=== PATIENT | female | born 1970 | race Caucasian/White ===

== ENCOUNTER → 2020-05-27 02:53 | Outpatient (CLI) | payer MEDICARE, MEDICAID, SELFPAY ==
[2020-05-27 20:35] LABS: SARS-CoV-2 RNA PCR Negative
== END ==
PROVIDERS: Visit Provider Otolaryngology
DX: Z01.812 Encounter for preprocedural laboratory examination (principal); Z20.822 Contact with and (suspected) exposure to COVID-19
CPT/HCPCS: C9803; U0003; U0005

== ENCOUNTER 2020-05-27 08:57 | Outpatient (CLI) | payer MEDICARE, MEDICAID, SELFPAY ==
[2020-05-27 09:25] LABS: Anion Gap 3 mmol/L (8-16); Blood Urea Nitrogen 7 mg/dL (7-17); Calcium 9.1 mg/dL (8.4-10.2); Carbon Dioxide 32 mmol/L (22-30); Chloride 106 mmol/L (98-107); Estimated Glomerular Filt Rate > 60; Glucose 84 mg/dL (65-105); Potassium 3.3 mmol/L (3.4-5.0); Sodium 141 mmol/L (137-145)
== END 2020-05-27 08:58 | disposition home or self-care (01) ==
PROVIDERS: PCP Family Medicine; Visit Provider Anesthesiology
DX: R35.8 Other polyuria (principal); Z01.818 Encounter for other preprocedural examination
CPT/HCPCS: 36415; 80048

== ENCOUNTER 2020-05-30 01:13 | Day surgery (SDC) | payer MEDICARE, MEDICAID, SELFPAY ==
--- NOTE | 2020-05-28 10:01 | PM.IMHP ---
H&P: HPI History of Present Illness Date/Time: 05/28/20 10:01 Chief Complaint: Vocal cord polyps Narrative: Cammie Matthews is a 49 year old female Who presents for planned surgical procedure. Reports no new symptoms, persistent hoarse voice, no changes in her medical history. Review of Systems Constitutional: Constitutional: Denies fatigue, Denies fever(s) and Denies lethargy Eyes: Eyes: Denies blurry vision and Denies change in vision ENT: Reports as per HPI Cardiovascular: Cardiovascular: Denies chest pain Respiratory: Respiratory: Denies cough Endocrine: Endocrine: Denies fatigue Hematologic/Lymphatic: Hematologic/Lymphatic: Denies easy bleeding, Denies easy bruising and Denies lymphadenopathy Allergic/Immunologic: Allergic/Immunologic: Denies seasonal rhinorrhea [facility] Social History Social History (Updated 02/27/20 @ 13:16 by Jayne Guerrero [facility]) Years smoked: 35 Smoking status: Former smoker Tobacco type: cigarettes Second hand tobacco smoke exposure: No Smoking end date: 04/04/20 Alcohol intake: current Substance use: current Substance use type: marijuana Last use: 05/26/20 Gender identity (if verbalized by the patient): Female Spiritual care concerns: No Meds Home Medications and Allergies Home Medications Medication Instructions Recorded Confirmed Type albuterol (refill) 90 90 mcg INHALATION 11/27/19 History mcg/actuation aerosol inhaler bupropion HCl 150 mg 24 hr tablet, 150 mg PO QAM 11/27/19 05/26/20 History extended release buspirone 15 mg tablet 20 mg PO BID tablet 11/27/19 05/26/20 History hydrochlorothiazide 25 mg tablet 25 mg PO DAILY 11/27/19 05/26/20 History montelukast 10 mg tablet 10 mg PO DAILY 11/27/19 05/26/20 History sertraline 100 mg tablet 100 mg PO DAILY 11/27/19 05/26/20 History cholecalciferol (vitamin D3) 10 10 mcg PO DAILY 02/27/20 05/26/20 History mcg (400 unit) capsule dicyclomine 10 mg capsule 10 mg PO QID 02/27/20 05/26/20 History cyclobenzaprine 10 mg tablet 10 mg PO TID 04/28/20 05/26/20 History gabapentin 300 mg capsule 300 mg PO TID 04/28/20 05/26/20 History mirtazapine 7.5 mg tablet 7.5 mg PO DAILY 04/28/20 05/26/20 History ropinirole 0.25 mg tablet 0.25 mg PO BID 04/28/20 05/26/20 History omeprazole 40 mg PO BID 05/26/20 05/26/20 History Allergies Allergy/AdvReac Type Severity Reaction Status Date / Time No Known Allergies Allergy Unknown Verified 04/28/20 13:11 Exam Const: General: cooperative, healthy appearing, comfortable, well developed and alert HENMT: Head: normal to inspection, normocephalic and atraumatic Ears: hearing grossly normal bilaterally, external ears normal, TM's normal bilaterally and EAC's normal General nose exam: Normal external nose present, Normal nares present, No nasal polyps present, Normal nasal mucous membranes and turbinates present and Normal septum present Face and sinus: normal facial exam Mouth: Yes Normal oral and palatal mucosa present, Yes lip normal, Yes tongue normal, Yes oropharynx normal and Yes moist mucous membranes Teeth and gingiva: dentition normal and gingiva normal Throat: posterior oropharynx normal, tonsils normal and uvula midline Other: Hoarse voice Eyes: General: appearance normal, both eyes and all related structures Periorbital: periorbital findings normal Eyelids: eyelids normal Conjunctivae: conjunctivae normal Sclera: sclerae normal Neck: Neck: normal visual inspection, full ROM and no lymphadenopathy Thyroid: thyroid normal Lymphatic: no lymphadenopathy noted Resp: Effort & Inspection: normal respiratory effort and able to speak in complete sentences Cardio: Jugular venous distension: no JVD Neuro: Cranial nerves: Yes CN's II-XII intact bilaterally Assessment and Plan Assessment and plan (1) Vocal cord polyps: Code(s): J38.1 - Polyp of vocal cord and larynx Status: Acute Assessment and Plan: Plan is for the operati
[2020-05-30] VITALS (9 sets, daily range): BP systolic 111–138; BP diastolic 55–89; PULSE 61–79; RESP 11–20; TEMP 36.2–36.5; O2SAT 92–97
--- NOTE | 2020-05-30 07:09 | WPDHPUPDATE1 ---
History and Physical Update Update Date/Time: 05/30/20 07:09 History and Physical has been reviewed, including an updated exam of the patient. There are NO changes in the patient's condition. Risks, benefits, and alternatives have been discussed and questions answered. Patient agrees to proceed with procedure.
[2020-05-30] MEDS: LACTATED RINGERS 1,000 ML 30 ML IV CONT ×2 (09:10→11:33)
--- NOTE | 2020-05-30 10:06 | WPDANESEPPF ---
Anes - Initial Pre Proc Eval Procedure: Operation Date: 05/30/20 10:30 Proposed Procedures p Direct Laryngoscopy, Laryngeal Biopsy - Van Godoy MD Date/Time: 05/30/20 10:06 Surgeon: Van Godoy MD Pre Op Diagnosis: vocal cord polyp Patient Data Age: 49 Gender: F Height: Weight: 100.1 kg Last Vital Signs Temp 97.7 F 05/30/20 08:34 Pulse 79 05/30/20 08:34 Resp 20 05/30/20 08:34 BP 127/89 05/30/20 08:34 Pulse Ox 96 05/30/20 08:34 Allergies Allergy/AdvReac Type Severity Reaction Status Date / Time No Known Allergies Allergy Unknown Verified 05/30/20 08:36 Home Medications Medication Instructions Recorded Confirmed Type albuterol (refill) 90 90 mcg INHALATION Q4-5H PRN 11/27/19 05/30/20 History mcg/actuation aerosol inhaler bupropion HCl 150 mg 24 hr tablet, 150 mg PO QAM 11/27/19 05/30/20 History extended release buspirone 15 mg tablet 20 mg PO BID tablet 11/27/19 05/30/20 History hydrochlorothiazide 25 mg tablet 25 mg PO DAILY 11/27/19 05/30/20 History montelukast 10 mg tablet 10 mg PO DAILY 11/27/19 05/30/20 History sertraline 100 mg tablet 100 mg PO DAILY 11/27/19 05/30/20 History cholecalciferol (vitamin D3) 10 10 mcg PO DAILY 02/27/20 05/30/20 History mcg (400 unit) capsule dicyclomine 10 mg capsule 10 mg PO QID 02/27/20 05/30/20 History cyclobenzaprine 10 mg tablet 10 mg PO TID 04/28/20 05/30/20 History gabapentin 300 mg capsule 300 mg PO TID 04/28/20 05/30/20 History mirtazapine 7.5 mg tablet 7.5 mg PO DAILY 04/28/20 05/30/20 History ropinirole 0.25 mg tablet 0.25 mg PO BID 04/28/20 05/30/20 History omeprazole 40 mg PO BID 05/26/20 05/30/20 History Patient hx anesthesia problems: none Family hx anesthesia problems: none PMFSH Past Medical History Medical History (Updated 05/30/20 @ 10:09 by Tc Nye MD) Anxiety Asthma CAD (coronary artery disease) had negative catherization Hyperlipidemia Hypertension Social History Social History (Updated 02/27/20 @ 13:16 by Jayne Guerrero CMA) Years smoked: 35 Smoking status: Former smoker Tobacco type: cigarettes Second hand tobacco smoke exposure: No Smoking end date: 04/04/20 Alcohol intake: current Substance use: current Substance use type: marijuana Last use: 05/26/20 Living arrangements: with family Gender identity (if verbalized by the patient): Female Sexual Orientation (if Verbalized by the Patient): Straight or Heterosexual Spiritual care concerns: No Anes - Eval Final PreProcedure Day of Procedure 05/30/20 10:06 Patient weight: obese Heart: regular rate and rhythm Lungs: clear to auscultation Airway: Mallampati scale class III Neurological: alert and oriented Last oral intake: >/= 8 hours ASA classification: III Emergent: no Anesthetic plan: proceed Anesthesia type and monitoring: general ETT and standard monitoring Informed Consent: The patient's anesthetic plan and its attendant risks and benefits were discussed with the patient/family/POA. Questions were solicited and answers provided to the satisfaction of the patient/family/POA.
[2020-05-30] MEDS: OXYMETAZOLINE HCL 0.05% NAS 15 ML BTL (*BKC) 1 SPRAY NASAL (10:45)
--- NOTE | 2020-05-30 11:43 | PM.PROC ---
Procedure Note - Detailed Date of procedure: 05/30/20 Pre-op diagnosis: vocal cord polyp Post-op diagnosis: same Procedure performed: 1. Microdirect laryngoscopy 2. Excision of vocal cord polyps Description of procedure: The patient was correctly identified and consent was verified in the preoperative holding area. The patient was then brought to the operating room and a time-out was performed. General anesthesia was induced and endotracheal tube once I smaller than normal was secured the patient's airway and set to the left. The bed was then rotated. The face was then appropriately wrapped with a turban blue towel wrap. Maxillary tooth mouth guard was placed over the maxillary dentition and thick taped into place. A laryngoscope was then utilized to bring the glottis into view. Bilateral vocal cord edema/polyps were noted. The laryngoscope was then suspended. The microscope was brought into the operative field. The vocal cords were again anesthetized with 4% lidocaine. The polyps were grasped and a micro flap incision was created over the superior portion of the vocal cord. The polypoid edema was then suctioned using a laryngeal suction. The micro flap was laid over the vocal cord with resolution of the edema. A similar procedure was performed on the left side. Hemostasis was noted to be excellent and aided with the use of Afrin-soaked pledgets. This marked end of the procedure. I performed all dictated portions. Care the patient was turned over to Anesthesia following removal of the laryngoscope as well as maxillary tooth mouth guard. Anesthesia: GLMA Surgeon: Van Godoy MD Complications: No immediate complications Condition: stable Disposition: PACU
[2020-05-30] MEDS: fentaNYL CITRATE INJ (*CRX) 100 MCG/2 ML VIAL 25 MCG IV PUSH ×4 (12:02→12:47)
== END 2020-05-30 13:45 | disposition home or self-care (01) ==
PROVIDERS: PCP Family Medicine; Visit Provider Otolaryngology
PROC: 0CJS8ZZ Inspection of Larynx, Via Natural or Artificial Opening Endoscopic (ICD-10-PCS; CPT 31541; principal; 2020-05-30 10:30)
DX: J38.1 Polyp of vocal cord and larynx (principal); Z87.891 Personal history of nicotine dependence; F12.90 Cannabis use, unspecified, uncomplicated; Z79.51 Long term (current) use of inhaled steroids; I25.10 Atherosclerotic heart disease of native coronary artery without angina pectoris; J45.909 Unspecified asthma, uncomplicated; F41.9 Anxiety disorder, unspecified; I10 Essential (primary) hypertension; E78.5 Hyperlipidemia, unspecified; E66.9 Obesity, unspecified
CPT/HCPCS: 31541; 36415; 80048; 88305; A9270; C9803; J0330; J2250; J2405; J2704; J3010; J7120; U0003; U0005

== ENCOUNTER 2024-06-26 18:20 | Emergency (ER) | payer OTHER, MEDICARE, MEDICAID, SELFPAY ==
[2024-06-26 18:41] VITALS: BP 147/88; PULSE 78; RESP 20; TEMP 36.7; O2SAT 95
--- OUTSIDE RECORDS SUMMARY | 2024-06-26 19:06 | XMS_ITS | Encounter Summary ---
Author Organization [facility] Address [address] [place] [address] Care Team Providers Care Python Architect Name Role Phone Tammi Santos Primary Care Provider James Mckenzie MD Primary Care Provider [phone] Tammi Santos Primary Care Provider James Mckenzie MD Primary Care Provider [phone] Encounter Details Date Type Department Care Team (Late st Contact Info) Description 09/09/2019 Lab Requisition [facility] [address] [place] [address] Jimmie Aguiar MD Cough Social History Tobacco Use Types Packs/Day Years Used Date Smoking Tobacco: Every Day Cigarettes Alcohol Use Standard Drinks/Week Comments Yes 0 (1 standard drink = 0.6 oz pur e alcohol) AUDIT-C Answer Date Recorded Frequency of Alcohol Consumption Monthly or less 03/16/2019 Average Number of Drinks Not on file 019 Frequency of Binge Drinking Not on file 03/04 Sex and Gender Information Value Date Recorded Sex Assigned at Female 07/19/2023 9:01 PM CDT Gender Identity Female 07/19/2023 9:01 PM CDT Sexual Orientation Straight 07/19/2023 9: 01 PM CDT documented as of this encounter Plan of Treatment Not on file documented as of this encounter Goals Goal Patient Goal Type Associated Problems Recent Progress Patient-Stated? Author Mobility General No Amira Malhotra RN Note: Expected end date: 06/15/2019 The goal is to maintain or improve your mobility at the optimum level for you. Interventions: documented as of this encounter Procedures Procedure Name Priority Date/Time Associated Diagnosis Comments SARS-COV-2 (COVID-19) IN HOUSE Routine 09/09/2019 12:50 PM CDT Cough documented in this encounter Results * SARS-COV-2 (COVID-19) IN HOUSE (09/09/2019 12:50 PM CDT) COVID-19 PCR Not detected Not detected, Invalid 09/10/2019 5:40 PM CDT [facility] Microbiology SPECIMEN FROM NASOPHARYNGEAL STRUCTURE / Unknown Collection / Unknown 09/09/2019 12:50 PM CDT 09/09/2019 9:29 PM CDT Narrative [facility] - 09/10/2019 5:40 PM CDT This Real Time RT-PCR assay was developed and its performance characteristics determined by [facility]. This test has been authorized by the Food and Drug administration (FDA)under an Emergency Use Authorization (EUA). This test has been validated in accordance with the FDA's guidance document Policy for Diagnostic Testing in Laboratories Certified to perform High Complexity Testing under CLIA prior to Emergency Use Authorization for Coronavirus Disease-2019 during the Public Health Emergency issued on June 02, 2019. FDA independent review of this validation is pending. This test is only authorized for the duration of time the declaration that circumstances exist justifying the authorization of emergency use of in vitro diagnostic tests for detection of SARS-CoV-2 virus and/or diagnosis of COVID-19 infection under section 564(b)(1) of the Act, 21 U.S.C 360bbb-3 (b)(1), unless the authorization is terminated or revoked sooner. Jimmie Aguiar MD LAB - MICROBIOLOGY ORDERABLES [facility] [address] [place] [address], [facility] [phone] documented in this encounter Visit Diagnoses Diagnosis Cough documented in this encounter Additional Health Concerns Infection Onset Date Last Indicated Resolved Time COVID-19 Under Investigation 09/09/2019 09/09/2019 09/10/2019 5:40 PM CDT documented as of this encounter Care Teams Python Architect Relationship Specialty Start Date End Date Tammi Santos APRN-CAROL [address] [facility] [address] [place], [place] [id number] PCP - General 09/08/18 09/15/21 James Mckenzie MD [address] [facility] [address] [place], [place] [id number] PCP - General Family Medicine 09/16/21 09/27/21 Tammi Santos APRN-CNP [address] [place] [address] [address] [place], [place] [id number] PCP - General 09/28/21 03/04/22 James Mckenzie MD [address] [place] [id number] PCP - General Family Medicine 03/05/22 documented as of this encounter
--- OUTSIDE RECORDS SUMMARY | 2024-06-26 19:06 | XMS_ITS | Encounter Summary ---
Author Organization [facility] Address [address] [place] [address] Phone Care Team Providers Care Procedure Rn Name Role Phone James Mckenzie MD Primary Care Provider [phone] Hector Brice MD Unavailable Flako Woodson MD Unavailable Yohannes Isaacs MD Unavailable [phone] Aura Read MD Unavailable [phone] Provider, None Primary Care Provider UnavailJavid Maxwell APRN, MARRIAGE AND FAMILY SOCIAL WORKER Primary Care Pr ovider Lexus Carrillo DO Primary Care Provider [phone] Zach Rehman MD Unavailable [phone] Reason for Visit * Reason Comments Medication Refill Encounter Details Date Type Department Care Team (Late st Contact Info) Description 05/22/2022 Refill [facility] - Family Medicine [facility] [address] [place] [id number] James Mckenzie MD [address] [place] [address] Medication Refill Social History Tobacco Use Types Packs/Day Years Used Date Smoking Tobacco: Former Cigarettes 0 10/02/1985 - 04/04/2020 Smokeless Tobacco: Never Comments:Pt used to smoke 1 PPW Alcohol Use Standard Drinks/Week Comments Not Currently 0 (1 standard drink = 0.6 oz pur e alcohol) PHQ-2 Answer Date Recorded Total Score - Questions 1-9 0 02/03 Education Answer Date Recorded What is the highest level of school you have completed or the highest degree you have received? Associate degree: academic program 04/23/2022 Sexually Active Control Partners Comments Yes None Male Comments No Sex and Gender Information Value Date Recorded Sex Assigned at Not on file Legal Sex Female 2:36 PM HEAD SCREEN WORKER Gender Identity Female 12/30/2022 6:13 PM CDT Sexual Orientation Straight 12/30/2022 6: 13 PM CDT Occupation Industry Job Start Date Job End Date Disabled Not on file Not on file Not on file COVID-19 Exposure Response Date Recorded In the last 10 days, have yo u been in contact with someone who was confirmed or suspected to have Coronavirus/COVID-19? No / Unsure 04/23/2022 7:09 AM HEAD SCREEN WORKER documented as of this encounter Miscellaneous Notes * Telephone Encounter - Elaine Mcclendon RN - 05/24/2022 8:07 AM HEAD SCREEN WORKER Medication failed the protocol, provider to review and approve the medication order if appropriate. Requested Prescriptions Pending Prescriptions Disp Refills levothyroxine (SYNTHROID) 100 MCG Tablet [Pharmacy Med Name: LEVOTHYROXINE 100 MCG TABLET] 90 Tablet 3 Sig: TAKE 1 TABLET BY MOUTH EVERY DAY Thyroid Hormones Protocol Failed - 05/22/2022 7:41 AM Failed - Normal TSH in past 12 months TSH Date Value Ref Range Status 09/12/2021 0.130 (L) 0.270 - 4.200 mIU/L Final Passed - No test in the past 12 months or most recent test was negative Passed - Visit with relevant provider in past 12 months or upcoming 90 days Recent Visits Date Type Provider Dept 02/23/22 Office Visit James Mckenzie MD [facility] 02/08/22 Office Visit Princess Sherman, SOCIAL MEDIA JOB [employer]ITLES, [facility] 12/21/21 Office Visit James Mckenzie MD [facility] 11/26/21 Office Visit James Mckenzie MD [facility] 10/19/21 Office Visit James Mckenzie MD [facility] 08/18/21 Office Visit James Mckenzie MD [facility] 06/19/21 Office Visit James Mckenzie MD [facility] Showing recent visits within past 365 days and meeting all other requirements Future Appointments Date Type Provider Dept 05/31/22 Appointment James Mckenzie MD [facility] Showing future appointments within next 90 days and meeting all other requirements Passed - No active on record SCREEN WORKER documented in this encounter Plan of Treatment Upcoming Encounters Date Type Department Care Team (Late st Contact Info) Description 09/17/2024 9:00 AM CDT Office Visit [facility] - Neurology - [place] [address] [place] [address] Yohannes Isaacs MD [address] [place] [address] 09/19/2024 7:00 AM CDT Lab [facility] [address] [facility] [address] [place] [address] [facility] 10/25/2024 8:00 AM CDT Office Visit [facility] Medical [facility] - Family Medicine - [place] [address] [place] [address] Lexus Carrillo, DO 2 [facility] [address] [place] [address] documented as of this encounter Visit Diagnoses Not on filedocumented in this encounter Additional Health Concerns Infection Onset Date Last Indicated Resolved Time COVID - 19 01/16/2024 02/06/2024 01/16/2024 9:58 AM CDT Respiratory Rule-Out 01/16/2024 01/16/2024 024 9:57 AM CDT Assessment Noted Time PHQ-9 Depression Total Score: 0 02/24/20 4:00 PM HEAD SCREEN WORKER documented as of this encounter Care Teams Procedure Rn Relationship Specialty Start Date End Date James Mckenzie MD PCP - General Family Medicine 04/30/19 09/15/23 Provider, None [place] PCP - General 09/16/23 10/04/23 Javid Long, SOCIAL MEDIA JOB TITLES, MARRIAGE AND FAMILY SOCIAL WORKER [address] [address] PCP - General Advanced Practice Nurse 10/05/2301/11 Lexus Carrillo DO [address] [address] PCP - General Family Medicine 01/16/24 Hector Brice MD [address] [place] [phone] Consulting Physician Pulmonary Disease 02/23/22 Flako Woodson MD [address] [address] Consulting Physician Colon and Rectal Surgery 01/07/23 Yohannes Isaacs MD [address] [place] [address] Consulting Physician Neurology 03/08/23 Aura Read MD [address] [place] [address] Consulting Physician Gastroenterology 01/06/23 Zach Rehman MD [address] [place] [address] Consulting Physician Obstetrics & Gynecology 01/27/24 documented as of this encounter
--- OUTSIDE RECORDS SUMMARY | 2024-06-26 19:06 | XMS_ITS | Encounter Summary ---
Author Organization [facility] Address [address] [place] [address] Phone Care Team Providers Care Shipyard Painter Name Role Phone James Mckenzie MD Primary Care Provider Hector Brice MD Unavailable Flako Woodson MD Unavailable Yohannes Isaacs MD Unavailable [phone] Aura Read MD Unavailable [phone] Provider, None Primary Care Provider UnavailJavid Maxwell APRN, STRIPPER PRINTED CIRCUIT BOARDS Primary Care Pr ovider Lexus Carrillo DO Primary Care Provider [phone] Zach Rehman MD Unavailable [phone] Reason for Visit * Reason Comments Medication Refill Encounter Details Date Type Department Care Team (Late st Contact Info) Description 05/27/2022 Refill [facility] - Family Medicine [facility] #2 [place] [phone] James Mckenzie MD #1 [place] [address] Medication Refill Social History Tobacco Use Types [...] on file Legal Sex Female 2:36 PM COMPUTER PROGRAMMING PROFESSOR Gender Identity Female 12/30/2022 6:13 PM CDT Sexual Orientation Straight 12/30/2022 6: 13 PM CDT Occupation Industry Job Start Date Job End Date Disabled Not on file Not on file Not on file documented as of this encounter Miscellaneous Notes * Telephone Encounter - Elaine Mcclendon RN - 05/27/2022 8:38 AM COMPUTER PROGRAMMING PROFESSOR Medication failed the protocol, provider to review and approve the medication order if appropriate. Requested Prescriptions Pending Prescriptions Disp Refills buPROPion (WELLBUTRIN) 150 MG XL tablet [Pharmacy Med Name: BUPROPION HCL XL 150 MG TABLET] 90 Tablet 1 Sig: TAKE 1 TABLET BY MOUTH EVERY DAY IN THE MORNING Bupropion (6 Month Refill Only) Protocol Failed - 05/27/2022 12:05 AM Failed - Patient has established therapy with Bupropion for at least 6 months Passed - No test in the past 12 months or most recent test was negative Passed - No active on record Passed - Visit with relevant provider in past 6 months or upcoming 90 days Recent Visits Date Type Provider Dept 02/23/22 Office Visit James Mckenzie MD [facility] 02/08/22 Office Visit Princess Sherman APRN, [facility] 12/21/21 Office Visit James Mckenzie MD [facility] 11/26/21 Office Visit James Mckenzie MD [facility] Showing recent visits within past 182 days and meeting all other requirements Future Appointments Date Type Provider Dept 05/31/22 Appointment James Mckenzie MD [facility] Showing future appointments within next 90 days and meeting all other requirements Passed - Has an encounter in the past 6 months with a depression or anxiety visit diagnosis sertraline (ZOLOFT) 100 MG Tablet [Pharmacy Med Name: SERTRALINE HCL 100 MG TABLET] 90 Tablet 1 Sig: TAKE 1 TABLET BY MOUTH EVERY DAY SSRI (6 Month Refill Only) Protocol Passed - 05/27/2022 12:05 AM Passed - No test in the past 12 months or most recent test was negative Passed - No active on record Passed - Visit with relevant provider in past 6 months or upcoming 90 days Recent Visits Date Type Provider Dept 02/23/22 Office Visit James Mckenzie MD [facility] 02/08/22 Office Visit Princess Sherman APRN, CAR[facility] 12/21/21 Office Visit James Mckenzie MD [facility] 11/26/21 Office Visit [facility] Showing recent visits within past 182 days and meeting all other requirements Future Appointments Date Type Provider Dept 05/31/22 Appointment James Mckenzie MD [facility] Showing future appointments within next 90 days and meeting all other requirements Passed - Patient has established therapy with SSRI for at least 6 months Passed - Has an encounter in the past 6 months with a depression, anxiety, adjustment disorder, OCD, or PTSD visit diagnosis UTER PROGRAMMING PROFESSOR documented in this encounter Plan of Treatment Upcoming Encounters Date Type Department Care Team (Late st Contact Info) Description 09/17/2024 9:00 AM CDT Office Visit [facility] - Neurology - [place] #2 [place] [address] Yohannes Isaacs MD #2 [facility] [place] [address] 09/19/2024 7:00 AM CDT Lab [facility] #[address] [place] [address] [facility] 10/25/2024 8:00 AM CDT Office Visit [facility] - Family [facility] #2 [place] [address] Lexus Carrillo DO [address] [address] documented as of this encounter Visit Diagnoses Diagnosis Moderate episode of recurrent major depressive disorder (HCC) documented in this encounter Additional Health Concerns Infection Onset Date Last Indicated Resolved Time COVID - 19 01/16/2024 02/06/2024 01/16/2024 9:58 AM CDT Respiratory Rule-Out 01/16/2024 01/16/2024 024 9:57 AM CDT Assessment Noted Time PHQ-9 Depression Total Score: 0 02/24/20 4:00 PM COMPUTER PROGRAMMING PROFESSOR documented as of this encounter Care Teams Shipyard Painter Relationship Specialty Start Date End Date James Mckenzie MD PCP - General Family Medicine 04/30/19 09/15/23 Provider, None [place] PCP - General 09/16/23 10/04/23 Javid Long APRN, STRIPPER PRINTED CIRCUIT BOARDS #[address] [address] PCP - General Advanced Practice Nurse 10/05/2301/11 Lexus Carrillo DO [address] [address] PCP - General Family Medicine 01/16/24 Hector Brice MD #2 [place] [address] Consulting Physician Pulmonary Disease 02/23/22 Flako Woodson MD #[address] [address] Consulting Physician Colon and Rectal Surgery 01/07/23 Yohannes Isaacs MD #2 [place] [address] Consulting Physician Neurology 03/08/23 Aura Read MD #2 [place] [address] Consulting Physician Gastroenterology 01/06/23 Zach Rehman MD #2 [place] [address] Consulting Physician Obstetrics & Gynecology 01/27/24 documented as of this encounter
--- OUTSIDE RECORDS SUMMARY | 2024-06-26 19:06 | XMS_ITS | Encounter Summary ---
Author Organization [facility] Address [address] [place] [address] Phone Care Team Providers Care Theatrical Performer Name Role Phone James Mckenzie MD Primary Care Provider [phone] Hector Brice MD Unavailable Flako Woodson MD Unavailable Yohannes Isaacs MD Unavailable [phone] Aura Read MD Unavailable [phone] Provider, None Primary Care Provider UnavailJavid Maxwell APRN, GRINDER SET UP OPERATOR EXTERNAL Primary Care Pr ovider Lexus Carrillo DO Primary Care Provider [phone] Zach Rehman MD Unavailable [phone] Reason for Visit * Reason Comments Medication Refill Encounter Details Date Type Department Care Team (Late st Contact Info) Description 09/10/2020 Refill [facility] #2 [place] [phone] James Mckenzie MD [address] [place] [address] Medication Refill Social History Tobacco Use Types Packs/Day Years Used Date Smoking Tobacco: Former Cigarettes 1 30 1 05/21/1989 - 03/20/2020 Smokeless Tobacco: Never Alcohol Use Standard Drinks/Week Comments Not Currently 0 (1 standard drink = 0.6 oz pur e alcohol) PHQ-2 Answer Date Recorded Total Score - Questions 1-9 11 03/04 Education Answer Date Recorded What is the highest level of school you have completed or the highest degree you have received? GED or equivalent 01/2021 Sexually Active Control Partners Comments Yes Post-menopausal Comments No Sex and Gender Information Value Date Recorded Sex Assigned at Not on file Legal Sex Female 2:36 PM FLASH WELDING MACHINE OPERATOR Gender Identity Female 12/30/2022 6:13 PM CDT Sexual Orientation Straight 12/30/2022 6: 13 PM CDT Occupation Industry Job Start Date Job End Date Disabled Not on file Not on file Not on file COVID-19 Exposure Response Date Recorded In the last month, have you been in contact with someone who was confirmed or suspected to have Coronavirus / COVID-19? No / Unsure 09/08/2020 10:56 AM CDT documented as of this encounter Miscellaneous Notes * Telephone Encounter - Maria Luisa Mcgraw RN - 09/11/2020 10:08 AM CDT Medication failed the protocol, provider to review and approve the medication order if appropriate. Requested Prescriptions Pending Prescriptions Disp Refills cyanocobalamin (VITAMIN B-12) 1000 MCG/ML Solution [Pharmacy Med Name: CYANOCOBALAMIN 1,000 MCG/ML]6 mL 1 Sig: INJECT 1ML IM EVERY 14 DAYS [facility] Off-Protocol Failed - 09/10/2020 9:39 AM Failed - Medication not assigned to a protocol, review manually. Passed - Valid encounter within last 12 months Past Office Visits Recent Outpatient Visits 2 weeks ago Pneumonia due to infectious organism, unspecified laterality, unspecified part of lung [facility] [place] [facility] 1 month ago Vitamin B 12 deficiency [facility] - James Sandoval MD 3 months ago Acute non-recurrent frontal sinusitis [facility] James Wakefield MD 4 months ago Periorbital edema of both eyes [facility] James Wakefield MD 4 months ago Pap smear of cervix with ASCUS, cannot exclude [facility] - [place] James Mckenzie MD Upcoming Appointments Future Appointments In 1 month Hector Brice MD [facility] - Pulmonology & Sleep Medicine [facility] In 2 months Yohannes Isaacs MD [facility] Neurology [facility] In 2 months James Mckenzie MD [facility] WOODWORKING MACHINIST - Recent and Past Visits Recent Visits Date Type Provider Dept 08/28/20 Office Visit James Mckenzie MD [facility] 07/24/20 Office Visit James Mckenzie MD [facility] 06/02/20 Office Visit James Mckenzie MD [facility] 05/14/20 Telemedicine James Mckenzie MD [facility] 05/09/20 Procedure Visit James Mckenzie MD [facility] 04/23/20 Office Visit James Mckenzie MD [facility] 04/03/20 Office Visit James Mckenzie MD [facility] 03/19/20 Office Visit James Mckenzie MD [facility] 10/23/19 Telemedicine James Mckenzie MD [facility] 07/03/19 Telemedicine James Mckenzie MD [facility] Showing recent visits within past 460 days with a meds authorizing provider and meeting all other requirements Future Appointments Date Type Provider Dept 11/25/20 Appointment James [facility] MD [facility] Showing future appointments within next 90 days with a meds authorizing provider and meeting all other requirements documented in this encounter Plan of Treatment Upcoming Encounters Date Type Department Care Team (Late st Contact Info) Description 09/17/2024 9:00 AM CDT Office Visit [facility] Neurology [facility] #2 [place] [address] Yohannes Isaacs MD #2 [place] [address] 09/19/2024 7:00 AM CDT Lab [facility] [address] [address] [facility] Lab/Anc[facility] 10/25/2024 8:00 AM CDT [facility] [place] #2 [place] [address] Lexus Carrillo DO 2 [facility] [address] [address] [address] documented as of this encounter Visit Diagnoses Diagnosis Vitamin B 12 deficiency Other B-complex deficiencies documented in this encounter Additional Health Concerns Infection Onset Date Last Indicated Resolved Time C. difficile Rule-Out 12/17/2020 12/23/20202020 12:44 PM CDT COVID - 19 01/16/2024 02/06/2024 01/16/2024 9:58 AM CDT Respiratory Rule-Out 01/16/2024 01/16/2024 024 9:57 AM CDT Assessment Noted Time PHQ-9 Depression Total Score: 11 020 10:03 AM FLASH WELDING MACHINE OPERATOR documented as of this encounter Care Teams Theatrical Performer Relationship Specialty Start Date End Date James Mckenzie MD PCP - General Family Medicine 04/30/19 09/15/23 Provider, None [place] PCP - General 09/16/23 10/04/23 Javid Long APRN, GRINDER SET UP OPERATOR EXTERNAL [address] [address] PCP - General Advanced Practice Nurse 10/05/2301/11 Lexus Carrillo DO [address] [facility] [facility] [address] [address] PCP - General Family Medicine 01/16/24 Hector Brice MD #2 [place] [address] Consulting Physician Pulmonary Disease 02/23/22 Flako Woodson MD #[address] [address] Consulting Physician Colon and Rectal Surgery 01/07/23 Yohannes Isaacs MD #2 [place] [address] Consulting Physician Neurology 03/08/23 Aura Read MD #2 [place] [address] Consulting Physician Gastroenterology 01/06/23 Zach Rehman MD #2 [place] [address] Consulting Physician Obstetrics & Gynecology 01/27/24 documented as of this encounter
--- OUTSIDE RECORDS SUMMARY | 2024-06-26 19:06 | XMS_ITS | Encounter Summary ---
Author Organization [facility] Address [address] [place] [address] Phone Care Team Providers Care Solar Designer Name Role Phone James Mckenzie MD Primary Care Provider [phone] Hector Brice MD Unavailable Flako Woodson MD Unavailable Yohannes Isaacs MD Unavailable [phone] Aura Read MD Unavailable [phone] Provider, None Primary Care Provider Unavailabl Javid Zafar APRN, BUSINESS SUPPORT ASSISTANT Primary Care Pr ovider Lexus Carrillo DO Primary Care Provider [phone] Zach Rehman MD Unavailable [phone] Encounter Details Date Type Department Care Team (Late st Contact Info) Description 09/24/2019 Telephone [facility] [address] [place] [address] James Mckenzie MD [address] [place] [address] Social History Tobacco Use Types Packs/Day Years Used Date Smoking Tobacco: Every Day Cigarettes 2 33 Smokeless Tobacco: Never Alcohol Use Standard Drinks/Week Comments Yes 0 (1 standard drink = 0.6 oz pur e alcohol) rarely PHQ-2 Answer Date Recorded PHQ-2 Score 24 04/30/2019 Comments No Sex and Gender Information Value Date Recorded Sex Assigned at Not on file Legal Sex Female 2:36 PM FAMILY DEVELOPMENT EXTENSION SPECIALIST Gender Identity Female 12/30/2022 6:13 PM CDT Sexual Orientation Straight 12/30/2022 6: 13 PM CDT Occupation Industry Job Start Date Job End Date Disabled Not on file Not on file Not on file COVID-19 Exposure Response Date Recorded In the last month, have you been in contact with someone who was confirmed or suspected to have Coronavirus / COVID-19? No / Unsure 09/12/2019 7:09 AM CDT documented as of this encounter Miscellaneous Notes * Telephone Encounter - Wendy Olivera - 09/24/2019 3:56 PM CDT [id number] - EXTERNAL ENT REFERRAL We have been unable to contact patient by phone or mail in regards to referral. Thank you. [facility] documented in this encounter Plan of Treatment Upcoming Encounters Date Type Department Care Team (Late st Contact Info) Description 09/17/2024 9:00 AM CDT [facility] [place] #[address] [place] [address] Yohannes Isaacs MD #[address] [place] [address] 09/19/2024 7:00 AM CDT Lab [facility] #[address] [address] [facility] 10/25/2024 8:00 AM CDT Office Visit [facility] - Family Medicine - [place] #2 [place] [address] Lexus Carrillo, DO 2 [facility] [address] [place] [address] documented as of this encounter Visit Diagnoses Not on filedocumented in this encounter Additional Health Concerns Infection Onset Date Last Indicated Resolved Time COVID - 19 11/15/2019 11/16/2019 11/17/2019 5:21 AM CDT COVID - 19 Confirmed 11/16/2019 11/16/2019 020 12:18 AM CDT C. difficile Rule-Out 12/17/2020 12/23/20202020 12:44 PM CDT COVID - 19 01/16/2024 02/06/2024 01/16/2024 9:58 AM CDT Respiratory Rule-Out 01/16/2024 01/16/2024 024 9:57 AM CDT Assessment Noted Time PHQ-9 Depression Total Score: 020 8:46 AM FAMILY DEVELOPMENT EXTENSION SPECIALIST documented as of this encounter Care Teams Solar Designer Relationship Specialty Start Date End Date James Mckenzie MD PCP - General Family Medicine 04/30/19 09/15/23 Provider, [facility] PCP - General 09/16/23 10/04/23 Javid Long, MARKETING CONTENT MANAGER, BUSINESS SUPPORT ASSISTANT #2 [facility] [address] [place] [address] PCP - General Advanced Practice Nurse 10/05/2301/11 Lexus Carrillo DO 2 [facility] [address] [place] [address] PCP - General Family Medicine 01/16/24 Hector Brice MD #2 [place] [address] Consulting Physician Pulmonary Disease 02/23/22 Flako Woodson MD #[address] [address] Consulting Physician Colon and Rectal Surgery 01/07/23 Yohannes Isaacs MD #2 [place] [address] Consulting Physician Neurology 03/08/23 Aura Read MD #2 [place], [place] [address] Consulting Physician Gastroenterology 01/06/23 Zach Rehman MD #2 [place] [address] Consulting Physician Obstetrics & Gynecology 01/27/24 documented as of this encounter
--- OUTSIDE RECORDS SUMMARY | 2024-06-26 19:06 | XMS_ITS | Encounter Summary ---
Author Organization [facility] Address [address] [place] [address] Phone Care Team Providers Care Brand Executive Name Role Phone James Mckenzie MD Primary Care Provider [phone] Hector Brice MD Unavailable Flako Woodson MD Unavailable Yohannes Isaacs MD Unavailable [phone] Aura Read MD Unavailable [phone] Provider, None Primary Care Provider UnavailJavid Maxwell APRN, OUTSIDE B2B SALES Primary Care Pr ovider Lexus Carrillo DO Primary Care Provider [phone] Zach Rehman MD Unavailable [phone] Reason for Visit * Reason Comments Medication Refill Encounter Details Date Type Department Care Team (Late st Contact Info) Description 06/08/2022 Refill [facility] Family [facility] #2 [place] [address] James Mckenzie MD #1 [place] [address] Medication Refill Social History Tobacco Use Types [...] on file Legal Sex Female 2:36 PM PATTERN HANGER Gender Identity Female 12/30/2022 6:13 PM CDT Sexual Orientation Straight 12/30/2022 6: 13 PM CDT Occupation Industry Job Start Date Job End Date Disabled Not on file Not on file Not on file COVID-19 Exposure Response Date Recorded In the last 10 days, have yo u been in contact with someone who was confirmed or suspected to have Coronavirus/COVID-19? No / Unsure 05/31/2022 1:45 PM PATTERN HANGER documented as of this encounter Miscellaneous Notes * Telephone Encounter - Maria Luisa Mcgraw RN - 06/08/2022 2:59 PM CST Images from the original note were not included. Ergocalciferol Dispensed Days Supply Quantity Provider Pharmacy VITAMIN D2 1.25MG(50,000 UNIT) 04/28/2022 84 12 Each James Mckenzie MD [id number] Potassium Chloride [facility] Dispensed Days Supply Quantity Provider Pharmacy KLOR-CON M20 TABLET 04/16/2022 90 360 Each James Mckenzie MD [id number] ERN HANGER documented in this encounter Plan of Treatment Upcoming Encounters Date Type Department Care Team (Late st Contact Info) Description 09/17/2024 9:00 AM CDT [facility] [place] [address] Yohannes Isaacs MD #[address] [place] [address] 09/19/2024 7:00 AM CDT Lab [facility] #[address] [place] [facility] [address] [facility] Lab/Ancillary 10/25/2024 8:00 AM CDT Office Visit [facility] - Family [facility] #2 [place] [address] Lexus Carrillo DO 2 [facility] [place] [address] documented as of this encounter Visit Diagnoses Diagnosis Vitamin D deficiency Unspecified vitamin D deficiency documented in this encounter Additional Health Concerns Infection Onset Date Last Indicated Resolved Time COVID - 19 01/16/2024 02/06/2024 01/16/2024 9:58 AM CDT Respiratory Rule-Out 01/16/2024 01/16/2024 024 9:57 AM CDT Assessment Noted Time PHQ-9 Depression Total Score: 0 02/24/20 22 4:00 PM PATTERN HANGER documented as of this encounter Care Teams Brand Executive Relationship Specialty Start Date End Date James Mckenzie MD PCP - General Family Medicine 04/30/19 09/15/23 Provider, None [place] PCP - General 09/16/23 10/04/23 Javid Long, GAS SYSTEMS WORKER, OUTSIDE B2B SALES #[facility] [place] [address] PCP - General Advanced Practice Nurse 10/05/2301/11 Lexus Carrillo DO 2 [facility] [address] [address] [address] PCP - General Family Medicine 01/16/24 Hector Brice MD #2 [place] [address] Consulting Physician Pulmonary Disease 02/23/22 Flako Woodson MD #[address] [address] Consulting Physician Colon and Rectal Surgery 01/07/23 Yohannes Isaacs MD #2 [place] [address] Consulting Physician Neurology 03/08/23 Aura Read MD #2 [place] [address] Consulting Physician Gastroenterology 01/06/23 Zach Rehman MD #2 [place] [address] Consulting Physician Obstetrics & Gynecology 01/27/24 documented as of this encounter
--- OUTSIDE RECORDS SUMMARY | 2024-06-26 19:06 | XMS_ITS | Encounter Summary ---
Author Organization [facility] Address [address] [place] [address] Phone Care Team Providers Care Protective Signal Operations Supervisor Name Role Phone James Mckenzie MD Primary Care Provider [phone] Hector Brice MD Unavailable Flako Woodson MD Unavailable Yohannes Isaacs MD Unavailable [phone] Aura Read MD Unavailable [phone] Provider, None Primary Care Provider UnavailJavid Maxwell APRN, MEDICAL SCIENTIFIC LIAISON Primary Care Pr ovider Lexus Carrillo DO Primary Care Provider [phone] Zach Rehman MD Unavailable [phone] Reason for Visit * Reason Comments Medication Refill Encounter Details Date Type Department Care Team (Late st Contact Info) Description 01/08/2020 Refill [facility] Family Medicine [facility] #2 [place] [phone] James Mckenzie MD [address]1 [place] [address] Medication Refill Social History Tobacco Use Types Packs/Day Years Used Date Smoking Tobacco: Every Day Cigarettes 0.5 33 Smokeless Tobacco: Never Comments:1 pack a week-2-3 c igs a day Alcohol Use Standard Drinks/Week Comments Yes 0 (1 standard drink = 0.6 oz pur e alcohol) couple times a month PHQ-2 Answer Date Recorded PHQ-2 Score 24 04/30/2019 Education Answer Date Recorded What is the highest level of school you have completed or the highest degree you have received? Some college, no degree 12/13/2019 Sexually Active Control Partners Comments Yes Comments No Sex and Gender Information Value Date Recorded Sex Assigned at Not on file Legal Sex Female 2:36 PM FIELD ARTILLERY OPERATIONS SPECIALIST Gender Identity Female 12/30/2022 6:13 PM CDT Sexual Orientation Straight 12/30/2022 6: 13 PM CDT Occupation Industry Job Start Date Job End Date Disabled Not on file Not on file Not on file COVID-19 Exposure Response Date Recorded In the last month, have you been in contact with someone who was confirmed or suspected to have Coronavirus / COVID-19? No / Unsure 01/08/2020 12:56 PM CDT documented as of this encounter Miscellaneous Notes * Telephone Encounter - Luz Maria Monique RN - 01/09/2020 1:11 PM CDT Medication failed the protocol, provider to review and approve the medication order. Requested Prescriptions Pending Prescriptions Disp Refills dicyclomine (BENTYL) 20 MG Tablet [Pharmacy Med Name: DICYCLOMINE 20 MG TABLET] 120 Tab 5 Sig: TAKE 1 TAB BY MOUTH EVERY 6 HOURS NEEDED FOR DIARRHEA OR BOWEL CRAMPING. Gastroenterology: Antispasmodic Agents Passed - 01/08/2020 11:31 AM Passed - Valid encounter within last 12 months Past Office Visits Recent Outpatient Visits 2 months ago Other acute sinusitis, recurrence not specified [facility] - Family Medicine - James Sandoval MD 6 months ago Chronic obstructive pulmonary disease with acute exacerbation (HCC) [facility] Medical [facility] Family Medicine - James Sandoval MD 7 months ago Chronic obstructive pulmonary disease with acute exacerbation (HCC) [facility] Family Medicine James Wakefield MD 8 months ago Visit for annual health examination (Adult) [facility] James Wakefield MD Upcoming Appointments WARDROBE ATTENDANT - Recent and Past Visits Recent Visits Date Type Provider Dept 10/23/19 Telemedicine James Mckenzie MD [facility] 07/03/19 Telemedicine James Mckenzie MD [facility] 06/12/19 Office Visit James Mckenzie MD [facility] 04/30/19 Office Visit James Mckenzie MD [facility] [address] [place] Showing recent visits within past 460 days with a meds authorizing provider and meeting all other requirements Future Appointments No visits were found meeting these conditions. Showing future appointments within next 90 days with a meds authorizing provider and meeting all other requirements documented in this encounter Plan of Treatment Upcoming Encounters Date Type Department Care Team (Late st Contact Info) Description 09/17/2024 9:00 AM CDT Office Visit [facility] - Neurology - [place] [address] [place] [address] Yohannes Isaacs MD #2 [facility] [address] 09/19/2024 7:00 AM CDT Lab [facility] #2 [facility] [address] [place] [address] [facility] 10/25/2024 8:00 AM CDT Office Visit [facility] Medical [facility] - Family Medicine - [place] #2 [facility] [place] [address] Lexus Carrillo, DO 2 [facility] [address] [place] [address] documented as of this encounter Visit Diagnoses Diagnosis Diarrhea, unspecified type documented in this encounter Additional Health Concerns Infection Onset Date Last Indicated Resolved Time C. difficile Rule-Out 12/17/2020 12/23/20202020 12:44 PM CDT COVID - 19 01/16/2024 02/06/2024 01/16/2024 9:58 AM CDT Respiratory Rule-Out 01/16/2024 01/16/2024 024 9:57 AM CDT Assessment Noted Time PHQ-9 Depression Total Score: 24 020 8:46 AM FIELD ARTILLERY OPERATIONS SPECIALIST documented as of this encounter Care Teams Protective Signal Operations Supervisor Relationship Specialty Start Date End Date James Mckenzie MD PCP - General Family Medicine 04/30/19 09/15/23 Provider, None [place] PCP - General 09/16/23 10/04/23 Javid Long, CRATING AND MOVING ESTIMATOR, MEDICAL SCIENTIFIC LIAISON #[address] [address] PCP - General Advanced Practice Nurse 10/05/2301/11 Lexus Carrillo DO [address] [address] PCP - General Family Medicine 01/16/24 Hector Brice MD #2 [place] [address] Consulting Physician Pulmonary Disease 02/23/22 Flako Woodson MD #[address] [address] Consulting Physician Colon and Rectal Surgery 01/07/23 Yohannes Isaacs MD #2 [place] [address] Consulting Physician Neurology 03/08/23 Aura Read MD #2 [place] [address] Consulting Physician Gastroenterology 01/06/23 Zach Rehman MD #2 [place] [address] Consulting Physician Obstetrics & Gynecology 01/27/24 documented as of this encounter
--- OUTSIDE RECORDS SUMMARY | 2024-06-26 19:06 | XMS_ITS | Encounter Summary ---
Author Organization [facility] Address [address] [place] [address] Phone Care Team Providers Care Senior Animal Trainer Name Role Phone James Mckenzie MD Primary Care Provider [phone] Hector Brice MD Unavailable Flako Woodson MD Unavailable Yohannes Isaacs MD Unavailable [phone] Aura Read MD Unavailable [phone] Provider, None Primary Care Provider UnavailJavid Maxwell APRN, BULB ASSEMBLER Primary Care Pr ovider Lexus Carrillo DO Primary Care Provider [phone] Zach Rehman MD Unavailable [phone] Reason for Visit * Reason Comments Medication Refill Encounter Details Date Type Department Care Team (Late st Contact Info) Description 10/11/2020 Refill [facility] #2 [place] [address] James Mckenzie MD #[address] [place] [address] Medication Refill Social History Tobacco Use Types Packs/Day Years Used Date Smoking Tobacco: Some Days Cigarettes Started: 03/20/1990; Last attempted to quit: 03/20/2020 Smokeless Tobacco: Never Comments:Pt used to smoke 1 PPW Alcohol Use Standard Drinks/Week Comments Yes 0 (1 standard drink = 0.6 oz pur e alcohol) Rarely PHQ-2 Answer Date Recorded Total Score - Questions 1-9 11 03/04 Education Answer Date Recorded What is the highest level of school you have completed or the highest degree you have received? GED or equivalent 01/2021 Sexually Active Control Partners Comments Yes Post-menopausal Male Comments No Sex and Gender Information Value Date Recorded Sex Assigned at Not on file Legal Sex Female 2:36 PM PACKER SAUSAGE AND WIENER Gender Identity Female 12/30/2022 6:13 PM CDT Sexual Orientation Straight 12/30/2022 6: 13 PM CDT Occupation Industry Job Start Date Job End Date Disabled Not on file Not on file Not on file COVID-19 Exposure Response Date Recorded In the last month, have you been in contact with someone who was confirmed or suspected to have Coronavirus / COVID-19? No / Unsure 10/14/2020 10:15 AM CDT documented as of this encounter Miscellaneous Notes * Telephone Encounter - Maria Luisa Mcgraw RN - 10/13/2020 9:43 AM CDT Medication failed the protocol, provider to review and approve the medication order if appropriate. Requested Prescriptions Pending Prescriptions Disp Refills hydroCHLOROthiazide 25 MG Tablet [Pharmacy Med Name: HYDROCHLOROTHIAZIDE 25 MG TAB] 90 Tablet 1 Sig: TAKE 1 TABLET BY MOUTH EVERY DAY IN THE MORNING Diuretics Protocol Failed - 10/11/2020 9:24 AM Failed - Serum potassium on record in past 12 months POTASSIUM Date Value Ref Range Status 10/04/2020 2.9 (L) 3.5 - 5.1 mmol/L Final Passed - Serum sodium on record in past 12 months SODIUM Date Value Ref Range Status 10/04/2020 139 136 - 144 mmol/L Final Passed - Blood pressure on record in past 12 months Clinician-entered: BP Readings from Last 3 Encounters: 10/07/20 118/62 10/04/20 130/80 09/30/20 106/76 Patient-entered: No data recorded Passed - Visit with relevant provider in past 12 months or upcoming 90 days Recent Visits Date Type Provider Dept 09/30/20 Office Visit Sena Kelly, [facility] [place] 08/28/20 Office Visit James Mckenzie, [facility] 07/24/20 Office Visit James Mckenzie, [facility] 06/02/20 Office Visit James Mckenzie, [facility] 05/14/20 Telemedicine James Mckenzie MD [facility] 05/09/20 Procedure Visit James Mckenzie, [facility] 04/23/20 Office Visit James Mckenzie, [facility] 04/03/20 Office Visit James Mckenzie, [facility] 03/19/20 Office Visit James Mckenzie, [facility] 10/23/19 Telemedicine James Mckenzie, MD [facility] Showing recent visits within past 365 days and meeting all other requirements Future Appointments Date Type Provider Dept 10/17/20 Appointment James Mckenzie MD [facility] 11/25/20 Appointment James Mckenzie, MD [facility] Showing future appointments within next 90 days and meeting all other requirements Passed - GFR on record in past 12 months GFR, EST. NONAFRICAN Date Value Ref Range Status 10/04/2020 >60 >=60 Final SYRINGE-NEEDLE, DISP, 3 ML (B-D 3CC LUER-GREGORIO SYR 25GX5/8 ) 25G X 5/8 3 ML Misc [Pharmacy Med Name:BD LUER-GREGORIO SYR 3 ML 25GX5/8 ] 6 Each 1 Sig: TO USE TO GIVE B12 SHOTS AT HOME. There is no refill protocol information for this order documented in this encounter Plan of Treatment Upcoming Encounters Date Type Department Care Team (Late st Contact Info) Description 09/17/2024 9:00 AM CDT Office Visit [facility] - Neurology - [place] #[address] [place] [address] Yohannes Isaacs MD #2 [place] [address] 09/19/2024 7:00 AM CDT Lab [facility] #[address] [facility] [place] [address] [place] Lab/Ancillary 10/25/2024 8:00 AM CDT Office Visit [facility] - Family [facility] [place] #2 [place] [address] Lexus Carrillo DO 2 Fabrice DURAN [facility] [place] [address] documented as of this encounter Visit Diagnoses Diagnosis Essential hypertension Unspecified essential hypertension Vitamin B 12 deficiency Other B-complex deficiencies documented in this encounter Additional Health Concerns Infection Onset Date Last Indicated Resolved Time C. difficile Rule-Out 12/17/2020 12/23/20202020 12:44 PM CDT COVID - 19 01/16/2024 02/06/2024 01/16/2024 9:58 AM CDT Respiratory Rule-Out 01/16/2024 01/16/2024 024 9:57 AM CDT Assessment Noted Time PHQ-9 Depression Total Score: 11 020 10:03 AM PACKER SAUSAGE AND WIENER documented as of this encounter Care Teams Senior Animal Trainer Relationship Specialty Start Date End Date James Mckenzie MD PCP - General Family Medicine 04/30/19 09/15/23 Provider, None [place] PCP - General 09/16/23 10/04/23 Javid Long, MEDICAL MALPRACTICE PARALEGAL, BULB ASSEMBLER [address] [address] PCP - General Advanced Practice Nurse 10/05/2301/11 Lexus Carrillo DO [address] [address] PCP - General Family Medicine 01/16/24 Hector Brice MD #2 [place] [address] Consulting Physician Pulmonary Disease 02/23/22 Flako Woodson MD #[address] [address] Consulting Physician Colon and Rectal Surgery 01/07/23 Yohannes Isaacs MD #2 [place] [address] Consulting Physician Neurology 03/08/23 Aura Read MD #2 [place] [address] Consulting Physician Gastroenterology 01/06/23 Zach Rehman MD #2 [place] [address] Consulting Physician Obstetrics & Gynecology 01/27/24 documented as of this encounter
--- OUTSIDE RECORDS SUMMARY | 2024-06-26 19:06 | XMS_ITS | Encounter Summary ---
Author Organization [facility] Address [address] [place] [address] Phone Care Team Providers Care Tech Ed/Woodshop Teacher Name Role Phone James Mckenzie MD Primary Care Provider [phone] Hector Brice MD Unavailable Flako Woodson MD Unavailable Yohannes Isaacs MD Unavailable [phone] Aura Read MD Unavailable [phone] Provider, None Primary Care Provider Unavailabl Javid Zafar APRN, ATTORNEY AT LAW Primary Care Pr ovider Lexus Carrillo DO Primary Care Provider [phone] Zach Rehman MD Unavailable [phone] Reason for Visit * Reason Comments Medication Refill Encounter Details Date Type Department Care Team (Late st Contact Info) Description 10/29/2020 [facility] [place] [address] [place] [address] Amira Lozano APRN, ATTORNEY AT LAW #2 [place] [address] Medication Refill Social History Tobacco Use Types Packs/Day Years Used Date Smoking Tobacco: Former Cigarettes 1 05/21/1989 - 03/20/2020 Smokeless Tobacco: Never Comments:Pt used to [...] on file Legal Sex Female 2:36 PM SPRAY GUN OPERATOR Gender Identity Female 12/30/2022 6:13 PM [...] AM CDT documented as of this encounter Plan of Treatment Upcoming Encounters Date Type Department Care Team (Late st Contact Info) Description 09/17/2024 9:00 AM CDT [facility] - [place] #2 [place] [address] Yohannes Isaacs MD #2 [place] [address] 09/19/2024 7:00 AM CDT Lab [facility] #[address] [address] [facility] 10/25/2024 8:00 AM CDT Office Visit [facility] - Family Medicine [facility] #2 [place] [address] Lexus Carrillo, DO 2 [facility] [address] [place] [address] documented as of this encounter Visit Diagnoses Diagnosis Chronic GERD documented in this encounter Additional Health Concerns Infection Onset Date Last Indicated Resolved Time C. difficile Rule-Out 12/17/2020 12/23/20202020 12:44 PM CDT COVID - 19 01/16/2024 02/06/2024 01/16/2024 9:58 AM CDT Respiratory Rule-Out 01/16/2024 01/16/2024 024 9:57 AM CDT Assessment Noted Time PHQ-9 Depression Total Score: 11 020 10:03 AM SPRAY GUN OPERATOR documented as of this encounter Care Teams Tech Ed/Woodshop Teacher Relationship Specialty Start Date End Date James Mckenzie MD PCP - General Family Medicine 04/30/19 09/15/23 Provider, [facility] PCP - General 09/16/23 10/04/23 Javid Long, PLACER MINER, ATTORNEY AT LAW #[address] [address] PCP - General Advanced Practice Nurse 10/05/2301/11 Lexus Carrillo DO [address] [address] PCP - General Family Medicine 01/16/24 Hector Brice MD #2 [place] [address] Consulting Physician Pulmonary Disease 02/23/22 Flako Woodson MD #[address] [address] Consulting Physician Colon and Rectal Surgery 01/07/23 Yohannes Isaacs MD #2 [place] [address] Consulting Physician Neurology 03/08/23 Aura Read MD #2 [place] [address] Consulting Physician Gastroenterology 01/06/23 Zach Rehman MD #2 [place] [address] Consulting Physician Obstetrics & Gynecology 01/27/24 documented as of this encounter
--- OUTSIDE RECORDS SUMMARY | 2024-06-26 19:07 | XMS_ITS | Encounter Summary ---
Author Organization [facility] Address [address] [place] [address] Phone Care Team Providers Care Janitor Head Name Role Phone James Mckenzie MD Primary Care Provider [phone] Hector Brice MD Unavailable Flako Woodson MD Unavailable Yohannes Isaacs MD Unavailable [phone] Aura Read MD Unavailable [phone] Provider, None Primary Care Provider Unavailabl Javid Zafar APRN, PUTTY PATCHER Primary Care Pr ovider Lexus Carrillo DO Primary Care Provider [phone] Zach Rehman MD Unavailable [phone] Reason for Visit * Reason Comments Medication Refill Encounter Details Date Type Department Care Team (Late st Contact Info) Description 07/09/2019 Refill [facility] PULMONOLOGY #1 [place] [address] Hector Brice MD #[address] [place] [address] Medication Refill Social History Tobacco Use Types Packs/Day Years Used Date Smoking Tobacco: Every Day Cigarettes 0.5 33 Smokeless Tobacco: Never Alcohol Use Standard Drinks/Week Comments Yes 0 (1 standard drink = 0.6 oz pur e alcohol) rarely PHQ-2 Answer Date Recorded PHQ-2 Score 24 04/30/2019 Comments No Sex and Gender Information Value Date Recorded Sex Assigned at Not on file Legal Sex Female 2:36 PM STADIUM ATTENDANT Gender Identity Female 12/30/2022 6:13 PM CDT Sexual Orientation Straight 12/30/2022 6: 13 PM CDT Occupation Industry Job Start Date Job End Date Disabled Not on file Not on file Not on file documented as of this encounter Plan of Treatment Upcoming Encounters Date Type Department Care Team (Late st Contact Info) Description 09/17/2024 9:00 AM CDT [facility] - [place] #2 [place] [address] Yohannes Isaacs MD #2 [place] [address] 09/19/2024 7:00 AM CDT Lab [facility] #2 [facility] [address] [place] [address] [facility] 10/25/2024 8:00 AM CDT Office [facility] - Family Medicine - [place] #[address] [place] [address] Lexus Carrillo, DO 2 [facility] [address] [place] [address] documented as of this encounter Visit Diagnoses Not on filedocumented in this encounter Additional Health Concerns Infection Onset Date Last Indicated Resolved Time COVID - 19 11/15/2019 11/16/2019 11/17/2019 5:21 AM CDT COVID - 19 Confirmed 11/16/2019 11/16/2019 020 12:18 AM CDT C. difficile Rule-Out 12/17/2020 12/23/20202020 12:44 PM CDT COVID - 19 01/16/2024 02/06/202401/16/2024 9:58 AM CDT Respiratory Rule-Out 01/16/2024 01/16/2024 024 9:57 AM CDT Assessment Noted Time PHQ-9 Depression Total Score: 24 020 8:46 AM STADIUM ATTENDANT documented as of this encounter Care Teams Janitor Head Relationship Specialty Start Date End Date James Mckenzie MD PCP - General Family Medicine 04/30/19 09/15/23 Provider, None [place] PCP - General 09/16/23 10/04/23 Javid Long, BELT TURNER, PUTTY PATCHER #[address] [address] PCP - General Advanced Practice Nurse 10/05/2301/11 Lexus Carrillo DO [address] [address] PCP - General Family Medicine 01/16/24 Hector Brice MD #2 [place] [address] Consulting Physician Pulmonary Disease 02/23/22 Flako Woodson MD #[address] [address] Consulting Physician Colon and Rectal Surgery 01/07/23 Yohannes Isaacs MD #2 [place] [address] Consulting Physician Neurology 03/08/23 Aura Read MD #2 [place] [address] Consulting Physician Gastroenterology 01/06/23 Zach Rehman MD #2 [place] [address] Consulting Physician Obstetrics & Gynecology 01/27/24 documented as of this encounter
--- OUTSIDE RECORDS SUMMARY | 2024-06-26 19:07 | XMS_ITS | Encounter Summary ---
Author Organization [facility] Address [address] [place] [address] Phone Care Team Providers Care Forensic Engineer Name Role Phone James Mckenzie MD Primary Care Provider Hector Brice MD Unavailable Flako Woodson MD Unavailable Yohannes Isaacs MD Unavailable [phone] Aura Read MD Unavailable [phone] Provider, None Primary Care Provider UnavailJavid Maxwell APRN, RECEIPT AND REPORT CLERK Primary Care Pr ovider Lexus Carrillo DO Primary Care Provider [phone] Zach Rehman MD Unavailable [phone] Reason for Visit * Reason Comments Medication Refill Encounter Details Date Type Department Care Team (Late st Contact Info) Description 11/14/2021 [facility]ill [facility] #2 [place] [id number] James Mckenzie MD #[address] [place] [address] Medication Refill Social History Tobacco Use Types Packs/Day Years Used Date Smoking Tobacco: Former Cigarettes 1 05/21/1989 - 03/20/2020 Smokeless Tobacco: Never Comments:Pt used to smoke 1 PPW Alcohol Use Standard Drinks/Week Comments Not Currently 0 (1 standard drink = 0.6 oz pur e alcohol) PHQ-2 Answer Date Recorded Total Score - Questions 1-9 0 03/05 Education Answer Date Recorded What is the highest level of school you have completed or the highest degree you have received? Some college, no degree 06/19/2021 Sexually Active Control Partners Comments Yes Post-menopausal Male Comments No Sex and Gender Information Value Date Recorded Sex Assigned at Not on file Legal Sex Female 2:36 PM SHAKE CUTTER Gender Identity Female 12/30/2022 6:13 PM CDT Sexual Orientation Straight 12/30/2022 6: 13 PM CDT Occupation Industry Job Start Date Job End Date Disabled Not on file Not on file Not on file COVID-19 Exposure Response Date Recorded In the last 10 days, have yo u been in contact with someone who was confirmed or suspected to have Coronavirus/COVID-19? No / Unsure 10/19/2021 10:32 AM CDT documented as of this encounter Miscellaneous Notes * Telephone Encounter - Maria Luisa Mcgraw RN - 11/16/2021 10:19 AM CDT Medication failed the protocol, provider to review and approve the medication order if appropriate. Requested Prescriptions Pending Prescriptions Disp Refills cyclobenzaprine (FLEXERIL) 10 MG Tablet [Pharmacy Med Name: CYCLOBENZAPRINE 10 MG TABLET] 60 Tablet2 Sig: TAKE 1 TABLET BY MOUTH THREE TIMES A DAY NEEDED FOR MUSCLE SPASMS Not Delegated - Muscle Relaxants Protocol Failed - 11/14/2021 11:32 AM Failed - This refill cannot be delegated Passed - Visit with relevant provider in past 12 months or upcoming 90 days Recent Visits Date Type Provider Dept 10/19/21 Office Visit James Mckenzie MD [facility] 08/18/21 Office Visit James Mckenzie MD [facility] 06/19/21 Office Visit James Mckenzie MD [facility] 03/30/21 Office Visit James Mckenzie MD [facility] 03/03/21 Office Visit Jory Jefferson APRN, RECEIPT AND REPORT CLERK [facility] [place] 11/25/20 Office Visit James Mckenzie MD [facility] [place] Showing recent visits within past 365 days and meeting all other requirements Future Appointments Date Type Provider Dept 12/21/21 Appointment James Mckenzie MD [facility] [place] Showing future appointments within next 90 days and meeting all other requirements documented in this encounter Plan of Treatment Upcoming Encounters Date Type Department Care Team (Late st Contact Info) Description 09/17/2024 9:00 AM CDT Office Visit [facility] - Neurology - [place] #2 [place] [address] Yohannes Isaacs MD #2 [place] [address] 09/19/2024 7:00 AM CDT Lab [facility] #2 [facility] [address] [place] [address] [facility] Lab/Ancillary 10/25/2024 8:00 AM CDT Office Visit [facility] Medical [facility] - Family Medicine - [place] #2 [place] [address] Lexus Carrillo, DO 2 [facility]. [address] [place] [address] documented as of this encounter Visit Diagnoses Diagnosis Fibromyalgia Mylagia and myositis, unspecified documented in this encounter Additional Health Concerns Infection Onset Date Last Indicated Resolved Time COVID - 19 01/16/2024 02/06/2024 01/16/2024 9:58 AM CDT Respiratory Rule-Out 01/16/2024 01/16/2024 024 9:57 AM CDT Assessment Noted Time PHQ-9 Depression Total Score: 0 03/30/20 9:00 AM SHAKE CUTTER documented as of this encounter Care Teams Forensic Engineer Relationship Specialty Start Date End Date James Mckenzie MD PCP - General Family Medicine 04/30/19 09/15/23 Provider, None [place] PCP - General 09/16/23 10/04/23 Javid Long APRN, RECEIPT AND REPORT CLERK #[address] [address] PCP - General Advanced Practice Nurse 10/05/2301/11 Lexus Carrillo DO [address] [address] PCP - General Family Medicine 01/16/24 Hector Brice MD [address] [place] [address] Consulting Physician Pulmonary Disease 02/23/22 Flako Woodson MD #[address] [address] Consulting Physician Colon and Rectal Surgery 01/07/23 Yohannes Isaacs MD #[address] [place] [address] Consulting Physician Neurology 03/08/23 Aura Read MD #[address] [place] [address] Consulting Physician Gastroenterology 01/06/23 Zach Rehman MD #[address] [place] [address] Consulting Physician Obstetrics & Gynecology 01/27/24 documented as of this encounter
--- OUTSIDE RECORDS SUMMARY | 2024-06-26 19:07 | XMS_ITS | Encounter Summary ---
Author Organization [facility] Address [address] [place] [address] Phone Care Team Providers Care Laboratory Cureman Name Role Phone James Mckenzie MD Primary Care Provider [phone] Hector Brice MD Unavailable Flako Woodson MD Unavailable Yohannes Isaacs MD Unavailable [phone] Aura Read MD Unavailable [phone] Provider, None Primary Care Provider Unavailabl Javid Zafar APRN, MERCHANDISE DISTRIBUTOR Primary Care Pr ovider Lexus Carrillo DO Primary Care Provider [phone] Zach Rehman MD Unavailable [phone] Reason for Visit * Reason Comments Medication Refill Encounter Details Date Type Department Care Team (Late st Contact Info) Description 02/16/2020 Refill [facility] #1 [place] [address] Hector Brice MD #2 [place] [address] Medication Refill Social History Tobacco [...] on file Legal Sex Female 2:36 PM HAND ASSEMBLER Gender Identity Female 12/30/2022 6:13 PM CDT Sexual Orientation Straight 12/30/2022 6: 13 PM CDT Occupation Industry Job Start Date Job End Date Disabled Not on file Not on file Not on file COVID-19 Exposure Response Date Recorded In the last month, have you been in contact with someone who was confirmed or suspected to have Coronavirus / COVID-19? No / Unsure 02/07/2020 11:33 AM HAND ASSEMBLER documented as of this encounter Plan of Treatment Upcoming Encounters Date Type Department Care Team (Late st Contact Info) Description 09/17/2024 9:00 AM CDT [facility] [place] #2 [place] [address] Yohannes Isaacs MD #2 [place] [address] 09/19/2024 7:00 AM CDT Lab [facility] #[address] [address] [facility] Lab/Ancillary 10/25/2024 8:00 AM CDT Office Visit [facility] Group - Family Medicine - [place] #2 [place] [address] Lexus Carrillo, DO [address] [address] documented as of this encounter Visit Diagnoses Not on filedocumented in this encounter Additional Health Concerns Infection Onset Date Last Indicated Resolved Time C. difficile Rule-Out 12/17/2020 12/23/20202020 12:44 PM CDT COVID - 19 01/16/2024 02/06/2024 01/16/2024 9:58 AM CDT Respiratory Rule-Out 01/16/2024 01/16/2024 024 9:57 AM CDT Assessment Noted Time PHQ-9 Depression Total Score: 24 020 8:46 AM HAND ASSEMBLER documented as of this encounter Care Teams Laboratory Cureman Relationship Specialty Start Date End Date James Mckenzie MD PCP - General Family Medicine 04/30/19 09/15/23 Provider, [facility] PCP - General 09/16/23 10/04/23 Javid Long, SENIOR IT ARCHITECT, MERCHANDISE DISTRIBUTOR #[address] [address] PCP - General Advanced Practice Nurse 10/05/2301/11 Lexus Carrillo DO [address] [address] PCP - General Family Medicine 01/16/24 Hector Brice MD #2 [place] [address] Consulting Physician Pulmonary Disease 02/23/22 Flako Woodson MD #[address] [address] Consulting Physician Colon and Rectal Surgery 01/07/23 Yohannes Isaacs MD #2 [place] [address] Consulting Physician Neurology 03/08/23 Aura Read MD #2 [place] [address] Consulting Physician Gastroenterology 01/06/23 Zach Rehman MD #2 [place] [address] Consulting Physician Obstetrics & Gynecology 01/27/24 documented as of this encounter
--- OUTSIDE RECORDS SUMMARY | 2024-06-26 19:07 | XMS_ITS | Encounter Summary ---
Author Organization [facility] Address [address] [place] [address] Phone Care Team Providers Care Procurement Consultant Name Role Phone James Mckenzie MD Primary Care Provider [phone] Hector Brice MD Unavailable Flako Woodson MD Unavailable Yohannes Isaacs MD Unavailable [phone] Aura Read MD Unavailable [phone] Provider, None Primary Care Provider UnavailJavid Maxwell APRN, KEYSEATER OPERATOR Primary Care Pr ovider Lexus Carrillo DO Primary Care Provider [phone] Zach Rehman MD Unavailable [phone] Reason for Visit * Reason Comments Medication Refill Encounter Details Date Type Department Care Team (Late st Contact Info) Description 12/07/2022 Refill [facility] #2 [place] [phone] James Mckenzie MD #1 [place] [address] Medication Refill Social History Tobacco Use Types [...] on file Legal Sex Female 2:36 PM APPLICATION PROJECT LEADER Gender Identity Female 12/30/2022 6:13 PM CDT Sexual Orientation Straight 12/30/2022 6: 13 PM CDT Occupation Industry Job Start Date Job End Date Disabled Not on file Not on file Not on file COVID-19 Exposure Response Date Recorded In the last 10 days, have yo u been in contact with someone who was confirmed or suspected to have Coronavirus/COVID-19? No / Unsure 11/29/2022 7:30 AM CDT documented as of this encounter Miscellaneous Notes * Telephone Encounter - Maria Luisa Mcgraw RN - 12/07/2022 3:44 PM CDT Images from the original note were not included. hydroCHLOROthiazide Dispensed Days Supply Quantity Provider Pharmacy HYDROCHLOROTHIAZIDE 12.5 MG CP 11/27/2022 90 90 Each James Mckenzie MD [id number] [place] HYDROCHLOROTHIAZIDE 25 MG TAB 10/30/2022 90 90 Each James Mckenzie MD [id number] [place]... HYDROCHLOROTHIAZIDE 12.5 MG CP 08/27/2022 90 90 Each James Mckenzie MD [id number]... Potassium Chloride [facility] Dispensed Days Supply Quantity Provider Pharmacy KLOR-CON M20 TABLET 11/07/2022 90 360 Each James Mckenzie MD [id number]... documented in this encounter Plan of Treatment Upcoming Encounters Date Type Department Care Team (Late st Contact Info) Description 09/17/2024 9:00 AM CDT [facility] - [place] #2 [place] [address] Yohannes Isaacs MD #2 [place] [address] 09/19/2024 7:00 AM CDT Lab [facility] #[address] [address] [facility] 10/25/2024 8:00 AM CDT Office Visit [facility] - Family Medicine - [place] #2 [place] [address] Lexus Carrillo, DO [address] [address] documented as of this encounter Visit Diagnoses Diagnosis Hypotension due to drugs Other iatrogenic hypotension documented in this encounter Additional Health Concerns Infection Onset Date Last Indicated Resolved Time COVID - 19 01/16/2024 02/06/2024 01/16/2024 9:58 AM CDT Respiratory Rule-Out 01/16/2024 01/16/2024 024 9:57 AM CDT Assessment Noted Time PHQ-9 Depression Total Score: 0 02/24/20 22 4:00 PM APPLICATION PROJECT LEADER documented as of this encounter Care Teams Procurement Consultant Relationship Specialty Start Date End Date James Mckenzie MD PCP - General Family Medicine 04/30/19 09/15/23 Provider, None [place] PCP - General 09/16/23 10/04/23 Javid Long APRN, KEYSEATER OPERATOR #[address] [address] PCP - General Advanced Practice Nurse 10/05/2301/11 Lexus Carrillo DO 2 [facility] [address] [address] PCP - General Family Medicine 01/16/24 Hector Brice MD #2 [place] [address] Consulting Physician Pulmonary Disease 02/23/22 Flako Woodson MD #[address] [address] Consulting Physician Colon and Rectal Surgery 01/07/23 Yohannes Isaacs MD #2 [place] [address] Consulting Physician Neurology 03/08/23 Aura Read MD #2 [place] [address] Consulting Physician Gastroenterology 01/06/23 Zach Rehman MD #2 [place] [address] Consulting Physician Obstetrics & Gynecology 01/27/24 documented as of this encounter
--- OUTSIDE RECORDS SUMMARY | 2024-06-26 19:07 | XMS_ITS | Encounter Summary ---
Author Organization [facility] Address [address] [place] [address] Phone Care Team Providers Care Fireman Helper Name Role Phone James Mckenzie MD Primary Care Provider [phone] Hector Brice MD Unavailable Flako Woodson MD Unavailable Yohannes Isaacs MD Unavailable [phone] Aura Read MD Unavailable [phone] Provider, None Primary Care Provider UnavailJavid Maxwell APRN, JUDGE Primary Care Pr ovider Lexus Carrillo DO Primary Care Provider [phone] Zach Rehman MD Unavailable [phone] Reason for Visit * Reason Comments Medication Refill Encounter Details Date Type Department Care Team (Late st Contact Info) Description 03/01/2022 Refill [facility] #2 [place] [phone] James Mckenzie MD #1 [place] [address] Medication Refill Social History Tobacco Use Types [...] 06/19/2021 Sexually Active Control Partners Comments Yes None Male Comments No Sex and Gender Information Value Date Recorded Sex Assigned at Not on file Legal Sex Female 2:36 PM TEST GRADER Gender Identity Female 12/30/2022 6:13 PM CDT Sexual Orientation Straight 12/30/2022 6: 13 PM CDT Occupation Industry Job Start Date Job End Date Disabled Not on file Not on file Not on file COVID-19 Exposure Response Date Recorded In the last 10 days, have yo u been in contact with someone who was confirmed or suspected to have Coronavirus/COVID-19? No / Unsure 02/23/2022 3:44 PM TEST GRADER documented as of this encounter Miscellaneous Notes * Telephone Encounter - Maria Luisa Mcgraw RN - 03/01/2022 4:46 PM CST Medication failed the protocol, provider to review and approve the medication order if appropriate. Requested Prescriptions Pending Prescriptions Disp Refills ferrous sulfate 325 (65 Fe) MG Tablet [Pharmacy Med Name: FERROUS SULFATE 325 MG TABLET] 90 Tablet 1 Sig: TAKE 1 TABLET BY MOUTH EVERY DAY Minerals Iron Supplementation Protocol Failed - 03/01/2022 2:26 PM Failed - Serum Fe on record in past 12 months IRON Date Value Ref Range Status 09/12/2021 55.18 37 - 145 mcg/dL Final Failed - Iron Saturation on record in past 12 months No results found for: IRONSATURATI Passed - Visit with relevant provider in past 12 months or upcoming 90 days Recent Visits Date Type Provider Dept 02/23/22 Office Visit James Mckenzie MD [facility] [place] 02/08/22 Office Visit Princess Sherman, REVERSING MILL ROLLER, JUDGE [facility] [place] 12/21/21 Office Visit James Mckenzie MD [facility] 11/26/21 Office Visit James Mckenzie MD [facility] [place] 10/19/21 Office Visit James Mckenzie MD [facility] 08/18/21 Office Visit James Mckenzie MD [facility] 06/19/21 Office Visit James Mckenzie MD [facility] 03/30/21 Office Visit James Mckenzie MD [facility] 03/03/21 Office Visit [facility] visits within past 365 days and meeting all other requirements Future Appointments Date Type Provider Dept 04/12/22 Appointment James Mckenzie MD [facility] [place] Showing future appointments within next 90 days and meeting all other requirements Passed - Ferritin on record in past 12 months FERRITIN Date Value Ref Range Status 06/19/2021 17 13 - 150 ng/mL Final Passed - Hemoglobin on record in past 12 months HEMOGLOBIN (HGB) Date Value Ref Range Status 09/12/2021 14.8 12.0 - 15.8 g/dL Final GRADER documented in this encounter Plan of Treatment Upcoming Encounters Date Type Department Care Team (Late st Contact Info) Description 09/17/2024 9:00 AM CDT Office Visit [facility] - [place] [facility] [place] [address] Yohannes Isaacs MD #2 [place] [address] 09/19/2024 7:00 AM CDT Lab [facility] #[address] [place] [address] [facility] Lab/Ancillary 10/25/2024 8:00 AM CDT Office Visit [facility] Group - Family Medicine - [place] #2 [place] [address] Lexus Carrillo, DO 2 [facility] [address] [place] [address] documented as of this encounter Visit Diagnoses Not on filedocumented in this encounter Additional Health Concerns Infection Onset Date Last Indicated Resolved Time COVID - 19 01/16/2024 02/06/2024 01/16/2024 9:58 AM CDT Respiratory Rule-Out 01/16/2024 01/16/2024 024 9:57 AM CDT Assessment Noted Time PHQ-9 Depression Total Score: 0 02/24/20 4:00 PM TEST GRADER documented as of this encounter Care Teams Fireman Helper Relationship Specialty Start Date End Date James Mckenzie MD PCP - General Family Medicine 04/30/19 09/15/23 Provider, [facility] PCP - General 09/16/23 10/04/23 Javid Long, REVERSING MILL ROLLER, JUDGE #[address] [address] PCP - General Advanced Practice Nurse 10/05/2301/11 Lexus Carrillo DO [address] [address] PCP - General Family Medicine 01/16/24 Hector Brice MD #2 [place] [address] Consulting Physician Pulmonary Disease 02/23/22 Flako Woodson MD #[address] [address] Consulting Physician Colon and Rectal Surgery 01/07/23 Yohannes Isaacs MD #2 [place] [address] Consulting Physician Neurology 03/08/23 Aura Read MD #2 [place], [place] [address] Consulting Physician Gastroenterology 01/06/23 Zach Rehman MD #2 [place] [address] Consulting Physician Obstetrics & Gynecology 01/27/24 documented as of this encounter
--- OUTSIDE RECORDS SUMMARY | 2024-06-26 19:07 | XMS_ITS | Encounter Summary ---
Author Organization [facility] Address [address] [place] [address] Phone Care Team Providers Care Benefits Sales Consultant Name Role Phone James Mckenzie MD Primary Care Provider Hector Brice MD Unavailable Flako Woodson MD Unavailable Yohannes Isaacs MD Unavailable [phone] Aura Read MD Unavailable [phone] Provider, None Primary Care Provider UnavailJavid Maxwell APRN, CUSTOMS GUARD Primary Care Pr ovider Lexus Carrillo DO Primary Care Provider [phone] Zach Rehman MD Unavailable [phone] Reason for Visit * Reason Comments Medication Refill Encounter Details Date Type Department Care Team (Late st Contact Info) Description 07/26/2021 [facility]ill [facility] #2 [place] [id number] James Mckenzie MD #1 [place] [address] Medication Refill Social History Tobacco Use Types [...] on file Legal Sex Female 2:36 PM BIODIESEL PRODUCTION ASSOCIATE Gender Identity Female 12/30/2022 6:13 PM CDT Sexual Orientation Straight 12/30/2022 6: 13 PM CDT Occupation Industry Job Start Date Job End Date Disabled Not on file Not on file Not on file COVID-19 Exposure Response Date Recorded In the last 10 days, have yo u been in contact with someone who was confirmed or suspected to have Coronavirus/COVID-19? No / Unsure 07/13/2021 11:09 AM CDT documented as of this encounter Miscellaneous Notes * Telephone Encounter - Maria Luisa Mcgraw RN - 07/27/2021 1:37 PM CDT Medication failed the protocol, provider to review and approve the medication order if appropriate. Requested Prescriptions Pending Prescriptions Disp Refills cyclobenzaprine (FLEXERIL) 10 MG Tablet [Pharmacy Med Name: CYCLOBENZAPRINE 10 MG TABLET] 60 Tablet2 Sig: TAKE 1 TABLET BY MOUTH THREE TIMES A DAY NEEDED FOR MUSCLE SPASMS Not Delegated - Muscle Relaxants Protocol Failed - 07/26/2021 2:31 PM Failed - This refill cannot be delegated Passed - Visit with relevant provider in past 12 months or upcoming 90 days Recent Visits Date Type Provider Dept 06/19/21 Office Visit James Mckenzie MD [facility] 03/30/21 Office Visit James Mckenzie MD [facility] 03/03/21 Office Visit J[facility] APRN, [facility] 11/25/20 Office Visit James Mckenzie MD [facility] 10/14/20 Office [facility] 09/30/20 [facility] Office Visit James Mckenzie MD [facility] Showing recent visits within past 365 days and meeting all other requirements Future Appointments Date Type Provider Dept 07/30/21 Appointment James Mckenzie MD [facility] Showing future appointments within next 90 days and meeting all other requirements documented in this encounter Plan of Treatment Upcoming Encounters Date Type Department Care Team (Late st Contact Info) Description 09/17/2024 9:00 AM CDT Office Visit [facility] - Neurology - [place] #2 [facility] [place] [address] Yohannes Isaacs MD #2 [facility] [place] [address] 09/19/2024 7:00 AM CDT Lab [facility] LAB #2 [facility] [address] [place] [address] [facility] Lab/Ancillary 10/25/2024 8:00 AM CDT [facility] - [place] #2 [facility] [place] [address] Lexus Carrillo, DO 2 [facility] [address] [place] [address] documented as of this encounter Visit Diagnoses Diagnosis Fibromyalgia Mylagia and myositis, unspecified documented in this encounter Additional Health Concerns Infection Onset Date Last Indicated Resolved Time COVID - 19 01/16/2024 02/06/2024 01/16/2024 9:58 AM CDT Respiratory Rule-Out 01/16/2024 01/16/2024 9:57 AM CDT Assessment Noted Time PHQ-9 Depression Total Score: 0 03/30/20 9:00 AM BIODIESEL PRODUCTION ASSOCIATE documented as of this encounter Care Teams Benefits Sales Consultant Relationship Specialty Start Date End Date James Mckenzie MD PCP - General Family Medicine 04/30/19 09/15/23 Provider, None [place] PCP - General 09/16/23 10/04/23 Javid Long, COMMUNICATIONS CONSULTANT, CUSTOMS GUARD #[address] [address] PCP - General Advanced Practice Nurse 10/05/2301/11 Lexus Carrillo DO [address] [address] PCP - General Family Medicine 01/16/24 Hector Brice MD #2 [place] [address] Consulting Physician Pulmonary Disease 02/23/22 Flako Woodson MD #[address] [address] Consulting Physician Colon and Rectal Surgery 01/07/23 Yohannes Isaacs MD #2 [place] [address] Consulting Physician Neurology 03/08/23 Aura Read MD #2 [place] [address] Consulting Physician Gastroenterology 01/06/23 Zach Rehman MD #2 [place] [address] Consulting Physician Obstetrics & Gynecology 01/27/24 documented as of this encounter
--- OUTSIDE RECORDS SUMMARY | 2024-06-26 19:07 | XMS_ITS | Encounter Summary ---
Author Organization [facility] Address [address] [place] [address] Phone Care Team Providers Care Lift Team Technician Name Role Phone James Mckenzie MD Primary Care Provider [phone] Hector Brice MD Unavailable Flako Woodson MD Unavailable Yohannes Isaacs MD Unavailable [phone] Aura Read MD Unavailable [phone] Provider, None Primary Care Provider UnavailJavid Maxwell APRN, FINANCING ANALYST Primary Care Pr ovider Lexus Carrillo DO Primary Care Provider [phone] Zach Rehman MD Unavailable [phone] Reason for Visit * Reason Comments Medication Refill Encounter Details Date Type Department Care Team (Late st Contact Info) Description 11/18/2020 Refill [facility] - Family Medicine [facility] #2 [place] [phone] James Mckenzie MD [address]1 [place] [address] Medication Refill Social History Tobacco Use Types [...] on file Legal Sex Female 2:36 PM DISTILLATION OPERATOR HELPER Gender Identity Female 12/30/2022 6:13 PM CDT Sexual Orientation Straight 12/30/2022 6: 13 PM CDT Occupation Industry Job Start Date Job End Date Disabled Not on file Not on file Not on file documented as of this encounter Miscellaneous Notes * Telephone Encounter - Ladonna Mcginnis RN - 11/18/2020 1:24 PM CDT Medication failed the protocol, provider to review and approve the medication order if appropriate. Requested Prescriptions Pending Prescriptions Disp Refills Klor-Con M20 20 MEQ Tablet Controlled Release [Pharmacy Med Name: KLOR-CON M20 TABLET] 90 Tablet 1 Sig: TAKE 1 TABLET BY MOUTH EVERY DAY Potassium Supplement Protocol Failed - 11/18/2020 1:24 PM Failed - Normal serum potassium in past 12 months POTASSIUM Date Value Ref Range Status 10/04/2020 2.9 (L) 3.5 - 5.1 mmol/L Final Passed - Visit with relevant provider in past 12 months or upcoming 90 days Recent Visits Date Type Provider Dept 10/14/20 Office Visit Kerry Brandon MD [facility] 09/30/20 Office [facility] Sen[facility] Kelly, [facility] 08/28/20 Office Visit James Mckenzie MD [facility] 07/24/20 Office Visit James Mckenzie MD [facility] 06/02/20 Office Visit James Mckenzie MD [facility] 05/14/20 Telemedicine James Mckenzie MD [facility] 05/09/20 Procedure Visit James Mckenzie MD [facility] 04/23/20 Office Visit James Mckenzie MD [facility] 04/03/20 Office Visit James Mckenzie MD [facility] 03/19/20 Office Visit James Mckenzie MD [facility] Showing recent visits within past 365 days and meeting all other requirements Future Appointments Date Type Provider Dept 11/25/20 Appointment James Mckenzie MD [facility] Showing future appointments within next 90 days and meeting all other requirements documented in this encounter Plan of Treatment Upcoming Encounters Date Type Department Care Team (Late st Contact Info) Description 09/17/2024 9:00 AM CDT Office Visit [facility] - Neurology - [place] #2 [place] [address] Yohannes Isaacs MD [address] [place] [address] 09/19/2024 7:00 AM CDT Lab [facility] #2 [facility] [address] [place] [address] [facility] 10/25/2024 8:00 AM CDT Office [facility] - Family Medicine - [place] #2 [place] [address] Lexus Carrillo, DO 2 [facility] [address] [place] [address] documented as of this encounter Visit Diagnoses Diagnosis Hypokalemia Hypopotassemia documented in this encounter Additional Health Concerns Infection Onset Date Last Indicated Resolved Time C. difficile Rule-Out 12/17/2020 12/23/20202020 12:44 PM CDT COVID - 19 01/16/2024 02/06/2024 01/16/2024 9:58 AM CDT Respiratory Rule-Out 01/16/2024 01/16/2024 024 9:57 AM CDT Assessment Noted Time PHQ-9 Depression Total Score: 11 020 10:03 AM DISTILLATION OPERATOR HELPER documented as of this encounter Care Teams Lift Team Technician Relationship Specialty Start Date End Date James Mckenzie MD PCP - General Family Medicine 04/30/19 09/15/23 Provider, None [place] PCP - General 09/16/23 10/04/23 Javid Long, SIEVE REPAIRER, FINANCING ANALYST #2 [facility] [address] [place] [address] PCP - General Advanced Practice Nurse 10/05/2301/11 Lexus Carrillo DO [address] [address] PCP - General Family Medicine 01/16/24 Hector Brice MD #2 [place] [address] Consulting Physician Pulmonary Disease 02/23/22 Flako Woodson MD #[address] [address] Consulting Physician Colon and Rectal Surgery 01/07/23 Yohannes Isaacs MD #2 [place] [address] Consulting Physician Neurology 03/08/23 Aura Read MD #2 [place] [address] Consulting Physician Gastroenterology 01/06/23 Zach Rehman MD #2 [place] [address] Consulting Physician Obstetrics & Gynecology 01/27/24 documented as of this encounter
--- OUTSIDE RECORDS SUMMARY | 2024-06-26 19:07 | XMS_ITS | Encounter Summary ---
Author Organization [facility] Address [address] [facility] [place] [address] Phone Care Team Providers Care Charge Hand Name Role Phone James Mckenzie MD Primary Care Provider [phone] Hector Brice MD Unavailable Flako Woodson MD Unavailable Yohannes Isaacs MD Unavailable [phone] Aura Read MD Unavailable [phone] Provider, None Primary Care Provider UnavailJavid Maxwell APRN, REACTOR OPERATOR Primary Care Pr ovider Lexus Carrillo DO Primary Care Provider [phone] Zach Rehman MD Unavailable [phone] Reason for Visit * Reason Comments Medication Refill Encounter Details Date Type Department Care Team (Late st Contact Info) Description 06/09/2021 [facility]ill [facility] - [place] #2 [place] [phone] Amie Canas Kendra, PAC [address] [place] [address] Medication Refill Social History Tobacco Use Types [...] on file Legal Sex Female 2:36 PM SERVICE ORDER DISPATCHER CHIEF Gender Identity Female 12/30/2022 6:13 PM CDT Sexual Orientation Straight 12/30/2022 6: 13 PM CDT Occupation Industry Job Start Date Job End Date Disabled Not on file Not on file Not on file COVID-19 Exposure Response Date Recorded In the last month, have you been in contact with someone who was confirmed or suspected to have Coronavirus / COVID-19? No / Unsure 05/29/2021 9:14 AM SERVICE ORDER DISPATCHER CHIEF documented as of this encounter Miscellaneous Notes * Telephone Encounter - Dori Cruz RN - 06/10/2021 10:35 AM SERVICE ORDER DISPATCHER CHIEF Medication [facility] [place] order for pediatric and adult patients. ICE ORDER DISPATCHER CHIEF documented in this encounter Plan of Treatment Upcoming Encounters Date Type Department Care Team (Late st Contact Info) Description 09/17/2024 9:00 AM CDT Office Visit [facility] - Neurology - [place] #2 [place] [address] Yohannes Isaacs MD #2 [place] [address] 09/19/2024 7:00 AM CDT Lab [facility] LAB [address] [address] [facility] Lab/Ancillary 10/25/2024 8:00 AM CDT Office Visit [facility] - Family Medicine [facility] #2 [place] [address] Lexus Carrillo DO [address] [address] documented as of this encounter Visit Diagnoses Diagnosis Chronic GERD documented in this encounter Additional Health Concerns Infection Onset Date Last Indicated Resolved Time COVID - 19 01/16/2024 02/06/2024 01/16/2024 9:58 AM CDT Respiratory Rule-Out 01/16/2024 01/16/2024 024 9:57 AM CDT Assessment Noted Time PHQ-9 Depression Total Score: 0 03/30/20 21 9:00 AM SERVICE ORDER DISPATCHER CHIEF documented as of this encounter Care Teams Charge Hand Relationship Specialty Start Date End Date James Mckenzie MD PCP - General Family Medicine 04/30/19 09/15/23 Provider, [facility] PCP - General 09/16/23 10/04/23 Javid Long, MORTAR WORKER, REACTOR OPERATOR #[address] [address] PCP - General Advanced Practice Nurse 10/05/2301/11 Lexus Carrillo DO [address] [address] PCP - General Family Medicine 01/16/24 Hector Brice MD #2 [place] [address] Consulting Physician Pulmonary Disease 02/23/22 Flako Woodson MD #[address] [address] Consulting Physician Colon and Rectal Surgery 01/07/23 Yohannes Isaacs MD #2 [place] [address] Consulting Physician Neurology 03/08/23 Aura Read MD #2 [place] [address] Consulting Physician Gastroenterology 01/06/23 Zach Rehman MD #2 [place] [address] Consulting Physician Obstetrics & Gynecology 01/27/24 documented as of this encounter
--- OUTSIDE RECORDS SUMMARY | 2024-06-26 19:07 | XMS_ITS | Encounter Summary ---
Author Organization [facility] Address [address] [place] [address] Phone Care Team Providers Care Drier Unloader Name Role Phone James Mckenzie MD Primary Care Provider [phone] Hector Brice MD Unavailable Flako Woodson MD Unavailable Yohannes Isaacs MD Unavailable [phone] Aura Read MD Unavailable [phone] Provider, None Primary Care Provider Unavailabl Javid Zafar APRN, INSOLE BEVELER Primary Care Pr ovider Lexus Carrillo DO Primary Care Provider [phone] Zach Rehman MD Unavailable [phone] Reason for Visit * Reason Comments Medication Refill Encounter Details Date Type Department Care Team (Late st Contact Info) Description 09/23/2021 Refill [facility] - Neurology [facility] #2 [place] [address] Yohannes Isaacs MD #2 [place] [address] Medication Refill Social History Tobacco [...] on file 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 No / Unsure 09/12/2021 6:16 AM CDT documented as of this encounter Miscellaneous Notes * Telephone Encounter - Ofelia Khanna RN - 09/25/2021 7:58 AM CDT Medication failed the protocol, provider to review and approve the medication order if appropriate. Requested Prescriptions Pending Prescriptions Disp Refills pregabalin (LYRICA) 100 MG Capsule [Pharmacy Med Name: PREGABALIN 100 MG CAPSULE] 270 Capsule Sig: TAKE 1 CAPSULE BY MOUTH THREE TIMES A DAY Not Delegated - Anticonvulsants Excluding Benzodiazepines Protocol Failed - 09/23/2021 7:58 PM Failed - This refill cannot be delegated Passed - Visit with relevant provider in past 12 months or upcoming 90 days Recent Visits Date Type Provider Dept 08/18/21 Office Visit James Mckenzie MD [facility] 06/19/21 Office Visit James Mckenzie MD [facility] 05/29/21 Office Visit Yohannes Isaacs MD [facility] Neurology [facility] 03/30/21 Office Visit James Mckenzie MD [facility] 03/03/21 Office Visit Jory Jefferson APRN, INSOLE BEVELER [facility] 11/25/20 Office Visit James Mckenzie MD [facility] [place] 10/14/20 Office Visit Kerry Brandon MD [facility] 09/30/20 Office Visit Sena Kelly PAC [facility] Showing recent visits within past 365 days and meeting all other requirements Future Appointments Date Type Provider Dept 12/21/21 Appointment James Mckenzie MD [facility] Showing future appointments within next 90 days and meeting all other requirements documented in this encounter Plan of Treatment Upcoming Encounters Date Type Department Care Team (Late st Contact Info) Description 09/17/2024 9:00 AM CDT Office Visit [facility] - Neurology - [place] #2 [place] [address] Yohannes Isaacs MD #2 [place] [address] 09/19/2024 7:00 AM CDT Lab [facility] PHYSICIAN GROUP LAB #[address] [address] [facility] Lab/Ancillary 10/25/2024 8:00 AM CDT Office Visit [facility] - Family Medicine - [place] #2 [place] [address] Lexus Carrillo, DO 2 [facility] [address] [place] [address] documented as of this encounter Visit Diagnoses Diagnosis Numbness and tingling of both lower extremities Numbness and tingling of both upper extremities documented in this encounter Additional Health Concerns Infection Onset Date Last Indicated Resolved Time COVID - 19 01/16/2024 02/06/2024 01/16/2024 9:58 AM CDT Respiratory Rule-Out 01/16/2024 01/16/2024 024 9:57 AM CDT Assessment Noted Time PHQ-9 Depression Total Score: 0 03/30/20 21 9:00 AM SIDE STITCHING MACHINE OPERATOR documented as of this encounter Care Teams Drier Unloader Relationship Specialty Start Date End Date James Mckenzie MD PCP - General Family Medicine 04/30/19 09/15/23 Provider, None CT PCP - General 09/16/23 10/04/23 Javid Long, OUTDOOR POWER EQUIPMENT MECHANIC, INSOLE BEVELER #2 [facility] [address] [place] [address] PCP - General Advanced Practice Nurse 10/05/2301/11 Lexus Carrillo DO [address] [address] PCP - General Family Medicine 01/16/24 Hector Brice MD #2 [place] [address] Consulting Physician Pulmonary Disease 02/23/22 Flako Woodson MD #[address] [address] Consulting Physician Colon and Rectal Surgery 01/07/23 Yohannes Isaacs MD #2 [place] [address] Consulting Physician Neurology 03/08/23 Aura Read MD #2 [place] [address] Consulting Physician Gastroenterology 01/06/23 aZch Rehman MD #2 [place] [address] Consulting Physician Obstetrics & Gynecology 01/27/24 documented as of this encounter
--- OUTSIDE RECORDS SUMMARY | 2024-06-26 19:07 | XMS_ITS | Encounter Summary ---
Author Organization [facility] Address [address] [place] [address] Phone Care Team Providers Care Fingernail Sculptor Name Role Phone James Mckenzie MD Primary Care Provider [phone] Hector Brice MD Unavailable Flako Woodson MD Unavailable Yohannes Isaacs MD Unavailable [phone] Aura Read MD Unavailable [phone] Provider, None Primary Care Provider UnavailJavid Maxwell APRN, DRY WALL PLASTERER Primary Care Pr ovider Lexus Carrillo DO Primary Care Provider [phone] Zach Rehman MD Unavailable [phone] Reason for Visit * Reason Comments Medication Refill Encounter Details Date Type Department Care Team (Late st Contact Info) Description 01/05/2021 Refill [facility] [address]2 [place] [address] Kerry Brandon MD [address] [place] [address] Medication Refill Social History Tobacco Use Types [...] on file 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 No / Unsure 01/07/2021 9:08 AM CDT documented as of this encounter Miscellaneous Notes * Telephone Encounter - Lora Mercedes RN - 01/05/2021 10:14 AM CDT Medication failed the protocol, provider to review and approve the medication order if appropriate. Requested Prescriptions Pending Prescriptions Disp Refills ipratropium-albuterol (DUO-NEB) 0.5-2.5 (3) MG/3ML Solution [Pharmacy Med Name: IPRAT-ALBUT 0.5-3(2.5) MG/3 ML] 360 mL Sig: INHALE ONE VIAL IN NEBULZIER FOUR TIMES A DAY FOR 30 DAYS Inhaled Combinations Protocol Failed - 01/05/2021 12:01 AM Failed - Active on medication list Passed - Visit with relevant provider in past 12 months or upcoming 90 days Recent Visits Date Type Provider Dept 11/25/20 Office Visit [place] [facility] [place] [facility] [place] [place] 10/14/20 Office Visit Kerry Brandon [place] [facility] [place] [facility] [place] 09/30/20 Office Visit Sena Kelly PAC [facility] [place] [facility] [place] 08/28/20 Office Visit James [facility]ck[facility] [place] [facility] [place] 07/24/20 Office Visit James Mckenzie MD [facility] 06/02/20 Office Visit James Mckenzie MD [facility] 05/14/20 Telemedicine James Mckenzie MD [facility] 05/09/20 Procedure Visit James Mckenzie MD [facility] 04/23/20 Office Visit James Mckenzie MD [facility] 04/03/20 Office Visit James Mckenzie MD [facility] Showing recent visits within past 365 days and meeting all other requirements Future Appointments Date Type Provider Dept 03/30/21 Appointment James Mckenzie MD [facility] Showing future appointments within next 90 days and meeting all other requirements Passed - Active short-acting beta agonist prescription documented in this encounter Plan of Treatment Upcoming Encounters Date Type Department Care Team (Late st Contact Info) Description 09/17/2024 9:00 AM CDT Office Visit [facility] - Neurology - [place] [address]2 [place] [address] Yohannes Isaacs MD [address] [place] [address] 09/19/2024 7:00 AM CDT Lab [facility] #[address] [address] [facility] Lab/Ancillary 10/25/2024 8:00 AM CDT Office Visit [facility] - Family Medicine - [place] [address] [place] [address] Lexus Carrillo, DO 2 [facility] [address] [address] documented as of this encounter Visit Diagnoses Not on filedocumented in this encounter Additional Health Concerns Infection Onset Date Last Indicated Resolved Time COVID - 19 01/16/2024 02/06/2024 01/16/2024 9:58 AM CDT Respiratory Rule-Out 01/16/2024 01/16/2024 024 9:57 AM CDT Assessment Noted Time PHQ-9 Depression Total Score: 11 020 10:03 AM 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 documented as of this encounter Care Teams Fingernail Sculptor Relationship Specialty Start Date End Date James Mckenzie MD PCP - General Family Medicine 04/30/19 09/15/23 Provider, None MD PCP - General 09/16/23 10/04/23 Javid Long, MARKETING SUPPORT ASSISTANT, DRY WALL PLASTERER [address] [address] PCP - General Advanced Practice Nurse 10/05/2301/11 Lexus Carrillo DO [address] [address] PCP - General Family Medicine 01/16/24 Hector Brice MD [address] [place] [address] Consulting Physician Pulmonary Disease 02/23/22 Flako Woodson MD #[address] [address] Consulting Physician Colon and Rectal Surgery 01/07/23 Yohannes Isaacs MD [address] [place] [address] Consulting Physician Neurology 03/08/23 Aura Read MD [address] [place] [address] Consulting Physician Gastroenterology 01/06/23 Zach Rehman MD [address] [place] [address] Consulting Physician Obstetrics & Gynecology 01/27/24 documented as of this encounter
--- OUTSIDE RECORDS SUMMARY | 2024-06-26 19:07 | XMS_ITS | Encounter Summary ---
Author Organization [facility] Address [address] [place] [address] Phone Care Team Providers Care Veneer Glue Jointer Feedback Name Role Phone James Mckenzie MD Primary Care Provider [phone] Hector Brice MD Unavailable Flako Woodson MD Unavailable Yohannes Isaacs MD Unavailable [phone] Aura Read MD Unavailable [phone] Provider, None Primary Care Provider UnavailJavid Maxwell APRN, PROGRAMMER BUSINESS Primary Care Pr ovider Lexus Carrillo DO Primary Care Provider [phone] Zach Rehman MD Unavailable [phone] Reason for Visit * Reason Comments Medication Refill Encounter Details Date Type Department Care Team (Late st Contact Info) Description 05/15/2020 Refill [facility] [address]2 [place] [id number] James Mckenzie MD [address] [place] [address] Medication Refill Social History Tobacco Use Types [...] on file Legal Sex Female 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 No / Unsure 05/14/2020 12:59 PM PRODUCTION WELDER documented as of this encounter Miscellaneous Notes * Telephone Encounter - Maria Luisa Mcgraw RN - 05/15/2020 10:45 AM CST Medication failed the protocol, provider to review and approve the medication order if appropriate. Requested Prescriptions Pending Prescriptions Disp Refills mirtazapine (REMERON) 30 MG Tablet [Pharmacy Med Name: MIRTAZAPINE 30 MG TABLET] 90 Tablet Sig: TAKE 1 TABLET BY MOUTH EVERY DAY AT NIGHT Not Delegated - Psychiatry: Antidepressants Failed - 05/15/2020 10:36 AM Failed - This refill cannot be delegated Passed - Valid encounter within last 12 months Past Office Visits Recent Outpatient Visits Yesterday Periorbital edema of both eyes [facility] Family [facility] - James Sandoval MD 6 days ago Pap smear of cervix with ASCUS, cannot exclude HGSIL [facility] Family [facility] - James Sandoval MD 3 weeks ago Essential hypertension [facility] James Wakefield MD 1 month ago Primary fibromyalgia syndrome [facility] James Wakefield MD 1 month ago Encounter for gynecological examination without abnormal finding [facility] James Wakefield MD Upcoming Appointments Future Appointments In 1 week Yohannes Isaacs MD [facility] Neurology [facility], [facility] In 1 month James Mckenzie MD [facility] Family [facility] In 2 months James Mckenzie MD [facility] [place] In 5 months Hector Brice MD [facility] PULMONOLOGY, [facility] WIRE PULLER - Recent and Past Visits Recent Visits Date Type Provider Dept 05/14/20 Telemedicine James Mckenzie MD [facility] [place] 04/30/19 Office Visit James Mckenzie MD [facility] Showing recent visits within past 460 days with a meds authorizing provider and meeting all other requirements Future Appointments Date Type Provider Dept 07/02/20 Appointment James Mckenzie MD [facility] 07/23/20 Appointment James Mckenzie MD [facility] Showing future appointments within next 90 days with a meds authorizing provider and meeting all other requirements UCTION WELDER documented in this encounter Plan of Treatment Upcoming Encounters Date Type Department Care Team (Late st Contact Info) Description 09/17/2024 9:00 AM CDT Office Visit [facility] - Neurology - [place] [address] [place] [address] Yohannes Isaacs MD [address] [place] [address] 09/19/2024 7:00 AM CDT Lab [facility] [address] [facility] [place] [address] [facility] Lab/Ancillary 10/25/2024 8:00 AM CDT Office Visit [facility] - Family [facility] - [place] [address] [place] [address] Lexus Carrillo DO [address] [facility] [place] [place] [address] documented as of this encounter Visit Diagnoses Not on filedocumented in this encounter Additional Health Concerns Infection Onset Date Last Indicated Resolved Time C. difficile Rule-Out 12/17/2020 12/23/20202020 12:44 PM CDT COVID - 19 01/16/2024 02/06/2024 01/16/2024 9:58 AM CDT Respiratory Rule-Out 01/16/2024 01/16/2024 024 9:57 AM CDT Assessment Noted Time PHQ-9 Depression Total Score: 11 020 10:03 AM PRODUCTION WELDER documented as of this encounter Care Teams Veneer Glue Jointer Feedback Relationship Specialty Start Date End Date James Mckenzie MD PCP - General Family Medicine 04/30/19 09/15/23 Provider, None [place] PCP - General 09/16/23 10/04/23 Javid Long APRN, PROGRAMMER BUSINESS #[address] [facility] [place] [address] PCP - General Advanced Practice Nurse 10/05/2301/11 Lexus Carrillo DO [address] [facility] [address] [place] [address] PCP - General Family Medicine 01/16/24 Hector Brice MD [address] [place] [address] Consulting Physician Pulmonary Disease 02/23/22 Flako Woodson MD #[address] [address] Consulting Physician Colon and Rectal Surgery 01/07/23 Yohannes Isaacs MD #[address] [place] [address] Consulting Physician Neurology 03/08/23 Aura Read MD [address] [place] [address] Consulting Physician Gastroenterology 01/06/23 Zach Rehman MD [address] [place] [address] Consulting Physician Obstetrics & Gynecology 01/27/24 documented as of this encounter
--- OUTSIDE RECORDS SUMMARY | 2024-06-26 19:07 | XMS_ITS | Encounter Summary ---
Author Organization [facility] Address [address] [place] [address] Phone Care Team Providers Care Transformer Stock Clerk Name Role Phone James Mckenzie MD Primary Care Provider [phone] Hector Brice MD Unavailable Flako Woodson MD Unavailable Yohannes Isaacs MD Unavailable [phone] Aura Read MD Unavailable [phone] Provider, None Primary Care Provider UnavailJavid Maxwell APRN, SKIVER BOX TOE Primary Care Pr ovider Lexus Carrillo DO Primary Care Provider [phone] Zach Rehman MD Unavailable [phone] Reason for Visit * Reason Comments Medication Refill Encounter Details Date Type Department Care Team (Late st Contact Info) Description 08/11/2023 Refill [facility] [address]2 [place] [id number] James Mckenzie MD [address] [place] [address] Medication Refill Social History Tobacco Use Types Packs/Day Years Used Date Smoking Tobacco: Former Cigarettes 1 34.5 0 10/02/1985 - 04/04/2020 Smokeless Tobacco: Never [...] program 04/23/2022 Sexually Active Control Partners Comments Not Currently Post-menopausal Male Comments No Sex and Gender Information Value Date Recorded Sex Assigned at Not on file 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 Requested Prescriptions Pending Prescriptions Disp Refills ferrous sulfate 325 (65 Fe) MG Tablet [Pharmacy Med Name: FERROUS SULFATE 325 MG TABLET] 90 Tablet 1 Sig: TAKE 1 TABLET BY MOUTH EVERY DAY Minerals Iron Supplementation Protocol Failed - 08/11/2023 12:13 AM Failed - Serum Fe on record in past 12 months IRON Date Value Ref Range Status 09/12/2021 55.18 37 - 145 mcg/dL Final Failed - Ferritin on record in past 12 months No results found for: FERRITIN Failed - Iron Saturation on record in past 12 months No results found for: IRONSATURATI Passed - Visit with relevant provider in past 12 months or upcoming 90 days Recent Visits Date Type Provider Dept 08/27/22 Office Visit James Mckenzie MD [facility] 08/24/22 Office Visit Javid Long APRN, [facility] Showing recent visits within past 365 days and meeting all other requirements Future Appointments Date Type Provider Dept 08/15/23 Appointment Javid Long APRN, [facility] Showing future appointments within next 90 days and meeting all other requirements Passed - Hemoglobin on record in past 12 months HEMOGLOBIN (HGB) Date Value Ref Range Status 12/23/2022 11.8 (L) 12.0 - 15.8 g/dL Final documented in this encounter Plan of Treatment Upcoming Encounters Date Type Department Care Team (Late st Contact Info) Description 09/17/2024 9:00 AM CDT Office Visit [facility] - Neurology - [place] [address] [place] [address] Yohannes Isaacs MD [address] [place] [address] 09/19/2024 7:00 AM CDT Lab [facility] #2 [facility] [address] [place] [address] [facility] Lab/Ancillary 10/25/2024 8:00 AM CDT Office Visit [facility] Family Medicine - [place] [address] [place] [address] Lexus Carrillo, DO 2 [facility] [address] [place] [address] documented as of this encounter Visit Diagnoses Not on filedocumented in this encounter Additional Health Concerns Infection Onset Date Last Indicated Resolved Time COVID - 19 01/16/2024 02/06/2024 01/16/2024 9:58 AM CDT Respiratory Rule-Out 01/16/2024 01/16/2024 024 9:57 AM CDT Assessment Noted Time PHQ-9 Depression Total Score: 0 02/24/20 22 4:00 PM INDUSTRIAL REAL ESTATE AGENT documented as of this encounter Care Teams Transformer Stock Clerk Relationship Specialty Start Date End Date James Mckenzie MD PCP - General Family Medicine 04/30/19 09/15/23 Provider, None [place] PCP - General 09/16/23 10/04/23 Javid Long APRN, SKIVER BOX TOE #[address] [address] PCP - General Advanced Practice Nurse 10/05/2301/11 Lexus Carrillo DO [address] [address] PCP - General Family Medicine 01/16/24 Hector Brice MD #2 [place] [address] Consulting Physician Pulmonary Disease 02/23/22 Flako Woodson MD #[address] [address] Consulting Physician Colon and Rectal Surgery 01/07/23 Yohannes Isaacs MD #2 [place] [address] Consulting Physician Neurology 03/08/23 Aura Read MD #2 [place] [address] Consulting Physician Gastroenterology 01/06/23 Zach Rehman MD #[address] [place] [address] Consulting Physician Obstetrics & Gynecology 01/27/24 documented as of this encounter
--- OUTSIDE RECORDS SUMMARY | 2024-06-26 19:07 | XMS_ITS | Clinical Summary ---
Author Organization [facility] Address [address] [place] [address] Care Team Providers Care Procurement Internship Name Role Phone James Mckenzie MD Primary Care Provider [phone] Allergies No known active allergies Medications SYMBICORT 160-4.5 mcg/actuation inhaler INHALE 2 PUFF BY MOUTH TWICE A DAY DIRECTED FOR 30 DAYS.RINSE MOUTH AFTER USE 2 04/04/2018 Active diazePAM (VALIUM) 5 mg tablet Take 5 mg by mouth 4 (four) times a day. 0 04/06/2018 Active hydroCHLOROthia zide (HYDRODIURIL) 25 mg tablet Take 25 mg by mouth daily. 0 03/20/2018 Active omeprazole (PriLOSEC) 40 mg capsule Take by mouth daily. 0 03/16/2018 Active POTASSIUM CHLORIDE ER 20 mEq CR tablet Take 20 mEq by mouth daily. 0 03/20/2018 Active traZODone (DESYREL) 50 mg tablet TAKE ONE-HALF TABLET BY MOUTH AT BEDTIME 0 04/06/2018 Active guanFACINE (TENEX) 1 mg tablet Take 1 mg by mouth 2 (two) times a day. 0 04/08/2018 Active SPIRIVA RESPIMAT 2.5 mcg/actuation inhaler 06/20/2018 Active naproxen (NAPROSYN) 500 mg tablet Take 1 tablet (500 mg total) by mouth 2 (two) times a day with meals 30 tablet 07/14/2018 Active VENTOLIN HFA 90 mcg/actuation inhaler Inhale 2 puffs every 4 (four) hours as needed for wheezing 1 Inhaler 12/06/2018 Active dextromethorpha n (DELSYM) syrup 30 mg/5 mLIndications:C ough Take 10 mL (60 mg total) by mouth 2 (two) times a day 89 mL 12/06/2018 Active azithromycin (ZITHROMAX) 250 mg tablet Take 2 tablets the first day, then 1 tablet daily for 4 days 6 tablet 12/06/2018 Active buPROPion XL (WELLBUTRIN XL) 150 mg 24 hr tablet Take 1 tablet (150 mg total) by mouth daily 30 tablet 03/07/2019 Active methylPREDNISol one (Medrol, Hardeep,) 4 mg Dosepack Take as directed on package 1 packet 12/17/2019 Active predniSONE (DELTASONE) 5 mg tablet Take 4 tablets by mouth every day for 30 days, then 2 tablets by mouth every day for 15 days, then 1 tablet by mouth every day for 15 days. 165 tablet 03/06/2020 Active gabapentin (NEURONTIN) 300 mg capsule Take one tablet by mouth once a day 30 capsule 03/17/2020 Active Active Problems No known active problems Social History Tobacco Use Types Packs/Day Years Used Date Smoking Tobacco: Former Cigarettes Q uit: 03/31/2020 Smokeless Tobacco: Never Comments:Has quit smoking cu rrently Alcohol Use Standard Drinks/Week Comments No 0 (1 standard drink = 0.6 oz pur e alcohol) Personal Safety Answer Date Recorded Getting School Help Needed Not on file 06/18 Comments No Sex and Gender Information Value Date Recorded Sex Assigned at Not on file Legal Sex Female 3:57 AM ISOTOPE HYDROLOGIST Gender Identity Not on file Sexual Orientation Not on file Obstetrics History Last Filed Vital Signs Vital Sign Reading Time Taken Comments Blood Pressure 134/89 03/07/2019 6:23 PM ISOTOPE HYDROLOGIST Pulse 78 03/07/2019 6:23 PM ISOTOPE HYDROLOGIST Temperature 36 C (96.8 F) 05/08/2020 11:09 AM ISOTOPE HYDROLOGIST Respiratory Rate 16 03/07/2019 6:23 PM ISOTOPE HYDROLOGIST Oxygen Saturation 100% 03/07/2019 6:23 PM ISOTOPE HYDROLOGIST Inhaled Oxygen Concentration - - Weight 102.1 kg (225 lb) 05/08/2020 11:09 AM ISOTOPE HYDROLOGIST Height 165.1 cm (5' 5 ) 05/08/2020 11:09 AM ISOTOPE HYDROLOGIST Body Mass Index 37.44 05/08/2020 11:09 AM ISOTOPE HYDROLOGIST Plan of Treatment Not on file Insurance [facility] MEDICARE HMO IDAR Care Teams Procurement Internship Relationship Specialty Start Date End Date James Mckenzie MD [address] [address] PCP - General Family Medicine 12/17/19
--- OUTSIDE RECORDS SUMMARY | 2024-06-26 19:07 | XMS_ITS | Encounter Summary ---
Author Organization [facility] Address [address] [place] [address] Phone Care Team Providers Care Fur Nailer Name Role Phone Hector Brice MD Unavailable Flako Woodson MD Unavailable Yohannes Isaacs MD Unavailable [phone] Aura Read MD Unavailable [phone] Provider, None Primary Care Provider UnavailJavid Maxwell BIOLOGICAL SCIENCES PROFESSOR, PHONE ENGINEER Primary Care Pr ovider Lexus Carrillo DO Primary Care Provider [phone] Zach Rehman MD Unavailable [phone] Reason for Visit * Reason Comments Medication Refill Encounter Details Date Type Department Care Team (Late st Contact Info) Description 09/17/2023 Refill [facility] - Pulmonology & Sleep Medicine [facility] [address] [place] [address] Hector Brice MD [address] [place] [address] Medication Refill Social History Tobacco Use Types Packs/Day Years Used Date Smoking Tobacco: Former Cigarettes 1 34.5 0 10/02/1985 - 04/04/2020 Smokeless Tobacco: Never Comments:Pt used to smoke 1 PPW Alcohol Use Standard Drinks/Week Comments Not Currently 0 (1 standard drink = 0.6 oz pur e alcohol) [facility] Utilities Answer Date Recorded In the past 12 months has th e electric, gas, oil, or water company threatened to shut off services in your home? No 09/16/2023 Social Connection and Isolation Panel [NHANES] A nswer Date Recorded In a typical week, how many times do you talk on the phone with family, friends, or neighbors? Once a week 09/16/2023 How often do you get togethe r with friends or relatives? Once a week 09/16/2023 How often do you attend oriental orthodox or methodist serv ices? Never 09/16/2023 Do you belong to any clubs o r organizations such as oriental orthodox groups, unions, fraternal or athletic groups, or school groups? No 09/16/2023 How often do you attend meet ings of the clubs or organizations you belong to? Never 09/16/2023 Are you , , di vorced, , never , or living with a partner? Patient declined 09/16/2023 AUDIT-C Answer Date Recorded Q1: How often do you have a drink containing alcohol? Never 09/16/2023 Q2: How many drinks containi ng alcohol do you have on a typical day when you are drinking? Patient does not drink Q3: How often do you have si x or more drinks on one occasion? Never 09/16/2023 Overall Financial Resource Strain (CARDIA) Answe r Date Recorded How hard is it for you to pa y for the very basics like food, housing, medical care, and heating? Somewhat hard 09/16/2023 PHQ-2 Answer Date Recorded Total Score - Questions 1-9 0 02/03 [facility] [place] of Occupat ional Health - Occupational Stress Questionnaire Answer Date Recorded Do you feel stress - tense, restless, nervous, or anxious, or unable to sleep at night because your mind is troubled all the time - these days? Rather much 09/16/2023 Hunger Vital Sign Answer Date Recorded Within the past 12 months, y ou worried that your food would run out before you got the money to buy more. Sometimes true Within the past 12 months, t he food you bought just didn't last and you didn't have money to get more. Sometimes true PRAPARE - Transportation Answer Date Re corded In the past 12 months, has l ack of transportation kept you from medical appointments or from getting medications? No 09/02 In the past 12 months, has l ack of transportation kept you from meetings, work, or from getting things needed for daily living? No 09/16/2023 Housing Stability Vital Sign Answer Rio e Recorded In the last 12 months, was t here a time when you were not able to pay the mortgage or rent on time? No 09/16/2023 Number of Times Moved in the Last Year Not on fi le 09/16/2023 At any time in the past 12 m [facility], were you homeless or living in a nursing home (including now)? No 09/16/2023 Education Answer Date Recorded What is the highest level of school you have completed or the highest degree you have received? Associate degree: academic program 04/23/2022 Sexually Active Control Partners Comments Not Currently Abstinence Male Comments No Sex and Gender Information Value Date Recorded Sex Assigned at Not on file Legal Sex Female 2:36 PM DELICATESSEN STORE MANAGER Gender Identity Female 12/30/2022 6:13 PM CDT Sexual Orientation Straight 12/30/2022 6: 13 PM CDT Occupation Industry Job Start Date Job End Date Disabled Not on file Not on file Not on file documented as of this encounter Miscellaneous Notes * Telephone Encounter - Shirin House RN - 09/19/2023 8:16 AM CDT Medication(s) refilled and signed per [facility] Chronic Medication Refill Standing Order for Pediatricand Adult Patients. Requested Prescriptions Pending Prescriptions Disp Refills albuterol 108 (90 Base) MCG/ACT Aerosol Solution [Pharmacy Med Name: ALBUTEROL HFA (PROAIR) INHALER] 1 Sig: TAKE 1-2 PUFFS BY INHALATION EVERY 4 HOURS NEEDED FOR WHEEZING OR COUGH. Short Acting Inhaled Beta-Agonists Protocol Passed - 09/17/2023 11:18 PM Passed - Visit with relevant provider in past 12 months or upcoming 90 days Recent Visits Date Type Provider Dept 05/17/23 Office Visit Hector Brice MD [facility] 12/21/22 Office Visit Hector Brice MD [facility] 09/20/22 Office Visit Hector Brice MD [facility] Showing recent visits within past 365 days [...] [facility] - [facility]rology - [place] [address] [facility] [place] [address] Yohannes Isaacs MD [address] [place] [address] 09/19/2024 7:00 AM CDT Lab [facility] [address] [facility] [address] [place] [address] [facility] 10/25/2024 8:00 AM CDT Office Visit [facility] Medical Group - Family Medicine - [place] [address] [place] [address] Lexus Carrillo, DO 2 [facility]. [address] [place] [address] documented as of this encounter Visit Diagnoses Diagnosis Centrilobular emphysema (HCC) Other emphysema documented in this encounter Additional Health Concerns Infection Onset Date Last Indicated Resolved Time COVID - 19 01/16/2024 02/06/2024 01/16/2024 9:58 AM CDT Respiratory Rule-Out 01/16/2024 01/16/2024 9:57 AM CDT Assessment Noted Time PHQ-9 Depression Total Score: 0 02/24/20 4:00 PM DELICATESSEN STORE MANAGER documented as of this encounter Care Teams Fur Nailer Relationship Specialty Start Date End Date Provider, None [place] PCP - General 09/16/23 10/04/23 Javid Long APRN, PHONE ENGINEER #2 [facility] [address] [place] [address] PCP - General Advanced Practice Nurse 10/05/2301/11 Lexus Carrillo DO [address] [facility] [address] [place] [address] PCP - General Family Medicine 01/16/24 Hector Brice MD [address] [place] [address] Consulting Physician Pulmonary Disease 02/23/22 Flako Woodson MD #2 [facility] [address] [place] [address] Consulting Physician Colon and Rectal Surgery 01/07/23 Yohannes Isaacs MD [address] [place] [address] Consulting Physician Neurology 03/08/23 Aura Read MD [address] [place] [address] Consulting Physician Gastroenterology 01/06/23 Zach Rehman MD [address] [place] [address] Consulting Physician Obstetrics & Gynecology 01/27/24 documented as of this encounter
--- OUTSIDE RECORDS SUMMARY | 2024-06-26 19:07 | XMS_ITS | Encounter Summary ---
Author Organization [facility] Address [address] [place] [address] Phone Care Team Providers Care Link And Link Knitting Machine Operator Name Role Phone James Mckenzie MD Primary Care Provider Hector Brice MD Unavailable Flako Woodson MD Unavailable Yohannes Isaacs MD Unavailable [phone] Aura Read MD Unavailable [phone] Provider, None Primary Care Provider UnavailJavid Maxwell APRN, CALL CENTER TEAM LEADER Primary Care Pr ovider Lexus Carrillo DO Primary Care Provider [phone] Zach Rehman MD Unavailable [phone] Reason for Visit * Reason Comments Medication Refill Encounter Details Date Type Department Care Team (Late st Contact Info) Description 06/08/2023 Refill [facility] - Pulmonology & Sleep Medicine [facility] [address] [place] [address] Hector Brice MD [address] [place] [address] Medication Refill Social History Tobacco [...] on file Legal Sex Female 2:36 PM MOTEL CLERK Gender Identity Female 12/30/2022 6:13 PM CDT Sexual Orientation Straight 12/30/2022 6: 13 PM CDT Occupation Industry Job Start Date Job End Date Disabled Not on file Not on file Not on file documented as of this encounter Miscellaneous Notes * Telephone Encounter - Mindy Healy RN - 06/08/2023 9:59 AM MOTEL CLERK Medication failed the protocol, provider to review and approve the medication order if appropriate. Requested Prescriptions Pending Prescriptions Disp Refills levothyroxine (SYNTHROID) 100 MCG Tablet [Pharmacy Med Name: LEVOTHYROXINE 100 MCG TABLET] 90 Tablet 3 Sig: TAKE 1 TABLET BY MOUTH EVERY DAY Thyroid Hormones Protocol Failed - 06/08/2023 12:04 AM Failed - Normal TSH in past 12 months TSH Date Value Ref Range Status 08/27/2022 <=0.010 (L) 0.270 - 4.200 mIU/L Final Passed - No test in the past 12 months or most recent test was negative Passed - Visit with relevant provider in past 12 months or upcoming 90 days Recent Visits Date Type Provider Dept 05/17/23 Office Visit Hector Brice MD [facility] [address] 12/21/22 Office Visit Hector Brice MD [facility] [address] 09/20/22 Office Visit Hector Brice MD [facility] [address] 08/27/22 Office Visit James Mckenzie MD [facility] 08/24/22 Office Visit Javid Long APRN, CALL CENTER TEAM LEADER [facility] 07/19/22 Office Visit Princess Sherman APRN, CAROL [facility] [place] 06/17/22 Office Visit Hector Brice MD [facility] [place] [facility] Showing recent visits within past 365 days and meeting all other requirements Future Appointments Date Type Provider Dept 08/04/23 Appointment [facility]23 Appointment Hector Brice MD [facility] [place] [facility] Showing future appointments within next 90 days and meeting all other requirements Passed - No active on record L CLERK documented in this encounter Plan of Treatment Upcoming Encounters Date Type Department Care Team (Late st Contact Info) Description 09/17/2024 9:00 AM CDT [facility] - [place] [address] [place] [address] Yohannes Isaacs MD [address] [place] [address] 09/19/2024 7:00 AM CDT Lab [facility] #[address] [address] [facility] 10/25/2024 8:00 AM CDT Office Visit [facility] Medical Group - Family Medicine - [place] [address]2 [place] [address] Lexus Carrillo, DO 2 [facility] [address] [place] [address] documented as of this encounter Visit Diagnoses Not on filedocumented in this encounter Additional Health Concerns Infection Onset Date Last Indicated Resolved Time COVID - 19 01/16/2024 02/06/2024 01/16/2024 9:58 AM CDT Respiratory Rule-Out 01/16/2024 01/16/2024 024 9:57 AM CDT Assessment Noted Time PHQ-9 Depression Total Score: 0 02/24/20 4:00 PM MOTEL CLERK documented as of this encounter Care Teams Link And Link Knitting Machine Operator Relationship Specialty Start Date End Date James Mckenzie MD PCP - General Family Medicine 04/30/19 09/15/23 Provider, [facility] PCP - General 09/16/23 10/04/23 Javid Long, EXECUTIVE OFFICER, CALL CENTER TEAM LEADER #[address] [address] PCP - General Advanced Practice Nurse 10/05/2301/11 Lexus Carrillo DO [address] [address] PCP - General Family Medicine 01/16/24 Hector Brice MD [address] [place] [address] Consulting Physician Pulmonary Disease 02/23/22 Flako Woodson MD #[address] [address] Consulting Physician Colon and Rectal Surgery 01/07/23 Yohannes Isaacs MD [address] [place] [address] Consulting Physician Neurology 03/08/23 Aura Read MD #[address] [place] [address] Consulting Physician Gastroenterology 01/06/23 Zach Rehman MD [address] [place] [address] Consulting Physician Obstetrics & Gynecology 01/27/24 documented as of this encounter
--- OUTSIDE RECORDS SUMMARY | 2024-06-26 19:07 | XMS_ITS | Clinical Summary ---
Author Organization [facility] Address [address] [place] [address] Care Team Providers Care Senior Drupal Developer Name Role Phone Sophy Romano UMESH Primary Care Provider + Medications VENTOLIN HFA 108 (90 Base) MCG/ACT inhaler INHALE 2 PUFFS PO Q 4 H 0 8 Active ALPRAZolam 0.25 MG tablet TK 1 T PO Q 8 H PRN 0 8 Active amoxicillin-cl avulanate 875-125 MG tablet TAKE 1 TABLET BY MOUTH TWICE A DAY FOR 10 DAYS 0 8 Active azithromycin 250 MG tablet TAKE 2 TABLETS BY MOUTH TODAY, THEN TAKE 1 TABLET DAILY FOR 4 DAYS 0 8 Active benzonatate 100 MG capsule TAKE 2 CAPSULES BY MOUTH EVERY 8 HOURS NEEDED FOR COUGH AND CONGESTION 0 8 Active SYMBICORT 160-4.5 MCG/ACT inhaler INHALE 2 PUFFS TWICE DAILY. RINSE MOUTH AFTER USE. 5 8 Active buPROPion 24 hr 300 MG 24 hr tablet Take 300 mg by mouth daily. 0 8 Active buPROPion 24 hr 150 MG 24 hr tablet TK 1 T PO D 0 8 Active cefdinir 300 MG Cap capsule TAKE ONE CAPSULE BY MOUTH EVERY 12 HOURS FOR 7 DAYS 0 8 Active Cholecalcifero l (VITAMIN D) 2000 units Cap Activ e clonazePAM (KLONOPIN) 0.5 MG tablet Active diazepam 5 MG tablet TAKE 1 TABLET BY MOUTH 3 TIMES A DAY 0 8 Active diazepam (VALIUM) 5 MG tablet Active fluconazole 100 MG tablet TAKE 2 TABLETS BY MOUTH TODAY, THEN TAKE 1 TABLET DAILY FOR 21 DAYS 0 8 Active hydrochlorothi azide 25 MG tablet Take 25 mg by mouth daily. 3 8 Active levofloxacin 750 MG tablet TAKE 1 TABLET BY MOUTH DAILY FOR 10 DAYS 0 8 Active methylPREDNISo sigridroger NANCY, 4 MG tablet TAKE 6 TABLETS ON DAY 1 DIRECTED ON PACKAGE AND DECREASE BY 1 TAB EACH DAY FOR A TOTAL OF 6 DAYS 0 8 Active montelukast 10 MG tablet Take 10 mg by mouth nightly at bedtime. at bedtime. 3 8 Active NICOTINE STEP 1 21 MG/24HR see administration instructions. 0 8 Active nystatin 365358 UNIT/ML suspension SWISH AND SWALLOW 5ML BY MOUTH 3 TIMES DAILY 0 8 Active omeprazole 40 MG capsule Take 40 mg by mouth every morning. 4 8 Active potassium chloride 20 MEQ Tab CR Take 1 tablet by mouth daily. 8 8 Active predniSONE 10 mg tablet TAKE 1 TABLET BY MOUTH 3 TIMES A DAY X 3 DAYS, 1 TAB TWICE A DAY X 2 DAYS, 1 TAB ONCE A DAY X 1 DAY 1 8 Active predniSONE 20 MG tablet TAKE 3 TABLETS BY MOUTH EVERY DAY FOR 5 DAYS 0 8 Active sulfamethoxazo le-trimethopri m 800-160 MG tablet TK 1 T PO BID 0 8 Active tiotropium (SPIRIVA RESPIMAT) 1.25 MCG/ACT inhaler (SPIRIVA RESPIMAT) Inhale 2 puffs into the lungs daily. 8 Active traMADol 50 MG tablet TAKE 2 TABLETS BY MOUTH EVERY 8 HOURS NEEDED 0 8 Active omeprazole 40 MG capsuleIndicat ions:Bronchiti s Take 1 capsule (40 mg total) by mouth daily. 90 capsule 8 Active Active Problems Problem Noted Date Diagnosed Date Chronic bronchitis ([facility]) 09/02/2017 Acute bronchitis 01/28/2017 Productive cough 01/28/2017 Oral thrush 09/01/2016 Abnormal PFT 08/31/2016 Anxiety disorder 08/31/2016 Environmental and seasonal allergies 08/31/2016 Abnormal weight loss 06/25/2016 COPD (chronic obstructive pu lmonary disease) ([facility]) 06/25/2016 GERD (gastroesophageal reflux disease) 7 History of asthma 06/25/2016 Wheezing 06/25/2016 Resolved Problems Problem Noted Date Diagnosed Date Resolved Date Encounter for preventive health examination 06/10/2016 12/14/2019 Social History Tobacco Use Types Packs/Day Years Used Date Smoking Tobacco: Never Assessed Comments Unknown Sex and Gender Information Value Date Recorded Sex Assigned at Not on file Legal Sex Female 5:34 PM CDT Gender Identity Not on file Sexual Orientation Not on file Last Filed Vital Signs Vital Sign Reading Time Taken Comments Blood Pressure 119/76 09/02/2017 7:57 AM CDT Pulse 86 09/02/2017 7:57 AM CDT Temperature - - Respiratory Rate - - Oxygen Saturation - - Inhaled Oxygen Concentration - - Weight 90.7 kg (200 lb) 09/02/2017 7:57 AM CDT Height 165.1 cm (5' 5 ) 09/02/2017 7:57 AM CDT Body Mass Index 33.28 09/02/2017 7:57 AM CDT Plan of Treatment Health Maintenance Due Date Last Done Comments Cervical Cancer Screening Pa p Smear (Age 30 to 64) Every 3 Years 1972 Colorectal Cancer Screening Colonoscopy (10 Years) 1972 Annual Physical 06/12/1975 Pneumococcal Vaccine: Pediat rics (0 to 5 Years) and At-Risk Patients (6 to 64 Years) (1 of 2 - PCV) 1978 Hepatitis C 1990 DTaP, Tdap and Td Vaccines ( 1 - Tdap) 06/12/1991 Hepatitis B Vaccines (1 of 3 - 19+ 3-dose series) 06/12/1991 Cervical Cancer Screening Pa p with HPV Testing (Age 30 to 64) Every 5 Years 2002 Cervical Cancer Screening with HPV 2002 Mammogram Screening 2012 Zoster Vaccines (1 of 2) 2022 COVID-19 Vaccine ( - 2023-2 5 season) 2023 Influenza Adult (#1) 2024 Meningococcal B Vaccine Aged Out No l onger eligible based on patient's age to complete this topic Meningococcal Vaccine Aged Out No sigrid suresh eligible based on patient's age to complete this topic RSV Immunizations Under 20 Months Aged Out No longer eligible based on patient's age to complete this topic Insurance MEDICARE MEDICAID [facility] Care Teams Senior Drupal Developer Relationship Specialty Start Date End Date Sophy Romano FNP PCP - General NURSE PRACTITIONER 09/08/17
--- OUTSIDE RECORDS SUMMARY | 2024-06-26 19:07 | XMS_ITS | Encounter Summary ---
Author Organization [facility] Address [address] [place] [address] Phone Care Team Providers Care Railroad Police Officer Name Role Phone James Mckenzie MD Primary Care Provider [phone] Hector Brice MD Unavailable Flako Woodson MD Unavailable Yohannes Isaacs MD Unavailable [phone] Aura Read MD Unavailable [phone] Provider, None Primary Care Provider UnavailJavid Maxwell APRN, WATERPROOF BAG CUTTING MACHINE OPERATOR Primary Care Pr ovider Lexus Carrillo DO Primary Care Provider [phone] Zach Rehman MD Unavailable [phone] Reason for Visit * Reason Comments Medication Refill Encounter Details Date Type Department Care Team (Late st Contact Info) Description 04/21/2022 Refill [facility] #2 [place] [id number] James Mckenzie MD #1 [place] [address] Medication Refill Social History Tobacco Use Types [...] on file Legal Sex Female 2:36 PM DIRECTOR OF SAFETY AND SECURITY Gender Identity Female 12/30/2022 6:13 PM CDT [...] Coronavirus/COVID-19? No / Unsure 04/23/2022 7:09 AM DIRECTOR OF SAFETY AND SECURITY documented as of this encounter Miscellaneous Notes * Telephone Encounter - Maria Luisa Mcgraw RN - 04/22/2022 9:25 AM CST Medication failed the protocol, provider to review and approve the medication order if appropriate. Requested Prescriptions Pending Prescriptions Disp Refills cyclobenzaprine (FLEXERIL) 10 MG Tablet [Pharmacy Med Name: CYCLOBENZAPRINE 10 MG TABLET] 60 Tablet2 Sig: TAKE 1 TABLET BY MOUTH THREE TIMES A DAY NEEDED FOR MUSCLE SPASMS Not Delegated - Muscle Relaxants Protocol Failed - 04/21/2022 1:35 PM Failed - This refill cannot be delegated Passed - Visit with relevant provider in past 12 months or upcoming 90 days Recent Visits Date Type Provider Dept 02/23/22 Office Visit James Mckenzie MD [facility] [place] 02/08/22 Office Visit Princess Sherman, RAG SHREDDER, CAROL [facility] [place] 12/21/21 Office Visit James Mckenzie MD [facility] 11/26/21 Office Visit James Mckenzie MD [facility] 10/19/21 Office Visit James Mckenzie MD [facility] [place] 08/18/21 Office Visit James Mckenzie MD [facility] 06/19/21 Office Visit James Mckenzie MD [facility] Showing recent visits within past 365 days and meeting all other requirements Future Appointments Date Type Provider Dept 04/23/22 Appointment James Mckenzie MD [facility] Showing future appointments within next 90 days and meeting all other requirements CTOR OF SAFETY AND SECURITY * Telephone Encounter - Elaine Mcclendon RN - 04/22/2022 9:25 AM DIRECTOR OF SAFETY AND SECURITY PDMP 04/10/2022 #60 Medication failed the protocol, provider to review and approve the medication order if appropriate. Requested Prescriptions Pending Prescriptions Disp Refills cyclobenzaprine (FLEXERIL) 10 MG Tablet [Pharmacy Med Name: CYCLOBENZAPRINE 10 MG TABLET] 60 Tablet2 Sig: TAKE 1 TABLET BY MOUTH THREE TIMES A DAY NEEDED FOR MUSCLE SPASMS Not Delegated - Muscle Relaxants Protocol Failed - 04/21/2022 1:35 PM Failed - This refill cannot be delegated Passed - Visit with relevant provider in past 12 months or upcoming 90 days Recent Visits Date Type Provider Dept 02/23/22 Office Visit James Mckenzie MD [facility] 02/08/22 Office Visit Princess Sherman APRN, CNP [facility] 12/21/21 Office Visit James Mckenzie MD [facility] 11/26/21 Office Visit James Mckenzie MD [facility] 10/19/21 Office Visit James Mckenzie MD [facility] 08/18/21 Office Visit James Mckenzie MD [facility] 06/19/21 Office Visit James Mckenzie MD [facility] Showing recent visits within past 365 days and meeting all other requirements Future Appointments Date Type Provider Dept 04/23/22 Appointment James Mckenzie MD [facility] Showing future appointments within next 90 days and meeting all other requirements CTOR OF SAFETY AND SECURITY documented in this encounter Plan of Treatment Upcoming Encounters Date Type Department Care Team (Late st Contact Info) Description 09/17/2024 9:00 AM CDT Office Visit [facility] - Neurology - [place] #2 [facility] [place] [address] Yohannes Isaacs MD [address]2 [place] [address] 09/19/2024 7:00 AM CDT Lab [facility] #2 [facility] [address] [place] [address] [facility] 10/25/2024 8:00 AM CDT Office Visit [facility] - Family Medicine - [place] #2 [place] [address] Lexus Carrillo, DO [address] [address] documented as of this encounter Visit Diagnoses Diagnosis Fibromyalgia Mylagia and myositis, unspecified documented in this encounter Additional Health Concerns Infection Onset Date Last Indicated Resolved Time COVID - 19 01/16/2024 02/06/2024 01/16/2024 9:58 AM CDT Respiratory Rule-Out 01/16/2024 01/16/2024 024 9:57 AM CDT Assessment Noted Time PHQ-9 Depression Total Score: 0 02/24/20 22 4:00 PM DIRECTOR OF SAFETY AND SECURITY documented as of this encounter Care Teams Railroad Police Officer Relationship Specialty Start Date End Date James Mckenzie MD PCP - General Family Medicine 04/30/19 09/15/23 Provider, None [place] PCP - General 09/16/23 10/04/23 Javid Long, RAG SHREDDER, WATERPROOF BAG CUTTING MACHINE OPERATOR #[address] [address] PCP - General Advanced Practice Nurse 10/05/2301/11 Lexus Carrillo DO 2 [facility] [address] [place] [address] PCP - General Family Medicine 01/16/24 Hector Brice MD #2 [place] [address] Consulting Physician Pulmonary Disease 02/23/22 Flako Woodson MD #[address] [address] Consulting Physician Colon and Rectal Surgery 01/07/23 Yohannes Isaacs MD #2 [place] [address] Consulting Physician Neurology 03/08/23 Aura Read MD #2 [place] [address] Consulting Physician Gastroenterology 01/06/23 Zach Rehman MD #2 [place] [address] Consulting Physician Obstetrics & Gynecology 01/27/24 documented as of this encounter
--- OUTSIDE RECORDS SUMMARY | 2024-06-26 19:07 | XMS_ITS | Encounter Summary ---
Author Organization [facility] Address [address] [place] [address] Phone Care Team Providers Care Project Management Manager Name Role Phone Hector Brice MD Unavailable Flako Woodson MD Unavailable Yohannes Isaacs MD Unavailable [phone] Aura Read MD Unavailable [phone] Provider, None Primary Care Provider UnavailJavid Maxwell APRN, TYPECASTING MACHINE OPERATOR Primary Care Pr ovider Lexus Carrillo DO Primary Care Provider [phone] Zach Rehman MD Unavailable [phone] Reason for Visit * Reason Comments Medication Refill Encounter Details Date Type Department Care Team (Late st Contact Info) Description 09/17/2023 Refill [facility] - Family Medicine [facility] #2 [place] [address] Javid Long APRN, TYPECASTING MACHINE OPERATOR #[address] [address] Medication Refill Social History Tobacco Use Types Packs/Day Years Used Date Smoking Tobacco: Former Cigarettes 1 34.5 0 10/02/1985 - 04/04/2020 Smokeless Tobacco: Never Comments:Pt used to smoke 1 PPW Alcohol Use Standard Drinks/Week Comments Not Currently 0 (1 standard drink = 0.6 oz pur e alcohol) [facility] Utilities Answer Date Recorded In the [...] week 09/16/2023 How often do you attend orthodox or oriental orthodox serv ices? Never 09/16/2023 Do you belong to any clubs o r organizations such as orthodox groups, unions, fraternal or athletic groups, [...] Total Score - Questions 1-9 0 02/03 [facility] [place] of Occupat ional Health - Occupational Stress [...] any time in the past [address] [facility], were you homeless or living in a residential (including now)? No 09/16/2023 Education Answer Date Recorded What is the highest level of school you have completed or the highest degree you have received? Associate degree: academic program 04/23/2022 Sexually Active Control Partners Comments Not Currently Abstinence Male Comments No Sex and Gender Information Value Date Recorded Sex Assigned at Not on file Legal Sex Female 2:36 PM FORESTRY ADVISER Gender Identity Female 12/30/2022 6:13 PM CDT Sexual Orientation Straight 12/30/2022 6: 13 PM CDT Occupation Industry Job Start Date Job End Date Disabled Not on file Not on file Not on file documented as of this encounter Miscellaneous Notes * Telephone Encounter - Mindy Healy RN - 09/18/2023 11:00 AM CDT Not sure why PCP already removed from chart. Bertha with Dr. Carrillo 11-30-23 Medication failed the protocol, provider to review and approve the medication order if appropriate. Requested Prescriptions Pending Prescriptions Disp Refills cyclobenzaprine (FLEXERIL) 10 MG Tablet [Pharmacy Med Name: CYCLOBENZAPRINE 10 MG TABLET] 60 Tablet2 Sig: TAKE 1 TABLET BY MOUTH THREE TIMES A DAY NEEDED FOR MUSCLE SPASM Not Delegated - Muscle Relaxants Protocol Failed - 09/17/2023 11:18 PM Failed - This refill cannot be delegated Passed - Visit with relevant provider in past 12 months or upcoming 90 days Recent Visits Date Type Provider Dept 09/16/23 Office Visit Javid Long APRN, CAROL [facility] Showing recent visits within past 365 days and meeting all other requirements Future Appointments Date Type Provider Dept 11/30/23 Appointment Lexus Carrillo DO [facility] [place] Showing future appointments within next 90 days and meeting all other requirements documented in this encounter Plan of Treatment Upcoming Encounters Date Type Department Care Team (Late st Contact Info) Description 09/17/2024 9:00 AM CDT Office Visit [facility] - Neurology - [place] #2 [place] [address] Yohannes Isaacs MD #2 [place] [address] 09/19/2024 7:00 AM CDT Lab [facility] #2 [facility] [address] [place] [address] [facility] 10/25/2024 8:00 AM CDT Office Visit [facility] - Family Medicine - [place] #2 [place] [address] Lexus Carrillo, 2 [facility] [address] [place] [address] documented as of this encounter Visit Diagnoses Diagnosis Fibromyalgia Mylagia and myositis, unspecified documented in this encounter Additional Health Concerns Infection Onset Date Last Indicated Resolved Time COVID - 19 01/16/2024 02/06/2024 01/16/2024 9:58 AM CDT Respiratory Rule-Out 01/16/2024 01/16/2024 9:57 AM CDT Assessment Noted Time PHQ-9 Depression Total Score: 0 02/24/20 22 4:00 PM FORESTRY ADVISER documented as of this encounter Care Teams Project Management Manager Relationship Specialty Start Date End Date Provider, None [place] PCP - General 09/16/23 10/04/23 Javid Long APRN, TYPECASTING MACHINE OPERATOR #[address] [address] PCP - General Advanced Practice Nurse 10/05/2301/11 Lexus Carrillo DO [address] [address] PCP - General Family Medicine 01/16/24 Hector Brice MD #2 [place] [address] Consulting Physician Pulmonary Disease 02/23/22 Flako Woodson MD #2 [place] [address] Consulting Physician Colon and Rectal Surgery 01/07/23 Yohannes Isaacs MD #2 [place] [address] Consulting Physician Neurology 03/08/23 Aura Read MD #2 [place] [address] Consulting Physician Gastroenterology 01/06/23 Zach Rehman MD #2 [place] [address] Consulting Physician Obstetrics & Gynecology 01/27/24 documented as of this encounter
--- OUTSIDE RECORDS SUMMARY | 2024-06-26 19:07 | XMS_ITS | Encounter Summary ---
Author Organization [facility] Address [address] [place] [address] Phone Care Team Providers Care Toddler Caregiver Name Role Phone James Mckenzie MD Primary Care Provider [phone] Hector Brice MD Unavailable Flako Woodson MD Unavailable Yohannes Isaacs MD Unavailable [phone] Aura Read MD Unavailable [phone] Provider, None Primary Care Provider UnavailJavid Maxwell APRN, POLICE AND FIRE DISPATCHER Primary Care Pr ovider Lexus Carrillo DO Primary Care Provider [phone] Zach Rehman MD Unavailable [phone] Reason for Visit * Reason Comments Medication Refill Encounter Details Date Type Department Care Team (Late st Contact Info) Description 02/12/2023 Refill [facility] #2 [place] [address] James Mckenzie MD #1 [place] [address] Medication Refill Social History Tobacco Use Types [...] on file Legal Sex Female 2:36 PM HOTEL MAINTENANCE WORKER Gender Identity Female 12/30/2022 6:13 PM CDT Sexual Orientation Straight 12/30/2022 6: 13 PM CDT Occupation Industry Job Start Date Job End Date Disabled Not on file Not on file Not on file COVID-19 Exposure Response Date Recorded In the last 10 days, have yo u been in contact with someone who was confirmed or suspected to have Coronavirus/COVID-19? No / Unsure 01/13/2023 12:54 PM CDT documented as of this encounter Miscellaneous Notes * Telephone Encounter - Mindy Healy RN - 02/12/2023 2:39 PM HOTEL MAINTENANCE WORKER Medication failed the protocol, provider to review and approve the medication order if appropriate. Requested Prescriptions Pending Prescriptions Disp Refills Klor-Con M20 20 MEQ Tablet Controlled Release [Pharmacy Med Name: KLOR-CON M20 TABLET] 360 Tablet 1 Sig: TAKE 2 TABLETS BY MOUTH TWICE A DAY Potassium Supplement Protocol Failed - 02/12/2023 7:01 AM Failed - Normal serum potassium in past 12 months POTASSIUM Date Value Ref Range Status 12/23/2022 3.4 (L) 3.5 - 5.1 mmol/L Final Passed - Visit with relevant provider in past 12 months or upcoming 90 days Recent Visits Date Type Provider Dept 08/27/22 Office Visit James Mckenzie MD [facility] [place] 08/24/22 Office Visit Javid Long APRN, POLICE AND FIRE DISPATCHER [facility] [place] 07/19/22 Office Visit Princess Sherman APRN, POLICE AND FIRE DISPATCHER [facility] [place] 05/31/22 Office Visit James Mckenzie MD [facility] [place] 02/23/22 Office Visit James Mckenzie MD [facility] Showing recent visits within past 365 days and meeting all other requirements Future Appointments No visits were found meeting these conditions. Showing future appointments within next 90 days and meeting all other requirements L MAINTENANCE WORKER documented in this encounter Plan of Treatment Upcoming Encounters Date Type Department Care Team (Late st Contact Info) Description 09/17/2024 9:00 AM CDT Office Visit [facility] - Neurology - [place] #2 [place] [address] Yohannes Isaacs MD #2 [place] [address] 09/19/2024 7:00 AM CDT Lab [facility] #2 [facility] [address] [place] [address] [facility] Lab/Ancillary 10/25/2024 8:00 AM CDT Office Visit [facility] - Family Medicine - [place] #2 [place] [address] Lexus Carrillo, DO 2 [facility] [address] [place] [address] documented as of this encounter Visit Diagnoses Not on filedocumented in this encounter Additional Health Concerns Infection Onset Date Last Indicated Resolved Time COVID - 19 01/16/2024 02/06/2024 01/16/2024 9:58 AM CDT Respiratory Rule-Out 01/16/2024 01/16/2024 024 9:57 AM CDT Assessment Noted Time PHQ-9 Depression Total Score: 0 02/24/20 4:00 PM HOTEL MAINTENANCE WORKER documented as of this encounter Care Teams Toddler Caregiver Relationship Specialty Start Date End Date James Mckenzie MD PCP - General Family Medicine 04/30/19 09/15/23 Provider, None [place] PCP - General 09/16/23 10/04/23 Javid Long APRN, POLICE AND FIRE DISPATCHER #2 [facility] [address] [place] [address] PCP - General Advanced Practice Nurse 10/05/2301/11 Lexus Carrillo DO 2 [facility] [address] [place] [address] PCP - General Family Medicine 01/16/24 Hector Brice MD #2 [place] [address] Consulting Physician Pulmonary Disease 02/23/22 Flako Woodson MD #[address] [address] Consulting Physician Colon and Rectal Surgery 01/07/23 Yohannes Isaacs MD #2 [place] [address] Consulting Physician Neurology 03/08/23 Aura Read MD #2 [place] [address] Consulting Physician Gastroenterology 01/06/23 Zach Rehman MD #2 [place] [address] Consulting Physician Obstetrics & Gynecology 01/27/24 documented as of this encounter
--- OUTSIDE RECORDS SUMMARY | 2024-06-26 19:07 | XMS_ITS | Encounter Summary ---
Author Organization [facility] Address [address] [place] [address] Phone Care Team Providers Care Spray Rig Operator Name Role Phone James Mckenzie MD Primary Care Provider [phone] Hector Brice MD Unavailable Flako Woodson MD Unavailable Yohannes Isaacs MD Unavailable [phone] Aura Read MD Unavailable [phone] Provider, None Primary Care Provider UnavailJavid Maxwell APRN, RIDE ATTENDANT Primary Care Pr ovider Lexus Carrillo DO Primary Care Provider [phone] Zach Rehman MD Unavailable [phone] Reason for Visit * Reason Comments Medication Refill Encounter Details Date Type Department Care Team (Late st Contact Info) Description 03/17/2021 Refill [facility] Group - Family Medicine [facility] #2 [place] [address] James Mckenzie MD #1 [place] [address] Medication Refill Social History Tobacco Use Types [...] on file Legal Sex Female 2:36 PM COLLECTION ADVISOR Gender Identity Female 12/30/2022 6:13 PM CDT Sexual Orientation Straight 12/30/2022 6: 13 PM CDT Occupation Industry Job Start Date Job End Date Disabled Not on file Not on file Not on file COVID-19 Exposure Response Date Recorded In the last month, have you been in contact with someone who was confirmed or suspected to have Coronavirus / COVID-19? No / Unsure 03/18/2021 10:37 AM COLLECTION ADVISOR documented as of this encounter Miscellaneous Notes * Telephone Encounter - Maria Luisa Mcgraw RN - 03/18/2021 10:06 AM CST Per nursing clinical judgement, provider to review and approve the medication(s) order(s) if appropriate. Requested Prescriptions Pending Prescriptions Disp Refills ergocalciferol (VITAMIN D) [address] UNIT Capsule [Pharmacy Med Name: VITAMIN D2 1.25MG(50,000 UNIT)] 12 Capsule 3 Sig: TAKE 1 CAPSULE BY MOUTH ONE TIME PER WEEK Vitamin Supplements (Adult) Protocol Passed - 03/18/2021 10:05 AM Passed - Visit with relevant provider in past 12 months or upcoming 90 days Recent Visits Date Type Provider Dept 03/03/21 Office Visit Jory Jefferson APRN, CAROL [facility] [place] 11/25/20 Office Visit James Mckenzie MD [facility] [place] 10/14/20 Office Visit Kerry Brandon MD [facility] [place] 09/30/20 Office Visit Sena Kelly, ROGELIO [facility] [place] 08/28/20 Office Visit James Mckenzie MD [facility] 07/24/20 Office Visit MckenzieJames jaime MD [facility] 06/02/20 Office Visit James Mckenzie MD [facility] 05/14/20 Telemedicine James Mckenzie MD [facility] 05/09/20 Procedure Visit James Mckenzie MD [facility] 04/23/20 Office Visit James Mckenzie MD [facility] Showing recent visits within past 365 days and meeting all other requirements Future Appointments Date Type Provider Dept 03/30/21 Appointment James Mckenzie MD [facility] Showing future appointments within next 90 days and meeting all other requirements Passed - Vitamin D less than 1.25mg rOPINIRole (REQUIP) 0.25 MG Tablet [Pharmacy Med Name: ROPINIROLE HCL 0.25 MG TABLET] 90 Tablet 3 Sig: TAKE 1 TABLET BY MOUTH EVERY DAY AT NIGHT Antiparkinson Dopaminergics and COMT Protocol Passed - 03/18/2021 10:05 AM Passed - Visit with relevant provider in the past 9 months or upcoming 90 days Recent Visits Date Type Provider Dept 03/03/21 Office Visit Jory Jefferson APRN, CAROL [facility] [place] 11/25/20 Office Visit James Mckenzie MD [facility] 10/14/20 Office Visit Kerry Brandon MD [facility] 09/30/20 Office Visit Sena Kelly, ROGELIO [facility] 08/28/20 Office Visit James Mckenzie MD [facility] 07/24/20 Office Visit James Mckenzie MD [facility] Showing recent visits within past 270 days and meeting all other requirements Future Appointments Date Type Provider Dept 03/30/21 Appointment James Mckenzie MD [facility] Showing future appointments within next 90 days and meeting all other requirements Passed - Blood pressure on record in past 12 months Clinician-entered: BP Readings from Last 3 Encounters: 03/03/21 116/72 01/21/21 114/85 12/17/20 126/80 Patient-entered: No data recorded ECTION ADVISOR documented in this encounter Plan of Treatment Upcoming Encounters Date Type Department Care Team (Late st Contact Info) Description 09/17/2024 9:00 AM CDT [facility] [place] #2 [place] [address] Yohannes Isaacs MD #2 [place] [address] 09/19/2024 7:00 AM CDT Lab [facility] #[address] [address] [facility]An[facility] 10/25/2024 8:00 AM CDT Office Visit [facility] Group - Family Medicine - [place] #2 [place] [address] Lexus Carrillo, DO [address] [address] documented as of this encounter Visit Diagnoses Diagnosis Vitamin D deficiency Unspecified vitamin D deficiency RLS (restless legs syndrome) Restless legs syndrome (RLS) documented in this encounter Additional Health Concerns Infection Onset Date Last Indicated Resolved Time COVID - 19 01/16/2024 02/06/2024 01/16/2024 9:58 AM CDT Respiratory Rule-Out 01/16/2024 01/16/2024 024 9:57 AM CDT Assessment Noted Time PHQ-9 Depression Total Score: 11 020 10:03 AM COLLECTION ADVISOR documented as of this encounter Care Teams Spray Rig Operator Relationship Specialty Start Date End Date James Mckenzie MD PCP - General Family Medicine 04/30/19 09/15/23 Provider, None [place] PCP - General 09/16/23 10/04/23 Javid Long, UNDERCOATER, RIDE ATTENDANT #[address] [address] PCP - General Advanced Practice Nurse 10/05/2301/11 Lexus Carrillo DO [address] [address] PCP - General Family Medicine 01/16/24 Hector Brice MD #2 [place] [address] Consulting Physician Pulmonary Disease 02/23/22 Flako Woodson MD #[address] [address] Consulting Physician Colon and Rectal Surgery 01/07/23 Yohannes Isaacs MD #2 [place] [address] Consulting Physician Neurology 03/08/23 Aura Read MD #2 [place] [address] Consulting Physician Gastroenterology 01/06/23 Zach Rehman MD #2 [place] [address] Consulting Physician Obstetrics & Gynecology 01/27/24 documented as of this encounter
--- OUTSIDE RECORDS SUMMARY | 2024-06-26 19:07 | XMS_ITS | Encounter Summary ---
Author Organization [facility] Address [address] [place] [address] Phone Care Team Providers Care Riveter Automobile Brakes Name Role Phone James Mckenzie MD Primary Care Provider [phone] Hector Brice MD Unavailable Flako Woodson MD Unavailable Yohannes Isaacs MD Unavailable [phone] Aura Read MD Unavailable [phone] Provider, None Primary Care Provider UnavailJavid Maxwell APRN, KEY HOLDER Primary Care Pr ovider Lexus Carrillo DO Primary Care Provider [phone] Zach Rehman MD Unavailable [phone] Reason for Visit * Reason Comments Medication Refill Encounter Details Date Type Department Care Team (Late st Contact Info) Description 06/29/2021 [facility]ill [facility] #2 [place] [phone] James Mckenzie MD #1 [place] [address] Medication Refill Social History Tobacco Use Types [...] on file Legal Sex Female 2:36 PM CLINICAL RESEARCH SPEC Gender Identity Female 12/30/2022 6:13 PM CDT Sexual Orientation Straight 12/30/2022 6: 13 PM CDT Occupation Industry Job Start Date Job End Date Disabled Not on file Not on file Not on file COVID-19 Exposure Response Date Recorded In the last 10 days, have yo u been in contact with someone who was confirmed or suspected to have Coronavirus/COVID-19? No / Unsure 06/19/2021 9:06 AM CDT documented as of this encounter Miscellaneous Notes * Telephone Encounter - Maria Luisa Mcgraw RN - 06/30/2021 11:16 AM CDT Medication failed the protocol, provider to review and approve the medication order if appropriate. Requested Prescriptions Pending Prescriptions Disp Refills B-D 3CC LUER-GREGORIO SYR 25GX5/8 25G X 5/8 3 ML Misc [Pharmacy Med Name: BD LUER- GREGORIO SYR 3 ML 25GX5/8 ] 6 Each 1 Sig: TO USE TO GIVE B12 SHOTS AT HOME. Not Delegated - Off Protocol Failed - 06/29/2021 2:46 PM Failed - This refill cannot be delegated Passed - Visit with relevant provider in past 12 months or upcoming 90 days Recent Visits Date Type Provider Dept 06/19/21 Office Visit James Mckenzie MD [facility] 03/30/21 Office Visit James Mckenzie MD [facility] 03/03/21 Office Visit Jory Jefferson APRN, [facility] [place] 11/25/20 Office Visit James Mckenzie MD [facility] 10/14/20 Office Visit eKrry Brandon MD [facility] 09/30/20 Office Visit Sena Kelly PAC [facility] 08/28/20 Office Visit James Mckenzie MD [facility] [place] 07/24/20 Office Visit James Mckenzie MD [facility] Showing recent visits within past 365 days and meeting all other requirements Future Appointments Date Type Provider Dept 07/29/21 Appointment [facility] Showing future appointments within next 90 days and meeting all other requirements documented in this encounter Plan of Treatment Upcoming Encounters Date Type Department Care Team (Late st Contact Info) Description 09/17/2024 9:00 AM CDT Office Visit [facility] - Neurology - [place] #2 [place] [address] Yohannes Isaacs MD #2 [place] [address] 09/19/2024 7:00 AM CDT Lab [facility] #2 [facility] [address] [place] [address] [facility] 10/25/2024 8:00 AM CDT Office Visit [facility] Medical [facility] - Family Medicine - [place] #2 [place] [address] Lexus Carrillo, DO 2 [facility] [address] [place] [address] documented as of this encounter Visit Diagnoses Diagnosis Vitamin B 12 deficiency Other B-complex deficiencies documented in this encounter Additional Health Concerns Infection Onset Date Last Indicated Resolved Time COVID - 19 01/16/2024 02/06/2024 01/16/2024 9:58 AM CDT Respiratory Rule-Out 01/16/2024 01/16/2024 024 9:57 AM CDT Assessment Noted Time PHQ-9 Depression Total Score: 0 03/30/20 21 9:00 AM CLINICAL RESEARCH SPEC documented as of this encounter Care Teams Riveter Automobile Brakes Relationship Specialty Start Date End Date James Mckenzie MD PCP - General Family Medicine 04/30/19 09/15/23 Provider, None [place] PCP - General 09/16/23 10/04/23 Javid Long, CLIENT ONBOARDING ANALYST, KEY HOLDER #2 [facility] [address] [place] [address] PCP - General Advanced Practice Nurse 10/05/2301/11 Lexus Carrillo DO [address] [address] PCP - General Family Medicine 01/16/24 Hector Brice MD #2 [place] [address] Consulting Physician Pulmonary Disease 02/23/22 Flako Woodson MD #[address] [address] Consulting Physician Colon and Rectal Surgery 01/07/23 Yohannes Isaacs MD #2 [place] [address] Consulting Physician Neurology 03/08/23 Aura Read MD #2 [place] [address] Consulting Physician Gastroenterology 01/06/23 Zach Rehman MD #2 [place] [address] Consulting Physician Obstetrics & Gynecology 01/27/24 documented as of this encounter
--- OUTSIDE RECORDS SUMMARY | 2024-06-26 19:07 | XMS_ITS | Encounter Summary ---
Author Organization [facility] Address [address] [place] [address] Phone Care Team Providers Care Computer Application Developer Name Role Phone James Mckenzie MD Primary Care Provider [phone] Hector Brice MD Unavailable Flako Woodson MD Unavailable oYhannes Isaacs MD Unavailable [phone] Aura Read MD Unavailable [phone] Provider, None Primary Care Provider UnavailJavid Maxwell APRN, COMMERCIAL CLEANER Primary Care Pr ovider Lexus Carrillo DO Primary Care Provider [phone] Zach Rehman MD Unavailable [phone] Reason for Visit * Reason Comments Medication Refill Encounter Details Date Type Department Care Team (Late st Contact Info) Description 01/25/2023 Refill [facility] #2 [place] [phone] James Mckenzie MD #1 [place] [address] Medication Refill Social History Tobacco Use Types [...] on file Legal Sex Female 2:36 PM MACHINE ASSEMBLER SUPERVISOR Gender Identity Female 12/30/2022 6:13 PM CDT [...] Encounter - Maria Luisa Mcgraw RN - 01/25/2023 3:37 PM CDT Medication failed the protocol, provider to review and approve the medication order if appropriate. Requested Prescriptions Pending Prescriptions Disp Refills cyclobenzaprine (FLEXERIL) 10 MG Tablet [Pharmacy Med Name: CYCLOBENZAPRINE 10 MG TABLET] 60 Tablet2 Sig: TAKE 1 TABLET BY MOUTH THREE TIMES A DAY NEEDED FOR MUSCLE SPASM Not Delegated - Muscle Relaxants Protocol Failed - 01/25/2023 2:02 PM Failed - This refill cannot be delegated Passed - Visit with relevant provider in past 12 months or upcoming 90 days Recent Visits Date Type Provider Dept 08/27/22 Office Visit James Mckenzie MD [facility] 08/24/22 Office Visit Javid Long APRN, [facility] [place] 07/19/22 Office Visit Princess Sherman APRN, CAR[facility] [place] 05/31/22 Office Visit James Mckenzie MD [facility] 02/23/22 Office Visit James Mckenzie MD [facility] 02/08/22 Office Visit Princess Sherman, MONUMENT SETTER HELPER, COMMERCIAL CLEANER [facility] Showing recent visits within past 365 days and meeting all other requirements Future Appointments No visits were found meeting these conditions. Showing future appointments within next 90 days and meeting all other requirements documented in this encounter Plan of Treatment Upcoming Encounters Date Type Department Care Team (Late st Contact Info) Description 09/17/2024 9:00 AM CDT Office Visit [facility] Medical [facility] - Neurology - [place] #2 [facility] [place] [address] Yohannes Isaacs MD #2 [place] [address] 09/19/2024 7:00 AM CDT Lab [facility] #2 [facility] [address] [place] [address] [facility] Lab/Ancillary 10/25/2024 8:00 AM CDT Office Visit [facility] - Family Medicine - [place] #2 [facility] [place] [address] Lexus Carrillo, DO 2 [facility]. [address] [place] [address] documented as of this encounter Visit Diagnoses Diagnosis Fibromyalgia Mylagia and myositis, unspecified documented in this encounter Additional Health Concerns Infection Onset Date Last Indicated Resolved Time COVID - 19 01/16/2024 02/06/2024 01/16/2024 9:58 AM CDT Respiratory Rule-Out 01/16/2024 01/16/2024 024 9:57 AM CDT Assessment Noted Time PHQ-9 Depression Total Score: 0 02/24/20 4:00 PM MACHINE ASSEMBLER SUPERVISOR documented as of this encounter Care Teams Computer Application Developer Relationship Specialty Start Date End Date James Mckenzie MD PCP - General Family Medicine 04/30/19 09/15/23 Provider, None [place] PCP - General 09/16/23 10/04/23 Javid Long APRN, COMMERCIAL CLEANER #2 [facility] [address] [place] [address] PCP - General Advanced Practice Nurse 10/05/2301/11 Lexus Carrillo DO 2 [facility] [address] [place] [address] PCP - General Family Medicine 01/16/24 Hector Brice MD #2 [place] [address] Consulting Physician Pulmonary Disease 02/23/22 Flako Woodson MD #2 [facility] [address] [place] [address] Consulting Physician Colon and Rectal Surgery 01/07/23 Yohannes Isaacs MD #2 [place] [address] Consulting Physician Neurology 03/08/23 Aura Read MD #2 [place] [address] Consulting Physician Gastroenterology 01/06/23 Zach Rehman MD #2 [place] [address] Consulting Physician Obstetrics & Gynecology 01/27/24 documented as of this encounter
--- OUTSIDE RECORDS SUMMARY | 2024-06-26 19:07 | XMS_ITS | Encounter Summary ---
Author Organization [facility] Address [address] [place] [address] Phone Care Team Providers Care [facility] Name Role Phone James Mckenzie MD Primary Care Provider [phone] Hector Brice MD Unavailable Flako Woodson MD Unavailable Yohannes Isaacs MD Unavailable [phone] Aura Read MD Unavailable [phone] Provider, None Primary Care Provider UnavailJavid Maxwell APRN, LOADING AND UNLOADING SUPERVISOR Primary Care Pr ovider Lexus Carrillo DO Primary Care Provider [phone] Zach Rehman MD Unavailable [phone] Reason for Visit * Reason Comments Medication Refill Encounter Details Date Type Department Care Team (Late st Contact Info) Description 05/19/2023 Refill [facility] #2 [place] [phone] James Mckenzie MD #1 [place] [address] Medication Refill Social History Tobacco Use Types [...] on file Legal Sex Female 2:36 PM CRUSHER FEEDER Gender Identity Female 12/30/2022 6:13 PM CDT Sexual Orientation Straight 12/30/2022 6: 13 PM CDT Occupation Industry Job Start Date Job End Date Disabled Not on file Not on file Not on file documented as of this encounter Miscellaneous Notes * Telephone Encounter - Maria Luisa Mcgraw RN - 05/20/2023 11:38 AM CST Images from the original note were not included. Ergocalciferol Dispensed Days Supply Quantity Provider Pharmacy VITAMIN D2 1.25MG(50,000 UNIT) 04/15/2023 83 12 Each James Mckenzie MD [id number]... VITAMIN D2 1.25MG(50,000 UNIT) 01/22/2023 83 12 Each James Mckenzie MD [id number]... HER FEEDER documented in this encounter Plan of Treatment Upcoming Encounters Date Type Department Care Team (Late st Contact Info) Description 09/17/2024 9:00 AM CDT Office Visit [facility] - Neurology - [place] #2 [place] [address] Yohannes Isaacs MD #2 [place] [address] 09/19/2024 7:00 AM CDT Lab [facility] #[address] [address] [facility] Lab/Ancillary 10/25/2024 8:00 AM CDT Office Visit [facility] - [facility] [place] #2 [place] [address] Lexus Carrillo DO 2 [facility] [place] [address] documented as of this encounter Visit Diagnoses Diagnosis Vitamin D deficiency Unspecified vitamin D deficiency documented in this encounter Additional Health Concerns Infection Onset Date Last Indicated Resolved Time COVID - 19 01/16/2024 02/06/2024 01/16/2024 9:58 AM CDT Respiratory Rule-Out 01/16/2024 01/16/2024 024 9:57 AM CDT Assessment Noted Time PHQ-9 Depression Total Score: 0 02/24/20 4:00 PM CRUSHER FEEDER documented as of this encounter Care Teams [facility] Relationship Specialty Start Date End Date James Mckenzie MD PCP - General Family Medicine 04/30/19 09/15/23 Provider, None [place] PCP - General 09/16/23 10/04/23 Javid Long, STEEL WHEEL ENGRAVER, LOADING AND UNLOADING SUPERVISOR #[address] [address] PCP - General Advanced Practice Nurse 10/05/2301/11 Lexus Carrillo DO 2 [facility] [place] [address] PCP - General Family Medicine 01/16/24 Hector Brice MD #2 [place] [address] Consulting Physician Pulmonary Disease 02/23/22 Flako Woodson MD #[address] [address] Consulting Physician Colon and Rectal Surgery 01/07/23 Yohannes Isaacs MD #2 [place] [address] Consulting Physician Neurology 03/08/23 Aura Read MD #2 [place] [address] Consulting Physician Gastroenterology 01/06/23 Zach Rehman MD #2 [place] [address] Consulting Physician Obstetrics & Gynecology 01/27/24 documented as of this encounter
--- OUTSIDE RECORDS SUMMARY | 2024-06-26 19:07 | XMS_ITS | Encounter Summary ---
Author Organization [facility] Address [address] [place] [address] Phone Care Team Providers Care Manager Gift Name Role Phone James Mckenzie MD Primary Care Provider [phone] Hector Brice MD Unavailable Flako Woodson MD Unavailable Yohannes Isaacs MD Unavailable [phone] Aura Read MD Unavailable [phone] Provider, None Primary Care Provider UnavailJavid Maxwell APRN, CAKE CUTTER MACHINE Primary Care Pr ovider Lexus Carrillo DO Primary Care Provider [phone] Zach Rehman MD Unavailable [phone] Reason for Visit * Reason Comments Medication Refill Encounter Details Date Type Department Care Team (Late st Contact Info) Description 06/16/2023 Refill [facility] #2 [place] [phone] James Mckenzie MD #1 [place] [address] Medication Refill Social History Tobacco Use Types [...] on file Legal Sex Female 2:36 PM TAFFY PULLER Gender Identity Female 12/30/2022 6:13 PM CDT Sexual Orientation Straight 12/30/2022 6: 13 PM CDT Occupation Industry Job Start Date Job End Date Disabled Not on file Not on file Not on file documented as of this encounter Miscellaneous Notes * Telephone Encounter - Mindy Healy RN - 06/16/2023 11:12 AM CDT Medication failed the protocol, provider to review and approve the medication order if appropriate. Requested Prescriptions Pending Prescriptions Disp Refills cyclobenzaprine (FLEXERIL) 10 MG Tablet [Pharmacy Med Name: CYCLOBENZAPRINE 10 MG TABLET] 60 Tablet2 Sig: TAKE 1 TABLET BY MOUTH THREE TIMES A DAY NEEDED FOR MUSCLE SPASM Not Delegated - Muscle Relaxants Protocol Failed - 06/16/2023 10:39 AM Failed - This refill cannot be delegated Passed - Visit with relevant provider in past 12 months or upcoming 90 days Recent Visits Date Type Provider Dept 08/27/22 Office Visit James Mckenzie MD [facility] 08/24/22 Office Visit Javid Long APRN, [facility] 07/19/22 Office Visit Princess Sherman APRN, CAKE CUTTER MACHINE [facility] [place] Showing recent visits within past 365 days and meeting all other requirements Future Appointments Date Type Provider Dept 08/04/23 Appointment James Mckenzie MD [facility] Showing future appointments within next 90 days and meeting all other requirements documented in this encounter Plan of Treatment Upcoming Encounters Date Type Department Care Team (Late st Contact Info) Description 09/17/2024 9:00 AM CDT [facility] - [place] #2 [place] [address] Yohannes Isaacs MD #2 [place] [address] 09/19/2024 7:00 AM CDT Lab [facility] #[address] [address] [facility] 10/25/2024 8:00 AM CDT Office Visit [facility] - Family Medicine - [place] #2 [place] [address] Lexus Carrillo, DO 2 [facility]. [address] [place] [address] documented as of this encounter Visit Diagnoses Diagnosis Fibromyalgia Mylagia and myositis, unspecified documented in this encounter Additional Health Concerns Infection Onset Date Last Indicated Resolved Time COVID - 19 01/16/2024 02/06/2024 01/16/2024 9:58 AM CDT Respiratory Rule-Out 01/16/2024 01/16/2024 024 9:57 AM CDT Assessment Noted Time PHQ-9 Depression Total Score: 0 02/24/20 22 4:00 PM TAFFY PULLER documented as of this encounter Care Teams Manager Gift Relationship Specialty Start Date End Date James Mckenzie MD PCP - General Family Medicine 04/30/19 09/15/23 Provider, None [place] PCP - General 09/16/23 10/04/23 Javid Long, CENTRAL SUPPLY TECHNICIAN SUPERVISOR, CAKE CUTTER MACHINE #[address] [address] PCP - General Advanced Practice Nurse 10/05/2301/11 Lexus Carrillo DO [address] [address] PCP - General Family Medicine 01/16/24 Hector Brice MD #2 [place] [address] Consulting Physician Pulmonary Disease 02/23/22 Flako Woodson MD #[address] [address] Consulting Physician Colon and Rectal Surgery 01/07/23 Yohannes Isaacs MD #2 [place] [address] Consulting Physician Neurology 03/08/23 Aura Read MD #2 [place] [address] Consulting Physician Gastroenterology 01/06/23 Zach Rehman MD #2 [place] [address] Consulting Physician Obstetrics & Gynecology 01/27/24 documented as of this encounter
--- OUTSIDE RECORDS SUMMARY | 2024-06-26 19:07 | XMS_ITS | Encounter Summary ---
Author Organization [employer] Care Team Providers Care Auto Service Instructor Name Role Phone Hector Brice MD Unavailable Flako Woodson MD Unavailable Yohannes Isaacs MD Unavailable [phone] Aura Read MD Unavailable [phone] Lexus Carrillo DO Primary Care Provider [phone] Zach Rehman MD Unavailable Encounter Details Date Type Department Care Team (Latest Contact Info) Description 06/25/2024 Travel Social History Tobacco Use Types Packs/Day Years Used Date Smoking Tobacco: Former Cigarettes 1 34.5 0 10/02/1985 - 04/04/2020 Smokeless Tobacco: Never Comments:Pt used to smoke 1 PPW Alcohol Use Standard Drinks/Week Comments Not Currently 0 (1 standard drink = 0.6 oz pur e alcohol) [facility] Utilities Answer Date Recorded In the past 12 months has Feedback, gas, oil, or water [employer] threatened to shut off services in your home? Yes 04/23/2024 Social Connection and Isolat ion Panel [NHANES] Answer Date Recorded In a typical week, how many times do you talk on the phone with family, friends, or neighbors? More than three times a week 04/23/2024 How often do you get togethe r with friends or relatives? More than three times a week 04/23/2024 How often do you attend formerly [facility] or catholic services? 1 to 4 times per year 04/23/2024 Do you belong to any clubs o r organizations such as oriental orthodox groups, unions, fraternal or athletic groups, or school groups? No 04/23/2024 How often do you attend meet ings of the clubs or organizations you belong to? Never 04/23/2024 Are you , , di vorced, , never , or living with a partner? Never 04/23/2024 AUDIT-C Answer Date Recorded Q1: How often do you have a drink containing alcohol? Never 04/23/2024 Q2: How many drinks containi ng alcohol do you have on a typical day when you are drinking? Patient does not drink Q3: How often do you have si x or more drinks on one occasion? Never 04/23/2024 Overall Financial Resource Strain (CARDIA) Answe r Date Recorded How hard is it for you to pa y for the very basics like food, housing, medical care, and heating? Somewhat hard 04/23/2024 PHQ-2 Answer Date Recorded Total Score - Questions 1-9 0 04/05 [facility] - Occupational Stress Questionnaire Answer Date Recorded Do you feel stress - tense, restless, nervous, or anxious, or unable to sleep at night because your mind is troubled all the time - these days? To some extent 04/23/2024 Exercise Vital Sign Answer Date Recorde d On average, how many days pe r week do you engage in moderate to strenuous exercise (like a brisk walk)? 2 days 04/23/2024 On average, how many minutes do you engage in exercise at this level? 40 min 04/23/2024 Hunger Vital Sign Answer Date Recorded Within [...] medical appointments or from getting medications? No 04/05 In the past 12 months, has l ack of transportation kept you from meetings, work, or from getting things needed for daily living? No 04/23/2024 Housing Stability Vital Sign Answer Rio e Recorded In the last 12 months, was t here a time when you were not able to pay the mortgage or rent on time? Yes 04/23/2024 In the past 12 months, how m any times have you moved where you were living? 0 04/23/2024 At any time in the past 12 m ont, were you homeless or living in a fci (including now)? No 04/23/2024 Education Answer Date Recorded What is the highest level of school you have completed or the highest degree you have received? Associate degree: academic program 04/23/2022 Sexually Active Control Partners Comments Not Currently Abstinence Male Comments No Sex and Gender Information Value Date Recorded Sex Assigned at Not on file Legal Sex Female 2:36 PM NURSING AGENCY MANAGER Gender Identity Female 12/30/2022 6:13 PM CDT Sexual Orientation Straight 12/30/2022 6: 13 PM CDT Occupation Industry Job Start Date Job End Date Disabled Not on file Not on file Not on file documented as of this encounter Plan of Treatment Upcoming Encounters Date Type Department Care Team (Late st Contact Info) Description 09/17/2024 9:00 AM CDT [facility] - [facility] - [place] #2 [place] [address] Yohannes Isaacs MD #2 [place] [address] 09/19/2024 7:00 AM CDT Lab [facility] #[address] [address] [facility] Lab/Ancillary 10/25/2024 8:00 AM CDT Office Visit [facility] - Family Medicine [facility] #2 [place] [address] Lexus Carrillo, DO 2 [facility] [address] [place] [address] documented as of this encounter Goals Goal Patient Goal Type Associated Problems Recent Progress Patient-Stated? Author Behavioral Health Behavioral Health Yes Kieran Cortes, PIGMENT MAKING SUPERVISOR Note: I want to talk about my past in terms of grieving and other traumas and some of the things that keep me up at night. documented as of this encounter Visit Diagnoses Not on filedocumented in this encounter Additional Health Concerns Assessment Noted Time PHQ-9 Depression Total Score: 0 04/23/19 25 2:48 PM NURSING AGENCY MANAGER documented as of this encounter Care Teams Auto Service Instructor Relationship Specialty Start Date End Date Lexus Carrillo DO [address] [id number] PCP - General Family Medicine 01/16/24 Hector Brice MD #2 [place] [address] Consulting Physician Pulmonary Disease 02/23/22 Flako Woodson MD #[address] [address] Consulting Physician Colon and Rectal Surgery 01/07/23 Yohannes Isaacs MD #2 [place] [address] Consulting Physician Neurology 03/08/23 Aura Read MD #2 [place] [address] Consulting Physician Gastroenterology 01/06/23 Zach Rehman MD #2 [place] [address] Consulting Physician Obstetrics & Gynecology 01/27/24 documented as of this encounter
--- OUTSIDE RECORDS SUMMARY | 2024-06-26 19:07 | XMS_ITS | Encounter Summary ---
Author Organization [facility] Address [address] [place] [address] Phone Care Team Providers Care Front Desk Manager Name Role Phone Hector Brice MD Unavailable Flako Woodson MD Unavailable Yohannes Isaacs MD Unavailable [phone] Aura Read MD Unavailable [phone] Lexus Carrillo DO Primary Care Provider [phone] Zach Rehman MD Unavailable [phone] Reason for Referral * Other (Routine) - Open Specialty Diagnoses / Procedures Referred By Contac t Referred To Contact Pulmonology Diagnoses Centrilobular emphysema (HCC) Procedures COMPLETE PFT W + W/O BRONCHODILATOR Hector Brice MD [address] [place] [address] Phone: tel: fax: Referral ID Status Reason Start Date Expiration Date Visits Re quested Visits Authorized [id number] Open 05/24/2023 1 1 Reason for Visit * Other (Routine) - Open Specialty Diagnoses / Procedures Referred By Contac Referred To Contact Pulmonology Diagnoses Centrilobular emphysema (HCC) Procedures COMPLETE PFT W + W/O BRONCHODILATOR Hector Brice MD [address] [place] [address] Phone: tel: fax: Referral ID Status Reason Start Date Expiration Date Visits Re quested Visits Authorized [id number] Open 05/24/2023 1 1 Encounter Details Date Type Department Care Team (Latest Contact Info) Description 06/25/2024 9:21 AM CDT - 06/25/2024 11:59 PM CDT Hospital Encounter [facility] [address] [place] [address] Hector Brice MD [address] [place] [address] Arrived Discharge Disposition: Discharged to home or Selfcare Social History Tobacco Use Types Packs/Day Years Used Date Smoking Tobacco: Former Cigarettes 1 34.5 0 10/02/1985 - 04/04/2020 Smokeless Tobacco: Never Comments:Pt used to smoke 1 PPW Alcohol Use Standard Drinks/Week Comments Not Currently 0 (1 standard drink = 0.6 oz pur e alcohol) [facility] Utilities Answer Date Recorded In the past 12 months has [employer] electric, gas, oil, or water company threatened [...] week 04/23/2024 How often do you attend chur ch or nondenominational services? 1 to 4 times per year 04/23/2024 Do you belong to any clubs o r organizations such as latter-day groups, unions, fraternal or athletic groups, or [...] Total Score - Questions 1-9 0 04/05 [facility] - Occupational Stress Questionnaire Answer Date Recorded [...] in the past 12 m [facility], were you homeless or living in a custodial (including now)? No 04/23/2024 Education Answer Date Recorded What is the highest level of school you have completed or the highest degree you have received? Associate degree: academic program 04/23/2022 Sexually Active Control Partners Comments Not Currently Abstinence Male Comments No Sex and Gender Information Value Date Recorded Sex Assigned at Not on file Legal Sex Female 2:36 PM PREPARER SAMPLES AND REPAIRS Gender Identity Female 12/30/2022 6:13 PM CDT Sexual Orientation Straight 12/30/2022 6: 13 PM CDT Occupation Industry Job Start Date Job End Date Disabled Not on file Not on file Not on file documented as of this encounter Medications at Time of Discharge albuterol 108 (90 Base) MCG/ACT Aerosol SolutionIndications :Centrilobular emphysema (HCC) take 1-2 Puffs by inhalation every 4 hours as needed for Wheezing or Cough. 8 g 5 B-D 3CC LUER-GREGORIO SYR 25GX5/8 25G X 5/8 3 ML MiscIndications:Vit rodriguez B 12 deficiency USE 1 SYRINGE EVERY 14 DAYS TO ADMINISTER B12 INJECTIONS 6 Each 5 3 Budeson-Glycopyrrol -Formoterol 160-9-4.8 MCG/ACT Aerosol take 2 Puffs by inhalation 2 times daily. 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 30 Tablet 3 5 cyclobenzaprine (FLEXERIL) 10 MG TabletIndications:F ibromyalgia TAKE 1 TABLET BY MOUTH THREE TIMES A DAY NEEDED FOR MUSCLE SPASM 60 Tablet 2 5 docusate sodium (COLACE) 100 MG Capsule TAKE 1 CAPSULE BY MOUTH TWICE A DAY NEEDED FOR CONSTIPATION 3 famotidine (PEPCID) 40 MG TabletIndications:C hronic GERD TAKE 1 TABLET BY MOUTH EVERY DAY IN THE EVENING 90 Tablet 1 2 ferrous sulfate 325 (65 Fe) MG Tablet TAKE 1 TABLET BY MOUTH EVERY DAY 90 Tablet 1 4 hydroCHLOROthiazide (MICROZIDE) 12.5 MG CapsuleIndications: Hypotension due to drugs TAKE 1 CAPSULE BY MOUTH EVERY DAY 90 Capsule 1 4 hydrocortisone (Anusol-HC) 25 MG Suppository 25 mg by Rectal route every 12 hours. 12 Suppository 1 ipratropium-albuter ol (DUO-NEB) 0.5-2.5 (3) MG/3ML Solution INHALE ONE VIAL IN NEBULZIER FOUR TIMES A DAY FOR 30 DAYS 360 mL 2 1 Klor-Con M20 20 MEQ Tablet Controlled Release TAKE 2 TABLETS BY MOUTH TWICE A DAY 360 Tablet 1 4 levothyroxine (SYNTHROID) 50 MCG TabletIndications:A cquired hypothyroidism Take 1 Tablet by mouth daily. 90 Tablet 3 4 predniSONE (DELTASONE) 50 MG Tablet Take 1 Tablet by mouth daily. 5 Tablet 4 pregabalin (LYRICA) 150 MG CapsuleIndications: Numbness and tingling of both lower extremities TAKE 1 CAPSULE BY MOUTH THREE TIMES A DAY 90 Capsule 1 5 Respiratory Therapy Supplies (Nebulizer) DeviceIndications:C hronic obstructive pulmonary disease with acute exacerbation (HCC) Use as directed 1 Each 1 rOPINIRole (REQUIP) 2 MG TabletIndications:R LS (restless legs syndrome) TAKE 1 TABLET BY MOUTH EVERY DAY AT NIGHT 90 Tablet 1 4 sertraline (ZOLOFT) 100 MG TabletIndications:M oderate episode of recurrent major depressive disorder (HCC) TAKE 1 TABLET BY MOUTH EVERY DAY 90 Tablet 1 5 documented as of this encounter Procedure Notes * Hector Brice MD - 06/25/2024 11:59 PM CDT PULMONARY FUNCTION TEST Admit: 06/25/2024 CSN: [id number] Dictating Provider: [id number] Hector Brice MD DATE OF STUDY: 06/25/2024 FVC is 106% predicted, FEV1 is 95% predicted, FEV1/FVC ratio is 73. There is no post bronchodilator spirometry done. Total lung capacity is 114% predicted. There is evidence of hyperinflation. Upper airways resistance is increased. Diffusion capacity is minimally reduced. Good patient effort was seen. Flow volume loop is consistent with spirometry. Compared to the pulmonary function test in the past, there is no significant change. INTERPRETATION: No evidence of airways obstruction or airways restriction. Diffusion capacity is minimally reduced. NA/MODL /[id number] documented in this encounter Plan of Treatment Upcoming Encounters Date Type Department Care Team (Late st Contact Info) Description 09/17/2024 9:00 AM CDT Office Visit [facility] Medical [facility] - Neurology - [place] #2 [facility] [place] [place] [address] Yohannes Isaacs MD [address] [place] [address] 09/19/2024 7:00 AM CDT Lab [facility] #2 [facility] [address] [place] [address] [facility] 10/25/2024 8:00 AM CDT Office Visit [facility] Medical [facility] - Family Medicine - [place] #2 [place] [address] Lexus Carrillo, DO 2 [facility]. [address] [place] [address] Pending Results Name Type Priority Associated Diagnoses Date /Time Complete PFT W + W/O Bronchodilator PFT Routine Centrilobular emphysema (HCC) 06/25/2024 documented as of this encounter Goals Goal Patient Goal Type Associated Problems Recent Progress Patient-Stated? Author Behavioral Health Behavioral Health Yes Kieran Cortes, SLITTER SERVICE AND SETTER Note: I want to talk about my past in terms of grieving and other traumas and some of the things that keep me up at night. documented as of this encounter Procedures Procedure Name Priority Date/Time Associated Diagnosis Comments COMPLETE PFT W + W/O BRONCHODILATOR Routine 06/25/2024 Centrilobular emphysema (HCC) documented in this encounter Visit Diagnoses Diagnosis Centrilobular emphysema (HCC) Other emphysema documented in this encounter Additional Health Concerns Assessment Noted Time PHQ-9 Depression Total Score: 0 04/23/19 2:48 PM PREPARER SAMPLES AND REPAIRS documented as of this encounter Care Teams Front Desk Manager Relationship Specialty Start Date End Date Lexus Carrillo DO [address] [address] PCP - General Family Medicine 01/16/24 Hector Brice MD [address]2 [place] [address] Consulting Physician Pulmonary Disease 02/23/22 Flako Woodson MD #[address] [address] Consulting Physician Colon and Rectal Surgery 01/07/23 Yohannes Isaacs MD #2 [place] [address] Consulting Physician Neurology 03/08/23 Aura Read MD #2 [place] [address] Consulting Physician Gastroenterology 01/06/23 Zach Rehman MD [address] [place] [address] Consulting Physician Obstetrics & Gynecology 01/27/24 documented as of this encounter
--- OUTSIDE RECORDS SUMMARY | 2024-06-26 19:07 | XMS_ITS | Encounter Summary ---
Author Organization [facility] Address [address] [place] [address] Phone Care Team Providers Care Supervisor Winding Department Name Role Phone James Mckenzie MD Primary Care Provider [phone] Hector Brice MD Unavailable Flako Woodson MD Unavailable Yohannes Isaacs MD Unavailable [phone] Aura Read MD Unavailable [phone] Provider, None Primary Care Provider UnavailJavid Maxwell APRN, FORENSIC TOXICOLOGIST Primary Care Pr ovider Lexus Carrillo DO Primary Care Provider [phone] Zach Rehman MD Unavailable [phone] Reason for Visit * Reason Comments Medication Refill Encounter Details Date Type Department Care Team (Late st Contact Info) Description 02/01/2022 [facility]ill [facility] #2 [place] [id number] James Mckenzie MD [address] [place] [address] Medication Refill Social History Tobacco Use Types [...] on file Legal Sex Female 2:36 PM CORE FEEDER Gender Identity Female 12/30/2022 6:13 PM CDT Sexual Orientation Straight 12/30/2022 6: 13 PM CDT Occupation Industry Job Start Date Job End Date Disabled Not on file Not on file Not on file documented as of this encounter Miscellaneous Notes * Telephone Encounter - Maria Luisa Mcgraw RN - 02/01/2022 1:39 PM CDT Quantity is for 20 days Medication failed the protocol, provider to review and approve the medication order if appropriate. Requested Prescriptions Pending Prescriptions Disp Refills cyclobenzaprine (FLEXERIL) 10 MG Tablet [Pharmacy Med Name: CYCLOBENZAPRINE 10 MG TABLET] 60 Tablet2 Sig: TAKE 1 TABLET BY MOUTH THREE TIMES A DAY NEEDED FOR MUSCLE SPASMS Not Delegated - Muscle Relaxants Protocol Failed - 02/01/2022 12:26 PM Failed - This refill cannot be delegated Passed - Visit with relevant provider in past 12 months or upcoming 90 days Recent Visits Date Type Provider Dept 12/21/21 Office Visit James Mckenzie MD [facility] 11/26/21 Office Visit James Mckenzie MD [facility] 10/19/21 Office Visit James Mckenzie MD [facility] 08/18/21 Office Visit James Mckenzie MD [facility] 06/19/21 Office Visit James Mckenzie MD [facility] 03/30/21 Office Visit James Mckenzie MD [facility] 03/03/21 Office Visit Jory Jefferson APRN, FORENSIC TOXICOLOGIST [facility] [place] Showing recent visits within past 365 days and meeting all other requirements Future Appointments Date Type Provider Dept 04/12/22 Appointment James Mckenzie MD [facility] Showing future appointments within next 90 days and meeting all other requirements documented in this encounter Plan of Treatment Upcoming Encounters Date Type Department Care Team (Late st Contact Info) Description 09/17/2024 9:00 AM CDT Office Visit [facility] Medical [facility] - Neurology - [place] #2 [place] [address] Yohannes Isaacs MD #[address] [place] [address] 09/19/2024 7:00 AM CDT Lab [facility] #2 [facility] [address] [place] [address] [facility] Lab/Ancillary 10/25/2024 8:00 AM CDT Office Visit [facility] - Family Medicine - [place] #2 [place] [address] Lexus Carrillo, DO 2 [facility]. [address] [place] [address] documented as of this encounter Visit Diagnoses Diagnosis Fibromyalgia Mylagia and myositis, unspecified documented in this encounter Additional Health Concerns Infection Onset Date Last Indicated Resolved Time COVID - 19 01/16/2024 02/06/2024 01/16/2024 9:58 AM CDT Respiratory Rule-Out 01/16/2024 01/16/2024 9:57 AM CDT Assessment Noted Time PHQ-9 Depression Total Score: 0 03/30/20 9:00 AM CORE FEEDER documented as of this encounter Care Teams Supervisor Winding Department Relationship Specialty Start Date End Date James Mckenzie MD PCP - General Family Medicine 04/30/19 09/15/23 Provider, None [place] PCP - General 09/16/23 10/04/23 Javid Long APRN, FORENSIC TOXICOLOGIST #2 [facility] [address] [place] [address] PCP - General Advanced Practice Nurse 10/05/2301/11 Lexus Carrillo DO 2 [facility] [address] [place] [address] PCP - General Family Medicine 01/16/24 Hector Brice MD #2 [place] [address] Consulting Physician Pulmonary Disease 02/23/22 Flako Woodson MD #[address] [address] Consulting Physician Colon and Rectal Surgery 01/07/23 Yohannes Isaacs MD #2 [place] [address] Consulting Physician Neurology 03/08/23 Aura Read MD #2 [place] [address] Consulting Physician Gastroenterology 01/06/23 Zach Rehman MD #2 [place] [address] Consulting Physician Obstetrics & Gynecology 01/27/24 documented as of this encounter
--- OUTSIDE RECORDS SUMMARY | 2024-06-26 19:07 | XMS_ITS | Encounter Summary ---
Author Organization [facility] Address [address] [place] [address] Phone Care Team Providers Care Market News Reporter Name Role Phone James Mckenzie MD Primary Care Provider [phone] Hector Brice MD Unavailable Flako Woodson MD Unavailable Yohannes Isaacs MD Unavailable [phone] Aura Read MD Unavailable [phone] Provider, None Primary Care Provider UnavailJavid Maxwell APRN, EMPLOYEE COMMUNICATIONS SPECIALIST Primary Care Pr ovider Lexus Carrillo DO Primary Care Provider [phone] Zach Rehman MD Unavailable [phone] Reason for Visit * Reason Comments Medication Refill Encounter Details Date Type Department Care Team (Late st Contact Info) Description 12/25/2022 Refill [facility] - Family Medicine [facility] #2 [place] [phone] James Mckenzie MD #1 [place] [address] Medication Refill Social History Tobacco Use Types [...] on file Legal Sex Female 2:36 PM FIBER OPTICS TECHNICIAN Gender Identity Female 12/30/2022 6:13 PM CDT Sexual Orientation Straight 12/30/2022 6: 13 PM CDT Occupation Industry Job Start Date Job End Date Disabled Not on file Not on file Not on file COVID-19 Exposure Response Date Recorded In the last 10 days, have yo u been in contact with someone who was confirmed or suspected to have Coronavirus/COVID-19? No / Unsure 12/23/2022 7:43 AM CDT documented as of this encounter Miscellaneous Notes * Telephone Encounter - Mindy Healy RN - 12/26/2022 10:13 AM CDT Medication failed the protocol, provider to review and approve the medication order if appropriate. Requested Prescriptions Pending Prescriptions Disp Refills B-D 3CC LUER-GREGORIO SYR 25GX5/8 25G X 5/8 3 ML Misc [Pharmacy Med Name: BD LUER- GREGORIO SYR 3 ML 25GX5/8 ] 5 Sig: Use 1 syringe every 14 days to administer B12 injections Not Delegated - Off Protocol Failed - 12/25/2022 10:40 AM Failed - This refill cannot be delegated Passed - Visit with relevant provider in past 12 months or upcoming 90 days Recent Visits Date Type Provider Dept 08/27/22 Office Visit James Mckenzie MD [facility] 08/24/22 Office Visit Javid Long APRN, EMPLOYEE COMMUNICATIONS SPECIALIST [facility] [place] 07/19/22 Office Visit Princess Sherman APRN, CAROL [facility] 05/31/22 Office Visit James Mckenzie MD [facility] 02/23/22 Office Visit James Mckenzie MD [facility] [place] 02/08/22 Office Visit Princess Sherman, ELECTRICAL SIGN SERVICER, EMPLOYEE COMMUNICATIONS SPECIALIST [facility] Showing recent visits within past 365 days and meeting all other requirements Future Appointments No visits were found meeting these conditions. Showing future appointments within next 90 days and meeting all other requirements documented in this encounter Plan of Treatment Upcoming Encounters Date Type Department Care Team (Late st Contact Info) Description 09/17/2024 9:00 AM CDT Office Visit [facility] Medical [facility] - Neurology - [place] #2 [place] [address] Yohannes Isaacs MD #2 [place] [address] 09/19/2024 7:00 AM CDT Lab [facility] #[address] [facility] [address] [place] [address] [facility] 10/25/2024 8:00 AM CDT Office Visit [facility] Medical [facility] - Family Medicine - [place] #2 [facility] [address] Lexus Carrillo, DO 2 [facility]. [address] [place] [address] documented as of this encounter Visit Diagnoses Diagnosis Vitamin B 12 deficiency Other B-complex deficiencies documented in this encounter Additional Health Concerns Infection Onset Date Last Indicated Resolved Time COVID - 19 01/16/2024 02/06/2024 01/16/2024 9:58 AM CDT Respiratory Rule-Out 01/16/2024 01/16/2024 024 9:57 AM CDT Assessment Noted Time PHQ-9 Depression Total Score: 0 02/24/20 22 4:00 PM FIBER OPTICS TECHNICIAN documented as of this encounter Care Teams Market News Reporter Relationship Specialty Start Date End Date James Mckenzie MD PCP - General Family Medicine 04/30/19 09/15/23 Provider, None [place] PCP - General 09/16/23 10/04/23 Javid Long APRN, EMPLOYEE COMMUNICATIONS SPECIALIST #2 [facility] [address] [place] [address] PCP - General Advanced Practice Nurse 10/05/2301/11 Lexus Carrillo DO 2 [facility] [address] [place] [address] PCP - General Family Medicine 01/16/24 Hector Brice MD #2 [place] [address] Consulting Physician Pulmonary Disease 02/23/22 Flako Woodson MD #2 [facility] [address] [place] [address] Consulting Physician Colon and Rectal Surgery 01/07/23 Yohannes Isaacs MD #2 [place] [address] Consulting Physician Neurology 03/08/23 Aura Read MD #2 [place] [address] Consulting Physician Gastroenterology 01/06/23 Zach Rehman MD #2 [place] [address] Consulting Physician Obstetrics & Gynecology 01/27/24 documented as of this encounter
--- OUTSIDE RECORDS SUMMARY | 2024-06-26 19:07 | XMS_ITS | Encounter Summary ---
Author Organization [facility] Address [address] [facility] [place] [address] Phone Care Team Providers Care Director Of Materials Management Name Role Phone James Mckenzie MD Primary Care Provider [phone] Hector Brice MD Unavailable Flako Woodson MD Unavailable Yohannes Isaacs MD Unavailable [phone] Aura Read MD Unavailable [phone] Provider, None Primary Care Provider Unavailabl Javid Zafar APRN, HAND STEMMER Primary Care Pr ovider Lexus Carrillo DO Primary Care Provider [phone] Zach Rehman MD Unavailable [phone] Reason for Visit * Reason Comments Medication Refill Encounter Details Date Type Department Care Team (Late st Contact Info) Description 03/12/2021 Refill [facility] - Gastroenterology - [place] #2 [place] [phone] Amie Canas Kendra, PAC [address] [place] [address] Medication Refill Social History Tobacco Use Types [...] on file Legal Sex Female 2:36 PM IMPLEMENTATION LEAD Gender Identity Female 12/30/2022 6:13 PM CDT Sexual Orientation Straight 12/30/2022 6: 13 PM CDT Occupation Industry Job Start Date Job End Date Disabled Not on file Not on file Not on file COVID-19 Exposure Response Date Recorded In the last month, have you been in contact with someone who was confirmed or suspected to have Coronavirus / COVID-19? No / Unsure 03/03/2021 10:45 AM IMPLEMENTATION LEAD documented as of this encounter Miscellaneous Notes * Telephone Encounter - Dori Cruz RN - 03/12/2021 10:03 AM IMPLEMENTATION LEAD [facility] for pediatric and adult [facility]. EMENTATION LEAD documented in this encounter Plan of Treatment Upcoming Encounters Date Type Department Care Team (Late st Contact Info) Description 09/17/2024 9:00 AM CDT Office Visit [facility] - Neurology - [place] #2 [place] [address] Yohannes Isaacs MD #2 [place] [address] 09/19/2024 7:00 AM CDT Lab [facility] [address] [address] [place] Lab/Ancillary 10/25/2024 8:00 AM CDT Office Visit [facility] Medical Group - Family Medicine [facility] #2 [place] [address] Lexus Carrillo DO [address] [address] documented as of this encounter Visit Diagnoses Diagnosis Chronic GERD documented in this encounter Additional Health Concerns Infection Onset Date Last Indicated Resolved Time COVID - 19 01/16/2024 02/06/2024 01/16/2024 9:58 AM CDT Respiratory Rule-Out 01/16/2024 01/16/2024 024 9:57 AM CDT Assessment Noted Time PHQ-9 Depression Total Score: 11 020 10:03 AM IMPLEMENTATION LEAD documented as of this encounter Care Teams Director Of Materials Management Relationship Specialty Start Date End Date James Mckenzie MD PCP - General Family Medicine 04/30/19 09/15/23 Provider, [facility] PCP - General 09/16/23 10/04/23 Javid Long, KETTLE WORKER, HAND STEMMER #[address] [address] PCP - General Advanced Practice Nurse 10/05/2301/11 [facility]illo DO 2 [facility] [address] [address] PCP - General Family Medicine 01/16/24 Hector Brice MD #2 [place] [address] Consulting Physician Pulmonary Disease 02/23/22 Flako Woodson MD #[address] [address] Consulting Physician Colon and Rectal Surgery 01/07/23 Yohannes Isaacs MD #2 [place] [address] Consulting Physician Neurology 03/08/23 Aura Read MD #2 [place] [address] Consulting Physician Gastroenterology 01/06/23 Zach Rehman MD #2 [place] [address] Consulting Physician Obstetrics & Gynecology 01/27/24 documented as of this encounter
--- OUTSIDE RECORDS SUMMARY | 2024-06-26 19:07 | XMS_ITS | Encounter Summary ---
Author Organization [facility] Address [address] [place] [address] Phone Care Team Providers Care Manager Project Name Role Phone James Mckenzie MD Primary Care Provider [phone] Hector Brice MD Unavailable Flako Woodson MD Unavailable Yohannes Isaacs MD Unavailable [phone] Aura Read MD Unavailable [phone] Provider, None Primary Care Provider UnavailJavid Maxwell APRN, FRAME PULLEY MORTISING MACHINE OPERATOR Primary Care Pr ovider Lexus Carrillo DO Primary Care Provider [phone] Zach Rehman MD Unavailable [phone] Reason for Visit * Reason Comments Medication Refill Encounter Details Date Type Department Care Team (Late st Contact Info) Description 09/27/2021 Refill [facility] - Family Medicine [facility] [address] [place] [id number] James Mckenzie MD [address] [place] [address] Medication Refill Social History Tobacco Use Types [...] file Legal 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 Requested Prescriptions Pending Prescriptions Disp Refills SYRINGE-NEEDLE, DISP, 3 ML (B-D 3CC LUER-GREGORIO SYR 25GX5/8 ) 25G X 5/8 3 ML Misc [Pharmacy Med Name:BD LUER-GREGORIO SYR 3 ML 25GX5/8 ] 6 Each 1 Sig: Use 1 syringe every 14 days to administer B12 injections Not Delegated - Off Protocol Failed - 09/27/2021 1:11 PM Failed - This refill cannot be delegated Passed - Visit with relevant provider in past 12 months or upcoming 90 days Recent Visits Date Type Provider Dept 08/18/21 Office Visit James Mckenzie MD [facility] 06/19/21 Office Visit James Mckenzie MD [facility] 03/30/21 Office Visit James Mckenzie MD [facility] 03/03/21 Office Visit Jory Jefferson APRN, FRAME PULLEY MORTISING MACHINE OPERATOR [facility] 11/25/20 Office Visit [facility] 10/14/20 Office Visit Kerry Brandon MD [facility] 09/30/20 Office Visit Sena Kelly PAC [facility] Showing recent visits within past 365 days and meeting all other requirements Future Appointments Date Type Provider Dept 12/21/21 Appointment James Mckenzie MD [facility] Showing future appointments within next 90 days and meeting all other requirements documented in this encounter Plan of Treatment Upcoming Encounters Date Type Department Care Team (Late st Contact Info) Description 09/17/2024 9:00 AM CDT Office Visit [facility] - Neurology - [place] [address] [place] [address] Yohannes Isaacs MD [address] [place] [address] 09/19/2024 7:00 AM CDT Lab [facility] [address] [address] [facility] Lab/Ancillary 10/25/2024 8:00 AM CDT Office Visit [facility] Medical [facility] - Family Medicine - [place] [address] [place] [address] Lexus Carrillo, DO [address] [address] documented as of this encounter Visit Diagnoses Diagnosis Vitamin B 12 deficiency Other B-complex deficiencies documented in this encounter Additional Health Concerns Infection Onset Date Last Indicated Resolved Time COVID - 19 01/16/2024 02/06/2024 01/16/2024 9:58 AM CDT Respiratory Rule-Out 01/16/2024 01/16/2024 024 9:57 AM CDT Assessment Noted Time PHQ-9 Depression Total Score: 0 03/30/20 21 9:00 AM HAND ZIPPER TRIMMER documented as of this encounter Care Teams Manager Project Relationship Specialty Start Date End Date James Mckenzie MD PCP - General Family Medicine 04/30/19 09/15/23 Provider, None [place] PCP - General 09/16/23 10/04/23 Javid Long, FACILITIES MAINTENANCE ASSISTANT, FRAME PULLEY MORTISING MACHINE OPERATOR [address] [facility] [address] [place] [address] PCP - General Advanced Practice Nurse 10/05/2301/11 Lexus Carrillo DO [address] [address] PCP - General Family Medicine 01/16/24 Hector Brice MD [address] [place] [phone] Consulting Physician Pulmonary Disease 02/23/22 Flako Woodson MD [address] [address] Consulting Physician Colon and Rectal Surgery 01/07/23 Yohannes Isaacs MD [address] [place] [phone] Consulting Physician Neurology 03/08/23 Aura Read MD [address] [place] [address] Consulting Physician Gastroenterology 01/06/23 Zach Rehman MD [address] [place] [address] Consulting Physician Obstetrics & Gynecology 01/27/24 documented as of this encounter
--- OUTSIDE RECORDS SUMMARY | 2024-06-26 19:07 | XMS_ITS | Clinical Summary ---
Author Organization [facility] Address [address] [facility], [place] [address] Phone Care Team Providers Care Speech Language Specialist Name Role Phone Hector Brice MD Unavailable Flako Woodson MD Unavailable Yohannes Isaacs MD Unavailable [phone] Aura Read MD Unavailable [phone] Lxeus Carrillo DO Primary Care Provider [phone] Zach Rehman MD Unavailable [phone] Allergies Active Allergy Reactions Criticality Noted Date Comments Nsaids Runny Nose,Unknown 07/14/2022 Per pt causes chest congestion/exacerbates asthma, mainly ibuprofen/alleve. Can take tylenol Medications hydrocortisone (Anusol-HC) 25 MG Suppository 25 mg by Rectal route every 12 hours. 12 Suppository 021 Active Respiratory Therapy Supplies (Nebulizer) DeviceIndication s:Chronic obstructive pulmonary disease with acute exacerbation (HCC) Use as directed 1 Each 021 Active ipratropium-albu terol (DUO-NEB) 0.5-2.5 (3) MG/3ML Solution INHALE ONE VIAL IN NEBULZIER FOUR TIMES A DAY FOR 30 DAYS 360 mL 2 021 Active famotidine (PEPCID) 40 MG TabletIndication s:Chronic GERD TAKE 1 TABLET BY MOUTH EVERY DAY IN THE EVENING 90 Tablet 1 022 Active Budeson-Glycopyr rol-Formoterol 160-9-4.8 MCG/ACT Aerosol take 2 Puffs by inhalation 2 times daily. 2 g 022 Active B-D 3CC LUER-GREGORIO SYR 25GX5/8 25G X 5/8 3 ML MiscIndications: Vitamin B 12 deficiency USE 1 SYRINGE EVERY 14 DAYS TO ADMINISTER B12 INJECTIONS 6 Each 5 023 Active docusate sodium (COLACE) 100 MG Capsule TAKE 1 CAPSULE BY MOUTH TWICE A DAY NEEDED FOR CONSTIPATION 023 Active ferrous sulfate 325 (65 Fe) MG Tablet TAKE 1 TABLET BY MOUTH EVERY DAY 90 Tablet 1 024 Active levothyroxine (SYNTHROID) 50 MCG TabletIndication s:Acquired hypothyroidism Take 1 Tablet by mouth daily. 90 Tablet 3 024 Active rOPINIRole (REQUIP) 2 MG TabletIndication s:RLS (restless legs syndrome) TAKE 1 TABLET BY MOUTH EVERY DAY AT NIGHT 90 Tablet 1 024 Active hydroCHLOROthiaz aravind (MICROZIDE) 12.5 MG CapsuleIndicatio ns:Hypotension due to drugs TAKE 1 CAPSULE BY MOUTH EVERY DAY 90 Capsule 1 024 Active Klor-Con M20 20 MEQ Tablet Controlled Release TAKE 2 TABLETS BY MOUTH TWICE A DAY 360 Tablet 1 024 Active predniSONE (DELTASONE) 50 MG Tablet Take 1 Tablet by mouth daily. 5 Tablet 024 Active Additional Information Patient not taking.Reported on 04/23/2024 cyclobenzaprine (FLEXERIL) 10 MG TabletIndication s:Fibromyalgia TAKE 1 TABLET BY MOUTH THREE TIMES A DAY NEEDED FOR MUSCLE SPASM 60 Tablet 2 025 Active albuterol 108 (90 Base) MCG/ACT Aerosol SolutionIndicati ons:Centrilobula r emphysema (HCC) take 1-2 Puffs by inhalation every 4 hours as needed for Wheezing or Cough. 8 g 025 Active cloNIDine (CATAPRES) 0.1 MG Tablet Take 1 Tablet by mouth daily. 30 Tablet 3 025 Active buPROPion (WELLBUTRIN) 150 MG XL tabletIndication s:Moderate episode of recurrent major depressive disorder (HCC) TAKE 1 TABLET BY MOUTH EVERY DAY IN THE MORNING 90 Tablet 1 025 Active sertraline (ZOLOFT) 100 MG TabletIndication s:Moderate episode of recurrent major depressive disorder (HCC) TAKE 1 TABLET BY MOUTH EVERY DAY 90 Tablet 1 025 Active pregabalin (LYRICA) 150 MG CapsuleIndicatio ns:Numbness and tingling of both lower extremities TAKE 1 CAPSULE BY MOUTH THREE TIMES A DAY 90 Capsule 1 025 Active pregabalin (LYRICA) 150 MG CapsuleIndicatio ns:Numbness and tingling of both lower extremities TAKE 1 CAPSULE BY MOUTH THREE TIMES A DAY 90 Capsule 1 024 2024 Discontinued Active Problems Problem Noted Date Diagnosed Date MARTHA (obstructive sleep apnea) 09/30/2023 Marijuana dependence 09/20/2022 Asthma, mild persistent 05/31/2022 Acquired hypothyroidism 12/21/2021 GERD with esophagitis 01/21/2021 Hiatal hernia 01/21/2021 RLS (restless legs syndrome) 11/25/2020 Essential hypertension 11/25/2020 Vitamin B 12 deficiency 07/24/2020 Major depressive disorder, r ecurrent episode, moderate with anxious distress 04/23/2020 Acquired trigger finger 04/30/2019 Chronic GERD 04/11/2019 Centrilobular emphysema 05/03/2018 Tobacco use disorder 05/03/2018 Anxiety 05/03/2018 Amenorrhea 09/14/2017 Environmental and seasonal allergies 08/31/2016 COPD (chronic obstructive pulmonary disease) Asthma 12/11/2003 Fibromyalgia HLD (hyperlipidemia) Vitamin D deficiency Resolved Problems Problem Noted Date Diagnosed Date Resolved Date Bronchitis 04/30/2019 04/30/2019 Brachial neuritis 04/30/2019 07/24/2020 Carpal tunnel syndrome 04/30/201907/24 Pneumonia 07/24/2020 Overview (07/24/2020): history Encounters Date Type Department Care Team Description 06/25/2024 9:21 AM CDT - 06/25/2024 11:59 PM CDT Hospital Encounter [facility] Respiratory Therapy [address] [place] [id number] Hetcor Brice MD Arrived Discharge Disposition: Discharged to home or Selfcare 06/25/2024 Travel 06/04/2024 10:26 AM DRAWING OPERATOR - 06/04/2024 12:23 PM DRAWING OPERATOR Emergency [facility] Emergency [address] [place] [address] Bhargav Patel, PAC Bilateral arm pain Discharge Disposition: Discharged to home or Selfcare 06/04/2024 [facility] [address] [place] [address] Yohannes Isaacs MD Medication Refill 06/04/2024 Travel 06/03/2024 Travel 05/20/20[facility] [place] [address] James Mckenzie MD Medication Refill 05/15/2024 MyChart RX Renewal [facility] [address] [place] [address] Lexus Carrillo DO Medication Renewal Reviewed 05/14/2024 Refill [facility] Pulmonology & Sleep Medicine [facility] [address] [place] [address] Hector Brice MD Medication Refill 04/28/2024 Refill [facility] [address] [place] [address] Javid Long APRN, CAROL Medication Refill 04/23/2024 3:00 PM DRAWING OPERATOR Office Visit [facility] [address] [place] [address] Lexus Carrillo DO Accessory skin tags (Primary Dx); Carpal tunnel syndrome on left; Essential hypertension; Other emphysema (HCC) Discharge Disposition: Discharged to home or Selfcare 04/23/2024 Travel 04/03/2024 Results Follow-Up [facility] - [place] [address] [place] [address] Zach Rehman MD from Last 3 Months Immunizations Immunization Administration Dates Next Due Covid-19, Mrna, Lnp-s, PF, 1 00 mcg/0.5 mL Dose (Moderna) 08/22/2020,07/25/2020 Influenza Vaccine 01/16/2024 Influenza Vaccine, Quadrivalent, PF 10/0 05/2022,12/21/2021,03/30/2021,12/12,03/08/2018 Influenza, Injectable, Quadrivalent 02/23/2016,1 Influenza,Split Virus,Trivalent,Injectable,PF 01/16/2024 Pneumococcal Vaccine Adult - 23 Valent 8 Pneumococcal conjugate PCV20 , polysaccharide LMD060 conjugate, adjuvant, PF 12/21/2021 Zoster Vaccine Recombinant 12/26/2023 Family History Medical History Relation Name Comments Asthma Daughter 1 No Known Problems Daughter 2 Chronic Obstructive Pulmonary Disease Father Parker Hypertension Father Parker Other-comment Father Parker MTHFR Gene mut ation No Known Problems Half-Brother No Known Problems Half-Sister 1 Other-comment Half-Sister 2 murdered No Known Problems Maternal Grandfather Alcohol Abuse Maternal Grandmother Gene Davis Bipolar Disorder Maternal Grandmother Gene [place] Cancer Maternal Grandmother Gene Davis cervica l Dementia Maternal Grandmother Gene [place] Other-comment Maternal Grandmother Gene [place] substa nce abuse Heart Attack Maternal Uncle Gómez Alcohol Abuse Mother Sheryl Anxiety disorder Mother Sheryl Asthma Mother Sheryl Bipolar Disorder Mother Sheryl Cancer Mother Sheryl cervical Diabetes Mother Sheryl Hypertension Mother Sheryl Migraines Mother Sheryl Thyroid Disease Mother Sheryl Hypertension Paternal Grandfather Luiz Other-comment Paternal Grandfather Luiz MTHFR Gene mutation Prostate Cancer Paternal Grandfather Luiz Breast Cancer Paternal Grandmother Portia Matthews Cancer Paternal Grandmother Portia Matthews [address], blood Other-comment Paternal Grandmother Portia Matthews MTH FR Gene mutation Bipolar Disorder Sister Schizophrenia Sister Heart Disease Son 1 Asthma Son 2 Relation Name Status Comments Daughter 1 Alive Daughter 2 Alive Father Parker Half-Brother Alive Half-Sister 1 Alive Half-Sister 2 Maternal Grandfather Other Maternal Grandmother Juventino Davis Alive Maternal Uncle Gómez Mother Sheryl Alive Paternal Grandfather Luiz Paternal Grandmother Portia Matthews Sister Alive Son 1 Son 2 Alive Social History Tobacco Use Types Packs/Day Years Used Date Smoking Tobacco: Former Cigarettes 1 34.5 0 10/02/1985 - 04/04/2020 Smokeless Tobacco: Never Tobacco Cessation:Counseling Given: Not Answered Comments:Pt used to smoke 1 PPW Alcohol Use Standard Drinks/Week Comments Not Currently 0 (1 standard drink = 0.6 oz pur e alcohol) [facility] Utilities Answer Date Recorded In the past 12 months has e electric, gas, oil, or water company [...] often do you attend chur ch or zoroastrian services? 1 to 4 times per year 04/23/2024 Do you belong to any clubs o r organizations such as gnosticism groups, unions, fraternal or athletic groups, or [...] Total Score - Questions 1-9 0 04/05 [place] of Occupat ional Health - Occupational Stress [...] any time in the past 12 m [facility], were you homeless or living in a snf (including now)? No 04/23/2024 Education Answer Date Recorded What is the highest level of school you have completed or the highest degree you have received? Associate degree: academic program 04/23/2022 Sexually Active Control Partners Comments Not Currently Abstinence Male Comments No Sex and Gender Information Value Date Recorded Sex Assigned at Not on file Legal Sex Female 2:36 PM DRAWING OPERATOR Gender Identity Female 12/30/2022 6:13 PM CDT Sexual Orientation Straight 12/30/2022 6: 13 PM CDT Occupation Industry Job Start Date Job End Date Disabled Not on file Not on file Not on file Last Filed Vital Signs Vital Sign Reading Time Taken Comments Blood Pressure 134/78 06/04/2024 12:00 PM DRAWING OPERATOR Pulse 90 06/04/2024 12:00 PM DRAWING OPERATOR Temperature 36.7 C (98 F) 06/04/2024 12:00 PM DRAWING OPERATOR Respiratory Rate 18 06/04/2024 12:00 PM DRAWING OPERATOR Oxygen Saturation 98% 06/04/2024 12:00 PM DRAWING OPERATOR Inhaled Oxygen Concentration - - Weight 99.8 kg (220 lb) 06/04/2024 10:33 AM DRAWING OPERATOR Height 165.1 cm (5' 5 ) 06/04/2024 10:33 AM DRAWING OPERATOR Body Mass Index 36.61 06/04/2024 10:33 AM DRAWING OPERATOR Plan of Treatment Upcoming Encounters Date Type Department Care Team (Late st Contact Info) Description 09/17/2024 9:00 AM CDT [facility] [place] [address] [place] [address] Yohannes Isaacs MD [address] [place] [address] 09/19/2024 7:00 AM CDT Lab [facility] #2 [facility] [address] [place] [address] [facility] 10/25/2024 8:00 AM CDT Office Visit [facility] - Family Medicine - [place] [address] [place] [address] Lexus Crarillo, DO 2 [facility]. [address] [place] [address] Health Maintenance Due Date Last Done Comments Hepatitis C Virus (HCV) Screening 1972 TdaP Immunization 1972 Hepatitis B Immunization (1 of 3 - 19+ 3-dose series) 06/12/1991 Cologuard 2022 Immunochemical Fecal Occult Blood 2022 Lung Cancer Screening 2022 05/08/2019 , 09/08/2017, 09/08/2017, Additional history exists SARS-COV-2 Immunization ( season) 2023 08/22/2020, 07/25/2020 Zoster Immunization (2 of 2) 02/20/2024 12/26/2023 Mammogram 02/05/2025 02/06/2024, 09/12/2021 Pap Smear 03/20/2027 03/20/2024, 03/19/2020 Cervical Cancer Screening (CCS) 03/20/2029 HPV/Cotest 03/20/2029 03/20/2024, 03/19/2020 Colonoscopy 04/15/2030 04/15/2020 Colorectal Cancer Screening 04/15/2030 Respiratory Syncytial Virus (RSV) Immunization (Adult) (1 - 1-dose 75+ series) 06/12/2047 04/15/2020 Pneumococcal Immunization (50+ years) Completed 12/21/2021, 03/08/2018 Pneumococcal Immunization Combined Discontinued 12/21/2021, 03/08/2018 Influenza Immunization Completed , 01/16/2024, 01/03/2023, Additional history exists Discussion re Starting/Frequency of Mammograms Discontinued 02/06/2024, 09/12/2021 Meningococcal Immunization (ACWY) Aged Out No longer eligible based on patient's age to complete this topic Rotavirus Immunization Aged Out No lo nger eligible based on patient's age to complete this topic Goals Goal Patient Goal Type Associated Problems Recent Progress Patient-Stated? Author Behavioral Health Behavioral Health Yes Kieran Cortes, RETAIL MANAGER IN TRAINING Note: I want to talk about my past in terms of grieving and other traumas and some of the things that keep me up at night. 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 PATHOLOGY CYTOLOGY MOLD CHANGER Routine 03/20/2024 2:57 PM DRAWING OPERATOR 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 BOGDAN SCREENING BILATERAL DIGITAL W CAD W TRENTON Routine 02/06/2024 7:40 AM DRAWING OPERATOR Encounter for screening mammogram for malignant neoplasm of breast CT CHEST W CONTRAST Routine 05/08/2019 4 :04 PM DRAWING OPERATOR Centrilobular emphysema (HCC) from Last 3 Months or Most Recently Relevant to Health Maintenance Results * XR FOOT 3 OR MORE VIEWS LEFT (06/04/2024 11:42 AM DRAWING OPERATOR) Anatomical Region Laterality Modality LOWER EXTREMITY, foot Left Digital Ra diography 06/04/2024 12:0 1 PM DRAWING OPERATOR Impressions 06/04/2024 12:03 PM DRAWING OPERATOR IMPRESSION: No acute osseous abnormality. Narrative 06/04/2024 12:03 PM DRAWING OPERATOR EXAM DESCRIPTION: XR FOOT 3 OR MORE VIEWS LEFT REASON FOR STUDY: pt c/o LT dorsum foot pain after dropping a phone on it 2 weeks ago. pt has swelling to foot. no hx of surgery TECHNIQUE: 3 radiographic view(s) of the left foot. COMPARISON: None. FINDINGS: BONES/JOINTS: No acute displaced fracture or dislocation. No aggressive-appearing lesion. Calcaneal enthesopathic changes. SOFT TISSUES: Mild soft tissue edema overlying the dorsal midfoot. THIS IS AN ELECTRONICALLY VERIFIED FINAL REPORT 06/04/2024 12:01 PM - Electronically signed by Augie Rosas M.D. NS: NS Report ID: [id number] Reading Location: [id number] Procedure Note Augie Rosas MD - 06/04/2024 EXAM DESCRIPTION: XR FOOT 3 OR MORE VIEWS LEFT REASON FOR STUDY: pt c/o LT dorsum foot pain after dropping a phone on it 2 weeks ago. pt has swelling to foot. no hx of surgery TECHNIQUE: 3 radiographic view(s) of the left foot. COMPARISON: None. FINDINGS: BONES/JOINTS: No acute displaced fracture or dislocation. No aggressive-appearing lesion. Calcaneal enthesopathic changes. SOFT TISSUES: Mild soft tissue edema overlying the dorsal midfoot. THIS IS AN ELECTRONICALLY VERIFIED FINAL REPORT 06/04/2024 12:01 PM - Electronically signed by Augie Rosas M.D. NS: NS Report ID: [id number] Reading Location: [id number] IMPRESSION: No acute osseous abnormality. Bhargav Patel [facility] IM DIAGNOSTIC ORDER YURIDIA Final Result * (ABNORMAL) CBC with Auto Differential (06/04/2024 11:35 AM DRAWING OPERATOR) WBC 6.73 4.00 - 12.00 10(3)/mcL 06/04/2024 11:52 AM DRAWING OPERATOR [facility] RBC 4.43 3.80 - 5.30 10(6)/mcL 06/04/2024 11:52 AM DRAWING OPERATOR [facility] HEMOGLOBIN (HGB) 13.8 12.0 - 15.8 g/dL 06/04/2024 11:52 AM [facility] HEMATOCRIT (HCT) 40.7 36.0 - 47.0 % 06/04/2024 11:52 AM DRAWING OPERATOR [facility] MCV 91.9 82.0 - 96.0 fL 06/04/2024 11:52 AM [facility] MCH 31.2 26.0 - 34.0 pg 06/04/2024 11:52 AM [facility] MCHC 33.9 31.0 - 36.0 g/dL 06/04/2024 11:52 AM [facility] PLATELET COUNT 202 140 - 440 10(3)/[facility] 06/04/2024 11:52 AM [facility] RDW 12.6 11.8 - 15.5 % 06/04/2024 11:52 AM [facility] MPV 9.2(L) 9.7 - 12.4 fL 06/04/2024 11:52 AM [facility] NEUTROPHILS 51.3 47.0 - 73.0 % 06/04/2024 11:52 AM [facility] LYMPHOCYTES 37.7 18.0 - 42.0 % 06/04/2024 11:52 AM [facility] MONOCYTES 6.8 4.0 - 12.0 % 06/04/2024 11:52 AM [facility] EOSINOPHILS 3.3 0.0 - 5.0 % 06/04/2024 11:52 AM [facility] BASOPHILS 0.9 0.0 - 1.0 % 06/04/2024 11:52 AM [facility] ABSOLUTE NEUTROPHILS 3.45 1.60 - 7.70 10(3)/mcL 06/04/2024 11:52 AM [facility] ABSOLUTE LYMPHOCYTES 2.54 1.30 - 3.20 10(3)/[facility] 06/04/2024 11:52 AM [facility] ABSOLUTE MONOCYTES 0.46 0.20 - 1.00 10(3)/mcL 06/04/2024 11:52 AM [facility] ABSOLUTE EOSINOPHIL 0.22 0.00 - 0.40 10(3)/[facility] 06/04/2024 11:52 AM [facility] ABSOLUTE BASOPHILS 0.06 0.00 - 0.10 10(3)/[facility] 06/04/2024 11:52 AM [facility] NRBC PER 100 WBC 0 06/05/19 11:52 AM DRAWING OPERATOR [facility] Blood Venipuncture / Unknown 06/04/2024 11:35 AM DRAWING OPERATOR 06/04/2024 11:50 AM DRAWING OPERATOR Bhargav Meekn PAC HEMATOLOGY ORDERABLE S Final Result Performing Organization Address [facility] Co de Phone Number [facility] [address] [place] [address] * D-Dimer (06/04/2024 11:35 AM DRAWING OPERATOR) D DIMER <=0.27 <0.50 mcg/mL FEU 06/04/2024 12:07 PM DRAWING OPERATOR [facility] Blood Venipuncture / Unknown 06/04/2024 11:35 AM DRAWING OPERATOR 06/04/2024 11:50 AM DRAWING OPERATOR Narrative [facility] - 06/04/2024 12:07 PM DRAWING OPERATOR The FDA has approved this method to exclude the diagnosis of DVT and/or PE at the cutoff value of <0.50 mcg/mL FEU. Bhargav Patel PAC HEMATOLOGY ORDERABLE S Final Result Performing Organization Address [facility] Co de Phone Number [facility] [address] [place] [address] * (ABNORMAL) BMP w/ Ca (06/04/2024 11:35 AM DRAWING OPERATOR) SODIUM 141 136 - 145 mmol/L 06/04/2024 12:10 PM DRAWING OPERATOR [facility] POTASSIUM 4.3 3.5 - 5.1 mmol/L 06/04/2024 12:10 PM DRAWING OPERATOR [facility] CHLORIDE 105 98 - 107 mmol/L 06/04/2024 12:10 PM DRAWING OPERATOR [facility] CO2, VENOUS 30 22 - 30 mmol/L 06/04/2024 12:10 PM DRAWING OPERATOR [facility] ANION GAP 10.3 <18.0 mmol/L 06/04/2024 12:10 PM DRAWING OPERATOR [facility] GLUCOSE 94 70 - 99 mg/dL 06/04/2024 12:10 PM DRAWING OPERATOR [facility] BUN 9(L) 10 - 20 mg/dL 06/04/2024 12:10 PM DRAWING OPERATOR [facility] CREATININE, BLOOD 0.79 0.60 - 1.00 mg/dL 06/04/2024 12:10 PM DRAWING OPERATOR [facility] BUN/CREATININE RATIO 11(L) 12 - 20 ratio 06/04/2024 12:10 PM DRAWING OPERATOR [facility] CALCIUM 8.9 8.7 - 10.5 mg/dL 06/04/2024 12:10 PM DRAWING OPERATOR [facility] GFR, ESTIMATED >60 >=60 06/04/2024 12:10 PM DRAWING OPERATOR [facility] Comment: Creatinine Clearance is the preferred criteria for selecting drug dose adjustments in renally impaired patients. The GFR is provided as additional pertinent clinical information. GFR is reported in mL/min/1.73 sq m. Calculation based on the Chronic Kidney Disease Epidemiology Collaboration (CKD- EPI) equation refit without adjustment for race. GFR, EST. >60 >=60 025 12:10 PM DRAWING OPERATOR [facility] GFR, EST. NONAFRICAN >60 >=60 06/04/2024 12:10 PM DRAWING OPERATOR [facility] Blood Venipuncture / Unknown 06/04/2024 11:35 AM DRAWING OPERATOR 06/04/2024 11:50 AM DRAWING OPERATOR us Bhargav Patel PAC CHEMISTRY ORDERABLES Final Result [facility] [address] [place] [address] * PATHOLOGY CYTOLOGY MOLD CHANGER (03/20/2024 2:57 PM DRAWING OPERATOR) SPECIMEN ADEQUACY Satisfactory for evaluation. Endocervical/transf ormation zone component is absent. 03/29/2024 2:39 PM DRAWING OPERATOR [facility] DESCRIPTIVE DIAGNOSIS NEGATIVE FOR INTRAEPITHELIAL LESIONS OR MALIGNANCY. 03/29/2024 2:[address] [facility] at 1439 DRAWING OPERATOR OTHER FINDINGS Atrophic hormonal pattern. 03/29/2024 2:[address] [facility] Automated Examination Analysis of this sample has been assisted by an automated imaging and review system ([employer] System[employer] Imaging System, [employer], [place], [place]). This case is further evaluated and finalized by a wax machine operator and/or pathologist. 03/29/2024 2:[address] [facility] Disclaimer The PAP smear is a screening test designed to detect cancerous or precancerous cells of the uterine cervix. It is one of the best means available for detection of cervical cancer but still carries an inherent false-negative rate. The consequences of a false-negative PAP result can be minimized by adhering to current screening guidelines. The following are general guidelines recommended by the ACS, ASCP, ASCCP, and ACOG: PAP testing is recommended every three years for women 21-29, Co-Testing , a PAP test in conjunction with an HPV (Human Papillomavirus) test for women ages 30-65, and no PAP or HPV testing for women under the age of 21 or older than 65 unless clinically indicated. 03/29/2024 2:[address] [facility] Case Report Gynecologic Cytology Report Case: [id number] Authorizing Provider: Zach Rehman MD Collected: 03/20/2024 02:57 PM Ordering Location: [facility] Medical [facility] - Received: 03/20/2024 02:57 PM Obstetrics & Gynecology [facility] First Screen: oNry [place] Specimen: TP Screen, Cervix/Endocervix 03/29/2024 2:[address] [facility] Other CERVIX UTERI STRUCTURE / Unknown Non-Phlebotomy Collection / Unknown 03/20/2024 2:57 PM DRAWING OPERATOR 03/20/2024 2:57 PM DRAWING OPERATOR us Zach Rehman MD PATHOLOGY/CYTOLOGY ORDERABLES Final Result [facility] [address] [place] [address], [place] * HUMAN PAPILLOMA VIRUS (HPV) (03/20/2024 2:57 PM DRAWING OPERATOR) HPV TYPE 16 NEGATIVE NEGATIVE 03/21/2024 12:09 PM [facility] Comment: A negative high-risk HPV result does not exclude the possibility of future cytologic HSIL or underlying CIN2-3 or cancer. The presence of PCR inhibitors may cause false negative or invalid results. If concentrations of whole blood in the sample exceed 10% (dark red or brown coloration) in PreservCyt solution, there is a likelihood of obtaining a false-negative result. HPV TYPE 18 NEGATIVE NEGATIVE 03/21/2024 12:[address] [facility] Comment: A negative high-risk HPV result does not exclude the possibility of future cytologic HSIL or underlying CIN2-3 or cancer. The presence of PCR inhibitors may cause false negative or invalid results. If concentrations of whole blood in the sample exceed 10% (dark red or brown coloration) in PreservCyt solution, there is a likelihood of obtaining a false-negative result. HPV OTHER HIGH RISK TYPES, PCR NEGATIVE NEGATIVE 03/21/2024 12:09 PM [facility] Comment: The following Other High Risk types were not detected: 31, 33, 35, 39, 45, 51, 52, 56, 58, 59, 66, and 68. A negative high-risk HPV result does not exclude the possibility of future cytologic HSIL or underlying CIN2-3 or cancer. The presence of PCR inhibitors may cause false negative or invalid results. If concentrations of whole blood in the sample exceed 10% (dark red or brown coloration) in PreservCyt solution, there is a likelihood of obtaining a false-negative result. HPV ORDER BE USED FOR SCREENING OR DIAGNOSTIC SCREENING 03/21/2024 12:09 PM [facility] Other Non-Phlebotomy Collection / Unknown 03/20/2024 2:57 PM DRAWING OPERATOR 03/20/2024 2:57 PM DRAWING OPERATOR Narrative [facility] - 03/21/2024 12:09 PM DRAWING OPERATOR This test was performed using PASHA 5800 Real Time PCR. us Zach Rehman MD LAB SEND OUTS Final Result [facility] [address] [place] [address], [facility] [place] [address] * BOGDAN SCREENING BILATERAL DIGITAL W CAD W TRENTON (02/06/2024 7:40 AM DRAWING OPERATOR) Anatomical Region Laterality Modality breast Bilateral Mammography 02/06/2024 7:15 AM DRAWING OPERATOR Narrative 02/07/2024 12:50 PM DRAWING OPERATOR - BOGDAN SCREENING BILATERAL DIGITAL W CAD W TRENTON BILATERAL DIGITAL SCREENING MAMMOGRAM 3D/2D WITH CAD WITH MEDIOLATERAL OBLIQUE CRANIOCAUDAL: 02/06/2024 The study was acquired using digital technology and interpreted from soft copy. Current study was also evaluated with ICAD version 7.2. 2D digital mammographic views, as well as 3D digital tomosynthesis were performed in the CC and MLO projections. CLINICAL: Routine screening. Patient has no complaints. Personal history of cervical cancer. Paternal half-sister had premenopausal breast cancer. Paternal grandmother had breast cancer. COMPARISONS: Comparison is made to exams dated: 09/12/2021 [facility], 08/02/2017 [facility], and 12/05/2014 [facility]. BREAST TISSUE:There are scattered areas of fibroglandular density. FINDINGS: There are benign calcifications in both breasts. No significant masses, calcifications, or other findings are seen in either breast. There has been no significant interval change. IMPRESSION: BENIGN There is no mammographic evidence of malignancy. A 1 year screening mammogram is recommended. A letter will be sent to the patient with these results. The patient will be entered into a reminder system with a target due date of 1 year for her next screening exam. Electronically signed by: Emir jimenez/tamara:02/06/2024 22:47:38 Sight Mounter(s): RT Camille(R)(M), [facility] letter sent: Normal Exam Reading location: [place] Mammogram BI-RADS: Category 2: Benign Procedure Note Emir Godoy MD - 02/07/2024 - BOGDAN SCREENING BILATERAL DIGITAL W CAD W TR[place]ON BILATERAL DIGITAL SCREENING MAMMOGRAM 3D/2D WITH CAD WITH MEDIOLATERAL OBLIQUE CRANIOCAUDAL: 02/06/2024 The study was acquired using digital technology and interpreted from soft copy. Current study was also evaluated with ICAD version 7.2. 2D digital mammographic views, as well as 3D digital tomosynthesis were performed in the CC and MLO projections. CLINICAL: Routine screening. Patient has no complaints. Personal history of cervical cancer. Paternal half-sister had premenopausal breast cancer. Paternal grandmother had breast cancer. COMPARISONS: Comparison is made to exams dated: 09/12/2021 [facility], 08/02/2017 [facility], and 12/05/2014 [facility]. BREAST TISSUE:There are scattered areas of fibroglandular density. FINDINGS: There are benign calcifications in both breasts. No significant masses, calcifications, or other findings are seen in either breast. There has been no significant interval change. IMPRESSION: BENIGN There is no mammographic evidence of malignancy. A 1 year screening mammogram is recommended. A letter will be sent to the patient with these results. The patient will be entered into a reminder system with a target due date of 1 year for her next screening exam. Electronically signed by: Emir jimenez/tamara:02/06/2024 22:47:38 Sight Mounter(s): RT Camille(R)(M), [facility] letter sent: Normal Exam Reading location: [place] Mammogram BI-RADS: Category 2: Benign us Lexus Carrillo DO IMG MAMMO ORDERABLES Final Re sult * CT CHEST W CONTRAST (05/08/2019 4:04 PM DRAWING OPERATOR) Anatomical Region Laterality Modality Chest N/A Computed Tomogra phy 05/09/2019 1:44 PM DRAWING OPERATOR Impressions 05/09/2019 1:46 PM DRAWING OPERATOR IMPRESSION: 1. Minimal focal ground-glass within the medial left lower lobe, likely atelectasis. Narrative 05/09/2019 1:46 PM DRAWING OPERATOR EXAM DESCRIPTION: CT CHEST W CONTRAST REASON FOR STUDY: Chest congestion x2 weeks. History of smoking TECHNIQUE: CT scan of the chest with intravenous contrast. Reconstructed coronal and sagittal MPR images reviewed. All images stored on PACS. Automated exposure control was used as a dose optimization technique for this examination. CONTRAST TYPE/DOSE: 100 mL Isovue 370 intravenous contrast injected via left antecubital vein COMPARISON: None FINDINGS: LUNGS: No consolidation. Minimal focal ground-glass within the medial left lower lobe (84). No significant emphysema. PLEURA: No effusion. No pneumothorax. MEDIASTINUM/MILAGROS: Prominent 11 mm right paratracheal lymph nodes, likely reactive. No gross hilar lymphadenopathy is seen. HEART: The heart is normal in size. Small pericardial effusion. Prominent fat surrounds the right inferior pulmonary vein. VASCULATURE: No thoracic aortic aneurysm. AXILLA: No adenopathy. CHEST WALL: No masses. No subcutaneous air. HARDWARE/LINES/TUBES: None. UPPER ABDOMEN: No significant abnormality. MUSCULOSKELETAL: No significant abnormality. OTHER: No other significant abnormality. THIS IS AN ELECTRONICALLY VERIFIED FINAL REPORT 05/09/2019 1:44 PM - Electronically signed by Alejandro Hodgson M.D. AG: BRISA Report ID: [id number] Reading Location: [place] [address] Procedure Note Alejandro Hodgson MD - 05/09/2019 EXAM DESCRIPTION: CT CHEST W CONTRAST REASON FOR STUDY: Chest congestion x2 weeks. History of smoking TECHNIQUE: CT scan of the chest with intravenous contrast. Reconstructed coronal and sagittal MPR images reviewed. All images stored on PACS. Automated exposure control was used as a dose optimization technique for this examination. CONTRAST TYPE/DOSE: 100 mL Isovue 370 intravenous contrast injected via left antecubital vein COMPARISON: None FINDINGS: LUNGS: No consolidation. Minimal focal ground-glass within the medial left lower lobe (84). No significant emphysema. PLEURA: No effusion. No pneumothorax. MEDIASTINUM/MILAGROS: Prominent 11 mm right paratracheal lymph nodes, likely reactive. No gross hilar lymphadenopathy is seen. HEART: The heart is normal in size. Small pericardial effusion. Prominent fat surrounds the right inferior pulmonary vein. VASCULATURE: No thoracic aortic aneurysm. AXILLA: No adenopathy. CHEST WALL: No masses. No subcutaneous air. HARDWARE/LINES/TUBES: None. UPPER ABDOMEN: No significant abnormality. MUSCULOSKELETAL: No significant abnormality. OTHER: No other significant abnormality. THIS IS AN ELECTRONICALLY VERIFIED FINAL REPORT 05/09/2019 1:44 PM - Electronically signed by Alejandro Hodgson M.D. AG: BRISA Report ID: [id number] Reading Location: [id number] IMPRESSION: 1. Minimal focal ground-glass within the medial left lower lobe, likely atelectasis. Amie Canas PAC IMG CT ORDERABLES Final R esult from Last 3 Months or Most Recently Relevant to Health Maintenance Insurance MEDICAID [place] MEDICARE C [employer] MEDICARE C [facility] MEDICAID [place] Care Teams Speech Language Specialist Relationship Specialty Start Date End Date Lexus Carrillo DO [address] [address] PCP - General Family Medicine 01/16/24 Hector Brice MD [address] [place] [address] Consulting Physician Pulmonary Disease 02/23/22 Flako Woodosn MD #[address] [address] Consulting Physician Colon and Rectal Surgery 01/07/23 Yohannes Isaacs MD [address] [place] [address] Consulting Physician Neurology 03/08/23 Aura Read MD [address] [place] [address] Consulting Physician Gastroenterology 01/06/23 Zach Rehman MD [address] [place] [address] Consulting Physician Obstetrics & Gynecology 01/27/24
--- OUTSIDE RECORDS SUMMARY | 2024-06-26 19:07 | XMS_ITS | Encounter Summary ---
Author Organization [facility] Address [address] [place] [address] Phone Care Team Providers Care Plush Dresser Name Role Phone James Mckenzie MD Primary Care Provider [phone] Hector Brice MD Unavailable Flako Woodson MD Unavailable Yohannes Isaacs MD Unavailable [phone] Aura Read MD Unavailable [phone] Provider, None Primary Care Provider UnavailJavid Maxwell APRN, FIELD COUNSEL Primary Care Pr ovider Lexus Carrillo DO Primary Care Provider [phone] Zach Rehman MD Unavailable [phone] Reason for Visit * Reason Comments Medication Refill Encounter Details Date Type Department Care Team (Late st Contact Info) Description 12/17/2021 Refill [facility] - Family Medicine [facility] [address]2 [place] [address] Clive Ellison MD #[address] [address] Medication Refill Social History Tobacco Use Types [...] Legal Sex Female 2:36 PM DIRECTOR OF INDUSTRIAL RELATIONS Gender Identity Female 12/30/2022 6:13 PM CDT Sexual Orientation Straight 12/30/2022 6: 13 PM CDT Occupation Industry Job Start Date Job End Date Disabled Not on file Not on file Not on file COVID-19 Exposure Response Date Recorded In the last 10 days, have yo u been in contact with someone who was confirmed or suspected to have Coronavirus/COVID-19? No / Unsure 12/10/2021 2:44 PM CDT documented as of this encounter Miscellaneous Notes * Telephone Encounter - Fanta Berumen RN - 12/17/2021 8:32 AM CDT Medication failed the protocol, provider to review and approve the medication order if appropriate. Requested Prescriptions Pending Prescriptions Disp Refills cyanocobalamin (VITAMIN B-12) 1000 MCG/ML Solution [Pharmacy Med Name: CYANOCOBALAMIN 1,000 MCG/ML VL] 6 mL 1 Sig: INJECT 1ML INTRAMUSCULARLY EVERY 14 DAYS Not Delegated - Off Protocol Failed - 12/17/2021 12:00 AM Failed - This refill cannot be delegated Passed - Visit with relevant provider in past 12 months or upcoming 90 days Recent Visits Date Type Provider Dept 11/26/21 Office Visit James Mckenzie MD [facility] 10/19/21 Office Visit James Mckenzie MD [facility] 08/18/21 Office Visit James Mckenzie MD [facility] 06/19/21 Office Visit James Mckenzie MD [facility] 03/30/21 Office Visit James Mckenzie MD [facility] 03/03/21 Office Visit Jory Jefferson APRN, FIELD COUNSEL [facility] Showing recent visits within past 365 days and meeting all other requirements Future Appointments Date Type Provider Dept 12/21/21 Appointment James Mckenzie MD [facility] [place] Showing future appointments within next 90 days and meeting all other requirements documented in this encounter Plan of Treatment Upcoming Encounters Date Type Department Care Team (Late st Contact Info) Description 09/17/2024 9:00 AM CDT Office Visit [facility] - Neurology - [place] [address] [place] [address] Yohannes Isaacs MD [address]2 [place] [address] 09/19/2024 7:00 AM CDT Lab [facility] [address]2 [facility] [address] [place] [address] [facility] Lab/Ancillary 10/25/2024 8:00 AM CDT Office Visit [facility] - Family Medicine - [place] [address]2 [place] [address] Lexus Carrillo, DO 2 [facility] [address] [place] [address] documented as of this encounter Visit Diagnoses Diagnosis Vitamin B 12 deficiency Other B-complex deficiencies documented in this encounter Additional Health Concerns Infection Onset Date Last Indicated Resolved Time COVID - 19 01/16/2024 02/06/2024 01/16/2024 9:58 AM CDT Respiratory Rule-Out 01/16/2024 01/16/2024 9:57 AM CDT Assessment Noted Time PHQ-9 Depression Total Score: 0 03/30/20 9:00 AM DIRECTOR OF INDUSTRIAL RELATIONS documented as of this encounter Care Teams Plush Dresser Relationship Specialty Start Date End Date James Mckenzie MD PCP - General Family Medicine 04/30/19 09/15/23 Provider, None [place] PCP - General 09/16/23 10/04/23 Javid Long APRN, FIELD COUNSEL #2 [facility] [address] [place] [address] PCP - General Advanced Practice Nurse 10/05/2301/11 Lexus Carrillo DO [address] [address] PCP - General Family Medicine 01/16/24 Hector Brice MD [address]2 [place] [address] Consulting Physician Pulmonary Disease 02/23/22 Flako Woodson MD #2 [facility] [address] [place] [address] Consulting Physician Colon and Rectal Surgery 01/07/23 Yohannes Isaacs MD [address]2 [place] [address] Consulting Physician Neurology 03/08/23 Aura Read MD #2 [place] [address] Consulting Physician Gastroenterology 01/06/23 Zach Rehman MD [address] [place] [address] Consulting Physician Obstetrics & Gynecology 01/27/24 documented as of this encounter
--- OUTSIDE RECORDS SUMMARY | 2024-06-26 19:07 | XMS_ITS | Encounter Summary ---
Author Organization [facility] Address [address] [address] Phone Care Team Providers Care Linter Saw Sharpener Name Role Phone James Mckenzie MD Primary Care Provider [phone] Hector Brice MD Unavailable Flako Woodson MD Unavailable Yohannes Isaacs MD Unavailable [phone] Aura Read MD Unavailable [phone] Provider, None Primary Care Provider UnavailJavid Maxwell APRN, CASTING WHEEL OPERATOR HELPER Primary Care Pr ovider Lexus Carrillo DO Primary Care Provider [phone] Zach Rehman MD Unavailable [phone] Reason for Visit * Reason Comments Medication Refill Encounter Details Date Type Department Care Team (Late st Contact Info) Description 03/06/2021 Refill [facility] - Family Medicine [facility] [address] [place] [id number] James Mckenzie MD [address] [place] [address] Medication Refill Social History Tobacco Use Types [...] on file Legal Sex Female 2:36 PM TREATING PLANT SUPERVISOR Gender Identity Female 12/30/2022 6:13 PM [...] COVID-19? No / Unsure 03/03/2021 10:45 AM TREATING PLANT SUPERVISOR documented as of this encounter Miscellaneous Notes * Telephone Encounter - Maria Luisa Mcgraw RN - 03/06/2021 9:10 AM CST Medication failed the protocol, provider to review and approve the medication order if appropriate. Requested Prescriptions Pending Prescriptions Disp Refills montelukast (SINGULAIR) 10 MG Tablet [Pharmacy Med Name: MONTELUKAST SOD 10 MG TABLET] 90 Tablet 1 Sig: TAKE 1 TABLET BY MOUTH EVERY DAY IN THE EVENING Leukotriene Inhibitors Protocol Passed - 03/06/2021 12:03 AM Passed - Visit with relevant provider in past 12 months or upcoming 90 days Recent Visits Date Type Provider Dept 03/03/21 Office Visit Jory Jefferson APRN, CAROL [facility] [place] 11/25/20 Office Visit James Mckenzie MD [facility] [place] 10/14/20 Office Visit Kerry Brandon MD [facility] [place] 09/30/20 Office Visit Sena Kelly PAC [facility] [place] 08/28/20 Office Visit James Mckenzie MD [facility] [place] 07/24/20 Office Visit James Mckenzie MD [facility] [place] 06/02/20 Office Visit [facility] [...] 90 days and meeting all other requirements Klor-Con M20 20 MEQ Tablet Controlled Release [Pharmacy Med Name: KLOR-CON M20 TABLET] 360 Tablet 1 Sig: TAKE 2 TABLETS BY MOUTH TWICE A DAY Potassium Supplement Protocol Failed - 03/06/2021 12:03 AM Failed - Active on medication list Passed - Normal serum potassium in past 12 months POTASSIUM Date Value Ref Range Status 12/17/2020 3.8 3.5 - 5.1 mmol/L Final Passed - Visit with relevant provider in past 12 months or upcoming 90 days Recent Visits Date Type Provider Dept 03/03/21 Office Visit Jory Jefferson APRN, CASTING WHEEL OPERATOR HELPER [facility] 11/25/20 Office Visit James Mckenzie MD [facility] 10/14/20 Office Visit Kerry Brandon MD [facility] 09/30/20 Office Visit Sena Kelly, [facility] 08/28/20 Office Visit James Mckenzie MD [...] Appointments Date Type Provider Dept 03/30/21 Appointment Mckenzie, James M, MD [facility] Showing future appointments within next 90 days and meeting all other requirements TING PLANT SUPERVISOR documented in this encounter Plan of Treatment Upcoming Encounters Date Type Department Care Team (Late st Contact Info) Description 09/17/2024 9:00 AM CDT Office Visit [facility] - Neurology - [place] [address] [place] [address] Yohannes Isaacs MD #2 [facility] [place] [address] 09/19/2024 7:00 AM CDT Lab [facility] #2 [facility] [address] [place] [address] [facility] 10/25/2024 8:00 AM CDT Office Visit [facility] Family Medicine - [place] #2 [place] [address] Lexus Carrillo, DO 2 [facility] [address] [place] [address] documented as of this encounter Visit Diagnoses Diagnosis Environmental and seasonal allergies documented in this encounter Additional Health Concerns Infection Onset Date Last Indicated Resolved Time COVID - 19 01/16/2024 02/06/2024 01/16/2024 9:58 AM CDT Respiratory Rule-Out 01/16/2024 01/16/2024 024 9:57 AM CDT Assessment Noted Time PHQ-9 Depression Total Score: 11 020 10:03 AM TREATING PLANT SUPERVISOR documented as of this encounter Care Teams Linter Saw Sharpener Relationship Specialty Start Date End Date James Mckenzie MD PCP - General Family Medicine 04/30/19 09/15/23 Provider, None [place] PCP - General 09/16/23 10/04/23 Javid Long APRN, CASTING WHEEL OPERATOR HELPER #2 [facility] [address] [place] [address] PCP - General Advanced Practice Nurse 10/05/2301/11 Lexus Carrillo DO 2 [facility] [address] [place] [address] PCP - General Family Medicine 01/16/24 Hector Brice MD #2 [place] [address] Consulting Physician Pulmonary Disease 02/23/22 Flako Woodson MD [facility] [address] Consulting Physician Colon and Rectal Surgery 01/07/23 Yohannes Isaacs MD #2 [place] [address] Consulting Physician Neurology 03/08/23 Aura Read MD #2 [place] [address] Consulting Physician Gastroenterology 01/06/23 Zach Rehman MD #[address] [place] [address] Consulting Physician Obstetrics & Gynecology 01/27/24 documented as of this encounter
--- OUTSIDE RECORDS SUMMARY | 2024-06-26 19:07 | XMS_ITS | Clinical Summary ---
Author Organization [facility] [employer] Address [address] [place] [address] Care Team Providers Care Timber Spotter Name Role Phone James Mckenzie MD Primary Care Provider [phone] Source Comments [facility] [employer],non-owned Affiliates and Associated Physician Practices is amultiple site organization consisting of ambulatory clinics and hospital sitesin [place], [place], [place] and [place]. This disclosure is being madepursuant to the Care Everywhere program and may not contain all information available regarding this patient. Last updated 17.[facility] [employer] Allergies Active Allergy Reactions Criticality Noted Date Comments Nsaids Rhinitis 08/02/2022 Per pt causes chest congestion/exacerbates asthma Medications * Be aware that medications may not be up to date on this document. Alwaysverify current medications with the patient. Medication Sig Dispensed Refills Start Date End Date Status VENTOLIN HFA 108 (90 BASE) MCG/ACT inhaler 09/09/2017 Active buPROPion XL 24hr (WELLBUTRIN-XL) 150 MG tablet Take 1 (one) tablet by mouth every morning 10/03/2017 Active Budeson-Glycopyrr ol-Formoterol 160-9-4.8 MCG/ACT AERO Inhale 2 puffs by mouth 2 times daily 03/17/2022 Active cyanocobalamin (Vitamin B-12) injection Inject 1,000 (one thousand) mcg into muscle Q 14 days 02/01/2022 Active cyclobenzaprine (Flexeril) 10 MG tablet TAKE 1 TABLET BY MOUTH THREE TIMES A DAY NEEDED FOR MUSCLE SPASMS 01/08/2021 Active vitamin D, ergocalciferol, (Drisdol) 1.25 MG (64235 UT) capsule TAKE 1 CAPSULE BY MOUTH ONE TIME PER WEEK 02/05/2022 Active famotidine (Pepcid) 40 MG tablet TAKE 1 TABLET BY MOUTH EVERY DAY IN THE EVENING 06/10/2021 Active ferrous sulfate 325 (65 FE) MG tablet Take 1 (one) tablet by mouth once daily 06/25/2021 Active albuterol-ipratro pium (Duo-Neb) 0.5-2.5 (3) MG/3ML nebulizer solution as needed 01/05/2021 Active levothyroxine (Synthroid) 100 MCG tablet Take 1 (one) tablet by mouth once daily 02/24/2022 Active nystatin (Mycostatin) 052173 UNIT/GM cream APPLY 3 TIMES DAILY. APPLY TO RASH 11/09/2021 Active potassium chloride ER (Klor-Con M) 20 MEQ tablet Take 2 (two) tablets by mouth 2 times daily 03/06/2021 Active pregabalin (Lyrica) 100 MG capsule TAKE 1 CAPSULE BY MOUTH THREE TIMES A DAY 01/20/2022 Active rOPINIRole (Requip) 2 MG tablet Take 1 (one) tablet by mouth at bedtime 02/13/2022 Active sertraline (Zoloft) 100 MG tablet Take 1 (one) tablet by mouth once daily 11/26/2022 Active triamcinolone acetonide (Kenalog) 0.1 % cream APPLY TWICE DAILY TO AREA OF CONCERN FOR 10 DAYS 07/19/2022 Active hydroCHLOROthiazi de (Microzide) 12.5 MG capsule Take 1 (one) capsule by mouth once daily Active oxyCODONE, immediate release, (Roxicodone) 10 MG tabletIndications :Hiatal hernia Take 0.5 (one-half) tablet to 1 (one) tablet by mouth every 6 hours as needed for Pain 30 tablet 12/03/2022 Active acetaminophen (Tylenol) 500 MG tablet Take 2 (two) tablets by mouth every 6 hours as needed for Fever or Pain Maximum allowable Acetaminophen amount = 4 Grams (4000 mg) / 24 hours. 12/03/2022 Active ondansetron, disintegrating, (Zofran ODT) 4 MG tablet Take 1 (one) tablet by mouth every 6 hours as needed for Nausea/Vomiting Allow tablet to dissolve on the tongue 15 tablet 12/03/2022 Active docusate sodium (Colace) 100 MG capsule Take 1 (one) capsule by mouth 2 times daily as needed for Constipation 30 capsule 12/03/2022 Active Active Problems Problem Noted Date Diagnosed Date HLD (hyperlipidemia) 03/05/2022 Acquired hypothyroidism 12/21/2021 Hiatal hernia 01/21/2021 Essential hypertension 11/25/2020 COPD (chronic obstructive pulmonary disease) Gastroesophageal reflux disease 06/25/2016 Anxiety disorder 05/29/2015 Bipolar disorder 05/29/2015 Migraine 05/29/2015 Asthma 12/11/2003 Social History Tobacco Use Types Packs/Day Years Used Date Smoking Tobacco: Former Cigarettes Q uit: 10/19/2022 Smokeless Tobacco: Never Tobacco Cessation:Counseling Given: Not Answered Alcohol Use Standard Drinks/Week Comments Never 0 (1 standard drink = 0.6 oz pur e alcohol) occ AUDIT-C Answer Date Recorded Frequency of Alcohol Consumption Monthly or less 03/16/2019 Average Number of Drinks Not on file 019 Frequency of Binge Drinking Not on file 03/04 Sex and Gender Information Value Date Recorded Sex Assigned at Female 07/19/2023 9:01 PM CDT Gender Identity Female 07/19/2023 9:01 PM CDT Sexual Orientation Straight 07/19/2023 9: 01 PM CDT Last Filed Vital Signs Vital Sign Reading Time Taken Comments Blood Pressure 130/80 12/17/2022 8:48 AM CDT Pulse 79 12/17/2022 8:48 AM CDT Temperature 37 C (98.6 F) 12/03/2022 3:27 PM CDT Respiratory Rate 19 12/17/2022 8:48 AM CDT Oxygen Saturation 98% 12/17/2022 8:48 AM CDT Inhaled Oxygen Concentration - - Weight 92.5 kg (204 lb) 12/17/2022 8:48 AM CDT Height 165.1 cm (5' 5 ) 12/17/2022 8:48 AM CDT Body Mass Index 33.95 12/17/2022 8:48 AM CDT Plan of Treatment Health Maintenance Due Date Last Done Comments COLOGUARD (AGES 45-75) - COLON CA SCREENING 1972 COLON MONITORING 1972 COLONOSCOPY - COLON CA SCREENING 1972 CT COLONOGRAPHY - COLON CA SCREENING 1972 Colorectal Cancer Screening 1972 FIT - COLON CA SCREENING 1972 FLEX SIG - COLON CA SCREENING 1972 MAMMOGRAM 1972 PAP SMEAR 1972 HIV SCREENING 06/12/1987 HEPATITIS C SCREENING 06/07/1990 DTAP/TDAP/TD VACCINES (1 - Tdap) 06/12/1991 HEPATITIS B VACCINE (1 of 3 - 19+ 3-dose series) 06/12/1991 PNEUMOCOCCAL VACCINE 50+ (1 of 2 - PCV) 06/12/1991 ZOSTER VACCINE (1 of 2) 2022 COVID-19 VACCINE (3 - season) 2023 08/22/2020, 07/25/2020 INFLUENZA VACCINE (#1) 2023 , 12/21/2021, 03/30/2021, Additional history exists MEDICARE AWV CALENDAR YEAR 2024 SCREENING FOR DIABETES 11/29/2025 11/29/2022, 2022 LIPID TESTING 09/12/2026 09/12/2021 HIB VACCINE Aged Out No longer eligi ble based on patient's age to complete this topic HPV VACCINE Aged Out No longer eligi ble based on patient's age to complete this topic MENINGOCOCCAL (Group B) VACCINE SHARED DECISION-MAKING Aged Out No longer eligible based on patient's age to complete this topic MENINGOCOCCAL GROUPS A/C/Y/W VACCINE Aged Out No longer eligible based on patient's age to complete this topic Goals Goal Patient Goal Type Associated Problems Recent Progress Patient-Stated? Author Mobility General No Amira Malhotra, STEPAN Note: Expected end date: 06/15/2019 The goal is to maintain or improve your mobility at the optimum level for you. Interventions: Procedures Procedure Name Priority Date/Time Associated Diagnosis Comments COMPREHENSIVE METABOLIC PANEL Pre-Op 11/29/2022 10:02 AM CDT Preop testing from Last 3 Months or Most Recently Relevant to Health Maintenance Results * (ABNORMAL) COMPREHENSIVE METABOLIC PANEL (11/29/2022 10:02 AM CDT) Glucose 105 70 - 105 mg/dL 11/29/2022 10:25 AM CDT [facility] Sodium 142 136 - 145 mmol/L 11/29/2022 10:25 AM CDT [facility] Potassium 3.6 3.5 - 5.1 mmol/L 11/29/2022 10:25 AM CDT [facility] Chloride 108(H) 98 - 107 mmol/L 11/29/2022 10:25 AM CDT [facility] CO2 24 22 - 29 mmol/L 11/29/2022 10:25 AM CDT [facility] Calcium 8.9 8.4 - 10.4 mg/dL 11/29/2022 10:25 AM CDT [facility] Anion Gap 10 6 - 16 mmol/L 11/29/2022 10:25 AM CDT [facility] BUN 9 7 - 26 mg/dL 11/29/2022 10:25 AM CDT [facility] Creatinine 0.74 0.57 - 1.11 mg/dL 11/29/2022 10:25 AM [facility] Alkaline Phosphatase 87 40 - 150 U/L 11/29/2022 10:25 AM CDT [facility] ALT 19 0 - 55 U/L 11/29/2022 10:25 AM [facility] AST 17 5 - 34 U/L 11/29/2022 10:25 AM [facility] Protein Total 6.5 6.4 - 8.3 gm/dL 11/29/2022 10:25 AM [facility] Albumin 3.6 3.4 - 5.0 gm/dL 11/29/2022 10:25 AM [facility] Bilirubin Total 0.3 0.2 - 1.2 mg/dL 11/29/2022 10:25 AM [facility] eGFR by CKD-EPI >90 >=90 mL/min/1.7 3 m2 11/29/2022 10:25 AM [facility] Blood BLOOD SPECIMEN / Unknown Venipuncture / Unknown 11/29/2022 10:02 AM CDT 11/29/2022 10:02 AM CDT Sai Hall MD LAB - CHEMISTRY TRACI MARTINEZ [facility] Organization Address City/State/ZIP Co de Phone Number [facility] [address] [place] [address] [phone] from Last 3 Months or Most Recently Relevant to Health Maintenance Advance Directives * Full Code (Latest Code Status on File) Date Activated Date Inactivated Comments 12/02/2022 10:14 AM 12/03/2022 6:22 PM Care Teams Timber Spotter Relationship Specialty Start Date End Date James Mckenzie MD [address] [place] [address] PCP - General Family Medicine 03/05/22
--- OUTSIDE RECORDS SUMMARY | 2024-06-26 19:07 | XMS_ITS | Encounter Summary ---
Author Organization [facility] Address [address] [place] [address] Phone Care Team Providers Care Loans Officer Name Role Phone James Mckenzie MD Primary Care Provider [phone] Hector Brice MD Unavailable Flako Woodson MD Unavailable Yohannes Isaacs MD Unavailable [phone] Aura Read MD Unavailable [phone] Provider, None Primary Care Provider UnavailJavid Maxwell APRN, LOW RAW SUGAR CUTTER Primary Care Pr ovider Lexus Carrillo DO Primary Care Provider [phone] Zach Rehman MD Unavailable [phone] Reason for Visit * Reason Comments Medication Refill Encounter Details Date Type Department Care Team (Late st Contact Info) Description 07/06/2023 Refill [facility] - Pulmonology & Sleep Medicine [facility] [address] [place] [address] Hector Brice MD [address] [place] [address] Medication Refill Social History Tobacco [...] on file Legal Sex Female 2:36 PM MOTORCYCLE 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 documented in this encounter Plan of Treatment Upcoming Encounters Date Type Department Care Team (Late st Contact Info) Description 09/17/2024 9:00 AM CDT Office Visit [facility] - Neurology - [place] [address] [place] [address] Yohannes Isaacs MD [address] [place] [address] 09/19/2024 7:00 AM CDT Lab [facility] [address] [address] [facility] Lab/Ancillary 10/25/2024 8:00 AM CDT Office Visit [facility] - Family Medicine [facility] [address] [place] [address] Lexus Carrillo DO 2 [facility] [address] [place] [address] documented as of this encounter Visit Diagnoses Diagnosis Centrilobular emphysema (HCC) Other emphysema documented in this encounter Additional Health Concerns Infection Onset Date Last Indicated Resolved Time COVID - 19 01/16/2024 02/06/2024 01/16/2024 9:58 AM CDT Respiratory Rule-Out 01/16/2024 01/16/2024 024 9:57 AM CDT Assessment Noted Time PHQ-9 Depression Total Score: 0 02/24/20 4:00 PM MOTORCYCLE SUBASSEMBLER documented as of this encounter Care Teams Loans Officer Relationship Specialty Start Date End Date James Mckenzie MD PCP - General Family Medicine 04/30/19 09/15/23 Provider, None [place] PCP - General 09/16/23 10/04/23 Javid Long, ELECTRONICS TEACHER, LOW RAW SUGAR CUTTER [address] [facility] [address] [place] [address] PCP - General Advanced Practice Nurse 10/05/2301/11 Lexus Carrillo DO 2 [facility] [address] [place] [address] PCP - General Family Medicine 01/16/24 Hector Brice MD [address] [place] [address] Consulting Physician Pulmonary Disease 02/23/22 Flako Woodson MD [address]2 [facility] [address] [place] [address] Consulting Physician Colon and Rectal Surgery 01/07/23 Yohannes Isaacs MD [address] [place] [address] Consulting Physician Neurology 03/08/23 Aura Read MD [address] [place] [address] Consulting Physician Gastroenterology 01/06/23 Zach Rehman MD [address] [place] [address] Consulting Physician Obstetrics & Gynecology 01/27/24 documented as of this encounter
--- OUTSIDE RECORDS SUMMARY | 2024-06-26 19:07 | XMS_ITS | Encounter Summary ---
Author Organization [facility] Address [address] [place] [address] Phone Care Team Providers Care Licensing Officer Name Role Phone James Mckenzie MD Primary Care Provider [phone] Hector Brice MD Unavailable Flako Woodson MD Unavailable Yohannes Isaacs MD Unavailable [phone] Aura Read MD Unavailable [phone] Provider, None Primary Care Provider Unavailabl Javid Zafar APRN, PUTTYING AND CALKING SUPERVISOR Primary Care Pr ovider Lexus Carrillo DO Primary Care Provider [phone] Zach Rehman MD Unavailable [phone] Reason for Visit * Reason Comments Medication Refill Encounter Details Date Type Department Care Team (Late st Contact Info) Description 03/18/2021 Refill [facility] - Neurology [facility] [place] [address] [place] [address] Yohannes Isaacs MD [address] [place] [address] Medication Refill Social History Tobacco [...] on file Legal 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 No / Unsure 03/18/2021 10:37 AM CABINET AND TRIM INSTALLER documented as of this encounter Miscellaneous Notes * Telephone Encounter - Danica Avendaño RN - 03/18/2021 2:04 PM CST . NET AND TRIM INSTALLER documented in this encounter Plan of Treatment Upcoming Encounters Date Type Department Care Team (Late st Contact Info) Description 09/17/2024 9:00 AM CDT Office Visit [facility] - Neurology - [place] [address] [place] [address] Yohannes Isaacs MD [address] [place] [address] 09/19/2024 7:00 AM CDT Lab [facility] [address] [phone] [facility] Lab/Ancillary 10/25/2024 8:00 AM CDT Office Visit [facility] - Family Medicine [facility] [address] [place] [address] Lexus Carrillo DO [address] [address] documented as of this encounter Visit Diagnoses [...] Depression Total Score: 11 020 10:03 AM CABINET AND TRIM INSTALLER documented as of this encounter Care Teams Licensing Officer Relationship Specialty Start Date End Date James Mckenzie MD PCP - General Family Medicine 04/30/19 09/15/23 Provider, None [place] PCP - General 09/16/23 10/04/23 Javid Long, FEEDER OPERATOR AUTOMATIC, PUTTYING AND CALKING SUPERVISOR [address] [facility] [address] PCP - General Advanced Practice Nurse 10/05/2301/11 Lexus Carrillo DO [address] [address] PCP - General Family Medicine 01/16/24 Hector Brice MD [address] [facility] [place] [address] Consulting Physician Pulmonary Disease 02/23/22 Flako Woodson MD #[address] [address] Consulting Physician Colon and Rectal Surgery 01/07/23 Yohannes Isaacs MD [address] [place] [address] Consulting Physician Neurology 03/08/23 Aura Read MD [address] [place], [place] [address] Consulting Physician Gastroenterology 01/06/23 Zach Rehman MD [address] [place] [address] Consulting Physician Obstetrics & Gynecology 01/27/24 documented as of this encounter
--- OUTSIDE RECORDS SUMMARY | 2024-06-26 19:07 | XMS_ITS | Encounter Summary ---
Author Organization [facility] Address [address] [place] [address] Phone Care Team Providers Care Assistant Facility Manager Name Role Phone James Mckenzie MD Primary Care Provider [phone] Hector Brice MD Unavailable Flako Woodson MD Unavailable Yohannes Isaacs MD Unavailable [phone] Aura Read MD Unavailable [phone] Provider, None Primary Care Provider UnavailJavid Maxwell APRN, ADVERTISING SPACE CLERK Primary Care Pr ovider Lexus Carrillo DO Primary Care Provider [phone] Zach Rehman MD Unavailable [phone] Reason for Visit * Reason Comments Medication Refill Encounter Details Date Type Department Care Team (Late st Contact Info) Description 08/14/2023 Refill [facility] - Neurology [facility] [address] [place] [address] Yohannes Isaacs MD [address] [place] [address] Medication Refill Social History Tobacco [...] on file Legal Sex Female 2:36 PM RESIDENCY COORDINATOR Gender Identity Female 12/30/2022 6:13 PM CDT Sexual Orientation Straight 12/30/2022 6: 13 PM CDT Occupation Industry Job Start Date Job End Date Disabled Not on file Not on file Not on file documented as of this encounter Miscellaneous Notes * Telephone Encounter - Monica Bernardo RN - 08/15/2023 8:13 AM CDT Medication failed the protocol, provider to review and approve the medication order if appropriate. Requested Prescriptions Pending Prescriptions Disp Refills pregabalin (LYRICA) 150 MG Capsule [Pharmacy Med Name: PREGABALIN 150 MG CAPSULE] 90 Capsule 1 Sig: TAKE 1 CAPSULE BY MOUTH THREE TIMES A DAY Not Delegated - Anticonvulsants Excluding Benzodiazepines Protocol Failed - 08/14/2023 2:32 PM Failed - This refill cannot be delegated Passed - Visit with relevant provider in past 12 months or upcoming 90 days Recent Visits Date Type Provider Dept 03/08/23 Office Visit Yohannes Isaacs MD [facility] 08/27/22 Office Visit James Mckenzie MD [facility] 08/24/22 Office Visit Javid Long APRN, [facility] Showing recent visits within past 365 days and meeting all other requirements Today's Visits Date Type Provider Dept 08/15/23 Appointment Javid Long APRN, [facility] Showing today's visits and meeting all other requirements Future Appointments Date Type Provider Dept 09/19/23 Appointment Yohannes Isaacs MD [facility] [place] Showing future appointments within next 90 days and meeting all other requirements documented in this encounter Plan of Treatment Upcoming Encounters Date Type Department Care Team (Late st Contact Info) Description 09/17/2024 9:00 AM CDT Office Visit [facility] - Neurology - [place] [address] [place] [address] Yohannes Isaacs MD [address]2 [place] [address] 09/19/2024 7:00 AM CDT [facility]2 [facility] [address] [place] [address] [facility] 10/25/2024 8:00 AM CDT Office Visit [facility] Family Medicine - [place] [address]2 [place] [address] Lexus Carrillo, DO 2 [facility]. [address] [place] [address] documented as of this encounter Visit Diagnoses Diagnosis Numbness and tingling of both lower extremities documented in this encounter Additional Health Concerns Infection Onset Date Last Indicated Resolved Time COVID - 19 01/16/2024 02/06/2024 01/16/2024 9:58 AM CDT Respiratory Rule-Out 01/16/2024 01/16/2024 024 9:57 AM CDT Assessment Noted Time PHQ-9 Depression Total Score: 0 02/24/20 22 4:00 PM RESIDENCY COORDINATOR documented as of this encounter Care Teams Assistant Facility Manager Relationship Specialty Start Date End Date James Mckenzie MD PCP - General Family Medicine 04/30/19 09/15/23 Provider, None [place] PCP - General 09/16/23 10/04/23 Javid Long APRN, ADVERTISING SPACE CLERK [facility] [address] [place] [address] PCP - General Advanced Practice Nurse 10/05/2301/11 Lexus Carrillo DO [address] [facility] [address] [place] [address] PCP - General Family Medicine 01/16/24 Hector Brice MD [address] [place] [address] Consulting Physician Pulmonary Disease 02/23/22 Flako Woodson MD #[address] [address] Consulting Physician Colon and Rectal Surgery 01/07/23 Yohannes Isaacs MD #[address] [place] [address] Consulting Physician Neurology 03/08/23 Aura Read MD #[address] [place] [address] Consulting Physician Gastroenterology 01/06/23 Zach Rheman MD #[address] [place] [address] Consulting Physician Obstetrics & Gynecology 01/27/24 documented as of this encounter
--- OUTSIDE RECORDS SUMMARY | 2024-06-26 19:07 | XMS_ITS | Encounter Summary ---
Author Organization [facility] Address [address] [place] [address] Phone Care Team Providers Care Grain Combine Driver Name Role Phone James Mckenzie MD Primary Care Provider [phone] Hector Brice MD Unavailable Flako Woodson MD Unavailable Yohannes Isaacs MD Unavailable [phone] Aura Read MD Unavailable [phone] Provider, None Primary Care Provider UnavailJavid Maxwell APRN, BLUEPRINT ASSEMBLER Primary Care Pr ovider Lexus Carrillo DO Primary Care Provider [phone] Zach Rehman MD Unavailable [phone] Reason for Visit * Reason Comments Medication Refill Encounter Details Date Type Department Care Team (Late st Contact Info) Description 08/20/2023 Refill [facility] #2 [place] [id number] James Mckenzie MD #1 [place] [address] Medication Refill Social History Tobacco Use Types [...] on file Legal Sex Female 2:36 PM COMMISSIONED POLICE OFFICER Gender Identity Female 12/30/2022 6:13 PM CDT Sexual Orientation Straight 12/30/2022 6: 13 PM CDT Occupation Industry Job Start Date Job End Date Disabled Not on file Not on file Not on file documented as of this encounter Miscellaneous Notes * Telephone Encounter - Mindy Healy RN - 08/21/2023 2:10 PM CDT Medication failed the protocol, provider to review and approve the medication order if appropriate. Requested Prescriptions Pending Prescriptions Disp Refills potassium chloride SA (KLORCON M) 20 MEQ Tablet Controlled Release [Pharmacy Med Name: POTASSIUM CLER 20 MEQ TABLET] 360 Tablet 1 Sig: TAKE 2 TABLETS BY MOUTH TWICE A DAY Potassium Supplement Protocol Failed - 08/20/2023 7:19 AM Failed - Normal serum potassium in past 12 months POTASSIUM Date Value Ref Range Status 12/23/2022 3.4 (L) 3.5 - 5.1 mmol/L Final Passed - Visit with relevant provider in past 12 months or upcoming 90 days Recent Visits Date Type Provider Dept 08/27/22 Office Visit aJmes Mckenzie MD [facility] 08/24/22 Office Visit Javid Long APRN, BLUEPRINT ASSEMBLER [facility] Showing recent visits within past 365 days and meeting all other requirements Future Appointments No visits were found meeting these conditions. Showing future appointments within next 90 days and meeting all other requirements hydroCHLOROthiazide (MICROZIDE) 12.5 MG Capsule [Pharmacy Med Name: HYDROCHLOROTHIAZIDE 12.5 MG CP]90 Capsule 1 Sig: TAKE 1 CAPSULE BY MOUTH EVERY DAY Diuretics Protocol Passed - 08/20/2023 7:19 AM Passed - Serum potassium on record in past 12 months POTASSIUM Date Value Ref Range Status 12/23/2022 3.4 (L) 3.5 - 5.1 mmol/L Final Passed - Serum sodium on record in past 12 months SODIUM Date Value Ref Range Status 12/23/2022 142 136 - 145 mmol/L Final Passed - Blood pressure on record in past 12 months Clinician-entered: BP Readings from Last 3 Encounters: 05/17/23 120/70 05/11/23 118/74 04/13/23 130/80 Patient-entered: No data recorded Passed - Visit with relevant provider in past 12 months or upcoming 90 days Recent Visits Date Type Provider Dept 08/27/22 Office Visit James [facility]ck[facility] MD [facility] 08/24/22 Office Visit Javid Long APRN, [facility] Showing recent visits within past 365 days and meeting all other requirements Future Appointments No visits were found meeting these conditions. Showing future appointments within next 90 days and meeting all other requirements Passed - GFR on record in past 12 months GFR, EST. NONAFRICAN Date Value Ref Range Status 12/23/2022 >60 >=60 Final rOPINIRole (REQUIP) 2 MG Tablet [Pharmacy Med Name: ROPINIROLE HCL 2 MG TABLET] 90 Tablet 1 Sig: TAKE 1 TABLET BY MOUTH EVERY DAY AT NIGHT Antiparkinson Dopaminergics and COMT Protocol Failed - 08/20/2023 7:19 AM Failed - Visit with relevant provider in the past 9 months or upcoming 90 days Recent Visits No visits were found meeting these conditions. Showing recent visits within past 270 days and meeting all other requirements Future Appointments No visits were found meeting these conditions. Showing future appointments within next 90 days and meeting all other requirements Passed - Blood pressure on record in past 12 months Clinician-entered: BP Readings from Last 3 Encounters: 05/17/23 120/70 05/11/23 118/74 04/13/23 130/80 Patient-entered: No data recorded documented in this encounter Plan of Treatment Upcoming Encounters Date Type Department Care Team (Late st Contact Info) Description 09/17/2024 9:00 AM CDT Office Visit [facility] - Neurology - [place] [address] [place] [address] Yohannes Isaacs MD #2 [place] [address] 09/19/2024 7:00 AM CDT Lab [facility] #[address] [id number] [facility] 10/25/2024 8:00 AM CDT Office Visit [facility] Family [facility] - [place] [address]2 [place] [address] Lexus Carrillo DO 2 [facility] [address] [address] documented as of this encounter Visit Diagnoses Diagnosis Hypotension due to drugs Other iatrogenic hypotension RLS (restless legs syndrome) Restless legs syndrome (RLS) documented in this encounter Additional Health Concerns Infection Onset Date Last Indicated Resolved Time COVID - 19 01/16/2024 02/06/2024 01/16/2024 9:58 AM CDT Respiratory Rule-Out 01/16/2024 01/16/2024 024 9:57 AM CDT Assessment Noted Time PHQ-9 Depression Total Score: 0 02/24/20 22 4:00 PM COMMISSIONED POLICE OFFICER documented as of this encounter Care Teams Grain Combine Driver Relationship Specialty Start Date End Date James Mckenzie MD PCP - General Family Medicine 04/30/19 09/15/23 Provider, None [place] PCP - General 09/16/23 10/04/23 Javid Long APRN, BLUEPRINT ASSEMBLER [address] [address] PCP - General Advanced Practice Nurse 10/05/2301/11 Lexus Carrillo DO [address] [address] PCP - General Family Medicine 01/16/24 Hector Brice MD #2 [place] [address] Consulting Physician Pulmonary Disease 02/23/22 Flako Woodson MD #[address] [address] Consulting Physician Colon and Rectal Surgery 01/07/23 Yohannes Isaacs MD #2 [place] [address] Consulting Physician Neurology 03/08/23 Aura Read MD #2 [place] [address] Consulting Physician Gastroenterology 01/06/23 Zach Rehman MD #2 [place] [address] Consulting Physician Obstetrics & Gynecology 01/27/24 documented as of this encounter
--- OUTSIDE RECORDS SUMMARY | 2024-06-26 19:07 | XMS_ITS | Encounter Summary ---
Author Organization [facility] Address [address] [place] [address] Phone Care Team Providers Care Associate Professor Of Art History Name Role Phone James Mckenzie MD Primary Care Provider [phone] Hector Brice MD Unavailable Flako Woodson MD Unavailable Yohannes Isaacs MD Unavailable [phone] Aura Read MD Unavailable [phone] Provider, None Primary Care Provider UnavailJavid Maxwell APRN, ACID BLEACHER Primary Care Pr ovider Lexus Carrillo DO Primary Care Provider [phone] Zach Rehman MD Unavailable [phone] Reason for Visit * Reason Comments Medication Refill Encounter Details Date Type Department Care Team (Late st Contact Info) Description 09/21/2021 Refill [facility] #2 [place] [id number] James Mckenzie MD #1 [place] [address] Medication Refill Social History Tobacco Use Types [...] on file Legal Sex Female 2:36 PM CATH LAB TECHNOLOGIST Gender Identity Female 12/30/2022 6:13 PM CDT [...] Encounter - Maria Luisa Mcgraw RN - 09/21/2021 3:42 PM CDT Medication failed the protocol, provider to review and approve the medication order if appropriate. Requested Prescriptions Pending Prescriptions Disp Refills ferrous sulfate 325 (65 Fe) MG Tablet [Pharmacy Med Name: FERROUS SULFATE 325 MG TABLET] 90 Tablet 1 Sig: TAKE 1 TABLET BY MOUTH EVERY DAY Minerals Iron Supplementation Protocol Failed - 09/21/2021 12:05 AM Failed - Serum Fe on record [...] [place] 03/03/21 Office Visit Jory Jefferson APRN, ACID BLEACHER [facility] 11/25/20 Office Visit James Mckenzie MD [facility] 10/14/20 Office Visit Kerry Brandon MD [facility] 09/30/20 Office Visit Sena Kelly PAC [facility] Showing recent visits within past 365 [...] 09/12/2021 14.8 12.0 - 15.8 g/dL Final documented in this encounter Plan of Treatment Upcoming Encounters Date Type Department Care Team (Late st Contact Info) Description 09/17/2024 9:00 AM CDT Office Visit [facility] - Neurology - [place] #2 [place] [address] Yohannes Isaacs MD #2 [place] [address] 09/19/2024 7:00 AM CDT Lab [facility] #2 [facility] [address] [place] [address] [facility] 10/25/2024 8:00 AM CDT Office Visit [facility] Medical [facility] - Family Medicine - [place] #2 [facility] [address] Lexus Carrillo, DO 2 [facility] [address] [place] [address] documented as of this encounter Visit Diagnoses Not on filedocumented in this encounter Additional Health Concerns Infection Onset Date Last Indicated Resolved Time COVID - 19 01/16/2024 02/06/2024 01/16/2024 9:58 AM CDT Respiratory Rule-Out 01/16/2024 01/16/2024 9:57 AM CDT Assessment Noted Time PHQ-9 Depression Total Score: 0 03/30/20 9:00 AM CATH LAB TECHNOLOGIST documented as of this encounter Care Teams Associate Professor Of Art History Relationship Specialty Start Date End Date James Mckenzie MD PCP - General Family Medicine 04/30/19 09/15/23 Provider, None [place] PCP - General 09/16/23 10/04/23 Javid Long, COMPUTED TOMOGRAPHY TECHNOLOGIST, ACID BLEACHER #[address] [address] PCP - General Advanced Practice Nurse 10/05/2301/11 Lexus Carrillo DO [address] [address] PCP - General Family Medicine 01/16/24 Hector Brice MD #2 [place] [address] Consulting Physician Pulmonary Disease 02/23/22 Flako Woodson MD #[address] [address] Consulting Physician Colon and Rectal Surgery 01/07/23 Yohannes Isaacs MD #2 [place] [address] Consulting Physician Neurology 03/08/23 Aura Read MD #2 [place] [address] Consulting Physician Gastroenterology 01/06/23 Zach Rehman MD #2 [place] [address] Consulting Physician Obstetrics & Gynecology 01/27/24 documented as of this encounter
--- OUTSIDE RECORDS SUMMARY | 2024-06-26 19:07 | XMS_ITS | Referral Summary ---
Author Organization [facility] Address [address] [place] [address] Care Team Providers Care Software Tester Name Role Phone James Mckenzie MD Primary Care Provider [phone] Allergies No known active allergies Medications SYMBICORT [...] on file Legal Sex Female 3:57 AM BAKERY WORKER CONVEYOR LINE Gender Identity Not on file Sexual Orientation Not on file Last Filed Vital Signs Vital Sign Reading Time Taken Comments Blood Pressure 134/89 03/07/2019 6:23 PM BAKERY WORKER CONVEYOR LINE Pulse 78 03/07/2019 6:23 PM BAKERY WORKER CONVEYOR LINE Temperature 36 C (96.8 F) 05/08/2020 11:09 AM BAKERY WORKER CONVEYOR LINE Respiratory Rate 16 03/07/2019 6:23 PM BAKERY WORKER CONVEYOR LINE Oxygen Saturation 100% 03/07/2019 6:23 PM BAKERY WORKER CONVEYOR LINE Inhaled Oxygen Concentration - - Weight 102.1 kg (225 lb) 05/08/2020 11:09 AM BAKERY WORKER CONVEYOR LINE Height 165.1 cm (5' 5 ) 05/08/2020 11:09 AM BAKERY WORKER CONVEYOR LINE Body Mass Index 37.44 05/08/2020 11:09 AM BAKERY WORKER CONVEYOR LINE Plan of Treatment Not on file Insurance [facility] MEDICARE HMO IDAZ Care Teams Software Tester Relationship Specialty Start Date End Date James Mckenzie MD [address] [address] PCP - General Family Medicine 12/17/19
--- OUTSIDE RECORDS SUMMARY | 2024-06-26 19:07 | XMS_ITS | Encounter Summary ---
Author Organization [facility] Address [address] [place] [address] Phone Care Team Providers Care Take Off Man Name Role Phone James Mckenzie MD Primary Care Provider [phone] Hector Brice MD Unavailable Flako Woodson MD Unavailable Yohannes Isaacs MD Unavailable [phone] Aura Read MD Unavailable [phone] Provider, None Primary Care Provider UnavailJavid Maxwell APRN, TYPESETTING MACHINE TENDER Primary Care Pr ovider Lexus Carrillo DO Primary Care Provider [phone] Zach Rehman MD Unavailable [phone] Reason for Visit * Reason Comments Medication Refill Encounter Details Date Type Department Care Team (Late st Contact Info) Description 11/05/2020 Refill [facility] [address] [place] [address] James Mckenzie MD #1 [place] [address] Medication Refill Social History Tobacco Use Types [...] on file Legal Sex Female 2:36 PM CANVAS CUTTER Gender Identity Female 12/30/2022 6:13 PM [...] Encounter - Maria Luisa Mcgraw RN - 11/05/2020 1:35 PM CDT Quantity is for a 20 days supply Medication failed the protocol, provider to review and approve the medication order if appropriate. Requested Prescriptions Pending Prescriptions Disp Refills cyclobenzaprine (FLEXERIL) 10 MG Tablet [Pharmacy Med Name: CYCLOBENZAPRINE 10 MG TABLET] 60 Tablet2 Sig: Take 1 Tablet by mouth 3 times daily as needed for Muscle spasms. [email or web address] Not Delegated - Analgesics: Muscle Relaxants Failed - 11/05/2020 1:35 PM Failed - This refill cannot be delegated Passed - Valid encounter within last 6 months Past Office Visits Recent Outpatient Visits 3 weeks ago Moderate persistent asthmatic bronchitis with acute exacerbation [facility] - Kerry Valle MD 1 month ago Left knee pain, unspecified chronicity [facility] Medical [facility] - Family Medicine - Sena Chadwick PAC 2 months ago Pneumonia due to infectious organism, unspecified laterality, unspecified part of lung [facility] - James Sandoval MD 3 months ago Vitamin B 12 deficiency [facility] Family [facility] - James Sandoval MD 5 months ago Acute non-recurrent frontal sinusitis [facility] James Mckenzie MD Upcoming Appointments Future Appointments In 6 days Hector Brice MD [facility] Pulmonology & Sleep Medicine - [place], [facility] In 2 weeks Yohannes Isaacs MD [facility] Neurology - [facility] In 2 weeks James Mckenzie MD [facility], [facility] PLANER OPERATOR / GRADER - Recent and Past Visits Recent Visits Date Type Provider Dept 10/14/20 Office Visit Kerry Brandon MD [facility] 09/30/20 Office Visit Sena Kelly PAC [facility] 08/28/20 Office Visit James Mckenzie MD [facility] [place] 07/24/20 Office Visit James Mckenzie MD [facility] 06/02/20 Office Visit James Mckenzie MD [facility] [place] 05/14/20 Telemedicine James Mckenzie MD [facility] [place] 05/09/20 Procedure Visit James Mckenzie MD [facility] [place] 04/23/20 Office Visit James Mckenzie MD [facility] 04/03/20 Office Visit James Mckenzie MD [facility] [place] 03/19/20 [facility] recent visits within past 460 days with a meds authorizing provider and meeting all other requirements Future Appointments Date Type Provider Dept 11/25/20 Appointment [facility] MD [facility] Showing future appointments within next 90 days with a meds authorizing provider and meeting all other requirements documented in this encounter Plan of Treatment Upcoming Encounters Date Type Department Care Team (Late st Contact Info) Description 09/17/2024 9:00 AM CDT Office Visit [facility] [place] [facility] Neurology [facility] #2 [place] [address] Yohannes Isaacs MD #2 [place] [address] 09/19/2024 7:00 AM CDT Lab [facility] #[address] [address] [facility] 10/25/2024 8:00 AM CDT [facility] Medicine - [place] #2 [place] [address] Lexus Carrillo, DO [address] [address] documented as of this encounter Visit Diagnoses Diagnosis Fibromyalgia Mylagia and myositis, unspecified documented in this encounter Additional Health Concerns Infection Onset Date Last Indicated Resolved Time C. difficile Rule-Out 12/17/2020 12/23/20202020 12:44 PM CDT COVID - 19 01/16/2024 02/06/2024 01/16/2024 9:58 AM CDT Respiratory Rule-Out 01/16/2024 01/16/2024 024 9:57 AM CDT Assessment Noted Time PHQ-9 Depression Total Score: 11 020 10:03 AM CANVAS CUTTER documented as of this encounter Care Teams Take Off Man Relationship Specialty Start Date End Date James Mckenzie MD PCP - General Family Medicine 04/30/19 09/15/23 Provider, None [place] PCP - General 09/16/23 10/04/23 Javid Long APRN, TYPESETTING MACHINE TENDER #[address] [address] PCP - General Advanced Practice Nurse 10/05/2301/11 Lexus Carrillo DO 2 [facility] [address] [address] PCP - General Family Medicine 01/16/24 Hector Brice MD #2 [place] [address] Consulting Physician Pulmonary Disease 02/23/22 Flako Woodson MD #[address] [address] Consulting Physician Colon and Rectal Surgery 01/07/23 Yohannes Isaacs MD #2 [place] [address] Consulting Physician Neurology 03/08/23 Aura Read MD #2 [place] [address] Consulting Physician Gastroenterology 01/06/23 Zach Rehman MD #2 [place] [address] Consulting Physician Obstetrics & Gynecology 01/27/24 documented as of this encounter
--- OUTSIDE RECORDS SUMMARY | 2024-06-26 19:07 | XMS_ITS | Encounter Summary ---
Author Organization [facility] Address [address] [place] [address] Phone Care Team Providers Care Airline Radio Operator Name Role Phone James Mckenzie MD Primary Care Provider [phone] Hector Brice MD Unavailable Flako Woodson MD Unavailable Yohannes Isaacs MD Unavailable [phone] Aura Read MD Unavailable [phone] Provider, None Primary Care Provider UnavailJavid Maxwell APRN, INTEGRATION ANALYST Primary Care Pr ovider Lexus Carrillo DO Primary Care Provider [phone] Zach Rehman MD Unavailable [phone] Encounter Details Date Type Department Care Team (Late st Contact Info) Description 04/21/2020 Transcribe [facility] [address] [place] [address] Ricardo De La Rosa MD [address] [place] [address] Pre-op testing (Primary Dx) Social History Tobacco Use Types Packs/Day Years Used Date Smoking Tobacco: Former Cigarettes 1 30 1 05/21/1989 - 03/20/2020 Smokeless Tobacco: Never Alcohol Use Standard Drinks/Week Comments Yes 0 (1 standard drink = 0.6 oz pur e alcohol) couple times a month PHQ-2 Answer Date Recorded Total Score - Questions 1-9 11 03/04 Education Answer Date Recorded What is the highest level of school you have completed or the highest degree you have received? Some college, no degree 12/13/2019 Sexually Active Control Partners Comments Yes Comments No Sex and Gender Information Value Date Recorded Sex Assigned at Not on file Legal Sex Female 2:36 PM MORTGAGE OR LOAN UNDERWRITER Gender Identity Female 12/30/2022 6:13 PM CDT Sexual Orientation Straight 12/30/2022 6: 13 PM CDT Occupation Industry Job Start Date Job End Date Disabled Not on file Not on file Not on file COVID-19 Exposure Response Date Recorded In the last month, have you been in contact with someone who was confirmed or suspected to have Coronavirus / COVID-19? No / Unsure 04/24/2020 8:52 AM MORTGAGE OR LOAN UNDERWRITER documented as of this encounter Plan of Treatment Upcoming Encounters Date Type Department Care Team (Late st Contact Info) Description 09/17/2024 9:00 AM CDT Office Visit [facility] - Neurology - [place] #2 [place] [address] Yohannes Isaacs MD #2 [place] [address] 09/19/2024 7:00 AM CDT Lab [facility] PHYSICIAN [facility] #[address] [address] [facility] Lab/Ancillary 10/25/2024 8:00 AM CDT Office Visit [facility] - Family Medicine [facility] #2 [place] [address] Lexus Carrillo, DO [address] [address] documented as of this encounter Results * SARS-COV-2 BY MOLECULAR (04/27/2020 10:11 AM MORTGAGE OR LOAN UNDERWRITER) SARSCOV2 NOT DETECTED (Referen ce Range for this test is Not Detected ) [facility] TH[facility] FAST DX 04/28/2020 12:01 PM MORTGAGE OR LOAN UNDERWRITER [facility] Comment:This test was perfor med by a PCR method. Other NASOPHARYNGEAL STRUCTURE / Unknown Non-Phlebotomy Collection / Unknown 04/27/2020 10:11 AM MORTGAGE OR LOAN UNDERWRITER 04/27/2020 11:07 AM MORTGAGE OR LOAN UNDERWRITER Narrative [facility] - 04/28/2020 12:01 PM MORTGAGE OR LOAN UNDERWRITER Authorized Fact Sheets about this test for providers and patients are available at: https://www.fda.gov/medical-devices/uzvsmhjgx-nmqmbwndty-mqknkna-devices/emergen -us e-authorizations us Ricardo De La Rosa MD MICROBIOLOGY - GENERAL ORD ERABLES Final Result [facility] [address] [place] [address], documented in this encounter Visit Diagnoses Diagnosis Pre-op testing- Primary Preoperative examination, unspecified documented in this encounter Additional Health Concerns Infection Onset Date Last Indicated Resolved Time C. difficile Rule-Out 12/17/2020 12/23/20202020 12:44 PM CDT COVID - 19 01/16/2024 02/06/2024 01/16/2024 9:58 AM CDT Respiratory Rule-Out 01/16/2024 01/16/2024 024 9:57 AM CDT Assessment Noted Time PHQ-9 Depression Total Score: 11 020 10:03 AM MORTGAGE OR LOAN UNDERWRITER documented as of this encounter Care Teams Airline Radio Operator Relationship Specialty Start Date End Date James Mckenzie MD PCP - General Family Medicine 04/30/19 09/15/23 Provider, None [place] PCP - General 09/16/23 10/04/23 Javid Long, BUSINESS PROCESS ANALYST, INTEGRATION ANALYST #[address] [address] PCP - General Advanced Practice Nurse 10/05/2301/11 Lexus Carrillo DO [address] [address] PCP - General Family Medicine 01/16/24 Hector Brice MD #2 [place] [address] Consulting Physician Pulmonary Disease 02/23/22 Flako Woodson MD #[address] [address] Consulting Physician Colon and Rectal Surgery 01/07/23 Yohannes Isaacs MD #2 [place] [address] Consulting Physician Neurology 03/08/23 Aura Read MD #2 [place] [address] Consulting Physician Gastroenterology 01/06/23 Zach Rehman MD #2 [place] [address] Consulting Physician Obstetrics & Gynecology 01/27/24 documented as of this encounter
--- OUTSIDE RECORDS SUMMARY | 2024-06-26 19:07 | XMS_ITS | Encounter Summary ---
Author Organization [facility] Address [address] [place] [address] Phone Care Team Providers Care Stock Mover Name Role Phone James Mckenzie MD Primary Care Provider [phone] Hector Brice MD Unavailable Flako Woodson MD Unavailable Yohannes Isaacs MD Unavailable [phone] Aura Read MD Unavailable [phone] Provider, None Primary Care Provider Unavailabl Javid Zafar APRN, FROZEN FOOD SELECTOR Primary Care Pr ovider Lexus Carrillo DO Primary Care Provider [phone] Zach Rehman MD Unavailable [phone] Reason for Visit * Reason Comments Medication Refill Encounter Details Date Type Department Care Team (Late st Contact Info) Description 12/30/2021 Refill [facility] - Neurology [facility] #2 [place] [address] Yohannes Isaacs MD [address] [place] [address] Medication Refill Social History Tobacco [...] on file Legal Sex Female 2:36 PM LUBE ATTENDANT Gender Identity Female 12/30/2022 6:13 PM CDT Sexual Orientation Straight 12/30/2022 6: 13 PM CDT Occupation Industry Job Start Date Job End Date Disabled Not on file Not on file Not on file COVID-19 Exposure Response Date Recorded In the last 10 days, have yo u been in contact with someone who was confirmed or suspected to have Coronavirus/COVID-19? No / Unsure 12/21/2021 10:28 AM CDT documented as of this encounter Plan of Treatment Upcoming Encounters Date Type Department Care Team (Late st Contact Info) Description 09/17/2024 9:00 AM CDT [facility] - [place] [address] [place] [address] Yohannes Isaacs MD [address]2 [place] [address] 09/19/2024 7:00 AM CDT Lab [facility] #[address] [phone] [facility] Lab/Ancillary 10/25/2024 8:00 AM CDT Office Visit [facility] - Family Medicine [facility] #2 [place] [address] Lexus Carrillo, DO [address] [address] documented as of this encounter Visit Diagnoses [...] Total Score: 0 03/30/20 21 9:00 AM LUBE ATTENDANT documented as of this encounter Care Teams Stock Mover Relationship Specialty Start Date End Date James Mckenzie MD PCP - General Family Medicine 04/30/19 09/15/23 Provider, [facility] PCP - General 09/16/23 10/04/23 Javid Long, CAFETERIA SERVER, FROZEN FOOD SELECTOR #[address] [address] PCP - General Advanced Practice Nurse 10/05/2301/11 Lexus Carrillo DO [address] [address] PCP - General Family Medicine 01/16/24 Hector Brice MD #2 [place] [address] Consulting Physician Pulmonary Disease 02/23/22 Flako Woodson MD #[address] [address] Consulting Physician Colon and Rectal Surgery 01/07/23 Yohannes Isaacs MD #2 [place] [address] Consulting Physician Neurology 03/08/23 Aura Read MD #2 [place] [address] Consulting Physician Gastroenterology 01/06/23 Zach Rehman MD #2 [place] [address] Consulting Physician Obstetrics & Gynecology 01/27/24 documented as of this encounter
--- OUTSIDE RECORDS SUMMARY | 2024-06-26 19:07 | XMS_ITS | Encounter Summary ---
Author Organization [facility] Address [address] [place] [address] Phone Care Team Providers Care Manufacturing Weaver Name Role Phone James Mckenzie MD Primary Care Provider [phone] Hector Brice MD Unavailable Flako Woodson MD Unavailable Yohannes Isaacs MD Unavailable [phone] Aura Read MD Unavailable [phone] Provider, None Primary Care Provider UnavailJavid Maxwell APRN, COST MANAGER Primary Care Pr ovider Lexus Carrillo DO Primary Care Provider [phone] Zach Rehman MD Unavailable [phone] Reason for Visit * Reason Comments Medication Refill Encounter Details Date Type Department Care Team (Late st Contact Info) Description 03/07/2021 Refill [facility] [address] [place] [address] James Mckenzie MD [address] [place] [address] Medication Refill Social History Tobacco [...] on file Legal Sex Female 2:36 PM OPERATIONS SUPPORT SPECIALIST Gender Identity Female 12/30/2022 6:13 PM [...] COVID-19? No / Unsure 03/03/2021 10:45 AM OPERATIONS SUPPORT SPECIALIST documented as of this encounter Miscellaneous Notes * Telephone Encounter - Maria Victoria Greene RN - 03/07/2021 12:28 PM CST Medication failed the protocol, provider to review and approve the medication order if appropriate. Requested Prescriptions Pending Prescriptions Disp Refills cyclobenzaprine (FLEXERIL) 10 MG Tablet [Pharmacy Med Name: CYCLOBENZAPRINE 10 MG TABLET] 60 Tablet2 Sig: TAKE 1 TABLET BY MOUTH THREE TIMES A DAY NEEDED FOR MUSCLE SPASMS Not Delegated - Muscle Relaxants Protocol Failed - 03/07/2021 10:40 AM Failed - This refill cannot be delegated Passed - Visit with relevant provider in past 12 months or upcoming 90 days Recent Visits Date Type Provider Dept 03/03/21 Office Visit Jory Jefferson APRN, CAR[facility] [place] 11/25/20 Office Visit James [facility] [place] 10/14/20 Office Visit Kerry Brandon MD [facility] [place] 09/30/20 Office Visit Sena Kelly, ROGELIO [facility] [place] 08/28/20 Office Visit James Mckenzie MD [facility] 07/24/20 Office Visit James Mckenzie MD [facility] 06/02/20 Office Visit James Mckenzie MD [facility] 05/14/20 Telemedicine James Mckenzie MD [facility] 05/09/20 Procedure Visit James Mckenzie MD [facility] 04/23/20 Office Visit James Mckenzie MD [facility] Showing recent visits within past 365 days and meeting all other requirements Future Appointments Date Type Provider Dept 03/30/21 Appointment James Mckenzie MD [facility] Showing future appointments within next 90 days and meeting all other requirements ATIONS SUPPORT SPECIALIST documented in this encounter Plan of Treatment Upcoming Encounters Date Type Department Care Team (Late st Contact Info) Description 09/17/2024 9:00 AM CDT Office Visit [facility] Medical [facility] - Neurology - [place] [address] [place] [address] Yohannes Isaacs MD [address] [place] [address] 09/19/2024 7:00 AM CDT Lab [facility] #[address] [address] [facility] 10/25/2024 8:00 AM CDT Office Visit [facility] Medical [facility] - Family Medicine - [place] [address] [place] [address] Lexus Carrillo, DO 2 [facility] [address] [place] [address] documented as of this encounter Visit Diagnoses Diagnosis Fibromyalgia Mylagia and myositis, unspecified documented in this encounter Additional Health Concerns Infection Onset Date Last Indicated Resolved Time COVID - 19 01/16/2024 02/06/2024 01/16/2024 9:58 AM CDT Respiratory Rule-Out 01/16/2024 01/16/2024 024 9:57 AM CDT Assessment Noted Time PHQ-9 Depression Total Score: 11 020 10:03 AM OPERATIONS SUPPORT SPECIALIST documented as of this encounter Care Teams Manufacturing Weaver Relationship Specialty Start Date End Date James Mckenzie MD PCP - General Family Medicine 04/30/19 09/15/23 Provider, None [place] PCP - General 09/16/23 10/04/23 Javid Long, ADMIN DIR, COST MANAGER #[address] [address] PCP - General Advanced Practice Nurse 10/05/2301/11 Lexus Carrillo DO [address] [address] PCP - General Family Medicine 01/16/24 Hector Brice MD [address]2 [place] [address] Consulting Physician Pulmonary Disease 02/23/22 Flako Woodson MD #[address] [address] Consulting Physician Colon and Rectal Surgery 01/07/23 Yohannes Isaacs MD #2 [place] [address] Consulting Physician Neurology 03/08/23 Aura Read MD #2 [place] [address] Consulting Physician Gastroenterology 01/06/23 Zach Rehman MD [address] [place] [address] Consulting Physician Obstetrics & Gynecology 01/27/24 documented as of this encounter
--- OUTSIDE RECORDS SUMMARY | 2024-06-26 19:07 | XMS_ITS | Encounter Summary ---
Author Organization [facility] Address [address] [place] [address] Phone Care Team Providers Care Air Pollution Analyst Name Role Phone James Mckenzie MD Primary Care Provider [phone] Hector Brice MD Unavailable Flako Woodson MD Unavailable Yohannes Isaacs MD Unavailable [phone] Arua Read MD Unavailable [phone] Provider, None Primary Care Provider UnavailJavid Maxwell APRN, CLAY WORKER Primary Care Pr ovider Lexus Carrillo DO Primary Care Provider [phone] Zach Rehman MD Unavailable [phone] Reason for Visit * Reason Comments Medication Refill Encounter Details Date Type Department Care Team (Late st Contact Info) Description 05/08/2023 Refill [facility] Family Medicine 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 Requested Prescriptions Pending Prescriptions Disp Refills ferrous sulfate 325 (65 Fe) MG Tablet [Pharmacy Med Name: FERROUS SULFATE 325 MG TABLET] 90 Tablet 1 Sig: TAKE 1 TABLET BY MOUTH EVERY DAY Minerals Iron Supplementation Protocol Failed - 05/08/2023 6:52 AM Failed - Serum Fe on record in past 12 months IRON Date Value Ref Range Status 09/12/2021 55.18 37 - 145 mcg/dL Final Failed - Ferritin on record in past 12 months FERRITIN Date Value Ref Range Status 06/19/2021 17 13 - 150 ng/mL Final Failed - Iron Saturation on record in past 12 months No results found for: IRONSATURATI Passed - Visit with relevant provider in past 12 months or upcoming 90 days Recent Visits Date Type Provider Dept 08/27/22 Office Visit James Mckenzie MD [facility] 08/24/22 Office Visit Javid Long APRN, CAROL [facility] [place] 07/19/22 Office Visit Princess Sherman APRN, CAROL [facility] [place] 05/31/22 Office Visit James Mckenzie MD [facility] [place] Showing recent visits within past 365 days and meeting all other requirements Future Appointments Date Type Provider Dept 08/04/23 Appointment James Mckenzie MD [facility] Showing future appointments within next 90 days and meeting all other requirements Passed - Hemoglobin on record in past 12 months HEMOGLOBIN (HGB) Date Value Ref Range Status 12/23/2022 11.8 (L) 12.0 - 15.8 g/dL Final Y ANTIARMOR WEAPONS INFANTRYMAN documented in this encounter Plan of Treatment Upcoming Encounters Date Type Department Care Team (Late st Contact Info) Description 09/17/2024 9:00 AM CDT Office Visit [facility] - Neurology - [place] #2 [place] [address] Yohannes Isaacs MD [address] [place] [address] 09/19/2024 7:00 AM CDT Lab [facility] [address] [facility] [address] [place] [address] [facility] 10/25/2024 8:00 AM CDT Office Visit [facility] - Family Medicine - [place] [address]2 [place] [address] Lexus Carrillo, DO 2 [facility]. [address] [place] [address] documented as of this encounter Visit Diagnoses Not on filedocumented in this encounter Additional Health Concerns Infection Onset Date Last Indicated Resolved Time COVID - 19 01/16/2024 02/06/2024 01/16/2024 9:58 AM CDT Respiratory Rule-Out 01/16/2024 01/16/2024 024 9:57 AM CDT Assessment Noted Time PHQ-9 Depression Total Score: 0 02/24/20 4:00 PM HEAVY ANTIARMOR WEAPONS INFANTRYMAN documented as of this encounter Care Teams Air Pollution Analyst Relationship Specialty Start Date End Date James Mckenzie MD PCP - General Family Medicine 04/30/19 09/15/23 Provider, None [place] PCP - General 09/16/23 10/04/23 Javid Long APRN, CLAY WORKER #2 [facility] [address] [place] [address] PCP - General Advanced Practice Nurse 10/05/2301/11 Lexus Carrillo DO [address] [address] PCP - General Family Medicine 01/16/24 Hector Brice MD #2 [place] [address] Consulting Physician Pulmonary Disease 02/23/22 Flako Woodson MD #2 [facility] [address] [place] [address] Consulting Physician Colon and Rectal Surgery 01/07/23 Yohannes Isaacs MD #2 [place] [address] Consulting Physician Neurology 03/08/23 Aura Read MD #2 [place] [address] Consulting Physician Gastroenterology 01/06/23 Zach Rehman MD #[address] [place] [address] Consulting Physician Obstetrics & Gynecology 01/27/24 documented as of this encounter
--- OUTSIDE RECORDS SUMMARY | 2024-06-26 19:07 | XMS_ITS | Encounter Summary ---
Author Organization [facility] Address [address] [place] [address] Phone Care Team Providers Care Auto Tire Recapper Name Role Phone Hector Brice MD Unavailable Flako Woodson MD Unavailable Yohannes Isaacs MD Unavailable [phone] Aura Read MD Unavailable [phone] Provider, None Primary Care Provider UnavailJavid Maxwell FISCAL ANALYST, IUSS ACOUSTIC ANALYST Primary Care Pr ovider Lexus Carrillo DO Primary Care Provider [phone] Zach Rehman MD Unavailable [phone] Reason for Visit * Reason Comments Medication Refill Encounter Details Date Type Department Care Team (Late st Contact Info) Description 09/17/2023 Refill [facility] - Family Medicine [facility] #2 [place] [address] James Mckenzie MD #[address] [place] [address] Medication Refill Social History Tobacco Use Types Packs/Day Years Used Date Smoking Tobacco: Former Cigarettes 1 34.5 0 10/02/1985 - 04/04/2020 Smokeless Tobacco: Never Comments:Pt used to smoke 1 PPW Alcohol Use Standard Drinks/Week Comments Not Currently 0 (1 standard drink = 0.6 oz pur e alcohol) [facility] Utilities Answer Date Recorded In the past [...] week 09/16/2023 How often do you attend worship or christian serv ices? Never 09/16/2023 Do you belong to any clubs o r organizations such as worship groups, unions, fraternal or athletic groups, or [...] Total Score - Questions 1-9 0 02/03 [facility] - Occupational [...] any time in the past 12 m [facility], were you homeless or living in a care home (including now)? No 09/16/2023 Education Answer Date Recorded What is the highest level of school you have completed or the highest degree you have received? Associate degree: academic program 04/23/2022 Sexually Active Control Partners Comments Not Currently Abstinence Male Comments No Sex and Gender Information Value Date Recorded Sex Assigned at Not on file Legal Sex Female 2:36 PM WEBSPHERE CONSULTANT Gender Identity Female 12/30/2022 6:13 PM CDT Sexual Orientation Straight 12/30/2022 6: 13 PM CDT Occupation Industry Job Start Date Job End Date Disabled Not on file Not on file Not on file documented as of this encounter Miscellaneous Notes * Telephone Encounter - Mindy Healy RN - 09/18/2023 10:59 AM CDT Medication(s) refilled and signed per [facility] Chronic Medication Refill Standing Order for Pediatricand Adult Patients. Requested Prescriptions Pending Prescriptions Disp Refills sertraline (ZOLOFT) 100 MG Tablet [Pharmacy Med Name: SERTRALINE HCL 100 MG TABLET] 90 Tablet 1 Sig: TAKE 1 TABLET BY MOUTH EVERY DAY SSRI (6 Month Refill Only) Protocol Passed - 09/17/2023 11:19 PM Passed - No test in the past 12 months or most recent test was negative Passed - No active on record Passed - Visit with relevant provider in past 6 months or upcoming 90 days Recent Visits Date Type Provider Dept 09/16/23 Office Visit Javid Logn APRN, IUSS ACOUSTIC ANALYST [facility] Showing recent visits within past 182 days and meeting all other requirements Future Appointments Date Type Provider Dept 11/30/23 Appointment Lexus Carrillo DO [facility] Showing future appointments within next 90 days and meeting all other requirements Passed - Patient has established therapy with SSRI for at least 6 months Passed - Has an encounter in the past 6 months with a depression, anxiety, adjustment disorder, OCD, or PTSD visit diagnosis buPROPion (WELLBUTRIN) 150 MG XL tablet [Pharmacy Med Name: BUPROPION HCL XL 150 MG TABLET] 90 Tablet 1 Sig: TAKE 1 TABLET BY MOUTH EVERY DAY IN THE MORNING Bupropion (6 Month Refill Only) Protocol Passed - 09/17/2023 11:19 PM Passed - No test in the past 12 months or most recent test was negative Passed - No active on record Passed - Visit with relevant provider in past 6 months or upcoming 90 days Recent Visits Date Type Provider Dept 09/16/23 Office Visit Javid Long APRN, IUSS ACOUSTIC ANALYST [facility] [place] Showing recent visits within past 182 days and meeting all other requirements Future Appointments Date Type Provider Dept 11/30/23 Appointment Lexus Carrillo DO [facility] Showing future appointments within next 90 days and meeting all other requirements Passed - Has an encounter in the past 6 months with a depression or anxiety visit diagnosis Passed - Patient has established therapy with Bupropion for at least 6 months * Telephone Encounter - Mindy Healy RN - 09/18/2023 10:59 AM CDT Not sure why PCP already removed from chart. Bertha with Dr. Carrillo 11-30-23 documented in this encounter Plan of Treatment Upcoming Encounters Date Type Department Care Team (Late st Contact Info) Description 09/17/2024 9:00 AM CDT Office Visit [facility] - Neurology - [place] #[address] [place] [address] Yohannes Isaacs MD #[address] [place] [address] 09/19/2024 7:00 AM CDT Lab [facility] [address] [place] [address] [facility] Lab/Ancillary 10/25/2024 8:00 AM CDT Office Visit [facility] - Family Medicine - [place] #[address] [place] [address] Lexus Carrillo DO [address] [address] documented as of this encounter Visit Diagnoses Diagnosis Moderate episode of recurrent major depressive disorder (HCC) documented in this encounter Additional Health Concerns Infection Onset Date Last Indicated Resolved Time COVID - 19 01/16/2024 02/06/2024 01/16/2024 9:58 AM CDT Respiratory Rule-Out 01/16/2024 01/16/2024 9:57 AM CDT Assessment Noted Time PHQ-9 Depression Total Score: 0 02/24/20 4:00 PM WEBSPHERE CONSULTANT documented as of this encounter Care Teams Auto Tire Recapper Relationship Specialty Start Date End Date Provider, None [place] PCP - General 09/16/23 10/04/23 Javid Long APRN, IUSS ACOUSTIC ANALYST #[address] [facility] [address] [address] PCP - General Advanced Practice Nurse 10/05/2301/11 Lexus Carrillo DO [address] [address] PCP - General Family Medicine 01/16/24 Hector Brice MD #[address] [place] [address] Consulting Physician Pulmonary Disease 02/23/22 Flako Woosdon MD #[address] [id number] Consulting Physician Colon and Rectal Surgery 01/07/23 Yohannes Isaacs MD #2 [place] [address] Consulting Physician Neurology 03/08/23 Aura Read MD #2 [place] [address] Consulting Physician Gastroenterology 01/06/23 Zach Rehman MD #2 [place] [address] Consulting Physician Obstetrics & Gynecology 01/27/24 documented as of this encounter
--- OUTSIDE RECORDS SUMMARY | 2024-06-26 19:07 | XMS_ITS | Encounter Summary ---
Author Organization [facility] Address [address] [place] [address] Phone Care Team Providers Care Telegraph Inspector Name Role Phone James Mckenzie MD Primary Care Provider [phone] Hector Brice MD Unavailable Flako Woodson MD Unavailable Yohannes Isaacs MD Unavailable [phone] Aura Read MD Unavailable [phone] Provider, None Primary Care Provider Unavailabl Javid Zafar APRN, FINISH PATCHER Primary Care Pr ovider Lexus Carrillo DO Primary Care Provider [phone] Zach Rehman MD Unavailable [phone] Reason for Visit * Reason Comments Medication Refill Encounter Details Date Type Department Care Team (Late st Contact Info) Description 05/19/2023 Refill [facility] - Neurology [facility] #2 [place] [address] Yohannes Isaacs MD #2 [place] [address] Medication Refill Social History Tobacco [...] on file Legal Sex Female 2:36 PM KOSHER 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 Requested Prescriptions Pending Prescriptions Disp Refills pregabalin (LYRICA) 150 MG Capsule [Pharmacy Med Name: PREGABALIN 150 MG CAPSULE] 90 Capsule 1 Sig: TAKE 1 CAPSULE BY MOUTH THREE TIMES A DAY Not Delegated - Anticonvulsants Excluding Benzodiazepines Protocol Failed - 05/19/2023 11:43 AM Failed - This refill cannot be delegated Passed - Visit with relevant provider in past 12 months or upcoming 90 days Recent Visits Date Type Provider Dept 03/08/23 Office Visit Yohannes Isaacs MD [facility] Neurology [facility] 08/27/22 Office Visit James Mckenzie MD [facility] 08/24/22 Office Visit Javid Long APRN, CAR[facility] 07/19/22 Office Visit Princess Sherman APRN, [facility] 05/31/22 Office Visit James Mckenzie MD [facility] Showing recent visits within past 365 days and meeting all other requirements Future Appointments Date Type Provider Dept 05/23/23 Appointment Javid Long APRN, [facility] 08/04/23 Appointment James Mckenzie MD [facility] Showing future appointments within next 90 days and meeting all other requirements ER DIETARY SERVICE SUPERVISOR documented in this encounter Plan of Treatment Upcoming Encounters Date Type Department Care Team (Late st Contact Info) Description 09/17/2024 9:00 AM CDT Office Visit [facility] - Neurology - [place] #2 [facility] [place] [address] Yohannes Isaacs MD #2 [facility] [place] [address] 09/19/2024 7:[address] [facility] #2 [facility] [address] [place] [address] [facility] 10/25/2024 8:00 AM CDT Office Visit [facility] - Family Medicine - [place] #2 [place] [address] Lexus Carrillo, DO 2 [facility] [address] [place] [address] documented as of this encounter Visit Diagnoses Diagnosis Numbness and tingling of both lower extremities documented in this encounter Additional Health Concerns Infection Onset Date Last Indicated Resolved Time COVID - 19 01/16/2024 02/06/2024 01/16/2024 9:58 AM CDT Respiratory Rule-Out 01/16/2024 01/16/2024 024 9:57 AM CDT Assessment Noted Time PHQ-9 Depression Total Score: 0 02/24/20 22 4:00 PM KOSHER DIETARY SERVICE SUPERVISOR documented as of this encounter Care Teams Telegraph Inspector Relationship Specialty Start Date End Date James Mckenzie MD PCP - General Family Medicine 04/30/19 09/15/23 Provider, None [place] PCP - General 09/16/23 10/04/23 Javid Long APRN, FINISH PATCHER #[address] [address] PCP - General Advanced Practice Nurse 10/05/2301/11 Lexus Carrillo DO [address] [address] PCP - General Family Medicine 01/16/24 Hector Brice MD #2 [place] [address] Consulting Physician Pulmonary Disease 02/23/22 Flako Woodson MD #[address] [address] Consulting Physician Colon and Rectal Surgery 01/07/23 Yohannes Isaacs MD #2 [place] [address] Consulting Physician Neurology 03/08/23 Aura Read MD #2 [place] [address] Consulting Physician Gastroenterology 01/06/23 Zach Rehman MD #2 [place] [address] Consulting Physician Obstetrics & Gynecology 01/27/24 documented as of this encounter
--- OUTSIDE RECORDS SUMMARY | 2024-06-26 19:08 | XMS_ITS | Encounter Summary ---
Author Organization [facility] Address [address] [place] [address] Phone Care Team Providers Care Nanoscience Technician Name Role Phone James Mckenzie MD Primary Care Provider [phone] Hector Brice MD Unavailable Flako Woodson MD Unavailable Yohannes Isaacs MD Unavailable [phone] Aura Read MD Unavailable [phone] Provider, None Primary Care Provider UnavailJavid Maxwell APRN, SENIOR TAX SPECIALIST Primary Care Pr ovider Lexus Carrillo DO Primary Care Provider [phone] Zach Rehman MD Unavailable [phone] Reason for Visit * Reason Comments Medication Refill Encounter Details Date Type Department Care Team (Late st Contact Info) Description 06/29/2022 [facility]ill [facility] #2 [place] [id number] James Mckenzie MD #1 [place] [address] Medication Refill Social History Tobacco Use Types [...] on file Legal Sex Female 2:36 PM IT APPLICATIONS ANALYST Gender Identity Female 12/30/2022 6:13 PM CDT Sexual Orientation Straight 12/30/2022 6: 13 PM CDT Occupation Industry Job Start Date Job End Date Disabled Not on file Not on file Not on file COVID-19 Exposure Response Date Recorded In the last 10 days, have yo u been in contact with someone who was confirmed or suspected to have Coronavirus/COVID-19? No / Unsure 06/17/2022 10:31 AM CDT documented as of this encounter Miscellaneous Notes * Telephone Encounter - Maria Luisa Mcgraw RN - 06/29/2022 10:30 AM CDT Medication failed the protocol, provider to review and approve the medication order if appropriate. Requested Prescriptions Pending Prescriptions Disp Refills cyclobenzaprine (FLEXERIL) 10 MG Tablet [Pharmacy Med Name: CYCLOBENZAPRINE 10 MG TABLET] 60 Tablet2 Sig: TAKE 1 TABLET BY MOUTH THREE TIMES A DAY NEEDED FOR MUSCLE SPASMS Not Delegated - Muscle Relaxants Protocol Failed - 06/29/2022 8:30 AM Failed - This refill cannot be delegated Passed - Visit with relevant provider in past 12 months or upcoming 90 days Recent Visits Date Type Provider Dept 05/31/22 Office Visit James Mckenzie MD [facility] 02/23/22 Office Visit James Mckenzie MD [facility] 02/08/22 Office Visit Princess Sherman APRN, CAR[facility] 12/21/21 Office Visit James Mckenzie MD [facility] 11/26/21 Office Visit [facility] 10/19/21 Office Visit James Mckenzie MD [facility] 08/18/21 Office Visit James Mckenzie MD [facility] Showing recent visits within past 365 days and meeting all other requirements Future Appointments No visits were found meeting these conditions. Showing future appointments within next 90 days and meeting all other requirements documented in this encounter Plan of Treatment Upcoming Encounters Date Type Department Care Team (Late st Contact Info) Description 09/17/2024 9:00 AM CDT Office Visit [facility] Medical [facility] - Neurology - [place] #2 [facility] [place] [address] Yohannes Isaacs MD #2 [place] [address] 09/19/2024 7:00 AM CDT Lab [facility] #2 [facility] [address] [place] [address] [facility] Lab/Ancillary 10/25/2024 8:00 AM CDT Office Visit [facility] Medical [facility] - Family Medicine - [place] #2 [facility] [place] [address] Lexus Carrillo, DO 2 [facility]. [address] [place] [address] documented as of this encounter Visit Diagnoses Diagnosis Fibromyalgia Mylagia and myositis, unspecified documented in this encounter Additional Health Concerns Infection Onset Date Last Indicated Resolved Time COVID - 19 01/16/2024 02/06/2024 01/16/2024 9:58 AM CDT Respiratory Rule-Out 01/16/2024 01/16/2024 024 9:57 AM CDT Assessment Noted Time PHQ-9 Depression Total Score: 0 02/24/20 22 4:00 PM IT APPLICATIONS ANALYST documented as of this encounter Care Teams Nanoscience Technician Relationship Specialty Start Date End Date James Mckenzie MD PCP - General Family Medicine 04/30/19 09/15/23 Provider, None [place] PCP - General 09/16/23 10/04/23 Javid Long APRN, SENIOR TAX SPECIALIST #[address] [address] PCP - General Advanced Practice Nurse 10/05/2301/11 Lexus Carrillo DO [address] [address] PCP - General Family Medicine 01/16/24 Hector Brice MD #2 [place] [address] Consulting Physician Pulmonary Disease 02/23/22 Flako Woodson MD #[address] [address] Consulting Physician Colon and Rectal Surgery 01/07/23 Yohannes Isaacs MD #2 [place] [address] Consulting Physician Neurology 03/08/23 Aura Read MD #2 [place] [address] Consulting Physician Gastroenterology 01/06/23 Zach Rehman MD #2 [place] [address] Consulting Physician Obstetrics & Gynecology 01/27/24 documented as of this encounter
--- OUTSIDE RECORDS SUMMARY | 2024-06-26 19:08 | XMS_ITS | Encounter Summary ---
Author Organization [facility] Address [address] [place] [address] Phone Care Team Providers Care Toll Relief Operator Name Role Phone James Mckenzie MD Primary Care Provider [phone] Hector Brice MD Unavailable Flako Woodson MD Unavailable Yohannes Isaacs MD Unavailable [phone] Aura Read MD Unavailable [phone] Provider, None Primary Care Provider UnavailJavid Maxwell APRN, PROPERTY DAMAGE CLAIMS ADJUSTOR Primary Care Pr ovider Lexus Carrillo DO Primary Care Provider [phone] Zach Rehman MD Unavailable [phone] Reason for Visit * Reason Comments Medication Refill Encounter Details Date Type Department Care Team (Late st Contact Info) Description 07/11/2022 Refill [facility] #2 [place] [phone] James Mckenzie MD #1 [place] [address] Medication Refill Social History Tobacco Use Types [...] on file Legal Sex 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 No / Unsure 07/14/2022 2:09 PM CDT documented as of this encounter Miscellaneous Notes * Telephone Encounter - Elaine Mcclendon RN - 07/12/2022 8:48 AM CDT Medication failed the protocol, provider to review and approve the medication order if appropriate. Requested Prescriptions Pending Prescriptions Disp Refills cyanocobalamin (VITAMIN B-12) 1000 MCG/ML Solution [Pharmacy Med Name: CYANOCOBALAMIN 1,000 MCG/ML VL] 6 mL 1 Sig: INJECT 1ML INTRAMUSCULARLY EVERY 14 DAYS Not Delegated - Off Protocol Failed - 07/11/2022 10:25 AM Failed - This refill cannot be delegated Passed - Visit with relevant provider in past 12 months or upcoming 90 days Recent Visits Date Type Provider Dept 05/31/22 Office Visit James Mckenzie MD [facility] 02/23/22 Office Visit James Mckenzie MD [facility] 02/08/22 Office Visit Princess Sherman APRN, CAR[facility] [place] 12/21/21 Office Visit James Mckenzie MD [facility] 11/26/21 Office Visit James [facility] MD [facility] 10/19/21 Office Visit James Mckenzie MD [facility] 08/18/21 Office Visit James Mckenzie MD [facility] Showing recent visits within past 365 days and meeting all other requirements Future Appointments No visits were found meeting these conditions. Showing future appointments within next 90 days and meeting all other requirements documented in this encounter Plan of Treatment Upcoming Encounters Date Type Department Care Team (Late st Contact Info) Description 09/17/2024 9:00 AM CDT Office Visit [facility] Medical [facility] - Neurology - [place] #2 [facility] [place] [address] Yohannes Isaacs MD #2 [place] [address] 09/19/2024 7:00 AM CDT Lab [facility] #2 [facility] [address] [place] [address] [facility] 10/25/2024 8:00 AM CDT Office Visit [facility] Medical [facility] - Family Medicine - [place] #2 [place] [address] Lexus Carrillo, DO 2 [facility]. [address] [place] [address] documented as of this encounter Visit Diagnoses Diagnosis Vitamin B 12 deficiency Other B-complex deficiencies documented in this encounter Additional Health Concerns Infection Onset Date Last Indicated Resolved Time COVID - 19 01/16/2024 02/06/2024 01/16/2024 9:58 AM CDT Respiratory Rule-Out 01/16/2024 01/16/2024 024 9:57 AM CDT Assessment Noted Time PHQ-9 Depression Total Score: 0 02/24/20 22 4:00 PM MEDICAL AFFAIRS DIRECTOR documented as of this encounter Care Teams Toll Relief Operator Relationship Specialty Start Date End Date James Mckenzie MD PCP - General Family Medicine 04/30/19 09/15/23 Provider, None [place] PCP - General 09/16/23 10/04/23 Javid Long APRN, PROPERTY DAMAGE CLAIMS ADJUSTOR #[address] [address] PCP - General Advanced Practice Nurse 10/05/2301/11 Lexus Carrillo DO [address] [address] PCP - General Family Medicine 01/16/24 Hector Brice MD #2 [place] [address] Consulting Physician Pulmonary Disease 02/23/22 Flako Woodson MD #[address] [address] Consulting Physician Colon and Rectal Surgery 01/07/23 Yohannes Isaacs MD #2 [place] [address] Consulting Physician Neurology 03/08/23 Aura Read MD #2 [place] [address] Consulting Physician Gastroenterology 01/06/23 Zach Rehman MD #2 [place] [address] Consulting Physician Obstetrics & Gynecology 01/27/24 documented as of this encounter
--- OUTSIDE RECORDS SUMMARY | 2024-06-26 19:08 | XMS_ITS | Encounter Summary ---
Author Organization [facility] Address [address] [place] [address] Phone Care Team Providers Care Assembler Clip On Sunglasses Name Role Phone James Mckenzie MD Primary Care Provider [phone] Hector Brice MD Unavailable Flako Woodson MD Unavailable Yohannes Isaacs MD Unavailable [phone] Auar Read MD Unavailable [phone] Provider, None Primary Care Provider Unavailabl Javid Zafar APRN, BONDING MACHINE SETTER Primary Care Pr ovider Lexus Carrillo DO Primary Care Provider [phone] Zach Rheman MD Unavailable [phone] Reason for Visit * Reason Comments Medication Refill Encounter Details Date Type Department Care Team (Late st Contact Info) Description 08/14/2022 Refill [facility] - Neurology [facility] #2 [place] [address] Yohannes Isaacs MD #2 [place] [address] Medication Refill Social History Tobacco [...] on file 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 No / Unsure 08/04/2022 1:48 PM CDT documented as of this encounter Miscellaneous Notes * Telephone Encounter - Danica Avendaño RN - 08/16/2022 8:42 AM CDT Medication failed the protocol, provider to review and approve the medication order if appropriate. Requested Prescriptions Pending Prescriptions Disp Refills pregabalin (LYRICA) 100 MG Capsule [Pharmacy Med Name: PREGABALIN 100 MG CAPSULE] 270 Capsule Sig: TAKE 1 CAPSULE BY MOUTH THREE TIMES A DAY Not Delegated - Anticonvulsants Excluding Benzodiazepines Protocol Failed - 08/14/2022 10:57 AM Failed - This refill cannot be delegated Failed - Visit with relevant provider in past 12 months or upcoming 90 days Recent Visits Date Type Provider Dept 07/19/22 Office Visit Princess Sherman APRN, BONDING MACHINE SETTER [facility] 05/31/22 Office Visit James Mckenzie MD [facility] 02/23/22 Office Visit James Mckenzie MD [facility] 02/08/22 Office Visit Princess Sherman APRN, CAR[place] [facility] 12/21/21 Office Visit James Mckenzie MD [facility] 11/26/21 Office Visit James Mckenzie MD [facility] 10/19/21 Office Visit James Mckenzie MD [facility] 08/18/21 Office Visit James Mckenzie MD [facility] Showing recent visits within past 365 days and meeting all other requirements Future Appointments Date Type Provider Dept 09/14/22 Appointment Princess Sherman, CASING CLEANER, BONDING MACHINE SETTER [facility] Show[facility] future appointments within next 90 days and meeting all other requirements documented in this encounter Plan of Treatment Upcoming Encounters Date Type Department Care Team (Late st Contact Info) Description 09/17/2024 9:00 AM CDT Office Visit [facility] Medical [facility] - Neurology - [place] #2 [place] [address] Yohannes Isaacs MD #2 [place] [address] 09/19/2024 7:00 AM CDT Lab [facility] #2 [facility] [address] [place] [address] [facility] 10/25/2024 8:00 AM CDT Office Visit [facility] Medical [facility] - Family Medicine - [place] #2 [place] [address] Lexus Carrillo, DO 2 [facility] [address] [place] [address] documented as of this encounter Visit Diagnoses Diagnosis Numbness and tingling of both lower extremities Numbness and tingling of both upper extremities documented in this encounter Additional Health Concerns Infection Onset Date Last Indicated Resolved Time COVID - 19 01/16/2024 02/06/2024 01/16/2024 9:58 AM CDT Respiratory Rule-Out 01/16/2024 01/16/2024 9:57 AM CDT Assessment Noted Time PHQ-9 Depression Total Score: 0 02/24/20 4:00 PM CONFERENCE PRODUCER documented as of this encounter Care Teams Assembler Clip On Sunglasses Relationship Specialty Start Date End Date James Mckenzie MD PCP - General Family Medicine 04/30/19 09/15/23 Provider, None [place] PCP - General 09/16/23 10/04/23 Javid Long, CASING CLEANER, BONDING MACHINE SETTER #[address] [address] PCP - General Advanced Practice Nurse 10/05/2301/11 Lexus Carrillo DO [address] [address] PCP - General Family Medicine 01/16/24 Hector Brice MD #2 [place] [address] Consulting Physician Pulmonary Disease 02/23/22 Flako Woodson MD #[address] [address] Consulting Physician Colon and Rectal Surgery 01/07/23 Yohannes Isaacs MD #2 [place] [address] Consulting Physician Neurology 03/08/23 Aura Read MD #2 [place] [address] Consulting Physician Gastroenterology 01/06/23 Zach Rehman MD #2 [place] [address] Consulting Physician Obstetrics & Gynecology 01/27/24 documented as of this encounter
--- OUTSIDE RECORDS SUMMARY | 2024-06-26 19:08 | XMS_ITS | CONTINUITY OF CARE DOCUMENT ---
Author Name toño lundberg Address Unknown Organization [facility] Address [address] [place] [address] Phone [phone] Care Team Providers Care Cooker Operator Name Role Phone Neal Montalvo MD Unavailable BANAL LINE REPAIRER TOWER-C, ALICIA L Unavailable BANAL LINE REPAIRER TOWER-C, ALICIA L Unavailable [phone] PROBLEMS Condition Status Date Provider Notes Chest pain active Neal Montalvo MD Tobacco abuse active Neal Montalvo MD Bipolar disorder active Neal Montalvo MD Anxiety active Neal Montalvo MD Migraine active Neal Montalvo MD Neuropathy active Neal Montalvo MD HTN essential active Neal Montalvo MD Chronic back pain active Neal Montalvo MD Family History of Hypertension: active ? Monika Montalvo MD Numbness and tingling in left arm, neck, face active 2 Neal Montalvo MD SLEEP APNEA active Neal Montalvo MD ENCOUNTERS Date Type Provider Location Encounter Diag nosis - In-person encounter Office Visit Neal Montalvo MD [facility] - In-person encounter Office Visit Neal Montalvo MD [facility] - In-person encounter Office Visit Neal Montalvo MD [facility] - In-person encounter Office Visit Neal Montalvo MD [facility] - In-person encounter Office Visit Neal Montalvo MD [facility] - In-person encounter Office Visit Neal Montalvo MD [facility] SLEEP APNEA - In-person encounter Office Visit Neal Montalvo MD [facility] Chest painTobacco abuseBipolar disorderAnxietyMigraineNeuropathyHTN essentialChronic back painFamily History of Hypertension:Numbness and tingling in left arm, neck, face VITAL SIGNS Date Observation Value Provider pulse rate #2 65 [facility] blood pressure, rivera tolic, second observation 86 mm[Hg] [facility] blood pressure, syst olic, second observation 135 mm[Hg] [facility] oxygen saturation, oximetry 98 % [facility] pulse rate 65 /min [facility] blood pressure, diastolic 86 mm[Hg] Vi ctoria [facility] blood pressure, systolic 135 mm[Hg] Ravindra lindsey [facility] Body Mass Index (Ratio) 30.62 kg/m2 Monika Montalvo MD pulse rate #2 64 [facility] blood pressure, rivera tolic, second observation 79 mm[Hg] [facility] blood pressure, syst olic, second observation 141 mm[Hg] [facility] oxygen saturation, oximetry 96 % [facility] pulse rate 64 /min [facility] blood pressure, diastolic 79 mm[Hg] Vi ctoria [facility] blood pressure, systolic 141 mm[Hg] Ravindra lindsey [facility] blood pressure, cuff size large Ke rri Gruenenfkory blood pressure, diastolic 80 mm[Hg] Ke rri Gruenenfelder blood pressure, systolic 130 mm[Hg] Lesly Olivaselder oxygen saturation, oximetry 96 % Jenny Olivaselder respiratory rate E&M 20 /min Jenny figueroaelder pulse rate 83 /min Jenny Briseno lder weight E&M 184 [lb_av] Jenny Briseno lder height E&M 65 [in_i] Jenny Briseno er pulse rate #2 63 [facility] blood pressure, rivera tolic, second observation 74 mm[Hg] Janiya blood pressure, syst olic, second observation 121 mm[Hg] [facility] oxygen saturation, oximetry 98 % Janiya pulse rate 63 /min [facility] blood pressure, diastolic 74 mm[Hg] [facility], systolic 121 mm[Hg] Ravindra lindsey [facility] pulse rate #2 77 [facility] blood pressure, rivera tolic, second observation 71 mm[Hg] Janiya d blood pressure, syst olic, second observation 109 mm[Hg] Janiya d oxygen saturation, oximetry 98 % Janiya pulse rate 77 /min [facility] blood pressure, diastolic 71 mm[Hg] Vi ctoria [facility] blood pressure, systolic 109 mm[Hg] Ravindra lindsey Tebid pulse rate #2 65 [facility] blood pressure, rivera tolic, second observation 79 mm[Hg] [facility] blood pressure, syst olic, second observation 131 mm[Hg] [facility], [facility] Janiya pulse rate 65 /min [facility] d blood pressure, diastolic 79 mm[Hg] Vi ctoria Tebid blood pressure, systolic 131 mm[Hg] Ravindra portillo bid pulse rate #2 76 [facility] blood pressure, rivera tolic, second observation 97 mm[Hg] [facility] blood pressure, syst olic, second observation 129 mm[Hg] [facility] oxygen saturation, oximetry 98 % [facility] pulse rate 76 /min [facility] blood pressure, diastolic 97 mm[Hg] Vi ctoria [facility] blood pressure, systolic 129 mm[Hg] [facility] #2 71 [facility] blood pressure, rivera tolic, second observation 86 mm[Hg] [facility] blood pressure, syst olic, second observation 125 mm[Hg] [facility] oxygen saturation, oximetry 98 % [facility] pulse rate 71 /min [facility] blood pressure, diastolic 86 mm[Hg] [facility], systolic 125 mm[Hg] Ravindra portillo d pulse rate #2 68 [facility] blood pressure, rivera tolic, second observation 85 mm[Hg] [facility] blood pressure, syst olic, second observation 138 mm[Hg] [facility] oxygen saturation, oximetry 98 % [facility] pulse rate 68 /min [facility] blood pressure, diastolic 85 mm[Hg] Vi ctramsey [facility] blood pressure, systolic 138 mm[Hg] Ravindra tobiasia d pulse rate #2 73 [facility] blood pressure, rivera tolic, second observation 87 mm[Hg] [facility] blood pressure, syst olic, second observation 122 mm[Hg] [facility] oxygen saturation, oximetry 98 % [facility] pulse rate 73 /min [facility] blood pressure, diastolic 87 mm[Hg] Vi [facility] blood pressure, systolic 122 mm[Hg] [facility] #2 63 [facility] blood pressure, rivera tolic, second observation 89 mm[Hg] [facility] blood pressure, syst olic, second observation 134 mm[Hg] [facility] oxygen saturation, oximetry 98 % [facility] pulse rate 63 /min [facility] blood pressure, diastolic 89 mm[Hg] Vi [facility] blood pressure, systolic 134 mm[Hg] Ravindra [facility] pulse rate #2 64 [facility] blood pressure, rivera tolic, second observation 78 mm[Hg] [facility] blood pressure, syst olic, second observation 129 mm[Hg] [facility] oxygen saturation, oximetry 98 % [facility] pulse rate 64 /min [facility] blood pressure, diastolic 78 mm[Hg] Vi [facility] blood pressure, systolic 129 mm[Hg] Ravindra [facility] Body Mass Index (Ratio) 31.12 kg/m2 Monika Montalvo MD blood pressure, cuff size large Ke rri Jessica blood pressure, diastolic 74 mm[Hg] Ke rri Jessica blood pressure, systolic 110 mm[Hg] Lesly Lopez oxygen saturation, oximetry 98 % Jenny Lopez respiratory rate E&M 18 /min Jenny nicole pulse rate 59 /min Jenny kruse weight E&M 187 [lb_av] Jenny sapper height E&M 65 [in_i] Jenyn Briseno [facility] Body Mass Index (Ratio) 32.08 kg/m2 Monika Montalvo MD pulse rate #2 62 [facility] blood pressure, rivera tolic, second observation 85 mm[Hg] [facility] blood pressure, syst olic, second observation 119 mm[Hg] [facility] oxygen saturation, oximetry 98 % [facility] pulse rate 62 /min [facility] blood pressure, diastolic 85 mm[Hg] Vi ctoria [facility] blood pressure, systolic 119 mm[Hg] Ravindra Tejadalizeth blood pressure, diastolic 82 mm[Hg] Patricia Garcia Han blood pressure, systolic 121 mm[Hg] Evette Estrella Han oxygen saturation, oximetry 96 % Kassidy Han respiratory rate E&M 18 /min Liz hewitt Han pulse rate 62 /min Kassidy Daly santos weight E&M 192.8 [lb_av] Kassidy jean height E&M 65 [in_i] Kassidy Daly santos pulse rate #2 87 [facility] blood pressure, rivera tolic, second observation 76 mm[Hg] [facility] blood pressure, syst olic, second observation 115 mm[Hg] [facility] oxygen saturation, oximetry 98 % [facility] pulse rate 87 /min [facility] blood pressure, diastolic 76 mm[Hg] Vi ctoria Tebid blood pressure, systolic 115 mm[Hg] Ravindra Tejadabid pulse rate #2 81 [facility] blood pressure, rivera tolic, second observation 71 mm[Hg] [facility], syst olic, second observation 113 mm[Hg] [facility] oxygen saturation, oximetry 98 % [facility]min Janiya Tebid blood pressure, diastolic 71 mm[Hg] Vi ctoria Tebid blood pressure, systolic 113 mm[Hg] Ravindra lindsey Tebid pulse rate #2 76 [facility] T[facility]id blood pressure, rivera tolic, second observation 84 mm[Hg] Janiya Tebid blood pressure, syst olic, second observation 119 mm[Hg] Janiya Tebid oxygen saturation, oximetry 98 % Janiya Tebid pulse rate 76 /min [facility] Tebid blood pressure, diastolic 84 mm[Hg] Vi ctoria Tebid blood pressure, systolic 119 mm[Hg] Ravindra lindsey Tebid pulse rate #2 63 [facility] T[facility]id blood pressure, rivera tolic, second observation 79 mm[Hg] Janiya Tebid blood pressure, syst olic, second observation 125 mm[Hg] Janiya Tebid oxygen saturation, oximetry 98 % [facility] T[facility] pulse rate 63 /min [facility] T[facility] blood pressure, diastolic 79 mm[Hg] Vi [facility] Tebid blood pressure, systolic 125 mm[Hg] Ravindra lindsey Tebid pulse rate #2 67 [facility] blood pressure, rivera tolic, second observation 72 mm[Hg] Janiya Tebid blood pressure, syst olic, second observation 119 mm[Hg] [facility] T[facility] oxygen saturation, oximetry 98 % [facility] pulse rate 67 /min [facility] Tebid blood pressure, diastolic 72 mm[Hg] Vi ctoria Tebid blood pressure, systolic 119 mm[Hg] Ravindra lindsey Tebid pulse rate #2 67 [facility] T[facility]id blood pressure, rivera tolic, second observation 89 mm[Hg] [facility] Tebid blood pressure, syst olic, second observation 124 mm[Hg] [facility] oxygen saturation, oximetry 98 % [facility] pulse rate 67 /min [facility] blood pressure, diastolic 89 mm[Hg] Vi [facility] Ted blood pressure, systolic 124 mm[Hg] Ravindra portillo pulse rate #2 78 [facility] blood pressure, rivera tolic, second observation 91 mm[Hg] [facility] blood pressure, syst olic, second observation 125 mm[Hg] [facility] oxygen saturation, oximetry 98 % [facility] pulse rate 78 /min [facility] blood pressure, diastolic 91 mm[Hg] [facility], [facility] 125 mm[Hg] Ravindra lindsey Ted pulse rate #2 87 [facility] blood pressure, rivera tolic, second observation 84 mm[Hg] [facility] blood pressure, syst olic, second observation 135 mm[Hg] [facility] oxygen saturation, oximetry 98 % [facility] pulse rate 87 /min [facility] blood pressure, diastolic 84 mm[Hg] Vi [facility] blood pressure, systolic 135 mm[Hg] Ravindra lindsey Body Mass Index (Ratio) 31.95 kg/m2 Monika Montalvo MD blood pressure, cuff size regular oYan Covarrubias blood pressure, diastolic 70 mm[Hg] Yoan Covarrubias blood pressure, systolic 110 mm[Hg] Damaris Covarrubias oxygen saturation, oximetry 98 % Cele Covarrubias respiratory rate E&M 17 /min Cele Covarrubias pulse rate 89 /min Cele Covarrubias height E&M 65 [in_i] Cele Covarrbuias weight E&M 192 [lb_av] Cele Covarrubias pulse rate #2 70 [facility] blood pressure, rivera tolic, second observation 74 mm[Hg] [facility] blood pressure, syst olic, second observation 118 mm[Hg] [facility] oxygen saturation, oximetry 98 % [facility] pulse rate 70 /min [facility] blood pressure, diastolic 74 mm[Hg] Vi paoria [facility] blood pressure, systolic 118 mm[Hg] [facility] pulse rate #2 74 [facility] blood pressure, rivera tolic, second observation 81 mm[Hg] [facility] blood pressure, syst olic, second observation 122 mm[Hg] [facility] oxygen saturation, oximetry 98 % [facility] pulse rate 74 /min [facility] blood pressure, diastolic 81 mm[Hg] Vi [facility] blood pressure, systolic 122 mm[Hg] [facility] pulse rate #2 71 [facility] blood pressure, rivera tolic, second observation 74 mm[Hg] [facility] blood pressure, syst olic, second observation 120 mm[Hg] [facility] oxygen saturation, oximetry 98 % [facility] pulse rate 71 /min [facility] blood pressure, diastolic 74 mm[Hg] Vi ctoria [facility] blood pressure, systolic 120 mm[Hg] Ravindra lindsey [facility] pulse rate #2 60 [facility] blood pressure, rivera tolic, second observation 74 mm[Hg] [facility] blood pressure, syst olic, second observation 110 mm[Hg] [facility] oxygen saturation, oximetry 98 % [facility] pulse rate 60 /min [facility] blood pressure, diastolic 74 mm[Hg] Vi ctoria Tebid blood pressure, systolic 110 mm[Hg] Ravindra lindsey Tebid pulse rate #2 73 [facility] blood pressure, rivera tolic, second observation 68 mm[Hg] [facility], syst olic, second observation 110 mm[Hg] [facility], oximetry 98 % [facility] pulse [facility] 73 /min [facility], diastolic 68 mm[Hg] Vi ctoria Tebid blood pressure, systolic 110 mm[Hg] Ravindra lindsey Tebid pulse rate #2 68 [facility] blood pressure, rivera tolic, second observation 79 mm[Hg] [facility] blood pressure, syst olic, second observation 118 mm[Hg] [facility], oximetry 98 % [facility] pulse rate 68 /min [facility] d blood pressure, diastolic 79 mm[Hg] Vi [facility] Tebid blood pressure, systolic 118 mm[Hg] Ravindra lindsey Tebid pulse rate #2 71 [facility] blood [facility], rivera tolic, second observation 76 mm[Hg] [facility] blood [facility], syst olic, second observation 111 mm[Hg] [facility] oxygen saturation, oximetry 98 % [facility] pulse rate 71 /min [facility] d blood pressure, diastolic 76 mm[Hg] Vi ctoria Tebid blood pressure, systolic 111 mm[Hg] Ravindra lindsey Tebid pulse rate #2 60 [facility] blood pressure, rivera tolic, second observation 71 mm[Hg] [facility] blood pressure, syst olic, second observation 109 mm[Hg] [facility] oxygen saturation, oximetry 98 % Janiya Tebid pulse rate 60 /min Janiya Tebid blood pressure, diastolic 71 mm[Hg] Vi ctoria Tebid blood pressure, systolic 109 mm[Hg] Ravindra lindsey Tebid pulse rate #2 64 [facility] Tebid blood pressure, rivera tolic, second observation 84 mm[Hg] Janiya Tebid blood pressure, syst olic, second observation 120 mm[Hg] Janiya Tebid oxygen saturation, oximetry 98 % Janiya Tebid pulse rate 64 /min [facility] Tebid blood pressure, diastolic 84 mm[Hg] Vi ctoria Tebid blood pressure, systolic 120 mm[Hg] Ravindra lindsey Tebid pulse rate #2 66 [facility] Tebid blood pressure, rivera tolic, second observation 80 mm[Hg] Janiya Tebid blood pressure, syst olic, second observation 109 mm[Hg] Janiya Tebid oxygen saturation, oximetry 98 % Janiya Tebid pulse rate 66 /min [facility] Tebid blood pressure, diastolic 80 mm[Hg] Vi [facility] Tebid blood pressure, systolic 109 mm[Hg] Ravindra lindsey Tebid pulse rate #2 74 [facility] Tebid blood pressure, rivera tolic, second observation 71 mm[Hg] Janiya Tebid blood pressure, syst olic, second observation 121 mm[Hg] Janiya Tebid oxygen saturation, oximetry 98 % Janiya Tebid pulse rate 74 /min [facility] Tebid blood pressure, diastolic 71 mm[Hg] Vi ctoria Tebid blood pressure, systolic 121 mm[Hg] Ravindra lindsey Tebid pulse rate #2 68 [facility] Tebid blood pressure, rivera tolic, second observation 74 mm[Hg] Janiya Tebid blood pressure, syst olic, second observation 115 mm[Hg] [facility], oximetry 98 % [facility] pulse rate 68 /min [facility] d blood pressure, diastolic 74 mm[Hg] Vi ctoria Tebid blood pressure, systolic 115 mm[Hg] Ravindra lindsey Tebid pulse rate #2 71 [facility] blood [facility], rivera tolic, second observation 75 mm[Hg] Janiya d blood pressure, syst olic, second observation 102 mm[Hg] [facility], oximetry 98 % Janiya d pulse rate 71 /min [facility] blood pressure, diastolic 75 mm[Hg] Vi paoria Tebid blood pressure, systolic 102 mm[Hg] Ravindra tobiasia Tebid pulse rate #2 57 [facility] blood pressure, rivera tolic, second observation 76 mm[Hg] [facility], syst olic, second observation 111 mm[Hg] [facility] oxygen saturation, oximetry 98 % Janiya d pulse rate 57 /min [facility] blood pressure, diastolic 76 mm[Hg] Vi paoria Tebid blood pressure, systolic 111 mm[Hg] Ravindra lindsey Tebid pulse rate #2 60 [facility] Tebid blood pressure, rivera tolic, second observation 78 mm[Hg] Janiya Tebid blood pressure, syst olic, second observation 123 mm[Hg] [facility], oximetry 98 % [facility] pulse rate 60 /min [facility] bid blood pressure, diastolic 78 mm[Hg] Vi ctoria Tebid blood pressure, systolic 123 mm[Hg] Ravindra lindsey T[facility] Body Mass Index (Ratio) 30.95 kg/m2 Uspatricia Montalvo MD blood pressure, cuff size regular Ke rri Jessica blood pressure, diastolic 81 mm[Hg] Ke rri Jessica blood pressure, systolic 125 mm[Hg] Lesly ri Ginadanutakory oxygen saturation, oximetry 98 % Jenny Jessica respiratory rate E&M 16 /min Jenny G bonnie pulse rate 76 /min Jenny Finn lder weight E&M 186 [lb_av] Jenny Aristidessuedeweye lder height E&M 65 [in_i] Jenny Ginadanutaroger senaiter blood pressure, diastolic 60 mm[Hg] Patricia Garcia Han blood pressure, systolic 102 mm[Hg] Evette Han pulse rate 66 /min Kassidy Addy rodriguez oxygen saturation, oximetry 96 % Kassidy Han respiratory rate E&M 16 /min LoriCoral hewitt Han blood pressure, diastolic 72 mm[Hg] Ke rri Jessica blood pressure, systolic 110 mm[Hg] Lesly kent Ginadanutakory pulse rate 72 /min Jenny Irvingsuemao senaiter oxygen saturation, oximetry 97 % Jenny Jessica respiratory rate E&M 16 /min Jenny Moises bonnie Body Mass Index (Ratio) 36.44 kg/m2 [place] [facility] Jessica weight E&M 219 [lb_av] Jenny Aristidesliliamdanutaroger lder height E&M 65 [in_i] Jenny Ginadanutae senaiter ALLERGIES No Known Drug Allergies RESULTS Date Observation Value Provider Reference Range Interpretation Location 2 calcium, serum 9.1 mg/dL [facility] 8.7-10.2 2 carbon dioxide, venous blood 22 mmol/L [facility] 20-29 2 chloride, serum 104 mmol/L [facility] 96-106 2 potassium, serum 3.8 mmol/L [facility] 3.5-5.2 2 sodium, serum 143 mmol/L [facility] 245-363 7599/03/2 2 urea nitrogen/creatinine ratio, serum 14 [facility] 9-23 2 eGFR if 96 mL/min/{1 .73_m2} [facility] >59 2 eGFR if not 84 mL/min/{1 .73_m2} [facility] >59 2 creatinine, serum 0.84 mg/dL [facility] 0.57-1.00 2 urea nitrogen, blood 12 mg/dL [facility] 6-24 2 blood glucose, random 92 mg/dL [facility] 65-99 6 free thyroxine index 5.0 ??g/dL [facility] 4.4 - 11.4 6 triiodothyronine uptake 1.2 TBI [facility] 0.8 - 1.3 6 thyroxine, serum, total 6.0 ??G/DL [facility] 4.5 - 11.7 6 thyroid stimulating hormone, serum 3.190 ?IU/ML [facility] 0.270 - 4.200 6 hemoglobin A1C, blood, as % of total hemoglobin 5.3 % [facility] 4.0 - 6.0 6 anion gap, serum 15.7 [facility] - 6 albumin/globulin ratio, serum 3.2 g/dL [facility] 1.1 - 2.5 High 6 globulin, serum 2.3 [facility] 2.3 - 3.8 6 urea nitrogen/creatinine ratio, serum 13.8 [facility] - 6 Estimated Glomerular Filtration Rate (calc) 83.6 (?) [facility] 59.0 - 6 chloride, serum 102.3 mmol/L [facility] 98.0 - 107.0 6 potassium, serum 3.6 mmol/L [facility] 3.5 - 5.1 6 sodium, serum 142.0 mmol/L [facility] 136.0 - 145.0 6 creatinine, serum 0.8 mg/dL [facility] 0.5 - 0.9 6 carbon dioxide, venous blood 24.0 mmol/L [facility] 22.0 - 29.0 6 albumin, serum 4.7 g/dL [facility] 3.5 - 5.2 6 calcium, serum 9.0 mg/dL [facility] 8.6 - 10.2 6 aspartate aminotransferase (SGOT), serum 13.0 1/L [facility] 0.0 - 32.0 6 alkaline phosphatase, serum 68.0 1/L [facility] 40.0 - 130.0 6 alanine aminotransferase (SGPT), serum 18.0 1/L [facility] 0.0 - 33.0 6 protein, total, serum 7.0 g/dL [facility] 6.6 - 8.7 6 bilirubin, serum, total 0.3 mg/dL [facility] 0.0 - 1.2 6 urea nitrogen, blood 11.0 mg/dL [facility] 6.0 - 20.0 6 blood glucose, random 81.0 mg/dL [facility] 74.0 - 99.0 HISTORY OF MEDICATION USE Medication Status Instructions Dates Provider Indications Com ments [facility] MELATONIN TABLET active as needed t o sleep 05/25 Jenny Lopez TRAZODONE HCL TABLET completed once at night 05/29 - 10/26 Jenny Lopez SINGULAIR 10 MG ORAL TABLET active once a day 05/29 Jenny Lopez WELLBUTRIN SR 150 MG ORAL TABLET EXTENDED RELEASE 12 HOUR active once a day 05/29 Jenny Lopez DIAZEPAM 5 MG ORAL TABLET active one pill 4 times a day 04/20 Jenny Lopez GUANFACINE HCL 1 MG ORAL TABLET completed take one pill twice a day 04/20 - 10/26 Jenny Lopez PRILOSEC 40 MG ORAL CAPSULE DELAYED RELEASE active ONE TAB. DAILY Kassidy Han ZOLOFT 100 MG ORAL TABLET completed ONE TAB. DAILY - 10/26 Jenny Lopez LAMICTAL 200 MG ORAL TABLET completed once a day 06/10 - 10/26 Jenny Lopez HYDROCHLOROTHIAZIDE 25 MG ORAL TABLET active once a day 06/10 Jenny Lopez ASPIR-81 81 MG ORAL TABLET DELAYED RELEASE completed once a day 06/10 - 10/26 Kassidy Han WELLBUTRIN XL 150 MG ORAL TABLET EXTENDED RELEASE 24 HOUR completed once a day 06/10 - 10/26 Kassidy Han VITAMIN D3 1000 UNIT ORAL TABLET completed ONE TAB BY MOUTH DAILY - 10/26 Jenny Lopez CALCIUM CARBONATE 600 MG ORAL TABLET active ONE TAB BY MOUTH DAILY Kassidy Han BACLOFEN 10 MG ORAL TABLET completed take one pill three times a day 05/29 - 10/26 Jenny Lopez POTASSIUM CL ER 20 MEQ TABLET active TAKE 1 TABLET BY MOUTH EVERY DAY 04/30 Brijesh Sotomayor SYMBICORT 160-4.5 MCG/ACT INHALATION AEROSOL active use as directed 05/29 Jenny Lopez HYDROCHLOROTHIAZIDE 25 MG ORAL TABLET completed take one pill a day 05/29 - 08/20 Neal Montalvo MD GABAPENTIN 100 MG ORAL CAPSULE completed 1 100mg tab twice daily 400 mg at bedtime - 10/26 Jenny Lopez VENTOLIN HFA 108 (90 BASE) MCG/ACT INHALATION AEROSOL SOLUTION active 2 puffs every 4-6 hours 05/29 Jenny Lopez CLONAZEPAM 0.5 MG ORAL TABLET completed take one pill twice a day 05/29 - 10/26 Jenny Lopez PREDNISONE TABLET completed 40mg taper dose twice a day 05/29 - 10/26 Jenny Whippleer SOCIAL HISTORY Date Observation Value Provider social history E&M Patient radha stricklandly smokes every day. A lcohol Use - no D rug Use - no 1 /2 ppd Smoking History: P atient currently smokes every day. P atient has been counseled to quit. Neal Montalvo MD social history reviewed E&M revi ewed - no changes required Neal Montalvo MD alcohol use no Jenny Finn kruse smoking/tobacco cess ation, patient education and counseling yes Jenny Jessica drug use no Jenny Irvingreina kruse number of years as a smoker 30 a Jenny Jessica smoking history, tot al pack/day 1/2 Jenny Lopez cigarette use yes Jenny horn smoking status Current every day smoker Ke niles Lopez social history E&M Patient radha landry smokes every day. A lcohol Use - no D rug Use - no 1 /2 ppd Smoking History: P atient currently smokes every day. P atient has been counseled to quit. Neal Montalvo MD social history reviewed E&M revi ewed - no changes required Neal Montalvo MD alcohol use no Jenny kruse smoking/tobacco cess ation, patient education and counseling yes Jenny Lopez drug use no Jenny Finn sapper number of years as a smoker 30 a Jenny Lopez smoking history, tot al pack/day 1/2 Jenny Lopez cigarette use yes Jenny horn smoking status Current every day smoker Ke niles Lopez social history reviewed E&M revi ewed - no changes required Neal Montalvo MD alcohol use no Kassidy Daly sharon smoking/tobacco cess ation, patient education and counseling yes Kassidy Han drug use no Kassidy rodriguez number of years as a smoker 30 a Kassidy Han smoking history, tot al pack/day 1/2 Kassidy Han cigarette use yes Kassidy jean smoking status Current every day smoker Kem campbellBenignotania Han social history reviewed E&M revi ewed - no changes required Neal oMntalvo MD alcohol use no Cele Covarrubias smoking/tobacco cess ation, patient education and counseling yes Cele [place] drug use no Cele [place] number of years as a smoker 30 a Cele Marci smoking history, tot al pack/day 1/2 Cele Marci cigarette use yes Cele [place] smoking status Current every day smoker K vivien Angeloby number of grandchildren Neal Montalvo MD U mare Montalvo MD social history reviewed E&M revi ewed - no changes required Neal Montalvo MD alcohol use no Jenny kruse smoking/tobacco cess ation, patient education and counseling yes Jenny Lopez drug use no Jenny kruse number of years as a smoker 30 a Jenny Lopez smoking history, tot al pack/day 1/2 Jenny Lopez cigarette use yes Jenny horn smoking status current every day smoker K niles Lopez social history reviewed E&M revi ewed - no changes required eNal Montalvo MD alcohol use no Kassidy Addy jennifer smoking/tobacco cess ation, patient education and counseling yes Kassidy Han drug use no Kassidy rodriguez number of years as a smoker 30 a Kassidy Han smoking history, tot al pack/day 1/2 Kassidy Han cigarette use yes Kassidy jean smoking status current every day smoker M Heena Han smoking/tobacco cess ation, patient education and counseling yes Neal Montalvo MD quit smoking, stage ready Neal paige MD drug use no Neal Montalvo MD social history E&M Patient radha landry smokes every day. A lcohol Use - no D rug Use - no Smoking History: P atient currently smokes every day. 1 /2 ppd Neal Montalvo MD social history reviewed E&M revi ewed - no changes required Neal Montalvo MD alcohol use no Jenny kruse number of years as a smoker 30 a Jenny Lopez smoking history, tot al pack/day 12 Jenny Lopez cigarette use yes Jenny horn smoking status current every day smoker U mare Montalvo MD MENTAL STATUS Date Observation Value Provider energy level yes Halliday Tebid energy level yes Halliday Tebid energy level yes Halliday Tebid energy level yes Halliday Tebid energy level yes Halliday Tebid energy level yes Halliday Tebid energy level yes Halliday Tebid energy level yes Halliday Tebid energy level yes Halliday Tebid energy level yes Halliday Tebid energy level yes Halliday Tebid energy level yes Halliday Tebid energy level yes Halliday Tebid energy level yes Janiya Tebid energy level yes Janiya Tebid energy level yes Janiya Tebid energy level yes Janiya Tebid energy level yes Janiya Tebid energy level yes Janiya Tebid energy level no Janiya Tebid energy level yes Janiya Tebid energy level yes Janiya Tebid energy level yes Janiya Tebid energy level yes Janiya Tebid energy level yes Janiya Tebid energy level yes Janiya Tebid energy level yes Janiya Tebid energy level yes Janiya Tebid energy level yes Janiya Tebid energy level no Janiya Tebid energy level yes Janiya Tebid energy level yes Janiya Tebid energy level yes Janiya Tebid energy level yes Janiya Tebid energy level no Janiya Tebid FAMILY HISTORY Family Member Condition Mother Family History of Hy pertension: INSURANCE PROVIDERS Payer name Policy type / Coverage type [facility] ID [id number] Other [id number] ADVANCE DIRECTIVES Name Date DISCUSSED - NO DECISION MADE TREATMENT PLAN Date Name Performer Cardiology Follow up :The Patient was reencouraged to stop smoking. Neal Montalvo MD Cardiology Follow up :unknown etiology. Present since 2015. Neal Montalvo MD Cardiology Follow u p : B P today: 130/80 P rior BP: 121/74 (05/19/2018) Labs Reviewed: C reat: 0.8 (05/30/2015) Neal Montalvo MD Cardiology Follow up :The Patient was reencouraged to stop smoking. Neal Montalvo MD Cardiology Follow up Neal duarte MD Cardiology Follow up :Currently symptomatic. Will Ranexa 500mg BID. Will see if she can complete her ECP treatments. She has an abnormal stress test but a clean cardiac cath, so feel that this is probably microvascular disease Neal Montalvo MD Cardiology Follow up : B P today: 110/74 P rior BP: 121/82 (03/17/2017) Labs Reviewed: C reat: 0.8 (05/30/2015) Neal Montalvo MD Cardiology Neal Montalvo MD Cardiology:The Patie nt was reencouraged to stop smoking. Neal Montalvo MD Cardiology: B P today: 121/82 P rior BP: 115/76 (03/09/2017) Labs Reviewed: C reat: 0.8 (05/30/2015) Neal Montalvo MD Cardiology:Patient c ontinues ECP therapy. She will occasionally feel chest tightness during these treatments that will radiate to her head and neck. S he has begun smoking again. W ill revisit possible medical therapy after ECP treatment if no change. [Ranexa] Neal Montalvo MD Cardiology:The Patie nt was reencouraged to stop smoking. Neal Montalvo MD Cardiology:Associate d with shortness of breath and numbness around the mouth. These symptoms had gone away after the last visit but have recently returned. W ill schedule for resuming ECP therapy. Neal Montalvo MD Cardiology: B P today: 110/70 P rior BP: 118/74 (09/07/2016) Labs Reviewed: C reat: 0.8 (05/30/2015) Neal Montalvo MD Cardiology Follow up :Probably small vessel disease. T his patient?s angina is disabling and in my opinion is not readily amenable to surgical intervention by PTCA or cardiac bypass because the patient's coronary anatomy is not readily amenable to such procedures. Neal Montalvo MD Cardiology Follow up :The Patient was reencouraged to stop smoking. Neal Montalvo MD Cardiology:has a pos tive stress test b ut neg cath and has ongoing discomfort on exsertion so will rx. ecp Neal Montalvo MD Cardiology Neal Montalvo MD Cardiology:The Patient was reenc ouraged to stop smoking. Neal Montalvo MD Cardiology Alessio Ann nt : H er updated medication list for this problem includes: Hydrochlorothiazide 25 Mg Oral Tabs (Hydrochlorothiazide) ..... Take one pill a day BP today: 110/72 Neal Montalvo MD Cardiology Alessio Ann nt :The Patient was encouraged to stop smoking. Neal Montalvo MD Date Name BASIC METABOLIC PANE L W/EGFR BASIC METABOLIC PANE L W/EGFR ECP - Medicare ECP Commercial ECP - Medicare Sleep Study Home STR - Nuclear Complete Echo THYROID PANEL WITH T SH, 3RD GENERATION HEMOGLOBIN A1c COMPREHENSIVE METABO LIC PANEL W/EGFR HISTORY OF PROCEDURES Procedure Date Procedure Name Provider Procedure Notes S tatus EKG Neal Montalvo MD completed SNOMED-CT: 43149797 Physical Exam, Performed: Pulse Exam of Foot Neal Montalvo MD completed SNOMED-CT: 627100741 232891 Current Medications Documented Neal Montalvo MD completed SNOMED-CT: 57224492 Physical Exam, Performed: Pulse Exam of Foot Neal Montalvo MD completed EKG Neal Montalvo MD completed SNOMED-CT: 484964590 977595 Current Medications Documented Neal Montalvo MD completed SNOMED-CT: 472905330 Smoking Cessation Counseling Neal Montalvo MD completed SNOMED-CT: 06059464 Physical Exam, Performed: Pulse Exam of Foot Neal Montalvo MD completed EKG Neal Montalvo MD completed SNOMED-CT: 355910724 388335 Current Medications Documented Neal Montalvo MD completed SNOMED-CT: 125577954 800162 Current Medications Documented Neal Montalvo MD completed Stress EKG Gabriel Juan MD completed Cardiolite, 2 units Neal Montalvo MD completed SPECT Images Jaime Green MD compl eted SNOMED-CT: 530023419 Smoking Cessation Counseling Neal Montalvo MD completed SNOMED-CT: 97286775 Physical Exam, Performed: Pulse Exam of Foot Neal Montalvo MD completed EKG Neal Montalvo MD completed SNOMED-CT: 339016270 321840 Current Medications Documented Neal Montalvo MD completed
--- OUTSIDE RECORDS SUMMARY | 2024-06-26 19:08 | XMS_ITS | Encounter Summary ---
Author Organization [facility] Address [address] [place] [address] Phone Care Team Providers Care Electronic Equipment Installer Name Role Phone James Mckenzie MD Primary Care Provider [phone] Hector Brice MD Unavailable Flako Woodson MD Unavailable Yohannes Isaacs MD Unavailable [phone] Aura Read MD Unavailable [phone] Provider, None Primary Care Provider UnavailJavid Maxwell APRN, TUNNEL MINER Primary Care Pr ovider Lexus Carrillo DO Primary Care Provider [phone] Zach Rehman MD Unavailable [phone] Reason for Visit * Reason Comments Medication Refill Encounter Details Date Type Department Care Team (Late st Contact Info) Description 07/29/2022 [facility]ill [facility] [address] [place] [phone] James Mckenzie MD [address] [place] [address] Medication Refill Social History Tobacco Use Types [...] on file Legal 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 No / Unsure 07/19/2022 10:00 AM CDT documented as of this encounter Miscellaneous Notes * Telephone Encounter - Maria Luisa Mcgraw RN - 07/29/2022 4:38 PM CDT Last Vitamin D level 09/12/21 Component Ref Range & Units 10 mo ago 1 yr ago 2 yr ago VITAMIN D, 25 HYDROX >=30 ng/mL 35 30 19 Low Per nursing clinical judgement, provider to review and approve the medication(s) order(s) if appropriate. Requested Prescriptions Pending Prescriptions Disp Refills ergocalciferol (VITAMIN D) 02995 UNIT Capsule [Pharmacy Med Name: VITAMIN D2 1.25MG(50,000 UNIT)] 12 Capsule 3 Sig: TAKE 1 CAPSULE BY MOUTH ONE TIME PER WEEK Vitamin Supplements (Adult) Protocol Passed - 07/29/2022 3:04 PM Passed - Visit with relevant provider in past 12 months or upcoming 90 days Recent Visits Date Type Provider Dept 07/19/22 Office Visit Princess Sherman APRN, CAROL [facility] 05/31/22 Office Visit James Mckenzie MD [facility] 02/23/22 Office Visit James Mckenzie MD [facility] 02/08/22 Office Visit Princess Sherman APRN, TUNNEL MINER [facility] 12/21/21 Office Visit [facility] 11/26/21 Office Visit James Mckenzie MD [facility] 10/19/21 Office Visit James Mckenzie MD [facility] 08/18/21 Office [facility] Show[facility] recent visits within past 365 days and meeting all other requirements Future Appointments Date Type Provider Dept 09/14/22 Appointment Princess Sherman, HALLEY, TUNNEL MINER [facility] Showing future appointments within next 90 days and meeting all other requirements Passed - Vitamin D less than 1.25mg documented in this encounter Plan of Treatment Upcoming Encounters Date Type Department Care Team (Late st Contact Info) Description 09/17/2024 9:00 AM CDT [facility] [place] [address] [place] [address] Yohannes Isaacs MD [address] [place] [address] 09/19/2024 7:00 AM CDT Lab [facility] #[address] [address] [facility] 10/25/2024 8:00 AM CDT Office Visit [facility] - Family Medicine - [place] [address] [facility] [address] Lexus Carrillo, DO [address] [address] documented as of this encounter Visit Diagnoses Diagnosis Vitamin D deficiency Unspecified vitamin D deficiency documented in this encounter Additional Health Concerns Infection Onset Date Last Indicated Resolved Time COVID - 19 01/16/2024 02/06/2024 01/16/2024 9:58 AM CDT Respiratory Rule-Out 01/16/2024 01/16/2024 9:57 AM CDT Assessment Noted Time PHQ-9 Depression Total Score: 0 02/24/20 4:00 PM BINDER CUTTER documented as of this encounter Care Teams Electronic Equipment Installer Relationship Specialty Start Date End Date James Mckenzie MD PCP - General Family Medicine 04/30/19 09/15/23 Provider, [facility] PCP - General 09/16/23 10/04/23 Javid Long, ORTHODONTIC TREATMENT COORDINATOR, TUNNEL MINER [address] [address] PCP - General Advanced Practice Nurse 10/05/2301/11 Lexus Carrillo DO [address] [address] PCP - General Family Medicine 01/16/24 Hector Brice MD [address] [place] [address] Consulting Physician Pulmonary Disease 02/23/22 Flako Woodson MD #[address] [address] Consulting Physician Colon and Rectal Surgery 01/07/23 Yohannes Isaacs MD [address] [place] [address] Consulting Physician Neurology 03/08/23 Aura Read MD [address] [place] [address] Consulting Physician Gastroenterology 01/06/23 Zach Rehman MD [address] [place] [address] Consulting Physician Obstetrics & Gynecology 01/27/24 documented as of this encounter
--- OUTSIDE RECORDS SUMMARY | 2024-06-26 19:08 | XMS_ITS | Encounter Summary ---
Author Organization [facility] Address [address] [place] [address] Phone Care Team Providers Care Machine Repair Person Name Role Phone James Mckenzie MD Primary Care Provider [phone] Hector Brice MD Unavailable Flako Woodson MD Unavailable Yohannes Isaacs MD Unavailable [phone] Aura Read MD Unavailable [phone] Provider, None Primary Care Provider Unavailabl Javid Zafar APRN, INSOLE REINFORCER Primary Care Pr ovider Lexus Carrillo DO Primary Care Provider [phone] Zach Rehman MD Unavailable [phone] Reason for Visit * Reason Comments Medication Refill Encounter Details Date Type Department Care Team (Late st Contact Info) Description 08/04/2022 Refill [facility] - [facility] [address] [place] [address] Yohannes Isaacs MD [address] [place] [address] Medication Refill Social History Tobacco [...] on file 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 Gender Identity Female 12/30/2022 6:13 PM CDT [...] Description 09/17/2024 9:00 AM CDT [facility] [place] [address] [place] [phone] Yohannes Isaacs MD [address] [place] [address] 09/19/2024 7:00 AM CDT Lab [facility] #[address] [phone] [facility] Lab/Ancillary 10/25/2024 8:00 AM CDT Office Visit [facility] - Family Medicine [facility] [address] [place] [address] Lexus Carrillo, DO [address] [address] documented as of this encounter Visit Diagnoses [...] Depression Total Score: 0 02/24/20 4:00 PM CARPENTER WOODEN TANK ERECTING documented as of this encounter Care Teams Machine Repair Person Relationship Specialty Start Date End Date James Mckenzie MD PCP - General Family Medicine 04/30/19 09/15/23 Provider, [facility] PCP - General 09/16/23 10/04/23 Javid Long, PATIENT SUPPORT TECH, INSOLE REINFORCER [address] [address] PCP - General Advanced Practice Nurse 10/05/2301/11 Lexus Carrillo DO [address] [address] PCP - General Family Medicine 01/16/24 Hector Brice MD [address] [place] [address] Consulting Physician Pulmonary Disease 02/23/22 Flako Woodson MD #[address] [address] Consulting Physician Colon and Rectal Surgery 01/07/23 Yohannes Isaacs MD [address] [place] [address] Consulting Physician Neurology 03/08/23 Aura Read MD [address] [place], [place] [phone] Consulting Physician Gastroenterology 01/06/23 Zach Rehman MD [address] [place] [address] Consulting Physician Obstetrics & Gynecology 01/27/24 documented as of this encounter
--- OUTSIDE RECORDS SUMMARY | 2024-06-26 19:08 | XMS_ITS | Encounter Summary ---
Author Organization [facility] Address [address] [place] [address] Phone Care Team Providers Care Assistant Case Manager Name Role Phone James Mckenzie MD Primary Care Provider [phone] Hector Brice MD Unavailable Flako Woodson MD Unavailable Yohannes Isaacs MD Unavailable [phone] Aura Read MD Unavailable [phone] Provider, None Primary Care Provider UnavailJavid Maxwell APRN, GLASS SCULLION Primary Care Pr ovider Lexus Carrillo DO Primary Care Provider [phone] Zach Rehman MD Unavailable [phone] Reason for Visit * Reason Comments Medication Refill Encounter Details Date Type Department Care Team (Late st Contact Info) Description 10/05/2022 Refill [facility] [address] [place] [phone] James Mckenzie MD [address] [place] [address] Medication Refill Social History Tobacco Use Types [...] on file Legal Sex Female 2:36 PM CAR USHER Gender Identity Female 12/30/2022 6:13 PM CDT Sexual Orientation Straight 12/30/2022 6: 13 PM CDT Occupation Industry Job Start Date Job End Date Disabled Not on file Not on file Not on file COVID-19 Exposure Response Date Recorded In the last 10 days, have yo u been in contact with someone who was confirmed or suspected to have Coronavirus/COVID-19? No / Unsure 10/07/2022 6:40 AM CDT documented as of this encounter Miscellaneous Notes * Telephone Encounter - Maria Victoria Greene RN - 10/06/2022 8:03 AM CDT Medication failed the protocol, provider to review and approve the medication order if appropriate. Requested Prescriptions Pending Prescriptions Disp Refills cyclobenzaprine (FLEXERIL) 10 MG Tablet [Pharmacy Med Name: CYCLOBENZAPRINE 10 MG TABLET] 60 Tablet2 Sig: TAKE 1 TABLET BY MOUTH THREE TIMES A DAY NEEDED FOR MUSCLE SPASMS Not Delegated - Muscle Relaxants Protocol Failed - 10/05/2022 9:16 AM Failed - This refill cannot be delegated Passed - Visit with relevant provider in past 12 months or upcoming 90 days Recent Visits Date Type Provider Dept 08/27/22 Office Visit James Mckenzie MD [facility] 08/24/22 Office Visit Javid Long APRN, [facility] 07/19/22 Office Visit Princess Sherman APRN, CAR[facility] 05/31/22 Office Visit James Mckenzie MD [facility] 02/23/22 Office Visit James Mckenzie MD [facility] 02/08/22 Office Visit Princess Sherman, C++ QUANT DEVELOPER, GLASS SCULLION [facility] 12/21/21 Office Visit [facility] 11/26/21 Office Visit James Mckenzie MD [facility] 10/19/21 Office Visit James Mckenzie MD [facility] Showing recent visits within past 365 days and meeting all other requirements Future Appointments Date Type Provider Dept 11/29/22 Appointment James Mckenzie MD [facility] Showing future appointments within next 90 days and meeting all other requirements documented in this encounter Plan of Treatment Upcoming Encounters Date Type Department Care Team (Late st Contact Info) Description 09/17/2024 9:00 AM CDT Office Visit [facility] - [facility]rology - [place] [address] [place] [address] Yohannes Isaacs MD [address] [place] [address] 09/19/2024 7:00 AM CDT Lab [facility] #[address] [address] [facility] Lab/Ancillary 10/25/2024 8:00 AM CDT Office Visit [facility] - Family Medicine - [place] [address] [place] [address] Lexus Carrillo, DO 2 [facility] [address] [place] [address] documented as of this encounter Visit Diagnoses Diagnosis Fibromyalgia Mylagia and myositis, unspecified documented in this encounter Additional Health Concerns Infection Onset Date Last Indicated Resolved Time COVID - 19 01/16/2024 02/06/2024 01/16/2024 9:58 AM CDT Respiratory Rule-Out 01/16/2024 01/16/2024 024 9:57 AM CDT Assessment Noted Time PHQ-9 Depression Total Score: 0 02/24/20 4:00 PM CAR USHER documented as of this encounter Care Teams Assistant Case Manager Relationship Specialty Start Date End Date James Mckenzie MD PCP - General Family Medicine 04/30/19 09/15/23 Provider, None [place] PCP - General 09/16/23 10/04/23 Javid Long, C++ QUANT DEVELOPER, GLASS SCULLION [address] [address] PCP - General Advanced Practice Nurse 10/05/2301/11 Lexus Carrillo DO [address] [address] PCP - General Family Medicine 01/16/24 Hector Brice MD [address] [place] [address] Consulting Physician Pulmonary Disease 02/23/22 Flako Woodson MD #[address] [address] Consulting Physician Colon and Rectal Surgery 01/07/23 Yohannes Isaacs MD [address] [place] [address] Consulting Physician Neurology 03/08/23 Aura Read MD [address] [place] [address] Consulting Physician Gastroenterology 01/06/23 Zach Rehman MD [address] [place] [address] Consulting Physician Obstetrics & Gynecology 01/27/24 documented as of this encounter
--- OUTSIDE RECORDS SUMMARY | 2024-06-26 19:08 | XMS_ITS | Encounter Summary ---
Author Organization [facility] Address [address] [place] [address] Phone Care Team Providers Care Human Capital Consultant Name Role Phone James Mckenzie MD Primary Care Provider [phone] Hector Brice MD Unavailable Flako Woodson MD Unavailable Yohannes Isaacs MD Unavailable [phone] Aura Read MD Unavailable [phone] Provider, None Primary Care Provider UnavailJavid Maxwell APRN, GENERAL HARDWARE SALESPERSON Primary Care Pr ovider Lexus Carrillo DO Primary Care Provider [phone] Zach Rehman MD Unavailable [phone] Reason for Visit * Reason Comments Medication Refill Encounter Details Date Type Department Care Team (Late st Contact Info) Description 08/04/2022 Refill [facility] - [facility] [address] [place] [id number] James Mckenzie MD [address] [place] [address] Medication Refill Social History Tobacco Use Types [...] on file 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 Requested Prescriptions Pending Prescriptions Disp Refills Klor-Con M20 20 MEQ Tablet Controlled Release [Pharmacy Med Name: KLOR-CON M20 TABLET] 360 Tablet 1 Sig: TAKE 2 TABLETS BY MOUTH TWICE A DAY Potassium Supplement Protocol Failed - 08/04/2022 8:44 AM Failed - Normal serum potassium in past 12 months POTASSIUM Date Value Ref Range Status 07/14/2022 3.4 (L) 3.5 - 5.1 mmol/L Final Passed - Visit with relevant provider in past 12 months or upcoming 90 days Recent Visits Date Type Provider Dept 07/19/22 Office Visit Princess Sherman APRN, [facility] 05/31/22 Office Visit James Mckenzie MD [facility] 02/23/22 Office Visit James Mckenzie MD [facility] 02/08/22 Office Visit Princess Sherman APRN, [facility] 12/21/21 Office Visit James Mckenzie MD [facility] 11/26/21 Office Visit James Mckenzie MD [facility] 10/19/21 Office Visit James Mckenzie MD [facility] 08/18/21 Office Visit James Mckenzie MD [facility] Showing recent visits within past 365 days and meeting all other requirements Future Appointments Date Type Provider Dept 09/14/22 Appointment Princess Sherman, FLUOROSCOPE OPERATOR, GENERAL HARDWARE SALESPERSON [facility] Showing future appointments within next 90 days and meeting all other requirements documented in this encounter Plan of Treatment Upcoming Encounters Date Type Department Care Team (Late st Contact Info) Description 09/17/2024 9:00 AM CDT Office Visit [facility] - [place]rology - [place] [address] [place] [address] Yohannes Isaacs MD [address] [place] [address] 09/19/2024 7:00 AM CDT Lab [facility] [address] [facility] [address] [place] [address] [facility] 10/25/2024 8:00 AM CDT Office Visit [facility] - Family Medicine - [place] [address] 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 documented as of this encounter Care Teams Human Capital Consultant Relationship Specialty Start Date End Date James Mckenzie MD PCP - General Family Medicine 04/30/19 09/15/23 Provider, None [place] PCP - General 09/16/23 10/04/23 Javid Long, FLUOROSCOPE OPERATOR, GENERAL HARDWARE SALESPERSON [address] [facility] [address] [place] [address] PCP - General Advanced Practice Nurse 10/05/2301/11 Lexus Carrillo DO [address] [address] PCP - General Family Medicine 01/16/24 Hector Brice MD [address] [place] [id number] Consulting Physician Pulmonary Disease 02/23/22 Flako Woodson MD #[address] [address] Consulting Physician Colon and Rectal Surgery 01/07/23 Yohannes Isaacs MD [address] [place] [phone] Consulting Physician Neurology 03/08/23 Aura Read MD [address] [place] [address] Consulting Physician Gastroenterology 01/06/23 Zach Rehman MD [address] [place] [address] Consulting Physician Obstetrics & Gynecology 01/27/24 documented as of this encounter
--- OUTSIDE RECORDS SUMMARY | 2024-06-26 19:09 | XMS_ITS | CONTINUITY OF CARE DOCUMENT ---
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 Monika Montalvo MD Numbness and tingling in left arm, neck, face active 2 Neal Montalvo MD SLEEP APNEA active Neal Montalvo MD ENCOUNTERS Date Type Provider Location Encounter Diag nosis - In-person encounter Office Visit Neal Montalvo MD [place] [facility] - In-person encounter Office Visit Neal Montalvo MD [place] [facility] - In-person encounter Office Visit Neal Montalvo MD [place] [facility] - In-person encounter Office Visit Neal Montalvo MD [facility] [place] [facility] - In-person encounter Office Visit Neal Montalvo MD [place] [facility] - In-person encounter Office Visit Neal Montalvo MD [place] [facility] SLEEP APNEA - In-person encounter Office Visit Neal Montalvo MD [place] [facility] Chest painTobacco abuseBipolar disorderAnxietyMigraineNeuropathyHTN essentialChronic back painFamily History of Hypertension:Numbness and tingling in left arm, neck, face VITAL SIGNS Date Observation Value Provider pulse rate #2 65 [facility] blood pressure, rivera tolic, second observation 86 mm[Hg] [facility] blood pressure, syst olic, second observation 135 mm[Hg] [facility] oxygen saturation, oximetry 98 % [facility] pulse rate 65 /min [facility] blood pressure, diastolic 86 mm[Hg] Vi ctoria [facility] blood pressure, systolic 135 mm[Hg] Ravindra lindsey [facility] Body Mass Index (Ratio) 30.62 kg/m2 Monika Montalvo MD pulse rate #2 64 [facility] blood pressure, rivera tolic, second observation 79 mm[Hg] [facility] blood pressure, syst olic, second observation 141 mm[Hg] [facility] oxygen saturation, oximetry 96 % [facility] pulse rate 64 /min [facility] blood pressure, diastolic 79 mm[Hg] Vi ctoria [facility] blood pressure, systolic 141 mm[Hg] Ravindra lindsey [facility] blood pressure, cuff size large Ke rri Gruenenfkory blood pressure, diastolic 80 mm[Hg] Ke rri Gruenenfelder blood pressure, systolic 130 mm[Hg] Lesly Olivaselder oxygen saturation, oximetry 96 % Jenny Olivaselder respiratory rate E&M 20 /min Jenny figueroaelder pulse rate 83 /min Jenny Briseno lder weight E&M 184 [lb_av] Jenny Briseno lder height E&M 65 [in_i] Jenny Briseno er pulse rate #2 63 [facility] blood pressure, rivera tolic, second observation 74 mm[Hg] Janiya blood pressure, syst olic, second observation 121 mm[Hg] [facility] oxygen saturation, oximetry 98 % Janiya pulse rate 63 /min [facility] blood pressure, diastolic 74 mm[Hg] [facility], systolic 121 mm[Hg] Ravindra lindsey [facility] pulse rate #2 77 [facility] blood pressure, rivera tolic, second observation 71 mm[Hg] Janiya d blood pressure, syst olic, second observation 109 mm[Hg] Janiya d oxygen saturation, oximetry 98 % Janiya pulse rate 77 /min [facility] blood pressure, diastolic 71 mm[Hg] Vi ctoria Ted blood pressure, systolic 109 mm[Hg] Ravindra lindsey Tebid pulse rate #2 65 [facility] d blood pressure, rivera tolic, second observation 79 mm[Hg] [facility] d blood pressure, syst olic, second observation 131 mm[Hg] [facility], [facility] Janiya pulse rate 65 /min [facility] d blood pressure, diastolic 79 mm[Hg] Vi ctoria Tebid blood pressure, systolic 131 mm[Hg] Ravindra portillo bid pulse rate #2 76 [facility] blood pressure, rivera tolic, second observation 97 mm[Hg] [facility] blood pressure, syst olic, second observation 129 mm[Hg] [facility] oxygen saturation, oximetry 98 % [facility] pulse rate 76 /min [facility] blood pressure, diastolic 97 mm[Hg] Vi ctoria Ted blood pressure, systolic 129 mm[Hg] [facility] blood pressure, rivera tolic, second observation 86 mm[Hg] [facility] blood pressure, syst olic, second observation 125 mm[Hg] [facility] oxygen saturation, oximetry 98 % [facility] pulse rate 71 /min [facility] blood pressure, diastolic 86 mm[Hg] [facility], systolic 125 mm[Hg] Ravindra portillo d pulse rate #2 68 [facility] blood pressure, rivera tolic, second observation 85 mm[Hg] [facility] blood pressure, syst olic, second observation 138 mm[Hg] [facility] oxygen saturation, oximetry 98 % [facility] pulse rate 68 /min [facility] blood pressure, diastolic 85 mm[Hg] Vi ctramsey Ted blood pressure, systolic 138 mm[Hg] Ravindra tobiasia d pulse rate #2 73 [facility] blood pressure, rivera tolic, second observation 87 mm[Hg] [facility] blood pressure, syst olic, second observation 122 mm[Hg] [facility] oxygen saturation, oximetry 98 % [facility] pulse rate 73 /min [facility] blood pressure, diastolic 87 mm[Hg] Vi [facility] blood pressure, systolic 122 mm[Hg] [facility]2 63 [facility] blood pressure, rivera tolic, second observation 89 mm[Hg] [facility] blood pressure, syst olic, second observation 134 mm[Hg] [facility] oxygen saturation, oximetry 98 % [facility] pulse rate 63 /min [facility] blood pressure, diastolic 89 mm[Hg] Vi [facility] blood pressure, systolic 134 mm[Hg] Ravindra [facility] pulse rate #2 64 [facility] blood pressure, rivera tolic, second observation 78 mm[Hg] [facility] blood pressure, syst olic, second observation 129 mm[Hg] [facility] oxygen saturation, oximetry 98 % [facility] pulse rate 64 /min [facility] blood pressure, diastolic 78 mm[Hg] Vi [facility] blood pressure, systolic 129 mm[Hg] Ravindra [facility] Body Mass Index (Ratio) 31.12 kg/m2 Monika Montalvo MD blood pressure, cuff size large Ke rri Jessica blood pressure, diastolic 74 mm[Hg] Ke rri Jessica blood pressure, systolic 110 mm[Hg] Lesly Lopez oxygen saturation, oximetry 98 % Jenny Lopez respiratory rate E&M 18 /min Jenny nicole pulse rate 59 /min Jenny kruse weight E&M 187 [lb_av] Jenny sapper height E&M 65 [in_i] Jenny Briseno [facility] Body Mass Index (Ratio) 32.08 kg/m2 Monika Montalvo MD pulse rate #2 62 [facility] blood pressure, rivera tolic, second observation 85 mm[Hg] [facility] blood pressure, syst olic, second observation 119 mm[Hg] [facility] oxygen saturation, oximetry 98 % [facility] pulse rate 62 /min [facility] blood pressure, diastolic 85 mm[Hg] Vi ctoria [...] Kassidy Daly santos pulse rate #2 87 [facility] blood pressure, rivera tolic, second observation 76 mm[Hg] [facility] blood pressure, syst olic, second observation 115 mm[Hg] [facility] oxygen saturation, oximetry 98 % [facility] pulse rate 87 /min [facility] blood pressure, diastolic 76 mm[Hg] Vi ctoria Tebid blood pressure, systolic 115 mm[Hg] Ravindra Tejadabid pulse rate #2 81 [facility] blood pressure, rivera tolic, second observation 71 mm[Hg] [facility], syst olic, second observation 113 mm[Hg] [facility] oxygen saturation, oximetry 98 % [facility]min Janiya Tebid blood pressure, diastolic 71 mm[Hg] Vi ctoria T[facility]id blood pressure, systolic 113 mm[Hg] Ravindra lindsey Tebid pulse rate #2 76 [facility] Tebid blood pressure, rivera tolic, second observation 84 mm[Hg] Jan[facility] Tebid blood pressure, syst olic, second observation 119 mm[Hg] Jan[facility] Tebid oxygen saturation, oximetry 98 % Janiya Tebid pulse rate 76 /min [facility] Tebid blood pressure, diastolic 84 mm[Hg] Vi ctoria Tebid blood pressure, systolic 119 mm[Hg] Ravindra lindsey Tebid pulse rate #2 63 [facility] Tebid blood pressure, rivera tolic, second observation 79 mm[Hg] [facility] Tebid blood pressure, syst olic, second observation 125 mm[Hg] Janiya Tebid oxygen saturation, oximetry 98 % [facility] pulse rate 63 /min [facility] blood pressure, diastolic 79 mm[Hg] [facility] Tebid blood pressure, systolic 125 mm[Hg] Ravindra lindsey Tebid pulse rate #2 67 [facility] Tebid blood pressure, rivera tolic, second observation 72 mm[Hg] Janiya Tebid blood pressure, syst olic, second observation 119 mm[Hg] [facility] Tebid oxygen saturation, oximetry 98 % [facility]ebid pulse rate 67 /min [facility]ebid blood pressure, diastolic 72 mm[Hg] Vi ctoria Tebid blood pressure, systolic 119 mm[Hg] Ravindra lindsey Tebid pulse rate #2 67 [facility] Tebid blood pressure, rivera tolic, second observation 89 mm[Hg] [facility] Tebid blood pressure, syst olic, second observation 124 mm[Hg] [facility] oxygen saturation, oximetry 98 % [facility] pulse rate 67 /min [facility] blood pressure, diastolic 89 mm[Hg] Vi [facility] Ted blood pressure, systolic 124 mm[Hg] Ravindra portillo pulse rate #2 78 [facility] blood pressure, rivera tolic, second observation 91 mm[Hg] [facility] blood pressure, syst olic, second observation 125 mm[Hg] [facility] oxygen saturation, oximetry 98 % [facility] pulse rate 78 /min [facility] blood pressure, diastolic 91 mm[Hg] [facility], [facility] 125 mm[Hg] Ravindra lindsey Ted pulse rate #2 87 [facility] blood pressure, rivera tolic, second observation 84 mm[Hg] [facility] blood pressure, syst olic, second observation 135 mm[Hg] [facility] oxygen saturation, oximetry 98 % [facility] pulse rate 87 /min [facility] blood pressure, diastolic 84 mm[Hg] Vi [facility] blood pressure, systolic 135 mm[Hg] Ravindra lindsey Body Mass Index (Ratio) 31.95 kg/m2 Monika Montalvo MD blood pressure, cuff size regular Yoan Covarrubias blood pressure, diastolic 70 mm[Hg] Yoan Covarrubias blood pressure, systolic 110 mm[Hg] Damaris Covarrubias oxygen saturation, oximetry 98 % Cele Covarrubias respiratory rate E&M 17 /min Cele Covarrubias pulse rate 89 /min Cele Covarrubias height E&M 65 [in_i] Cele Covarrubias weight E&M 192 [lb_av] Cele Covarrubias pulse rate #2 70 [facility] blood pressure, rivera tolic, second observation 74 mm[Hg] [facility] blood pressure, syst olic, second observation 118 mm[Hg] [facility] oxygen saturation, oximetry 98 % [facility] pulse rate 70 /min [facility] blood pressure, diastolic 74 mm[Hg] Vi cooria [facility] blood pressure, systolic 118 mm[Hg] [facility] pulse rate #2 74 [facility] blood pressure, rivera tolic, second observation 81 mm[Hg] [facility] blood pressure, syst olic, second observation 122 mm[Hg] [facility] oxygen saturation, oximetry 98 % [facility] pulse rate 74 /min [facility] blood pressure, diastolic 81 mm[Hg] [facility], systolic 122 mm[Hg] [facility] pulse rate #2 71 [facility] blood pressure, rivera tolic, second observation 74 mm[Hg] [facility] blood pressure, syst olic, second observation 120 mm[Hg] [facility] oxygen saturation, oximetry 98 % [facility] pulse rate 71 /min [facility] blood pressure, diastolic 74 mm[Hg] Vi [facility], systolic 120 mm[Hg] Ravindra lindsey [facility] pulse rate #2 60 [facility] blood pressure, rivera tolic, second observation 74 mm[Hg] [facility] blood pressure, syst olic, second observation 110 mm[Hg] [facility] oxygen saturation, oximetry 98 % [facility] pulse rate 60 /min [facility] blood pressure, diastolic 74 mm[Hg] Vi ctoria Tebid blood pressure, systolic 110 mm[Hg] Ravindra lindsey Tebid pulse rate #2 73 [facility] blood pressure, rivera tolic, second observation 68 mm[Hg] [facility], syst olic, second observation 110 mm[Hg] [facility] oxygen [facility], oximetry 98 % [facility] pulse rate 73 /min [facility] blood pressure, diastolic 68 mm[Hg] Vi ctoria Tebid blood pressure, systolic 110 mm[Hg] Ravindra lindsey Tebid pulse rate #2 68 [facility] d blood pressure, rivera tolic, second observation 79 mm[Hg] [facility] blood pressure, syst olic, second observation 118 mm[Hg] [facility], oximetry 98 % [facility] pulse rate 68 /min [facility] d blood pressure, diastolic 79 mm[Hg] [facility] Tebid blood pressure, systolic 118 mm[Hg] Ravindra lindsey Tebid pulse rate #2 71 [facility] blood pressure, rivera tolic, second observation 76 mm[Hg] [facility] blood pressure, syst olic, second observation 111 mm[Hg] [facility] oxygen saturation, oximetry 98 % [facility] pulse rate 71 /min [facility] blood pressure, diastolic 76 mm[Hg] Vi ctoria Tebid blood pressure, systolic 111 mm[Hg] Ravindra lindsey Tebid pulse rate #2 60 [facility] blood pressure, rivera tolic, second observation 71 mm[Hg] [facility] blood pressure, syst olic, second observation 109 mm[Hg] [facility] oxygen saturation, oximetry 98 % [facility] Tebid pulse rate 60 /min Janiya Tebid blood pressure, diastolic 71 mm[Hg] Vi ctoria Tebid blood pressure, systolic 109 mm[Hg] Ravindra lindsey Tebid pulse rate #2 64 [facility] Tebid blood pressure, rivera tolic, second observation 84 mm[Hg] Jan[facility] Tebid blood pressure, syst olic, second observation 120 mm[Hg] Jan[facility] Tebid oxygen saturation, oximetry 98 % Janiya Tebid pulse rate 64 /min [facility]ebid blood pressure, diastolic 84 mm[Hg] Vi ctoria Tebid blood pressure, systolic 120 mm[Hg] Ravindra lindsey Tebid pulse rate #2 66 [facility] Tebid blood pressure, rivera tolic, second observation 80 mm[Hg] Janiya Tebid blood pressure, syst olic, second observation 109 mm[Hg] Jan[facility] Tebid oxygen saturation, oximetry 98 % Janiya Tebid pulse rate 66 /min [facility] blood pressure, diastolic 80 mm[Hg] [facility] Tebid blood pressure, systolic 109 mm[Hg] Ravindra lindsey Tebid pulse rate #2 74 [facility]ebid blood pressure, rivera tolic, second observation 71 mm[Hg] Janiya Tebid blood pressure, syst olic, second observation 121 mm[Hg] Janiya Tebid oxygen saturation, oximetry 98 % Janiya Tebid pulse rate 74 /min [facility] blood pressure, diastolic 71 mm[Hg] Vi ctoria Tebid blood pressure, systolic 121 mm[Hg] Ravindra lindsey Tebid pulse rate #2 68 [facility] Tebid blood pressure, rivera tolic, second observation 74 mm[Hg] Jan[facility] Tebid blood pressure, syst olic, second observation 115 mm[Hg] [facility], oximetry 98 % [facility] pulse rate 68 /min [facility] d blood pressure, diastolic 74 mm[Hg] Vi ctoria Tebid blood pressure, systolic 115 mm[Hg] Ravindra lindsey Tebid pulse rate #2 71 [facility] blood pressure, rivera tolic, second observation 75 mm[Hg] [facility] d blood pressure, syst olic, second observation 102 mm[Hg] [facility], oximetry 98 % Janiya d pulse rate 71 /min [facility] blood pressure, diastolic 75 mm[Hg] Vi cooria Tebid blood pressure, systolic 102 mm[Hg] Ravindra tobiasia Tebid pulse rate #2 57 [facility] d blood pressure, rivera tolic, second observation 76 mm[Hg] [facility] blood [facility], syst olic, second observation 111 mm[Hg] [facility] oxygen saturation, oximetry 98 % Janiya d pulse rate 57 /min [facility] blood pressure, diastolic 76 mm[Hg] Vi cooria Tebid blood pressure, systolic 111 mm[Hg] Ravindra lindsey Tebid pulse rate #2 60 [facility] Tebid blood pressure, rivera tolic, second observation 78 mm[Hg] Janiya Tebid blood pressure, syst olic, second observation 123 mm[Hg] [facility] oxygen [facility], oximetry 98 % [facility] pulse rate 60 /min [facility] bid blood pressure, diastolic 78 mm[Hg] Vi [...] 3.5-5.2 2 sodium, serum 143 mmol/L [employer] [id number] 2 urea nitrogen/creatinine ratio, serum 14 [employer] [...] Status Instructions Dates Provider Indications Com ments [facility] MELATONIN TABLET active as needed t o [...] completed ONE TAB. DAILY - 10/26 Jenny Lpoez LAMICTAL 200 MG ORAL TABLET completed once [...] required Neal Montalvo MD alcohol use no Cele Covarrubias smoking/tobacco cess ation, patient education and counseling yes Cele [place] drug use no Cele [place] number of years as a smoker 30 a Cele Marci smoking history, tot al pack/day 1/2 Cele Marci cigarette use yes Cele [place] smoking status Current every day smoker K [...] Neal Montalvo MD alcohol use no Kassidy Addy jennifer smoking/tobacco cess ation, patient education and counseling yes Kassidy Han drug use no Kassidy rodriguez number of years as a smoker 30 a Kassidy Han smoking history, tot al pack/day 1/2 Kassidy Han cigarette use yes Kassidy jean smoking status current every day smoker M Heean Han smoking/tobacco cess ation, patient education and [...] Date Observation Value Provider energy level yes [facility] T[facility]id energy level yes [facility] energy level yes [facility] energy level yes [facility] energy level yes [facility] energy level yes [facility] energy level yes [facility] energy level yes [facility] energy level yes [facility] energy level yes [facility] energy level yes [facility] energy level yes [facility] energy level yes [facility] T[facility] energy level yes Janiya Tebid energy [...] Payer name Policy type / Coverage type [facility] [place] [id number] Other [id number] ADVANCE DIRECTIVES Name Date DISCUSSED - NO [...] tatus EKG Neal Montalvo MD completed SNOMED-CT: [id number] Physical Exam, Performed: Pulse Exam of Foot Neal Montalvo MD completed SNOMED-CT: 972141270 [id number] Current Medications Documented Neal Montalvo MD completed SNOMED-CT: [id number] Physical Exam, Performed: Pulse Exam of Foot Neal Montalvo MD completed EKG Neal Montalvo MD completed SNOMED-CT: [id number] Current Medications Documented Neal Montalvo MD completed SNOMED-CT: [id number] Smoking Cessation Counseling Neal Montalvo MD completed SNOMED-CT: 89941552 Physical Exam, Performed: Pulse Exam of Foot Neal Montalvo MD completed EKG Neal Montalvo MD completed SNOMED-CT: [id number] 826712 Current Medications Documented Neal Montalvo MD completed SNOMED-CT: [id number] Current Medications Documented Neal Montalvo MD completed Stress EKG Gabriel Juan MD completed Cardiolite, 2 units Neal Montalvo MD completed SPECT Images Jaime Green MD compl eted SNOMED-CT: [id number] Smoking Cessation Counseling Neal Montalvo MD completed SNOMED-CT: 31964188 Physical Exam, Performed: Pulse Exam of Foot Neal Montalvo MD completed EKG Neal Montalvo MD completed SNOMED-CT: [id number] [id number] Current Medications Documented Neal Montalvo MD completed
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
== END 2024-06-26 19:41 | disposition home or self-care (01) ==
PROVIDERS: Emergency Provider Nurse Practitioner
DX: S16.1XXA Strain of muscle, fascia and tendon at neck level, initial encounter (principal); V49.40XA Driver injured in collision with unspecified motor vehicles in traffic accident, initial encounter; I25.10 Atherosclerotic heart disease of native coronary artery without angina pectoris; I10 Essential (primary) hypertension; E78.5 Hyperlipidemia, unspecified; M79.7 Fibromyalgia; J45.909 Unspecified asthma, uncomplicated; F41.9 Anxiety disorder, unspecified
CPT/HCPCS: 99213; G0463